=== PATIENT | female | born 1960 | race Caucasian/White ===

== ENCOUNTER 2018-10-03 07:30 | Inpatient (IN) | payer MEDICARE, MEDICAID ==
[2018-10-17] MEDS ORDERED: Tranexamic Acid 1,000 MG in NS 0.9% 50 ML* (outpatient use) IV SCH ×2
--- OUTSIDE RECORDS SUMMARY | 2018-10-17 05:34 | XMS REPORT | Continuity of Care Document ---
:1960 External Reference #:[id number] Author Name MAXINE Noel Address [address] [facility] [place] [address] Care Team Providers Name Role Phone Neda Wesley MD Care Team Information Lapel Baster Unavailable Austin Carvajal D.OKiran Primary Care Physician Unavailable Payers Date Identification Numbers Payment Provider Subscriber Effective: 2018 Policy Number: [id number] [facility] Medicare Solutions Rosario Sanchez Expires: 2018 PayID: [id number] [address] [address] [place] [address] Effective: 2018 Policy Number: [id number] Medicare Rosario Sanchez PayID: [id number] [address] [place] [address] Policy Number: [id number] Medicaid Rosario Sanchez Group Name: 1 1 [address] PayID: [id number] [place] [address] Advance Directives Description No Information Available Problems Date Description Provider Status Onset: 07/05/2018 Knee pain Eliazar Ruiz M.D. Active Onset: 07/05/2018 Knee joint effusion Eliazar Ruiz M.D. Active Onset: 07/05/2018 Arthroplasty of knee Eliazar Ruiz M.D. Active Family History Date Family Member(s) Observation Comments Father Diabetes Father Hypertension Father Heart Disease Mother Hypertension Social History Type Date Description Comments Sex Unknown Lives With Alone Occupation Retired ETOH Use Denies alcohol use Tobacco Use Start: Unknown Patient has never smoked Smoking Status Reviewed: 09/20/18 Patient has never smoked Exercise Type/Frequency Exercises rarely Allergies, Adverse Reactions, Alerts Date Description Reaction Status Severity Comments 03/03/2018 Bactrim Active 03/03/2018 Percocet Active 03/03/2018 Sulfa Antibiotics Active Medications Medication Date Status Form Strength Qnty SIG Indications Ordering Provider Ventolin HFA Active Aerosol 108(90Bas 2 puffs Unknown /0000 e) by mouth mcg/Act four times a day as needed Calcium + D3 Active Tablets 250-200mg 1 tablet Unknown /0000 orally twice a day Divalproex Sodium ER Active Tablets 250mg take 1/2 Unknown /0000 ER 24HR tab orally qd Duloxetine HCL Active Caps DR 30mg 1 orally Unknown /0000 Part bid Ferrous Sulfate Active Tablets 325(65Fe) 1 by Unknown /0000 mg mouth every day Zolpidem Tartrate Active Tablets 5mg take 1 Unknown /0000 tablet by mouth at bedtime as needed -- maximum daily dose of 1 per day Buspirone HCL Active Tablets 15mg take one Unknown /0000 tablet orally tid Omeprazole Active Capsules 40mg 1 by Unknown /0000 DR mouth every day Clonazepam Active Tablets 0.5mg 1 tablet Unknown /0000 orally tid prn Gabapentin Active Tablets 600mg take one Unknown /0000 tablet by mouth three times a day Calcium Citrate + D Active Tablets 250-200mg 1 tab in Unknown /0000 -Unit the morning. Nystatin Active Powder [id number] apply Unknown /0000 t/GM twice daily until rash clears Morphine Sulfate ER Active Tablets 15mg 1 tab Unknown /0000 ER every 8 hours Ropinirole HCL Active Tablets 0.25mg 1 tab at Unknown /0000 night Hydrochlorothiazide Active Tablets 25mg 1 by Unknown /0000 mouth every day Vitamin D High Active Capsules 1000Unit 1 by Unknown Potency /0000 mouth every day Glucophage Hx Tablets 500mg take 1 Unknown /0000 tablet - by mouth 06/28 twice a day Hydrocodone-Acetamino Hx Tablets 10-325mg 1 tab by Unknown phen /0000 mouth - every 4 / hours. MDD=5 Diclofenac Sodium Hx Tablets 50mg 1 by Unknown /0000 DR mouth - twice a 08/29 day needed Immunizations Description No Information Available Vital Signs Date Vital Result Comment 09/20/2018 11:14am Height 68 inches 5'8" Weight 251.00 lb Heart Rate 76 /min BP Systolic Recheck 130 mmHg BP Diastolic Recheck 84 mmHg Respiratory Rate 16 /min Body Temperature 98.0 F BMI (Body Mass Index) 38.2 kg/m2 07/19/2018 2:35pm Height 68 inches 5'8" Weight 259.00 lb Heart Rate 76 /min BP Systolic Recheck 98.2 mmHg BP Diastolic Recheck 84 mmHg Respiratory Rate 16 /min Body Temperature 98.2 F BMI (Body Mass Index) 39.4 kg/m2 07/05/2018 10:34am Height 68 inches 5'8" Weight 268.00 lb Heart Rate 76 /min BP Systolic Recheck 130 mmHg BP Diastolic Recheck 84 mmHg Respiratory Rate 16 /min Body Temperature 97.9 F BMI (Body Mass Index) 40.7 kg/m2 Results Test Date Facility Test Result H/L Range Note Urinalysis Profile 10/03/2018 [facility] Urine Color Yellow [address] [place] [address] [phone] Urine Appearance Clear Urine Specific [place] 1.016 N 1.010-1.030 Urine pH 7.0 N 5-9 Urine Urobilinogen Negative Negative Urine Ketones Negative Negative Urine Protein Negative Negative Urine Leukocytes Negative Negative Urine Blood Negative Negative Urine Nitrite Negative Negative Urine Bilirubin Negative Negative Urine Glucose Negative Negative Procedures Date Code Description Status 07/14/2018 85417 Holter Monitor Review (24 hr)dr review & interp only Completed 07/08/2018 39583 ECHO Transthorasic Realtime 2D W Doppler & Color Flow Hosp Completed 07/08/2018 22336 ECHO Transthorasic Realtime 2D W Doppler & Color Flow Hosp Completed Encounters Type Date Location Provider Dx Diagnosis Office Visit 07/19/2018 Orthopedic Eliazar Ruiz M25.462 Effusion, left 2:45p [facility] [address] AT M.D. knee [place] Z96.652 Presence of left artificial knee joint T84.093A [facility] compl of internal left knee prosthesis, init encntr Office Visit 07/05/2018 10:30a Orthopedic Eliazar Ruiz M25.562 Pain in left [facility] [address] AT M.D. knee [place] M25.462 Effusion, left knee Z96.652 Presence of left artificial knee joint Plan of Treatment Future Appointment(s):10/31/2018 10:45 am - Austin Chaves MD at [facility] [address] AT Eygqzimb35/22/2019 7:30 am - LILLIAN Alfaro at [facility]10/17/2018 7:30 am - Eliazar Ruiz M.D. at [facility]..09/20/2018 - Eliazar Ruiz M.D.T84.093D Other mechanical complication of internal left knee oczrjthpA73.652 Presence of left artificial knee jointFollow up:Approx 10/26 for post-op visit from 10/16
--- OUTSIDE RECORDS SUMMARY | 2018-10-17 05:34 | XMS REPORT | Continuity of Care Document ---
:1960 External Reference #:[id number] Author Name Crystal Torres Care Team Providers Name Role Phone Neda Wseley MD Care Team Information Manager Code Unavailable Austin Carvajal D.OKiran Primary Care Physician Unavailable Payers Date Identification Numbers Payment Provider Subscriber Effective: 2018 Policy Number: [id number] [facility] Medicare Solutions Rosario Sanchez Expires: 2018 PayID: [id number] [address] [address] [place] [address] Effective: 2018 Policy Number: [id number] Medicare Rosario Sanchez PayID: [id number] [address] [place] [address] Policy Number: [id number] Medicaid Rosario Sanchez Group Name: 1 1 [address] PayID: [id number] [place] [address] Advance Directives Description No Information Available Problems [...] Clonazepam Active Tablets 0.5mg 1 tablet Unknown / orally tid prn Gabapentin Active Tablets 600mg take one Unknown /0000 tablet by mouth three times a day Calcium Citrate + D Active Tablets 250-200mg 1 tab in Unknown /0000 -Unit the morning. Nystatin Active Powder 106986Ods apply Unknown /0000 t/GM twice daily until [...] BMI (Body Mass Index) 40.7 kg/m2 Results Description No Information Available Procedures Date Code Description Status 07/14/2018 23582 Holter Monitor Review (24 hr)dr review & interp only Completed 07/08/2018 44190 ECHO Transthorasic Realtime 2D W Doppler & Color Flow Hosp Completed 07/08/2018 02130 ECHO Transthorasic Realtime 2D W Doppler & Color Flow Hosp Completed Encounters Type Date Location Provider Dx Diagnosis Office Visit 07/19/2018 Orthopedic Eliazar Ruiz, M25.462 Effusion, left 2:45p [facility] AT M.D. knee [place] Z96.652 Presence of left artificial knee joint T84.093A [facility] compl of internal left knee prosthesis, init encntr Office Visit 07/05/2018 10:30a Orthopedic Eliazar Ruiz M25.562 Pain in left [facility] AT M.D. knee [place] M25.462 Effusion, left knee Z96.652 Presence of left artificial knee joint Plan of Treatment Future Appointment(s):10/31/2018 10:45 am - Austin Chaves MD at [facility] AT Sqgvahnr74/22/2019 7:30 am - LILLIAN Alfaro at [facility]10/17/2018 7:30 am - Eliazar Ruiz M.D. at [facility]09/20/2018 - Eliazar Ruiz M.D.T84.093D Other mechanical complication of internal left knee iecijuhnA20.652 Presence of left artificial knee jointFollow up:Approx 10/26 for post-op visit from 10/16
[2018-10-17] MEDS ORDERED: Dexamethasone IV* 4 MG/ML 1 ML (4 MG) IV SLOW PU ONE (06:00)
[2018-10-17] MEDS ORDERED: Acetaminophen TAB* 325 MG PO ONE (06:00)
[2018-10-17] MEDS ORDERED: Famotidine TAB* 20 MG PO ONE (06:00)
[2018-10-17] MEDS ORDERED: Lactated Ringers 1000 ML Bag* 1,000 ML IV SCH (06:00)
[2018-10-17] MEDS ORDERED: celeCOXIB CAP* 100 MG PO ONE (06:00)
[2018-10-17] MEDS ORDERED: celeCOXIB CAP* 200 MG PO ONE (06:00)
[2018-10-17] MEDS ORDERED: Dexamethasone IV* 4 MG/ML 1 ML (4 MG) ONE (06:04)
[2018-10-17] MEDS ORDERED: celeCOXIB CAP* 100 MG ONE (06:04)
[2018-10-17] MEDS ORDERED: Famotidine TAB* 20 MG ONE (06:04)
[2018-10-17] MEDS ORDERED: Buffered Lidocaine 1% SYRIN* 1 ML/SYRINGE INTRADERM ONE (06:05)
[2018-10-17] MEDS ORDERED: ceFAZolin 2 GM in NS PREMIX(*) 2 GM/100 ML BAG IVPB ONE (06:05)
[2018-10-17] MEDS ORDERED: Acetaminophen TAB* 325 MG ONE (06:37)
[2018-10-17] MEDS: Buffered Lidocaine 1% SYRIN* 1 ML/SYRINGE INTRADERM ONE ×2 (06:38→19:41)
[2018-10-17] MEDS ORDERED: Lidocaine 1%* 5 ML VIAL ONE (07:16)
[2018-10-17] MEDS ORDERED: ROPIVACAINE 5 MG/ML 30 ML BTL (0.5%) ONE (07:16)
[2018-10-17] MEDS ORDERED: fentaNYL* 50 MCG/ML 2 ML VIAL (100 MCG VIAL) ONE ×3 (07:18→10:41)
[2018-10-17] MEDS ORDERED: Midazolam* 1 MG/ML 2 ML VIAL (2 MG) ONE (07:18)
[2018-10-17] MEDS ORDERED: Bupivacaine 0.5%* 50 ML VIAL ONE (07:24)
[2018-10-17] MEDS ORDERED: KETAMINE HCL* 50 MG/ML 10 ML VIAL ONE (08:03)
[2018-10-17] MEDS ORDERED: Propofol* 10 MG/ML 20 ML BTL ONE (08:09)
[2018-10-17] MEDS ORDERED: Bupivacaine 0.5% W/EPI SDV* 30 ML VIAL ONE ×2 (08:10→08:16)
[2018-10-17] MEDS ORDERED: Ondansetron INJ* 2 MG/ML VIAL IV PRN (08:16)
[2018-10-17] MEDS ORDERED: Ketorolac INJ* 30 MG/ML 1 ML VIAL IV PRN (08:16)
[2018-10-17] MEDS ORDERED: Acetaminophen IV 1GM/100ML * 1,000 MG/100 ML VIAL IVPB ONE (08:16)
[2018-10-17] MEDS ORDERED: DiMENhydriNATE IV* 50 MG/ML VIAL IV PUSH PRN (08:16)
[2018-10-17] MEDS ORDERED: Naloxone* 0.4 MG/ML 1 ML VIAL IV PRN (08:16)
[2018-10-17] MEDS ORDERED: HYDROmorphone INJ1* 1 MG/ML SYRINGE IV PRN (08:16)
[2018-10-17] MEDS ORDERED: oxyCODONE TAB* 5 MG TAB PO PRN (08:16)
[2018-10-17] MEDS ORDERED: Metoprolol Tartrate IV* 1 MG/ML 5 ML VIAL ONE ×2 (09:27→10:36)
[2018-10-17] MEDS ORDERED: Magnesium Hydroxide LIQ* 30 ML UDC PO PRN (09:49)
[2018-10-17] MEDS ORDERED: Albuterol HFA INHALER* 8 gm MDI INH PRN (09:53)
[2018-10-17] MEDS ORDERED: traMADol TAB* 50 MG PO SCH (10:00)
[2018-10-17] MEDS ORDERED: Metoprolol Tartrate IV* 1 MG/ML 5 ML VIAL IV PRN (10:32)
[2018-10-17] MEDS ORDERED: traMADol TAB* 50 MG ONE ×2 (10:41→14:09)
[2018-10-17] MEDS: fentaNYL* 50 MCG/ML 2 ML VIAL (100 MCG VIAL) IV PRN ×2 (10:45→14:00)
[2018-10-17] MEDS ORDERED: Acetaminophen IV 1GM/100ML * 100 ML ONE (11:54)
[2018-10-17] MEDS: Gabapentin CAP(*) 300 MG PO SCH ×2 (12:19→21:41)
[2018-10-17] MEDS: busPIRone TAB* 15 MG PO SCH ×3 (12:19→22:16)
[2018-10-17] MEDS: clonazePAM TAB(*) 1 MG PO SCH ×2 (12:19→21:40)
[2018-10-17] MEDS: Morphine ORAL.SOLN 10 mg* 2 MG/ML UDC 5 ml PO SCH ×2 (12:20→21:38)
[2018-10-17 13:25] LABS: ABS Basophils 0 10^3/ul (0-0.2); ABS Eosinophils 0 10^3/ul (0-0.6); ABS Lymphocytes 0.6 10^3/ul (1.0-4.8); ABS Monocytes 0.1 10^3/ul (0-0.8); ABS Neutrophils 6.7 10^3/ul (1.5-7.7); ABS Nucleated RBC 0 10^3/ul; Eosinophil % 0.1 %; Hematocrit 40 % (33-41); Hemoglobin 13.3 g/dL (12.0-16.0); Mean Corpuscular HGB Conc 33 g/dL (31-36); Mean Corpuscular Hemoglobin 31 pg (27-31); Mean Corpuscular Volume 92 fL (80-97); Mean Platelet Volume 8.3 fL (7.4-10.4); Nucleated Red Blood Cells % 0; Platelet Count 194 10^3/uL (150-450); Red Blood Count 4.37 10^6 /uL (3.70-4.87); Red Cell Distribution Width 15 % (10.5-15); White Blood Count 7.5 10^3/uL (3.5-10.8)
[2018-10-17 13:47] LABS: Anion Gap 4 mmol/L (2-11); Blood Urea Nitrogen 16 mg/dL (6-24); CO2 Carbon Dioxide 34 mmol/L (22-32); Calcium 8.9 mg/dL (8.6-10.3); Chloride 99 mmol/L (101-111); EGFR African American 74.3 (>60); EGFR Non-African American 61.4 (>60); Glucose 130 mg/dL (70-100); Magnesium 2.4 mg/dL (1.9-2.7); Potassium 4.4 mmol/L (3.5-5.0); Sodium 137 mmol/L (135-145)
[2018-10-17] MEDS ORDERED: busPIRone TAB* 15 MG PO SCH (14:00)
[2018-10-17] MEDS: traMADol TAB* 50 MG PO PRN (14:10)
--- NOTE | 2018-10-17 14:11 | OP ---
DATE OF OPERATION: 10/17/18 - ROOM #447 DATE OF : 62 SURGEON: Eliazar Ruiz MD SWEET PICKLED FRUIT MAKER: Ingrid Flores RPA ANESTHESIA: Regional/spinal/sedation. PRE-OP DIAGNOSIS: Instability, left total knee arthroplasty. POST-OP DIAGNOSIS: Instability, left total knee arthroplasty. OPERATIVE PROCEDURE: Revision tibial polyethylene, left total knee. INDICATIONS: Ms. Sanchez is a 58-year-old female who, in 2003, underwent a left total knee replacement. This was the Scorpio system which is now discontinued. She also had a cruciate-retaining knee placed. Last fall, she had fallen, injuring the left knee and had significant left knee pain. She also now could hyperextend and had some very specific instability. I discussed with her that revising the polyethylene might work to restore the stability but we may end up needing to switch out to a cruciate-substituting knee replacement. Unfortunately, the Scorpio system is discontinued, so there are no femoral components available as I was hoping just to change the femoral component to a PS type implant. I discussed with her we would try with just a polyethylene but if her stability was not improved, we would then need to change out both the femoral and tibial components. Other risks of surgery such as infection, scar formation, stiffness, DVT, pulmonary embolism, hardware failure, and continued instability were some of the risks discussed. She had been declared medically optimized and wished to proceed. ESTIMATED BLOOD LOSS: Less than 20 cc. COMPLICATIONS: None. DESCRIPTION OF PROCEDURE: The patient had a femoral nerve block placed in the holding area and was brought back to the OR. Spinal anesthesia was introduced. Agosto catheter was placed. Tourniquet was placed over the proximal left thigh and was used during the case. Total tourniquet time would be 42 minutes. Left knee was prepped and then draped. Esmarch was used to exsanguinate the leg and the tourniquet was raised. Incision was made using the old scar which was slightly lateral. Incision was carried down through the skin and subcutaneous tissues. Extensor mechanism was exposed and a sharp parapatellar arthrotomy was made. Just a little bit of clear yellowish joint fluid was encountered. Soft tissues were sharply elevated from the medial side of the tibia and part of her fat pad had regrown and this was also sharply excised. Care was taken not to damage the polyethylene of the patella or scrape against the metal of her femur. With taking down some of the soft tissues, nice exposure anteriorly of the polyethylene was obtained and using an osteotome, this was driven down and then levered upwards and polyethylene popped out. She had significant posterior lip wear; on the medial side she was completely worn down and she was wearing on the lateral side as well. Knee was copiously pulse lavaged and some of the soft tissues and fibrillated little bits of tissue were also sharply removed. Trial polyethylene was placed and with a 10, she still hyperextended and had some of that same side-to- side instability. With the 12, this improved significantly, but she still had some of that [id number] play. With the 15, however, this was completely resolved and she no longer hyperextended. The knee still flexed very nicely but now patella occasionally wanted to flip over from the top side. Considering though that she flexed all the way back, had excellent stability now, I thought this would work well so that we do not have to rip out her femoral and tibial components. Knee was again copiously pulse lavaged. Total of 6 L would be used. Initially a size 7 polyethylene that was 15-mm thick was inserted, but this did not seat right. When we confirmed the tibia size, it was a 9, and that was removed. The size 9 polyethylene was then snapped into place. She had the same wonderful motion and stability. The knee was then copiously pulse lavaged and parapatellar arthrotomy was repaired using an interrupted #1 Vicryl sutures. Tourniquet was let down and no significant bleeding was encountered. Subcutaneous tissues were reapproximated using 2-0 Vicryl. Skin was closed using gelacio. Sterile dressing and a Cryo/Cuff were applied in the OR. The patient was then awakened , stable on transfer to the recovery room. [id number]/[facility] #: [id number] JAVIER
[2018-10-17 14:29] LABS: Rapid HIV 1 Nonreactive (Nonreactive)
[2018-10-17 15:08] LABS: Troponin I 0.01 ng/mL (<0.04)
--- NOTE | 2018-10-17 15:18 | ECHO ---
Patient: CLAU RUTLEDGE [facility] Rec#: [id number] : 1960 Date: 10/17/2018 Age: 58y Height: 174 cm / 68.5 in Weight: 112 kg / 246.8 lbs Sex: F BSA: 2.25 Room#: [place] [id number] Admit Date#: 10/17/2018 Type: Inpatient Referring: ARLENE GRAVES Reading: Gee Cook MD Crusher Plant Operator: Мария Castañeda RDCS CC: Austin Carvajal DO Transthoracic Echocardiogram Indication: A-Fib BP: 104/80 HR: 50 Rhythm: NSR with PACs Findings History: S/P partial knee replacement today with new a-fib. HLD,hyperparathyroid. Technical Comments: The study was technically limited due to the patient's inability to lay in the left lateral decubitus position. Study done with patient supine due to recent knee procedure. Completed at 1431. Left Ventricle: The left ventricular chamber size is normal. Global left ventricular wall motion and contractility are within normal limits. There is normal left ventricular systolic function. The estimated ejection fraction is 55-60%. Abnormal left ventricular diastolic function is observed. Left Atrium: The left atrial chamber size is normal. Right Ventricle: The right ventricular cavity size is normal. The right ventricular global systolic function is normal. Right Atrium: The right atrial cavity size is normal. Aortic Valve: The aortic valve is trileaflet. There is no evidence of aortic valve thickening. There is no evidence of aortic regurgitation. There is no evidence of aortic stenosis. Mitral Valve: The mitral valve leaflets are mildly thickened. There is mild mitral regurgitation. There is no evidence of mitral stenosis. Tricuspid Valve: The tricuspid valve leaflets are normal. There is trace to mild tricuspid regurgitation. There is evidence of borderline pulmonary hypertension. There is no tricuspid stenosis. Pulmonic Valve: The pulmonic valve appears normal. There is no evidence of pulmonic regurgitation. There is no pulmonic stenosis. Pericardium: The pericardium appears normal. Aorta: The ascending aorta is not well visualized. There is no dilatation of the aortic arch. There is no dilation of the aortic root. Pulmonary Artery: The main pulmonary artery appears normal. Venous: The venous system is not well visualized. Summary: There are no significant changes when compared to the previous study done on 07/08/18 Conclusions Global left ventricular wall motion and contractility are within normal limits. There is normal left ventricular systolic function. The estimated ejection fraction is 55-60%. The right ventricular global systolic function is normal. There is no evidence of aortic stenosis. There is mild mitral regurgitation. There is trace to mild tricuspid regurgitation. There is evidence of borderline pulmonary hypertension. The pericardium appears normal. There are no significant changes when compared to the previous study done on 07/08/18 Measurements Name Value Normal Range RVIDd (AP) 2D 2.7 cm (0.9 - 2.6) RVDdMajor (2D) 3 cm (2.2 - 4.4) RAd ISD 4CH 4.3 cm (3.4 - 4.9) RA (A4C)W 3 cm (2.9 - 4.6) IVSd (2D) 1.1 cm (0.6 - 1) LVPWd (2D) 0.9 cm (0.6 - 1) LVIDd (2D) 3.6 cm (3.6 - 5.4) LVIDs (2D) 2.8 cm - LV FS (2D) 22 % (25 - 45) Aortic Annulus 2.1 cm (1.4 - 2.6) Ao root diameter (2D) 3 cm (2.1 - 3.5) Aortic arch 2 cm (1.8 - 3.4) Descending Ao 0.8 cm - LA dimension (AP) 2D 3.6 cm (2.3 - 3.8) LAd ISD 4CH 5.4 cm (2.9 - 5.3) LA ISD 4CH W 3.3 cm (2.5 - 4.5) Name Value Normal Range LA ESV SP 4CH (A/L) 21 ml - LA ESV SP 2CH (A/L) 27 ml - LA ESV BP (A/L) index 25 ml/m2 - Name Value Normal Range MV E-wave Vmax 0.8 m/sec - MV deceleration time 197 msec - MV A-wave Vmax 0.7 m/sec - LV septal e' Vmax 0.1 m/sec - LV lateral e' Vmax 0.13 m/sec - LV E:e' septal ratio 8 ratio - LV E:e' lateral ratio 7.7 ratio - Name Value Normal Range AV Vmax 1.5 m/sec - AV VTI 35.9 cm - AV peak gradient 9 mmHg - AV mean gradient 4 mmHg - LVOT Vmax 1 m/sec - LVOT VTI 31.9 cm - LVOT peak gradient 4 mmHg - LVOT mean gradient 2 mmHg - Name Value Normal Range MR Vmax 4.8 m/sec - MR VTI 157 cm - Name Value Normal Range TR Vmax 2.6 m/sec - TR peak gradient 26 mmHg - RAP 8 mmHg - RVSP 34 mmHg - Name Value Normal Range PV Vmax 0.7 m/sec - PV peak gradient 2 mmHg -
--- NOTE | 2018-10-17 15:18 | CONS ---
CC: Dr. Austin Carvajal; Dr. Radha David* CONSULTATION REPORT: DATE OF CONSULT: 10/17/18. PRIMARY CARE PROVIDER: Dr. Austin Carvajal. MY ATTENDING WHILE IN THE HOSPITAL: Dr. Radha David. REASON FOR CONSULT: Co-management of comorbid medical conditions, atrial fibrillation postoperatively. HISTORY OF PRESENT ILLNESS: Ms. Sanchez is a 58-year-old female with past medical history significant for obesity, status post gastric bypass; chronic pain; high cholesterol; depression and anxiety, who is here today, underwent a right knee revision with Dr. Ruiz. The patient states that she was feeling in her normal state of health before surgery except for having pain in her knee and some increased swelling in her bilateral lower extremities. The patient states she has had previous swelling in her bilateral lower extremities, symmetrically, and that responded to hydrochlorothiazide. The patient states that there had been a long period of time where she had no swelling in her legs , but that it came back over the last 2 days without any changes in her diet or medications. The patient did not take her hydrochlorothiazide this morning. The patient has no dyspnea on exertion. The patient does, however, endorse 3- pillow orthopnea, which she states is going on for a long period of time. The patient states she has had 2 sleep studies that were completely clean and did not reveal any signs of obstructive sleep apnea. The patient has no recent illnesses. No fevers, chills, pain with urination, abdominal pain, diarrhea. The patient states, however, this morning, she did feel some palpitations and some pain radiating into the right side of her neck. However, she did not mention anything as she did not want to delay her surgery. The patient then in surgery was found to go in to atrial fibrillation with rapid ventricular response rate in the 120s, which responded initially to metoprolol tartrate. The patient after surgery stated that she felt as if she had some shortness of breath, inability to catch a full breath, but had no more chest pain. The patient did have another recurrence of atrial fibrillation postoperatively, which converted on its own without metoprolol, which was ordered. The patient is feeling very anxious and fidgety. The patient states the pain in her leg is 7/10. The patient had pneumonia approximately 6 to 8 weeks ago, does not know what she was treated with. The patient had no history of atrial fibrillation. The patient had previous Holter monitor, which did not show atrial fibrillation. The patient also had previous echo that she said was normal, but did not remember the exact results. Those were both earlier this year. The patient during the interview is very weepy and anxious about her clinical condition. PAST MEDICAL HISTORY: Low back pain; obesity, status post gastric bypass; hyperparathyroidism; depression, anxiety; hyperlipidemia; sciatica; chronic pain ; GERD. PAST SURGICAL HISTORY: Right ankle surgeries; total abdominal hysterectomy; cholecystectomy; cystocele and rectocele surgery; gastric bypass, 2004; left knee replacement, 2004; colonoscopy, 2019; laparoscopy, 2014. ALLERGIES: OXYCODONE, SULFA. FAMILY HISTORY: The patient's mother is alive, has heart disease and hypertension. The patient father is alive, has heart disease, cancer, diabetes, and hypertension. The patient has 1 healthy sister and 3 healthy sons. This is per primary care records. SOCIAL HISTORY: The patient is never smoker. The patient denies alcohol abuse or illicit drug use. The patient is disabled. The patient's surrogate decision maker will be her mother, Naomi Travis. REVIEW OF SYSTEMS: A 14-point review of systems was reviewed with the patient and is negative except as above in the HPI. PHYSICAL EXAM: General: The patient is a 58-year-old female, who appears stated age and sitting in the bed, anxious and crying. Vital Signs: On evaluation, temperature 97.3, pulse 52, respiratory rate 20, oxygen saturation 100% on 2 L, blood pressure 120/60. HEENT: Head normocephalic, atraumatic. Sclerae anicteric. No conjunctival injection. Nasal mucosa moist. Oral mucosa moist. No pharyngeal erythema, discharge, or exudate. Neck: Supple, nontender. No lymphadenopathy. No carotid bruit auscultated. No JVD. Cardiac : Regular rate and rhythm. No clicks, murmurs, gallops, or rubs. Pulses are 2 + in the dorsalis pedis, posterior tibial, and radial areas. Respiratory: Clear to auscultation bilaterally. No wheezes, rales, or rhonchi. Good air exchange bilaterally. Abdomen: Soft, nontender, nondistended. Bowel sounds present in all 4 quadrants. No hepatosplenomegaly. No abdominal bruits auscultated. No hepatojugular reflux. Genitourinary: No suprapubic or CVA tenderness. Agosto in place, draining clear yellow urine. Skin: Left knee covered with bulky dressing, not visualized. Neuro: Cranial nerves II through XII intact. No focal deficits. Alert and oriented x3. Psychiatric: Anxious and weepy. DIAGNOSTIC STUDIES/LAB DATA: Preoperatively, white blood cell count 7.3, hemoglobin 13.3, platelet count 217. INR 0.82, aPTT 30.9. Sodium 139, potassium 4.1, chloride 96, carbon dioxide 41, anion gap 2, BUN 18, creatinine 0.98, glucose 87, hemoglobin A1c 5.7, calcium 9.2. Bilirubin 0.5, AST 22, ALT 26, alkaline phosphatase 67, protein 5.8, albumin 3.6, globulin 2.2. Lipid profile from July 2018 shows LDL 118, HDL 50.2, triglycerides are 134. Urine unremarkable. Studies: EKG shows atrial fibrillation, normal axis, incomplete left bundle branch block. T-wave inversions, T-wave flattening in aVF. No other ST- segment abnormalities compared to preoperative EKG. Atrial fibrillation, Previously in normal sinus rhythm, there are no other significant changes. ASSESSMENT AND PLAN: Impression: Ms. Sanchez is a 58-year-old female with past medical history significant for lower extremity swelling, obesity, hyperlipidemia, status post gastric bypass, who is status post a right total knee revision on 10/17/18, and had intraoperative and postoperative atrial fibrillation, which is now resolved. 1. Atrial fibrillation, neck pain. The patient's obesity, hyperlipidemia are her risk factors for cardiac disease. The patient is now in normal sinus rhythm. The patient responded to metoprolol. The patient will be monitored on the telemetry unit for possible need for repeat dosing of metoprolol or other rate controlling agents. The patient's blood pressure is borderline low and was lower when she was having rapid ventricular response. The patient had Holter monitor earlier this year, which she states there were only PVCs and PACs and no atrial fibrillation. The patient CHADS-VASc score is 1 only for her female gender, though the patient is on hydrochlorothiazide and this is mainly for edema but the patient may have underlying hypertension. She does have risk factors for it. The patient had a previous echo, which she does not know the results of. Given the patient's atrial fibrillation and neck pain, I will obtain a repeat echo, troponin, basic metabolic panel to assess her acid-base status with venous blood gas and magnesium for electrolyte optimization to help prevent recurrence of atrial fibrillation postoperatively. The patient will have metoprolol as needed for high heart rates. The patient currently has some shortness of breath, but no more chest pain. Given the patient's lower extremity swelling and new atrial fibrillation and right-sided neck pain, pulmonary embolism is on the differential. However, we will assess the results of the echocardiogram before ordering possible CTA. 2. Postoperative state. Management per Orthopedics. Trend H and H, PT/OT, pain control. The patient has chronic pain and may be difficult to control postoperatively. The patient will have bowel regimen. Agosto should be removed as soon as possible. The patient should be initiated on warfarin both for postoperative DVT prophylaxis and her new-onset atrial fibrillation. After 1 month, the decision to continue or stop this should be made with her primary care provider. 3. Elevated carbon dioxide level. The patient states that she has had 2 tests for sleep apnea, both of which were negative. We will retest here in the hospital given the patient's carbon dioxide level and order a venous blood gas to assess her acid-base status. The patient given her body habitus, has risk factors for obstructive sleep apnea, obesity hypoventilation syndrome, and addressing these might help significantly to decrease the patient's risk of recurrent atrial fibrillation. 4. High cholesterol. The patient is untreated, we will defer this to the patient's primary care provider. 5. Orthopnea and lower extremity edema. The patient had previous echocardiogram, which was reported as normal. We will repeat at this time given acute changes as well as atrial fibrillation and neck pain. The patient has risk factors for heart failure with preserved ejection fraction as well as possible tachycardia-induced cardiomyopathy, if the patient has been asymptomatic going in and out of atrial fibrillation that was not captured on the Holter monitor. 6. DVT prophylaxis. Heparin to Coumadin per Orthopedics. 7. FEN. The patient will have a regular unrestricted diet. 8. Code status. The patient would like to be a full code. TIME SPENT: Approximately 75 minutes spent on this consultation, 35 of which was spent [id number] with the patient, obtaining history and physical, and discussing treatment plan. Plan was discussed with my attending, Dr. Radha David, and she is in agreement. Thank you very much for this consultation. We will continue to follow along with you. LILLIAN WILKINS [id number]/CPS #: [id number] JAVIER
[2018-10-17] MEDS: ceFAZolin 1 GM ADVAN(*) 1 GM in NS 0.9% 50 ML* 50 ML IVPB SCH (16:00)
[2018-10-17] MEDS: Morphine 4 MG/ML VIAL (1 ml) 4 MG/ML VIAL IV PRN ×2 (16:08→19:46)
[2018-10-17] MEDS ORDERED: Acetaminophen TAB* 325 MG PO PRN (16:51)
[2018-10-17] MEDS ORDERED: Warfarin TAB(*) 10 MG PO ONE (17:00)
[2018-10-17] MEDS: HYDROcodone/ACETAMIN 5-325 MG* 1 TAB PO PRN (17:06)
[2018-10-17] MEDS: Cyclobenzaprine TAB* 10 MG PO PRN (17:51)
--- NOTE | 2018-10-17 21:17 | CONS ---
CC: Dr. Austin Carvajal * CONSULTATION REPORT: DATE OF CONSULT: 10/17/18 INDICATION FOR CONSULTATION: Atrial fibrillation. HISTORY OF PRESENT ILLNESS: Patient is a 58-year-old female with a history of high cholesterol, gastric bypass surgery, depression who underwent a right knee revision of her knee replacement. Patient tolerated the procedure well. There were no significant complications; however, as she was coming out of anesthesia , she did go into atrial fibrillation with heart rate of about 120 beats per minute. Patient had no significant symptoms associated with it. When I went to see the patient in the recovery room, she was in normal sinus rhythm with bursts of tachycardia lasting 8 to 10 seconds in duration and then reverting back to normal sinus rhythm. Patient was unaware of her episodes of tachycardia. She was asymptomatic in the recovery room. PAST MEDICAL HISTORY: Significant for obesity, hyperparathyroidism, depression , anxiety, hyperlipidemia. PAST SURGICAL HISTORY: Ankle surgeries in the past, total abdominal hysterectomy, cholecystectomy, cystocele surgery, gastric bypass surgery in 2004 , knee replacement surgery in 2004. MEDICATIONS: At-home medications: 1. Ambien 10 mg q.h.s. 2. Iron tablets. 3. BuSpar 15 mg t.i.d. 4. Hydrochlorothiazide 25 mg a day. 5. Clonazepam 1 mg t.i.d. as needed. 6. Depakote ER 750 mg at night. 7. Cymbalta 60 mg a day. 8. Omeprazole 40 mg a day. 9. Gabapentin 600 mg 3 times a day. 10. ReQuip 0.25 mg at night. ALLERGIES: To HYDROCODONE and SULFA medications. SOCIAL HISTORY: She lives with her . She denies tobacco or alcohol use. Patient does not get any regular exercise because of her chronic knee pain. REVIEW OF SYSTEMS: Negative for fevers and chills. Negative for changes in bowel and bladder habit. Negative for changes in weight. Other 12-point review was unremarkable. PHYSICAL EXAM: Height is 5 feet 8 inches, weight is 246 pounds. Temperature 97.7, heart rate is 50, blood pressure 101/75, respiratory rate is 14, oxygen saturation 100% on 2 L. Sclerae anicteric. Oropharynx is pink without erythema. Carotids are 2+ without bruits. JVD is normal. Thyroid is normal. Cardiac Exam: S1, S2 without any murmurs, rubs, or gallops. Lungs are clear to auscultation bilaterally. There is no dullness to percussion. Abdomen is soft, nontender, nondistended with normoactive bowel sounds. Extremities: Her left extremity has some swelling because of the surgery. Her right extremity has no edema. Patient is awake, alert, and oriented. She moves her upper extremities normally. DIAGNOSTIC STUDIES/LAB DATA: Laboratory studies at 1 o'clock today show CBC within normal limits. Chemistries within normal limits. Troponins are negative x2. An echocardiogram today demonstrated normal LV size and systolic function. No significant valvular abnormalities. IMPRESSION: This is a 58-year-old female with a history of obesity, history of anxiety, status post knee revision surgery today. In the operating room, patient went into atrial fibrillation. While she was in the recovery room, patient converted back to normal sinus rhythm. She was having brief bursts of atrial arrhythmias in the recovery area. Patient was asymptomatic from these arrhythmias. At this point, I do not think any specific treatment is necessary. Patient will be given Lopressor 5 mg IV as needed for increasing atrial ectopy. Her other medications will remain the same. Her echocardiogram was unremarkable. Patient will already be started on Coumadin for her knee surgery. I would leave her on Coumadin. I will be glad to see the patient in followup at [facility] in 4 weeks after discharge. This case was discussed with LILLIAN Goodwin. [id number]/HEIDY #: [id number] JAVIER
[2018-10-17] MEDS: Ropinirole TAB* 0.5 MG TAB PO SCH (21:39)
[2018-10-17] MEDS: Magnesium Hydroxide LIQ* 30 ML UDC PO SCH (21:39)
[2018-10-17] MEDS: Zolpidem TAB* 10 MG PO SCH (21:40)
[2018-10-17] MEDS: DULoxetine DR CAP* 60 MG CAP.DR PO SCH (21:40)
[2018-10-17] MEDS: Divalproex ER TAB(*) 250 MG PO SCH (21:40)
[2018-10-17] MEDS: Docusate CAP* 100 MG PO SCH (21:40)
[2018-10-18] MEDS: ceFAZolin 1 GM ADVAN(*) 1 GM in NS 0.9% 50 ML* 50 ML IVPB SCH ×2 (00:06→07:38)
[2018-10-18] MEDS: D5W 1/2 NS 1000 ML BAG* 1,000 ML IV SCH (01:19)
[2018-10-18] MEDS: HYDROcodone/ACETAMIN 5-325 MG* 1 TAB PO PRN ×3 (04:08→18:11)
[2018-10-18] MEDS: Morphine ORAL.SOLN 10 mg* 2 MG/ML UDC 5 ml PO SCH ×3 (05:18→21:00)
[2018-10-18] MEDS: Gabapentin CAP(*) 300 MG PO SCH ×3 (05:18→21:03)
[2018-10-18 07:12] LABS: Hematocrit 38 % (33-41); Hemoglobin 12.6 g/dL (12.0-16.0); Mean Platelet Volume 8.6 fL (7.4-10.4); Platelet Count 204 10^3/uL (150-450)
[2018-10-18 07:19] LABS: INR 1.15 (0.82-1.09)
[2018-10-18] MEDS: traMADol TAB* 50 MG PO PRN ×2 (07:34→15:03)
[2018-10-18] MEDS: Docusate CAP* 100 MG PO SCH (07:35)
[2018-10-18] MEDS: DULoxetine DR CAP* 30 MG CAP.DR PO SCH (07:36)
[2018-10-18] MEDS: clonazePAM TAB(*) 1 MG PO SCH ×3 (07:36→21:02)
[2018-10-18] MEDS: busPIRone TAB* 15 MG PO SCH ×3 (07:36→21:02)
[2018-10-18] MEDS: Pantoprazole TAB * 40 MG TAB PO SCH (07:37)
[2018-10-18] MEDS: Ferrous Sulfate TAB* 325 MG PO SCH (07:37)
[2018-10-18] MEDS: Hydrochlorothiazide TAB* 25 MG PO SCH (07:37)
[2018-10-18 07:39] LABS: BUN/Creatinine Ratio 15.1 (8-20); Calcium 8.7 mg/dL (8.6-10.3); EGFR African American 75.2 (>60); EGFR Non-African American 62.1 (>60); Potassium 3.9 mmol/L (3.5-5.0)
[2018-10-18] MEDS: Magnesium Hydroxide LIQ* 30 ML UDC PO SCH (07:39)
[2018-10-18] MEDS: Heparin VIAL(*) 5000 UNITS/ML VIAL (FIVE THOUSAND) SUBCUT SCH ×3 (07:39→21:01)
[2018-10-18] MEDS: Morphine 4 MG/ML VIAL (1 ml) 4 MG/ML VIAL IV PRN ×2 (10:07→19:28)
[2018-10-18 10:13] LABS: Hepatitis C Antibody Nonreactive (Nonreactive)
--- NOTE | 2018-10-18 10:28 | PN ---
Progress Note - Progress Note Date of Service: 10/18/18 SOAP: Subjective: []Pt seen at bedside. She reports left knee pain. Denies CP, SOB, dizziness or nausea. Objective: []General: NAD, sitting comfortably in a chair LLE: Left knee dressing and incision CDI, thigh soft, DF/PF intact, DP2+, sensation intact to light touch distally Calves supple and nontender without erythema, edema or palpable cords Assessment: []POD 1 sp revision of polyethylene LTK Plan: []WBAT PT/OT Discussed with rekha enriquez for transfer back to [facility] in the room with pain medication at time of my visit Heparin bridge to coumadin, coumaidn 8 mg today Vital Signs Temp 98.8 F 10/18/18 04:02 Pulse 54 10/18/18 03:54 Resp 16 10/18/18 10:13 BP 125/58 10/18/18 03:54 Pulse Ox 98 10/18/18 03:54 Intake & Output 10/17/18 10/18/18 10/18/18 18:59 06:59 18:59 Intake Total 2770 1412 Output Total 1750 2750 Balance 1020 -1338 Weight 258 lb 14.4 oz Intake: IV Fluids 2250 1212 D5W 1/2 NS 1157 LR 2200 TRANSEXAMIC ACID 1G 50 cefazolin 55 Oral 520 200 Output: Urine 1800 [place] 1600 950 Estimated Blood Loss 150 Other: # Bowel Movements 0 Laboratory Last Values WBC 7.5 10^3/uL (3.5-10.8) 10/17/18 13:08 RBC 4.37 10^6 /uL (3.70-4.87) 10/17/18 13:08 Hgb 12.6 g/dL (12.0-16.0) 10/18/18 06:15 Hct 38 % (33-41) 10/18/18 06:15 MCV 92 fL (80-97) 10/17/18 13:08 MCH 31 pg (27-31) 10/17/18 13:08 MCHC 33 g/dL (31-36) 10/17/18 13:08 RDW 15 % (10.5-15) 10/17/18 13:08 Plt Count 204 10^3/uL (150-450) 10/18/18 06:15 MPV 8.6 fL (7.4-10.4) 10/18/18 06:15 Neut % (Auto) 90.3 % 10/17/18 13:08 Lymph % (Auto) 8.0 % 10/17/18 13:08 [place] % (Auto) 1.5 % 10/17/18 13:08 Eos % (Auto) 0.1 % 10/17/18 13:08 Baso % (Auto) 0.1 % 10/17/18 13:08 Absolute Neuts (auto) 6.7 10^3/ul (1.5-7.7) 10/17/18 13:08 Absolute Lymphs (auto) 0.6 10^3/ul (1.0-4.8) L 10/17/18 13:08 Absolute Monos (auto) 0.1 10^3/ul (0-0.8) 10/17/18 13:08 Absolute Eos (auto) 0 10^3/ul (0-0.6) 10/17/18 13:08 Absolute Basos (auto) 0 10^3/ul (0-0.2) 10/17/18 13:08 Absolute Nucleated RBC 0 10^3/ul 10/17/18 13:08 Nucleated RBC % 0 10/17/18 13:08 INR (Anticoag Therapy) 1.15 (0.82-1.09) H 10/18/18 06:15 VBG pH 7.45 (7.32-7.43) H 10/17/18 16:14 VBG pCO2 48 mmHg (41-51) 10/17/18 16:14 VBG pO2 61.0 mmHg (35-45) H 10/17/18 16:14 VBG HCO3 31.1 mmol/L (24-28) H 10/17/18 16:14 VBG O2 Saturation 93.1 % (70-80) H 10/17/18 16:14 VBG Base Excess 8.1 mmol/L (0.0-4.0) H 10/17/18 16:14 Sodium 140 mmol/L (135-145) 10/18/18 06:15 Potassium 3.9 mmol/L (3.5-5.0) 10/18/18 06:15 Chloride 101 mmol/L (101-111) 10/18/18 06:15 Carbon Dioxide 34 mmol/L (22-32) H 10/18/18 06:15 Anion Gap 5 mmol/L (2-11) 10/18/18 06:15 BUN 14 mg/dL (6-24) 10/18/18 06:15 Creatinine 0.93 mg/dL (0.51-0.95) 10/18/18 06:15 Est GFR ( Amer) 75.2 (>60) 10/18/18 06:15 Est GFR (Non-Af Amer) 62.1 (>60) 10/18/18 06:15 BUN/Creatinine Ratio 15.1 (8-20) 10/18/18 06:15 Glucose 117 mg/dL (70-100) H 10/18/18 06:15 Calcium 8.7 mg/dL (8.6-10.3) 10/18/18 06:15 Magnesium 2.4 mg/dL (1.9-2.7) 10/17/18 13:08 Troponin I 0.01 ng/mL (<0.04) 10/17/18 19:14 Hepatitis C Antibody Nonreactive (Nonreactive) 10/17/18 13:08 Hepatitis C Ab Index 0.1 Index 10/17/18 13:08 HIV 1&2 Antibody Rapid Nonreactive (Nonreactive) 10/17/18 13:08
[2018-10-18 13:23] LABS: Hepatitis Be Antigen Negative (Negative)
[2018-10-18 13:33] LABS: Hepatitis Be Antibody Negative (Negative)
[2018-10-18] MEDS: Cyclobenzaprine TAB* 10 MG PO PRN (16:57)
[2018-10-18] MEDS ORDERED: Warfarin TAB(*) 4 MG PO ONE (17:00)
--- NOTE | 2018-10-18 20:43 | CONSULT ---
Subjective Interval History: Pt reporting significant pain after PT exercise, but was able to stand. Denies other issues. Review of Systems - Measurements Intake and Output: Intake and Output Last 24 Hours 10/16/18 10/17/18 10/18/18 10/19/18 06:59 06:59 06:59 06:59 Intake Total 4182 1241 Output Total 4500 400 Balance -318 841 Weight 246 lb 258 lb 14.4 oz Intake: IV Fluids 3462 521 D5W 1/2 NS 1157 465 LR 2200 TRANSEXAMIC ACID 1G 50 cefazolin 55 56 Oral 720 720 Output: Urine 1800 400 [place] 2550 Estimated Blood Loss 150 Other: # Bowel Movements 0 Objective Active Medications: Acetaminophen (Tylenol Tab*) 650 mg PO Q4H PRN PRN Reason: FEVER/PAIN Hydrocodone Bitart/Acetaminophen ([place] 5-325 Tab*) 1 tab PO Q4H PRN PRN Reason: PAIN - MODERATE Last Admin: 10/18/18 10:13 Dose: 1 tab Hydrocodone Bitart/Acetaminophen ([place] 5-325 Tab*) 2 tab PO Q4H PRN PRN Reason: PAIN - SEVERE Last Admin: 10/18/18 18:11 Dose: 2 tab Albuterol (Ventolin Hfa Inhaler*) 1 puff INH Q6H PRN PRN Reason: SHORTNESS OF BREATH Buspirone HCl (Buspar Tab *) 15 mg PO TID [facility] Last Admin: 10/18/18 12:41 Dose: 15 mg Clonazepam (Klonopin Tab(*)) 1 mg PO TID [facility] Last Admin: 10/18/18 12:40 Dose: 1 mg Cyclobenzaprine HCl (Flexeril Tab*) 10 mg PO TID PRN PRN Reason: SPASMS Last Admin: 10/18/18 16:57 Dose: 10 mg Divalproex Sodium (Depakote Er Tab(*)) 750 mg PO BEDTIME [facility] Last Admin: 10/17/18 21:40 Dose: 750 mg Docusate Sodium (Colace Cap*) 100 mg PO BID [facility] Last Admin: 10/18/18 07:35 Dose: 100 mg Duloxetine HCl (Cymbalta Cap*) 30 mg PO QAM [facility] Last Admin: 10/18/18 07:36 Dose: 30 mg Duloxetine HCl (Cymbalta Cap*) 60 mg PO BEDTIME [facility] Last Admin: 10/17/18 21:40 Dose: 60 mg Ferrous Sulfate (Ferrous Sulfate Tab*) 325 mg PO QAM [facility] Last Admin: 10/18/18 07:37 Dose: 325 mg Gabapentin (Neurontin Cap(*)) 600 mg PO Q8HR [facility] Last Admin: 10/18/18 12:39 Dose: 600 mg Heparin Sodium (Porcine) (Heparin Vial(*)) 5,000 units SUBCUT Q8HR [facility] Last Admin: 10/18/18 12:40 Dose: 5,000 units Hydrochlorothiazide (Hydrodiuril Tab*) 25 mg PO QAM [facility] Last Admin: 10/18/18 07:37 Dose: 25 mg Dextrose/Sodium Chloride (D5w 1/2 Ns 1000 Ml Bag*) 1,000 mls @ 100 mls/hr IV PER RATE [facility] Last Admin: 10/18/18 01:19 Dose: 100 mls/hr Magnesium Hydroxide (Milk Of Magnesia Liq*) 30 ml PO BID [facility] Last Admin: 10/18/18 07:39 Dose: 30 ml Magnesium Hydroxide (Milk Of Magnesia Liq*) 30 ml PO Q6H PRN PRN Reason: constipation Metoprolol Tartrate (Lopressor Iv*) 5 mg IV Q6H PRN PRN Reason: TACHYCARDIA Morphine Sulfate (Morphine 4 Mg/Ml Vial (1 Ml)) 2 mg IV Q2H PRN PRN Reason: PAIN - BREAKTHROUGH Last Admin: 10/18/18 19:28 Dose: 2 mg Morphine Sulfate (Morphine Oral.Soln 10 Mg*) 15 mg PO Q8HR [facility] Last Admin: 10/18/18 12:39 Dose: 15 mg Pantoprazole Sodium (Protonix Tab*) 40 mg PO QAM [facility] Last Admin: 10/18/18 07:37 Dose: 40 mg Pharmacy Profile Note (Coumadin Daily Reminder*) 1 note FOLLOW UP 1700 [facility] Last Admin: 10/18/18 16:58 Dose: 1 note Ropinirole HCl (Requip Tab*) 0.25 mg PO BEDTIME [facility] Last Admin: 10/17/18 21:39 Dose: 0.25 mg Tramadol HCl (Ultram*) 50 mg PO Q6H PRN PRN Reason: PAIN - MODERATE Last Admin: 10/18/18 15:03 Dose: 50 mg Zolpidem Tartrate (Ambien Tab*) 10 mg PO BEDTIME [facility] Last Admin: 10/17/18 21:40 Dose: 10 mg Vital Signs - 8 hr 10/18/18 10/18/18 10/18/18 12:39 12:40 15:03 Temperature Pulse Rate Respiratory 18 18 18 Rate Blood Pressure (mmHg) O2 Sat by Pulse Oximetry 10/18/18 10/18/18 10/18/18 15:04 15:05 15:06 Temperature Pulse Rate Respiratory 18 18 18 Rate Blood Pressure (mmHg) O2 Sat by Pulse Oximetry 10/18/18 10/18/18 10/18/18 16:46 16:57 17:33 Temperature 98.2 F Pulse Rate 73 Respiratory 16 18 18 Rate Blood Pressure 125/59 (mmHg) O2 Sat by Pulse 95 Oximetry 10/18/18 10/18/18 10/18/18 18:11 19:20 19:27 Temperature 97.9 F Pulse Rate 65 Respiratory 20 18 16 Rate Blood Pressure 146/66 (mmHg) O2 Sat by Pulse 97 Oximetry 10/18/18 19:28 Temperature Pulse Rate Respiratory 18 Rate Blood Pressure (mmHg) O2 Sat by Pulse Oximetry Oxygen Devices in Use Now: None Appearance: appears mildly uncomfortable; pt is alert and interactive Respiratory: Clear to Auscultation Cardiovascular: RRR Extremities: - - L knee in bandage, neurovascularly intact distally Neurological: Alert and Oriented x 3 Result Diagrams: 10/18/18 06:15 10/18/18 06:15 Assessment/Plan - Billing 58W with obesity s/p gastric bypass, chronic pain, depression/anxiety, admitted for R TKR (10/17), with intraoperative afib now resolved. # Afib: - spontaneously resolved - starting warfarin for DVT ppx post-op, defer to outpatient cardiology management for f/u care - seen by Dr. Cook # L knee revision: - pain control with [place] prn, morphine for breakthrough - cyclobenzaprine for muscle spasm - PT/OT # Chronic pain: - cont home regimen: duloxetine, gabapentin, tramadol # Anxiety: cont home benzo, buspiron # Obesity s/p gastric bypass. - no e/o micronutrient deficiency - cont ferrous sulfate - should follow up with PCP for sleep study
[2018-10-18] MEDS ORDERED: Polyethylene Glycol 3350* 17 GM PACKET PO PRN (20:53)
[2018-10-18] MEDS ORDERED: Senna TAB PO PRN (20:53)
[2018-10-18] MEDS: DULoxetine DR CAP* 60 MG CAP.DR PO SCH (21:01)
[2018-10-18] MEDS: Ropinirole TAB* 0.5 MG TAB PO SCH (21:02)
[2018-10-18] MEDS: Divalproex ER TAB(*) 250 MG PO SCH (21:02)
[2018-10-18] MEDS: Zolpidem TAB* 10 MG PO SCH (21:02)
[2018-10-19] MEDS: HYDROcodone/ACETAMIN 5-325 MG* 1 TAB PO PRN ×3 (03:05→12:37)
[2018-10-19] MEDS: Morphine ORAL.SOLN 10 mg* 2 MG/ML UDC 5 ml PO SCH ×3 (05:16→20:59)
[2018-10-19] MEDS: Gabapentin CAP(*) 300 MG PO SCH ×3 (05:16→21:01)
[2018-10-19] MEDS: Heparin VIAL(*) 5000 UNITS/ML VIAL (FIVE THOUSAND) SUBCUT SCH ×3 (05:17→20:59)
[2018-10-19 06:49] LABS: Hematocrit 39 % (33-41); Hemoglobin 12.8 g/dL (12.0-16.0); Mean Corpuscular HGB Conc 33 g/dL (31-36); Mean Corpuscular Hemoglobin 31 pg (27-31); Mean Corpuscular Volume 92 fL (80-97); Mean Platelet Volume 8.6 fL (7.4-10.4); Platelet Count 194 10^3/uL (150-450); Red Blood Count 4.19 10^6 /uL (3.70-4.87); Red Cell Distribution Width 15 % (10.5-15)
[2018-10-19 06:56] LABS: INR 2.54 (0.82-1.09)
[2018-10-19 07:04] LABS: BUN/Creatinine Ratio 13.8 (8-20); Blood Urea Nitrogen 13 mg/dL (6-24); CO2 Carbon Dioxide 38 mmol/L (22-32); Chloride 97 mmol/L (101-111); EGFR African American 74.3 (>60); EGFR Non-African American 61.4 (>60); Glucose 108 mg/dL (70-100); Magnesium 2.4 mg/dL (1.9-2.7); Potassium 4.3 mmol/L (3.5-5.0); Sodium 135 mmol/L (135-145)
[2018-10-19] MEDS: busPIRone TAB* 15 MG PO SCH ×3 (08:07→21:01)
[2018-10-19] MEDS: Hydrochlorothiazide TAB* 25 MG PO SCH (08:07)
[2018-10-19] MEDS: Ferrous Sulfate TAB* 325 MG PO SCH (08:07)
[2018-10-19] MEDS: clonazePAM TAB(*) 1 MG PO SCH ×3 (08:07→21:01)
[2018-10-19] MEDS: DULoxetine DR CAP* 30 MG CAP.DR PO SCH (08:07)
[2018-10-19] MEDS: Pantoprazole TAB * 40 MG TAB PO SCH (08:07)
[2018-10-19] MEDS: traMADol TAB* 50 MG PO PRN ×2 (09:16→17:11)
[2018-10-19] MEDS: Morphine 4 MG/ML VIAL (1 ml) 4 MG/ML VIAL IV PRN ×2 (09:17→11:24)
[2018-10-19] MEDS: D5W 1/2 NS 1000 ML BAG* 1,000 ML IV SCH (09:35)
--- NOTE | 2018-10-19 11:12 | PN ---
Progress Note - Progress Note Date of Service: 10/19/18 SOAP: Subjective: []Pt seen at bedside. She feels well though reports her left knee is still painful. Denies chest pain, shortness of breath, dizziness or nausea. Objective: []General: NAD, sitting comfortably in a chair LLE: Left knee dressing changed, incision CDI with well approximated wound edges no erythema and no discharge, thigh soft, DF/PF intact, DP2+, sensation intact to light touch distally Calves supple and nontender without erythema, edema or palpable cords Assessment: []POD 2 sp revision of polyethylene LTK Plan: []WBAT PT/OT heparin bridge to coumadin. coumadin 1 mg today Needs rehab placement Okay for return to [facility] Vital Signs Temp 97.8 F 10/19/18 07:43 Pulse 83 10/19/18 07:43 Resp 18 10/19/18 09:17 BP 132/78 10/19/18 07:43 Pulse Ox 99 10/19/18 07:43 Intake & Output 10/18/18 10/19/18 10/19/18 18:59 06:59 18:59 Intake Total 1241 0 Output Total 400 200 200 Balance 841 -200 -200 Intake: IV Fluids 521 D5W 1/2 NS 465 cefazolin 56 Oral 720 0 Output: Urine 400 200 200 Other: Estimated Stool Amount Small Laboratory Last Values WBC 8.0 10^3/uL (3.5-10.8) 10/19/18 06:34 RBC 4.19 10^6 /uL (3.70-4.87) 10/19/18 06:34 Hgb 12.8 g/dL (12.0-16.0) 10/19/18 06:34 Hct 39 % (33-41) 10/19/18 06:34 MCV 92 fL (80-97) 10/19/18 06:34 MCH 31 pg (27-31) 10/19/18 06:34 MCHC 33 g/dL (31-36) 10/19/18 06:34 RDW 15 % (10.5-15) 10/19/18 06:34 Plt Count 194 10^3/uL (150-450) 10/19/18 06:34 MPV 8.6 fL (7.4-10.4) 10/19/18 06:34 Neut % (Auto) 90.3 % 10/17/18 13:08 Lymph % (Auto) 8.0 % 10/17/18 13:08 Rich % (Auto) 1.5 % 10/17/18 13:08 Eos % (Auto) 0.1 % 10/17/18 13:08 Baso % (Auto) 0.1 % 10/17/18 13:08 Absolute Neuts (auto) 6.7 10^3/ul (1.5-7.7) 10/17/18 13:08 Absolute Lymphs (auto) 0.6 10^3/ul (1.0-4.8) L 10/17/18 13:08 Absolute Monos (auto) 0.1 10^3/ul (0-0.8) 10/17/18 13:08 Absolute Eos (auto) 0 10^3/ul (0-0.6) 10/17/18 13:08 Absolute Basos (auto) 0 10^3/ul (0-0.2) 10/17/18 13:08 Absolute Nucleated RBC 0 10^3/ul 10/17/18 13:08 Nucleated RBC % 0 10/17/18 13:08 INR (Anticoag Therapy) 2.54 (0.82-1.09) H 10/19/18 06:34 VBG pH 7.45 (7.32-7.43) H 10/17/18 16:14 VBG pCO2 48 mmHg (41-51) 10/17/18 16:14 VBG pO2 61.0 mmHg (35-45) H 10/17/18 16:14 VBG HCO3 31.1 mmol/L (24-28) H 10/17/18 16:14 VBG O2 Saturation 93.1 % (70-80) H 10/17/18 16:14 VBG Base Excess 8.1 mmol/L (0.0-4.0) H 10/17/18 16:14 Sodium 135 mmol/L (135-145) 10/19/18 06:34 Potassium 4.3 mmol/L (3.5-5.0) 10/19/18 06:34 Chloride 97 mmol/L (101-111) L 10/19/18 06:34 Carbon Dioxide 38 mmol/L (22-32) H 10/19/18 06:34 Anion Gap 5 mmol/L (2-11) 10/18/18 06:15 BUN 13 mg/dL (6-24) 10/19/18 06:34 Creatinine 0.94 mg/dL (0.51-0.95) 10/19/18 06:34 Est GFR ( Amer) 74.3 (>60) 10/19/18 06:34 Est GFR (Non-Af Amer) 61.4 (>60) 10/19/18 06:34 BUN/Creatinine Ratio 13.8 (8-20) 10/19/18 06:34 Glucose 108 mg/dL (70-100) H 10/19/18 06:34 Calcium 9.0 mg/dL (8.6-10.3) 10/19/18 06:34 Magnesium 2.4 mg/dL (1.9-2.7) 10/19/18 06:34 Troponin I 0.01 ng/mL (<0.04) 10/17/18 19:14 Hepatitis Be Antibody Negative (Negative) 10/17/18 16:10 Hepatitis Be Antigen Negative (Negative) 10/17/18 13:08 Hepatitis C Antibody Nonreactive (Nonreactive) 10/17/18 13:08 Hepatitis C Ab Index 0.1 Index 10/17/18 13:08 HIV 1&2 Antibody Rapid Nonreactive (Nonreactive) 10/17/18 13:08
[2018-10-19] MEDS ORDERED: Warfarin TAB(*) 1 MG PO ONE (17:00)
[2018-10-19] MEDS ORDERED: Morphine 4 MG/ML VIAL (1 ml) 4 MG/ML VIAL IV PRN (20:55)
--- NOTE | 2018-10-19 20:58 | PN ---
Subjective Date of Service: 10/19/18 Interval History: Pt reporting excellent pain control. Was napping on my arrival and somewhat drowsy, but not altered, on interview. Reports she just got morphine. On review , pt received these narcotics today: [place] PO 2 tabs, 3 times Morphine 2mg IV, 2 times Morpine PO 15mg, 2 times Tramadol 50mg, 2 times. This is in addition to being on standing benzos three times per day with Ambien at night. Objective Active Medications: Acetaminophen (Tylenol Tab*) 650 mg PO Q4H PRN PRN Reason: FEVER/PAIN Hydrocodone Bitart/Acetaminophen ([place] 5-325 Tab*) 1 tab PO Q4H PRN PRN Reason: PAIN - MODERATE Last Admin: 10/18/18 10:13 Dose: 1 tab Hydrocodone Bitart/Acetaminophen ([place] 5-325 Tab*) 2 tab PO Q4H PRN PRN Reason: PAIN - SEVERE Last Admin: 10/19/18 12:37 Dose: 2 tab Albuterol (Ventolin Hfa Inhaler*) 1 puff INH Q6H PRN PRN Reason: SHORTNESS OF BREATH Buspirone HCl (Buspar Tab *) 15 mg PO TID [facility] Last Admin: 10/19/18 14:40 Dose: 15 mg Clonazepam (Klonopin Tab(*)) 1 mg PO TID [facility] Last Admin: 10/19/18 14:40 Dose: 1 mg Cyclobenzaprine HCl (Flexeril Tab*) 10 mg PO TID PRN PRN Reason: SPASMS Last Admin: 10/18/18 16:57 Dose: 10 mg Divalproex Sodium (Depakote Er Tab(*)) 750 mg PO BEDTIME [facility] Last Admin: 10/18/18 21:02 Dose: 750 mg Duloxetine HCl (Cymbalta Cap*) 30 mg PO QAM [facility] Last Admin: 10/19/18 08:07 Dose: 30 mg Duloxetine HCl (Cymbalta Cap*) 60 mg PO BEDTIME [facility] Last Admin: 10/18/18 21:01 Dose: 60 mg Ferrous Sulfate (Ferrous Sulfate Tab*) 325 mg PO QAM [facility] Last Admin: 10/19/18 08:07 Dose: 325 mg Gabapentin (Neurontin Cap(*)) 600 mg PO Q8HR [facility] Last Admin: 10/19/18 14:38 Dose: 600 mg Heparin Sodium (Porcine) (Heparin Vial(*)) 5,000 units SUBCUT Q8HR [facility] Last Admin: 10/19/18 14:41 Dose: 5,000 units Hydrochlorothiazide (Hydrodiuril Tab*) 25 mg PO QAM [facility] Last Admin: 10/19/18 08:07 Dose: 25 mg Metoprolol Tartrate (Lopressor Iv*) 5 mg IV Q6H PRN PRN Reason: TACHYCARDIA Morphine Sulfate (Morphine 4 Mg/Ml Vial (1 Ml)) 2 mg IV Q2H PRN PRN Reason: PAIN - BREAKTHROUGH Last Admin: 10/19/18 11:24 Dose: 2 mg Morphine Sulfate (Morphine Oral.Soln 10 Mg*) 15 mg PO Q8HR [facility] Last Admin: 10/19/18 14:41 Dose: 15 mg Pantoprazole Sodium (Protonix Tab*) 40 mg PO QAM [facility] Last Admin: 10/19/18 08:07 Dose: 40 mg Pharmacy Profile Note (Coumadin Daily Reminder*) 1 note FOLLOW UP 1700 [facility] Last Admin: 10/19/18 17:14 Dose: 1 note Polyethylene Glycol/Electrolytes (Miralax*) 17 gm PO DAILY PRN PRN Reason: CONSTIPATION Ropinirole HCl (Requip Tab*) 0.25 mg PO BEDTIME [facility] Last Admin: 10/18/18 21:02 Dose: 0.25 mg Senna (Senokot Tab*) 1 tab PO BEDTIME PRN PRN Reason: if no BM during day Tramadol HCl (Ultram*) 50 mg PO Q6H PRN PRN Reason: PAIN - MODERATE Last Admin: 10/19/18 17:11 Dose: 50 mg Zolpidem Tartrate (Ambien Tab*) 10 mg PO BEDTIME [facility] Last Admin: 10/18/18 21:02 Dose: 10 mg Vital Signs - 8 hr 10/19/18 10/19/18 10/19/18 14:38 14:40 14:41 Temperature Pulse Rate Respiratory 16 16 16 Rate Blood Pressure (mmHg) O2 Sat by Pulse Oximetry 10/19/18 10/19/18 10/19/18 15:38 16:00 16:55 Temperature 97.5 F Pulse Rate 76 Respiratory 16 20 Rate Blood Pressure 131/79 (mmHg) O2 Sat by Pulse 94 100 Oximetry 10/19/18 10/19/18 10/19/18 17:11 17:13 20:10 Temperature Pulse Rate Respiratory 12 14 16 Rate Blood Pressure (mmHg) O2 Sat by Pulse Oximetry Oxygen Devices in Use Now: None Appearance: sleepy, dozing on interview Eyes: - - pupils constricted and reactive to light, not pinpoint Ears/Nose/Mouth/Throat: Clear Oropharnyx Neck: NL Appearance and Movements; NL JVP Respiratory: Clear to Auscultation Cardiovascular: RRR Result Diagrams: 10/19/18 06:34 10/19/18 06:34 Assess/Plan/Problems-Billing 58W with obesity s/p gastric bypass, chronic pain, depression/anxiety, admitted for R TKR (10/17), with intraoperative afib now resolved. # Afib during procedure: - spontaneously resolved - starting warfarin for DVT ppx post-op, defer to outpatient cardiology management for f/u care - seen by Dr. Cook - INR is therpeutic today # L knee revision: - pain control: will reduce Norcos to 1 tab prn, will reduce frequency of IV morphine prns; will work on tapering these off and only continuing those listed below: - cont morphine 15mg PO q8h scheduled - this is a home medication - cont APAP for mild pain, tramadol 50 q6h prn for moderate-severe - bowel regimen - cyclobenzaprine for muscle spasm - PT/OT # Chronic pain: - cont home regimen: duloxetine, gabapentin # Anxiety: cont home benzo, buspiron # Obesity s/p gastric bypass. - no e/o micronutrient deficiency - cont ferrous sulfate - should follow up with PCP for sleep study
[2018-10-19] MEDS: Ropinirole TAB* 0.5 MG TAB PO SCH (21:00)
[2018-10-19] MEDS: DULoxetine DR CAP* 60 MG CAP.DR PO SCH (21:01)
[2018-10-19] MEDS: Zolpidem TAB* 10 MG PO SCH (21:01)
[2018-10-19] MEDS: Divalproex ER TAB(*) 250 MG PO SCH (21:01)
[2018-10-20] MEDS: traMADol TAB* 50 MG PO PRN (03:41)
[2018-10-20] MEDS: Morphine ORAL.SOLN 10 mg* 2 MG/ML UDC 5 ml PO SCH (05:43)
[2018-10-20] MEDS: Gabapentin CAP(*) 300 MG PO SCH (05:44)
[2018-10-20] MEDS: Heparin VIAL(*) 5000 UNITS/ML VIAL (FIVE THOUSAND) SUBCUT SCH (05:44)
[2018-10-20 07:55] LABS: INR 2.14 (0.82-1.09)
[2018-10-20] MEDS: Pantoprazole TAB * 40 MG TAB PO SCH (07:59)
[2018-10-20] MEDS: Ferrous Sulfate TAB* 325 MG PO SCH (07:59)
[2018-10-20] MEDS: busPIRone TAB* 15 MG PO SCH (07:59)
[2018-10-20] MEDS: DULoxetine DR CAP* 30 MG CAP.DR PO SCH (08:00)
[2018-10-20] MEDS: clonazePAM TAB(*) 1 MG PO SCH (08:00)
[2018-10-20] MEDS: HYDROcodone/ACETAMIN 5-325 MG* 1 TAB PO PRN ×2 (08:00→13:11)
[2018-10-20] MEDS: Hydrochlorothiazide TAB* 25 MG PO SCH (08:00)
[2018-10-20 08:35] VITALS: BP 123/67
--- NOTE | 2018-10-20 09:36 | PN ---
Progress Note - Progress Note Date of Service: 10/20/18 SOAP: Subjective: []Pt seen at bedside. She desires DC to [facility]. Her pain is still present at the operative site though tolerate. Denies CP, SOB, dizziness, nausea or confusion. Objective: []General: NAD, sitting comfortably in a chair LLE: Left knee dressing changed, incision CDI with well approximated wound edges no erythema and no discharge, thigh soft, DF/PF intact, DP2+, sensation intact to light touch distally Calves supple and nontender without erythema, edema or palpable cords Assessment: []POD 3 sp revision of polyethylene LTK Plan: []WBAT PT/OT coumadin 4 mg daily until recheck 10/24, then INRs mondays and . Will need cardio follow up for a fib DC to [place] today Vital Signs Temp 98.8 F 10/20/18 07:40 Pulse 69 10/20/18 07:40 Resp 12 10/20/18 08:01 BP 123/67 10/20/18 07:40 Pulse Ox 98 10/20/18 07:40 Intake & Output 10/19/18 10/20/18 10/20/18 18:59 06:59 18:59 Intake Total 1440 0 120 Output Total 1100 1000 Balance 340 -1000 120 Intake: IV Fluids 250 D5W 1/2 NS 250 Oral 1190 0 120 Output: Urine 1100 1000 Other: Estimated Void Medium Laboratory Last Values WBC 8.0 10^3/uL (3.5-10.8) 10/19/18 06:34 RBC 4.19 10^6 /uL (3.70-4.87) 10/19/18 06:34 Hgb 12.8 g/dL (12.0-16.0) 10/19/18 06:34 Hct 39 % (33-41) 10/19/18 06:34 MCV 92 fL (80-97) 10/19/18 06:34 MCH 31 pg (27-31) 10/19/18 06:34 MCHC 33 g/dL (31-36) 10/19/18 06:34 RDW 15 % (10.5-15) 10/19/18 06:34 Plt Count 194 10^3/uL (150-450) 10/19/18 06:34 MPV 8.6 fL (7.4-10.4) 10/19/18 06:34 Neut % (Auto) 90.3 % 10/17/18 13:08 Lymph % (Auto) 8.0 % 10/17/18 13:08 [place] % (Auto) 1.5 % 10/17/18 13:08 Eos % (Auto) 0.1 % 10/17/18 13:08 Baso % (Auto) 0.1 % 10/17/18 13:08 Absolute Neuts (auto) 6.7 10^3/ul (1.5-7.7) 10/17/18 13:08 Absolute Lymphs (auto) 0.6 10^3/ul (1.0-4.8) L 10/17/18 13:08 Absolute Monos (auto) 0.1 10^3/ul (0-0.8) 10/17/18 13:08 Absolute Eos (auto) 0 10^3/ul (0-0.6) 10/17/18 13:08 Absolute Basos (auto) 0 10^3/ul (0-0.2) 10/17/18 13:08 Absolute Nucleated RBC 0 10^3/ul 10/17/18 13:08 Nucleated RBC % 0 10/17/18 13:08 INR (Anticoag Therapy) 2.14 (0.82-1.09) H 10/20/18 07:24 VBG pH 7.45 (7.32-7.43) H 10/17/18 16:14 VBG pCO2 48 mmHg (41-51) 10/17/18 16:14 VBG pO2 61.0 mmHg (35-45) H 10/17/18 16:14 VBG HCO3 31.1 mmol/L (24-28) H 10/17/18 16:14 VBG O2 Saturation 93.1 % (70-80) H 10/17/18 16:14 VBG Base Excess 8.1 mmol/L (0.0-4.0) H 10/17/18 16:14 Sodium 135 mmol/L (135-145) 10/19/18 06:34 Potassium 4.3 mmol/L (3.5-5.0) 10/19/18 06:34 Chloride 97 mmol/L (101-111) L 10/19/18 06:34 Carbon Dioxide 38 mmol/L (22-32) H 10/19/18 06:34 Anion Gap 5 mmol/L (2-11) 10/18/18 06:15 BUN 13 mg/dL (6-24) 10/19/18 06:34 Creatinine 0.94 mg/dL (0.51-0.95) 10/19/18 06:34 Est GFR ( Amer) 74.3 (>60) 10/19/18 06:34 Est GFR (Non-Af Amer) 61.4 (>60) 10/19/18 06:34 BUN/Creatinine Ratio 13.8 (8-20) 10/19/18 06:34 Glucose 108 mg/dL (70-100) H 10/19/18 06:34 Calcium 9.0 mg/dL (8.6-10.3) 10/19/18 06:34 Magnesium 2.4 mg/dL (1.9-2.7) 10/19/18 06:34 Troponin I 0.01 ng/mL (<0.04) 10/17/18 19:14 Hepatitis Be Antibody Negative (Negative) 10/17/18 16:10 Hepatitis Be Antigen Negative (Negative) 10/17/18 13:08 Hepatitis C Antibody Nonreactive (Nonreactive) 10/17/18 13:08 Hepatitis C Ab Index 0.1 Index 10/17/18 13:08 HIV 1&2 Antibody Rapid Nonreactive (Nonreactive) 10/17/18 13:08
[2018-10-20] MEDS: Cyclobenzaprine TAB* 10 MG PO PRN (09:57)
--- NOTE | 2018-10-20 11:23 | DS ---
Orthopedic Discharge Summary - Discharge Summary Date of Admission:10/17/18 Date of Discharge: 10/20/18 Date of Surgery: 10/17/18 Attending Orthopedic Provider: Dr Ruiz Pre-operative Diagnosis: left knee polyethylene wear Operative Procedure: left total knee polyethylene revision Condition of Patient: stable History: CLAU RUTLEDGE is a 58 year old F with increasingly severe left knee pain. Patient has failed conservative management and has elected to undergo a revision of left total knee polyethylene. Hospital Course: CLAU was admitted to [facility] on 10/17/18. Patient underwent a [left total knee polyethylene revision] without complication followed by a brief recovery in PACU and transfer to the Short Stay Surgical Unit in stable condition, she went into atrial fibrillation and was seen by cardiology in PACU. She was treated with IV metoprolol and kept on tele monitor during her stay. Our hospitalist service, cardiology, physical therapy and occupational therapy also participated in this patients care. Post- op day 1: patient was alert and in no acute distress. Dressing was clean, dry and intact. Operative extremity dorsiflexion and plantarflexion intact, sensation intact to light touch distally, DP2+. Post-op day two: dressing was changed, incision was clean, dry and intact. Post op day three incision CDI, Patient was deemed to be medically and orthopedically stable for discharge to [facility]. Recommendation from cardiology is to continue coumadin and follow up with cardiology as an outpatient. Discharge Medications Medication Instructions Recorded Confirmed Type Albuterol Sulfate [Proventil Hfa] 1 puff INH Q6H PRN 10/03/18 10/03/18 History Calcium Carbonate/Vitamin D3 1 tab PO QAM 10/03/18 10/17/18 History [Calcium 600-Vit D3 400 Caplet] Cholecalciferol (Vitamin D3) 1,000 unit PO BID 10/03/18 10/17/18 History [Vitamin D3] DULoxetine DR ELLINGTON* [Cymbalta CAP*] 30 mg PO QAM 10/03/18 10/17/[address] ELLINGTON* [Cymbalta CAP*] 60 mg PO BEDTIME 10/03/18 10/17/18 History Divalproex ER TAB(*) [Depakote ER 750 mg PO BEDTIME 10/03/18 10/17/18 History TAB(*)] Ferrous Sulfate [Ferosul] 325 mg PO QAM 10/03/18 10/17/18 History Gabapentin 600 mg PO Q8H 10/03/18 10/17/18 History Hydrochlorothiazide TAB* 25 mg PO QAM 10/03/18 10/17/18 History [Hydrodiuril TAB*] Morphine Sulf Ir 15 mg PO Q8H 10/03/18 10/17/18 History Omeprazole 40 mg PO QAM 10/03/18 10/17/18 History Ropinirole HCl [Requip] 0.25 mg PO BEDTIME 10/03/18 10/17/18 History Zolpidem TAB* [Ambien*] 10 mg PO BEDTIME 10/03/18 10/17/18 History busPIRone TAB* [Buspar TAB *] 15 mg PO TID 10/03/18 10/17/18 History clonazePAM [Clonazepam] 1 mg PO TID 10/03/18 10/17/18 History Acetaminophen TAB* [Tylenol TAB*] 650 mg PO Q4H PRN tab 10/20/18 Rx HYDROcodone/ACETAMIN 5-325 MG* 1 tab PO Q4H PRN tab 10/20/18 Rx [[place] 5-325 TAB*] Warfarin TAB(*) [Coumadin TAB(*)] 2 mg PO DAILY #90 tab 10/20/18 Rx traMADol TAB* [Ultram*] 50 mg PO Q6H PRN tab 10/20/18 Rx DC to [facility] in stable condition 10/20/18 Discharge Instructions following Orthopedic Surgery: Activity: * Weight Bearing as tolerated * Continue physical therapy and occupational therapy exercises as shown Wound care: * OK to shower on post-op day 3, no bathing, swimming, or submerging wound. * Use gentle soap, pat dry. Cover with gauze, URIAH wrap or tape. * nurse to do wound checks. Call Orthopedic office for: * Increased drainage * Redness * Increased pain * Fever Go to ER with shortness of breath or chest pain. Diet: * Regular diet * Increase fluids and fiber to prevent constipation. * Continue to use stool softeners, call office if no bowel motion within 48 hours. Medications See Home Medication List in your packet for medications that you should take after discharge. DVT Prophylaxis: Coumadin Dosing: * Please note that you have been given 2 mg tablets. * nurse to draw blood work for INR on Wednesday and . * You will be provided with dose instructions on Mondays and . * If you do not receive dosing instruction on dosing, please call our office right away. Please yuliya dosing instructions on your calendar as they are provided to you. * Dosin mg daily until 10/24 when you will receive further dosing instruction * 10/24 repeat INR blood draw for further dosing instructions. Call orthopedic office if you do not receive dosing instructions. Due to new atrial fibrillation while in the hospital you will need to stay on coumadin, you need to follow up with Cardiology Dr Cook within 2 weeks for instruction. Call for appointment Pain Control: Percocet Dosin/325 mg 1-2 tabs by mouth every 4-6 hours as needed for pain. Maximum of 10 tabs per day. Please note that Percocet contains Tylenol (acetaminophen). Maximum daily dose of Tylenol is 4000 mg from all sources. Antibiotics are required prior to any dental work. FOLLOW UP: Follow up with [Joseph] Within 4 weeks, call for appointment Please call our office with any questions or concerns ([phone])
== END 2018-10-20 13:43 | disposition swing bed (61) | DRG 488 ==
LOC: AA 10-17 05:30 → MEDTELE 10-17 09:49
PROVIDERS: ADMIT Orthopaedic Surgery; ATTEND Orthopaedic Surgery
PROC: 0SUW09Z Supplement Left Knee Joint, Tibial Surface with Liner, Open Approach (ICD-10-PCS; 2018-10-17)
PROC: 0SUU09Z Supplement Left Knee Joint, Femoral Surface with Liner, Open Approach (ICD-10-PCS; 2018-10-17)
PROC: 0SPD09Z Removal of Liner from Left Knee Joint, Open Approach (ICD-10-PCS; principal; 2018-10-17 07:30)
DX: T84.063A Wear of articular bearing surface of internal prosthetic left knee joint, initial encounter (principal); I97.191 Other postprocedural cardiac functional disturbances following other surgery; M25.562 Pain in left knee; E66.9 Obesity, unspecified; G89.29 Other chronic pain; F32.9 Major depressive disorder, single episode, unspecified; F41.9 Anxiety disorder, unspecified; E21.3 Hyperparathyroidism, unspecified; Z68.38 Body mass index [BMI] 38.0-38.9, adult; Z98.84 Bariatric surgery status; Z88.2 Allergy status to sulfonamides; Z88.8 Allergy status to other drugs, medicaments and biological substances; Z82.49 Family history of ischemic heart disease and other diseases of the circulatory system; Z83.3 Family history of diabetes mellitus; Z80.9 Family history of malignant neoplasm, unspecified
CPT/HCPCS: 36415; 71045; 80048; 82803; 83735; 84484; 85014; 85018; 85025; 85027; 85049; 85610; 86703; 86707; 86803; 87350; 88300; 93005; 93306; 94762; A9270-GY; G8978-GP-CL; G8979-GP-CI; G8987-GO-CL; G8988-GO-CI; J0690; J1100; J1644; J2250; J2270; J2704; J2795; J3010; J3490

== ENCOUNTER 2019-01-16 08:33 | Inpatient (IN) | payer MEDICARE, MEDICAID ==
[~2019-01-16 08:33] MED LIST: Lactated Ringers 1000 ML Bag* 1,000 ML IV SCH; Tranexamic Acid 1,000 MG in NS 0.9% 50 ML* (outpatient use) IV SCH
--- OUTSIDE RECORDS SUMMARY | 2019-01-16 08:36 | XMS REPORT | Continuity of Care Document ---
:1960 External Reference #:[id number] Author Name Lizzy Soto Care Team Providers Name Role Phone Neda Wesley MD Care Team Information Golf Course Manager Unavailable Austin Carvajal D.OKiran Primary Care Physician Unavailable Payers Date Identification Numbers Payment Provider Subscriber Effective: 2018 Policy Number: [id number] [facility] [employer] Rosario Sanchez Expires: 2018 PayID: [id number] [address] [address] [place] [address] Effective: 2018 Policy Number: [id number] Medicare Rosario Sanchez PayID: [id number] [address] [place] [address] Policy Number: [id number] Medicaid Rosario Sanchez Group Name: 1 1 [address] PayID: [id number] [place] [address] Problems Active Problems Provider Date Knee pain Eliazar Ruiz M.D. Onset: 07/05/2018 Knee joint effusion Eliazar Ruiz M.D. Onset: 07/05/2018 Arthroplasty of knee Eliazar Ruiz M.D. Onset: 07/05/2018 Localized, primary osteoarthritis Eliazar Ruiz M.D. Onset: 12/23/2018 Family History Date Family Member(s) Observation Comments Father Diabetes Father Hypertension Father Heart Disease Mother Hypertension Social History Type Date Description Comments Sex Unknown Lives With Alone Occupation Retired ETOH Use Denies alcohol use Tobacco Use Start: Unknown Patient has never smoked Smoking Status Reviewed: 12/23/18 Patient has never smoked Exercise Type/Frequency Exercises rarely Allergies, Adverse Reactions, Alerts Active Allergies Reaction Severity Comments Date Bactrim 03/03/2018 Percocet 03/03/2018 Sulfa Antibiotics 03/03/2018 Medications Active Medications SIG Qnty Indications Ordering Date Provider Requip Unknown 0.25mg Tablets Warfarin Sodium 1 tab by mouth Unknown 1mg Tablets once a day Hydrochlorothiazide 1 by mouth Unknown 25mg Tablets every day Morphine Sulfate ER 1 tab every 8 Unknown 15mg Tablets ER hours Nystatin apply twice Unknown [id number] Powder daily until rash clears Calcium Citrate + D 1 tab in the Unknown [id number] morning. Tablets Gabapentin take one tablet Unknown 600mg Tablets by mouth three times a day Clonazepam 1 tablet orally Unknown 0.5mg Tablets tid prn Omeprazole 1 by mouth Unknown 40mg Capsules DR every day Buspirone HCL take one tablet Unknown 15mg Tablets orally tid Zolpidem Tartrate take 1 tablet Unknown 10mg Tablets by mouth at bedtime as needed Ferrous Sulfate 1 by mouth Unknown 325(65Fe) mg every day Tablets Duloxetine HCL 1 orally bid Unknown 30mg Caps DR Part Divalproex Sodium ER take 1/2 tab Unknown 250mg Tablets orally qd ER 24HR Calcium + D3 1 tablet orally Unknown 250-200mg Tablets twice a day Ventolin HFA 2 puffs by Unknown 108(90Base) mcg/Act mouth four Aerosol times a day as needed History Medications Hydrocodone-Acetaminophen take 1-2 tablet 70tabs [place] 10/26/2018 - 5-325mg Tablets by mouth every Joseph, 10/26/2018 4-6 hours as M.D. needed post op. S/P left total knee replacement. Pt tolerated dose well in hospital Hydrocodone-Acetaminophen Take 0.5-1 tab 56tabs Z96.6 [place] 10/26/2018 - 10-325mg every 4-6 hours 52 Joseph, 12/11/2018 Tablets as needed for M.D. post op pain S/P total knee arthroplasty Glucophage take 1 tablet by Unknown - 500mg Tablets mouth twice a day 06/28/2018 Hydrocodone-Acetaminophen 1 tab by mouth Unknown - 10-325mg every 4 hours. 07/04/2018 Tablets MDD=5 Diclofenac Sodium 1 by mouth twice Unknown - 50mg Tablets DR a day as needed 08/29/2018 Ropinirole HCL 1 tab at night Unknown - 0.25mg Tablets 12/11/2018 Vitamin D High Potency 1 by mouth every Unknown - 1000Unit Capsules day 12/11/2018 Vital Signs Date Vital Result Comment 12/23/2018 11:03am Height 68 inches 5'8" Weight 257.38 lb Heart Rate 86 /min BP Systolic Sitting 118 mmHg BP Diastolic Sitting 74 mmHg Body Temperature 98.1 F BMI (Body Mass Index) 39.1 kg/m2 11/11/2018 10:58am Height 68 inches 5'8" Heart Rate 79 /min BP Systolic Sitting 112 mmHg right upper arm BP Diastolic Sitting 64 mmHg right upper arm Respiratory Rate 16 /min Body Temperature 97.9 F Pain Level 0 O2 % BldC Oximetry 97 % 10/31/2018 10:46am Height 68 inches 5'8" Weight 253.25 lb Heart Rate 80 /min BP Systolic Sitting 108 mmHg BP Diastolic Sitting 70 mmHg Respiratory Rate 20 /min Body Temperature 98.4 F Pain Level 0 O2 % BldC Oximetry 97 % BMI (Body Mass Index) 38.5 kg/m2 09/20/2018 11:14am Height 68 inches 5'8" Weight [...] Date Facility Test Result H/L Range Note CBC Auto Diff 10/03/2018 [facility] White Blood 7.3 10^3/uL N 3.5-10.[address] [place] [address] [phone] Red Blood Count 4.37 10^6/uL N 3.70-4.87 Hemoglobin 13.3 g/dL N 12.0-16.0 Hematocrit 41 % N 33-41 Mean Corpuscular Volume 93 fL N 80-97 Mean Corpuscular Hemoglobin 31 pg N 27-31 Mean Corpuscular HGB Conc 33 g/dL N 31-36 Red Cell Distribution Width 16 % High 10.5-15 Platelet Count 217 10^3/uL N 150-450 Mean Platelet Volume 8.7 fL N 7.4-10.4 Abs Neutrophils 4.5 10^3/uL N 1.5-7.7 Abs Lymphocytes 2.2 10^3/uL N 1.0-4.8 Abs Monocytes 0.4 10^3/uL N 0-0.8 Abs Eosinophils 0.1 10^3/uL N 0-0.6 Abs Basophils 0 10^3/uL N 0-0.2 Abs Nucleated RBC 0 10^3/uL Granulocyte % 62.1 % Lymphocyte % 30.5 % Monocyte % 6.1 % Eosinophil % 1.0 % Basophil % 0.3 % Nucleated Red Blood Cells % 0.1 Comp Metabolic Panel 10/03/2018 [facility] Sodium 139 mmol/L N 135-[address] [place] [address] [phone] Potassium 4.1 mmol/L N 3.5-5.0 Chloride 96 mmol/L Low 101-111 Glucose 87 mg/dL N 70-100 Blood Urea Nitrogen 18 mg/dL N 6-24 Creatinine 0.98 mg/dL High 0.51-0.95 BUN/Creatinine Ratio 18.4 N 8-20 Calcium 9.2 mg/dL N 8.6-10.3 Total Protein 5.8 g/dL Low 6.4-8.9 Albumin 3.6 g/dL N 3.2-5.2 Globulin 2.2 g/dL N 2-4 Albumin/Globulin Ratio 1.6 N 1-3 Total Bilirubin 0.50 mg/dL N 0.2-1.0 Alkaline Phosphatase 67 U/L N 34-104 Alt 26 U/L N 7-52 Ast 23 U/L N 13-39 Egfr Non- 58.5 >60 Egfr 70.8 >60 1 Co2 Carbon Dioxide 41 mmol/L High 22-32 2 Anion Gap 2 mmol/L N 2-11 Type & Screen 10/03/2018 [facility] Patient Blood Type A Positive [address] [place] [address] [phone] Antibody Screen NEGATIVE Inr/Protime 10/03/2018 [facility] Inr 0.82 N 0.77-1.[address] [place] [address] [phone] Laboratory test 10/03/2018 [facility] Partial 30.9 seconds N 26.0-36.[address] [place] [address] PTT [phone] Urinalysis 10/03/2018 [facility] Urine Color Yellow Profile [address] [place] [address] [phone] Urine Appearance Clear Urine Specific Chase 1.016 N 1.010-1.030 Urine pH 7.0 N 5-9 Urine Urobilinogen Negative Negative Urine Ketones Negative Negative Urine Protein Negative Negative Urine Leukocytes Negative Negative Urine Blood Negative Negative Urine Nitrite Negative Negative Urine Bilirubin Negative Negative Urine Glucose Negative Negative Urine Culture And 10/03/2018 [facility] Urine Culture SEE RESULT [address] [place] [address] [phone] 1 Because ethnic data is not always readily available, this report includes an eGFR for both -Americans and non- Americans. The National Kidney Disease Education Program (NKDEP) does not endorse the use of the MDRD equation for patients that are not between the ages of 18 and 70, are , have extremes of body size, muscle mass, or nutritional status, or are non- or non-. According to the National Kidney Foundation, irrespective of diagnosis, the stage of the disease is based on the level of kidney function: Stage Description GFR(mL/min/1.73 m(2)) 1 Kidney damage with normal or decreased GFR 90 2 Kidney damage with mild decrease in GFR 60-89 3 Moderate decrease in GFR 30-59 4 Severe decrease in GFR 15-29 5 Kidney failure <15 (or dialysis) [address] Santos by [email or web address] at 1711 on 10/03/18. Results read back accurately. 3 SEE RESULT BELOW Name: ROSARIO SANHCEZ : [address]: lEiazar Ruiz MD Acct: [id number] Unit: [id number] AGE: 58 Location: PAT Re10/03/18 SEX: F Status: REG REF SPEC: [id number] LITO: 10/03/18-1353 [facility] [address]: Elaizar Ruiz MD REQ: [id number] RECD: 10/03/18 STATUS: MARTHA CABRERA DR: Austin Carvajal DO _ SOURCE: URINE SPDESC: ORDERED: Urine Culture Procedure Result Reported Site Urine Culture Final 10/04/18- 1208 ML No Growth (<1,000 CFU/mL) * ML - Main Lab . END OF REPORT DEPARTMENT OF PATHOLOGY, [address] [place] [address] Reynaldo Hogan M.D. Director [facility] # [id number] Procedures Date Code Description Status 10/17/2018 77533 ECHO Transthorasic Realtime 2D W Doppler & Color Flow Hosp Completed 10/17/2018 22897 EKG, Interpretation Only Completed 10/17/2018 29556 Revise Total Knee Arthroplasty One Component Completed 10/17/2018 17400 Revise Total Knee Arthroplasty One Component Completed 10/03/2018 08327 EKG, Interpretation Only Completed 07/14/2018 66801 Holter Monitor Review (24 hr)dr nelson & interp only Completed 07/08/2018 10558 ECHO Transthorasic Realtime 2D W Doppler & Color Flow Hosp Completed 07/08/2018 79908 ECHO Transthorasic Realtime 2D W Doppler & Color Flow Hosp Completed Encounters Type Date Location Provider Dx Diagnosis Office Visit 10/19/2018 [facility] Amelia Lopez G89.29 Other chronic 9:46a Assoc,[facility] pain Hospitalists Z96.658 Presence of left artificial knee joint F41.9 Anxiety disorder, unspecified E66.9 Obesity, unspecified Office Visit 10/18/2018 9:46a [place] Lawrence Lopez G89.29 Other chronic Assoc,razia RIZZO pain Hospitalists Z96.659 Presence of left artificial knee joint F41.9 Anxiety disorder, unspecified E66.9 Obesity, unspecified Office Visit 10/18/2018 4:03p [facility] Gee Dover I48.0 Paroxysmal atrial Of Sari Cook M.D. fibrillation Office Visit 10/17/2018 9:45a [facility] I48.0 Paroxysmal atrial Assoc,LILLIAN Ellis fibrillation Hospitalists M54.2 Cervicalgia Z96.652 Presence of left artificial knee joint R79.81 Abnormal blood-gas level E87.5 Hyperkalemia R06.01 Orthopnea R60.9 Edema, unspecified Office Visit 10/17/2018 9:49a [facility] [place] I48.0 Paroxysmal atrial Cardiology Of Migel Cook fibrillation [facility] Office Visit 07/19/2018 2:45p Orthopedic Eliazar M25.462 Effusion, left Services Of Sari Ruiz M.D. knee AT [place] Z96.652 Presence of left artificial knee joint T84.093A [facility] compl of internal left knee prosthesis, init encntr Office Visit 07/05/2018 10:30a Orthopedic Eliazar Ruiz, M25.562 Pain in left Services Of Sari JAMES M.D. knee [place] M25.462 Effusion, left knee Z96.652 Presence of left artificial knee joint Plan of Treatment 12/23/2018 - Eliazar Ruiz M.D.M17.11 Unilateral primary osteoarthritis, right kneeFollow up:Call to set up right knee replacement surgery
[2019-01-16] MEDS ORDERED: Buffered Lidocaine 1% SYRIN* 1 ML/SYRINGE INTRADERM ONE (08:53)
[2019-01-16] MEDS ORDERED: ceFAZolin 2 GM in NS PREMIX(*) 2 GM/100 ML BAG IVPB ONE (08:53)
[2019-01-16] MEDS ORDERED: Midazolam* 1 MG/ML 2 ML VIAL (2 MG) ONE (09:20)
[2019-01-16] MEDS ORDERED: Lidocaine 2% PF * 5 ML VIAL ONE ×2 (09:20→13:47)
[2019-01-16] MEDS ORDERED: Propofol* 10 MG/ML 20 ML BTL ONE ×3 (09:20→13:46)
[2019-01-16] MEDS ORDERED: Bupivacaine 0.5% SDV PF* 30ML VIAL ONE (09:21)
[2019-01-16] MEDS ORDERED: Propofol* 500 MG/50 ML BTL ONE (09:22)
[2019-01-16] MEDS ORDERED: KETAMINE HCL* 50 MG/ML 10 ML VIAL ONE ×2 (09:22→11:11)
[2019-01-16] MEDS ORDERED: ROPIVACAINE 5 MG/ML 30 ML BTL (0.5%) ONE (09:24)
[2019-01-16] MEDS ORDERED: Dexmedetomidine* 200 MCG/2 ML 2 ML VIAL ONE (09:32)
[2019-01-16] MEDS ORDERED: Bupivacaine 0.5%* 50 ML VIAL ONE (09:35)
[2019-01-16] MEDS ORDERED: Lidocaine 1% w EPI 1:200,000* 30 ML VIAL ONE (09:35)
[2019-01-16] MEDS: Buffered Lidocaine 1% SYRIN* 1 ML/SYRINGE INTRADERM ONE ×2 (09:53→22:43)
[2019-01-16] MEDS ORDERED: fentaNYL* 50 MCG/ML 2 ML VIAL (100 MCG VIAL) ONE ×2 (11:11→14:11)
[2019-01-16] MEDS ORDERED: Midazolam* 1 MG/ML 5 ML VIAL (5 MG) ONE (11:11)
[2019-01-16] MEDS ORDERED: Bupivacaine 0.25% SDV PF* 10 ML VIAL INJ ONE (11:15)
[2019-01-16] MEDS ORDERED: Naloxone* 0.4 MG/ML 1 ML VIAL IV PRN (11:59)
[2019-01-16] MEDS ORDERED: DiMENhydriNATE IV* 50 MG/ML VIAL IV PUSH PRN (11:59)
[2019-01-16] MEDS ORDERED: Scopolamine 1.5 mg* PATCH TRANSDERM PRN (11:59)
[2019-01-16] MEDS ORDERED: PROCHLORPERAZINE INJ 5 MG/ML 2 ML VIAL IV PRN (11:59)
[2019-01-16] MEDS ORDERED: fentaNYL* 50 MCG/ML 5 ML VIAL (250 MCG VIAL) ONE (12:07)
[2019-01-16] MEDS ORDERED: Norepinephrine VIAL* 1 MG/ML 4 ML VIAL ONE (13:46)
[2019-01-16] MEDS ORDERED: Bupivacaine 0.25% EPI 200,000* 30 ML SDV ONE (13:46)
[2019-01-16] MEDS ORDERED: traMADol TAB* 50 MG PO PRN (13:47)
[2019-01-16] MEDS ORDERED: Dexamethasone IV* 4 MG/ML 1 ML (4 MG) ONE (13:47)
[2019-01-16] MEDS ORDERED: Ondansetron INJ* 2 MG/ML VIAL IV PRN (13:47)
[2019-01-16] MEDS ORDERED: diPHENhydraMINE IV* 50 MG/ML 1 ml VIAL (BENADRYL) IV PRN (13:47)
[2019-01-16] MEDS ORDERED: Acetaminophen TAB* 325 MG PO PRN (13:47)
[2019-01-16] MEDS ORDERED: Ondansetron INJ* 2 MG/ML VIAL ONE (13:47)
[2019-01-16] MEDS ORDERED: Magnesium Hydroxide LIQ* 30 ML UDC PO PRN (13:47)
[2019-01-16] MEDS ORDERED: Bisacodyl SUPP* 10 MG SUPP PR PRN (13:47)
[2019-01-16] MEDS ORDERED: Gabapentin TAB(NF) 600 MG PO SCH (14:00)
[2019-01-16] MEDS ORDERED: Lactated Ringers 1000 ML Bag* 1,000 ML IV SCH (14:00)
[2019-01-16] MEDS ORDERED: Morphine 4 MG/ML VIAL (1 ml) 4 MG/ML VIAL ONE ×5 (14:11→18:37)
[2019-01-16] MEDS: Morphine 4 MG/ML VIAL (1 ml) 4 MG/ML VIAL IV PRN ×6 (14:13→22:26)
[2019-01-16] MEDS: fentaNYL* 50 MCG/ML 2 ML VIAL (100 MCG VIAL) IV PRN ×4 (14:13→14:36)
[2019-01-16] MEDS ORDERED: oxyCODONE TAB* 5 MG TAB ONE (14:33)
[2019-01-16] MEDS: oxyCODONE TAB* 5 MG TAB PO PRN ×2 (14:35→18:40)
[2019-01-16] MEDS ORDERED: Gabapentin CAP(*) 300 MG ONE ×2 (14:44→14:45)
[2019-01-16] MEDS ORDERED: Warfarin TAB(*) 10 MG PO ONE (17:00)
--- NOTE | 2019-01-16 17:21 | OP ---
DATE OF SURGERY: 01/16/19 - ROOM #348 DATE OF : 62 ATTENDING SURGEON: Eliazar Ruiz MD. ANESTHESIA: Regional and general. PRE-OP DIAGNOSIS: Osteoarthritic valgus, right knee. POST-OP DIAGNOSIS: Osteoarthritic valgus, right knee. OPERATIVE PROCEDURE: Right total knee arthroplasty with lateral release. ESTIMATED BLOOD LOSS: 25 cc. COMPLICATIONS: None. HARDWARE: Kalee Persona #7 femur, F tibia, 12 mm polyethylene spacer, 38 mm patellar button. This tibial component has the short stem extension. SUMMARY: Ms. Sanchez is a 58-year-old female who had undergone a revision of the polyethylene of her left total knee in September. She had done well with this where the knee now had good stability and did not hyperextend or have the instability we were able to demonstrate before the revision. She has had increasing pain in her right knee and was very interested in having her right knee replaced. I discussed with her that a right total knee arthroplasty should work well to decrease her pain and improve her function. I warned her that with the valgus deformity she is at increased risk for complications, specifically stretching of the peroneal nerve causing a footdrop as well as the usual troubles with infection, DVT, and pulmonary embolism. She had a run of A- Fib postoperatively after the left revision and this time cardiac clearance was also obtained, which came back good. After discussing the risks of surgery, she had wished to proceed. DESCRIPTION OF PROCEDURE: The patient had a block placed in the holding area and was brought to the OR. General anesthesia was established. Agosto catheter was placed and tourniquet was placed over the proximal right thigh. Total tourniquet time would be approximately 70 minutes. Right knee was prepped and then draped. Skin over the incision was infiltrated using a mixture of 30 cc of 0.25% Marcaine with epinephrine and 30 cc of 0.5% Marcaine. All of the Marcaine mixture would be given including 10 in the incision, 10 along the lateral release, another 10 superiorly in the lateral gutter, 10 behind each of the femoral condyles, and then another 10 more superiorly along the quadriceps. Right knee was prepped and then draped. Esmarch was used to exsanguinate the leg, then tourniquet was raised. Midline incision was made beginning up where I thought the patella could be palpated, beginning just medial to the tibial tubercle. Incision was carried about 4 or 5 cm above what I thought to be the superior pole of the patella. Incision was carried down to the skin and subcutaneous fat and patella was found. Small bleeders encountered were ligated using electric cautery. I could palpate the extensor mechanism and a sharp parapatellar arthrotomy was made with the knee flexed up. Clear yellowish joint fluid spurted out from the knee. Soft tissues were sharply elevated from the medial side of the tibia and the fat pad was sharply excised. Patella only measured about 15 mm in thickness and just the shaving was taken to take it down to 12 and almost none was taken, where she had the more sclerotic bone. Instead, a rongeur was used to remove the excess osteophytes all about the patella. Remainder that I had of the patella, I thought, was fairly good. Patella was then easily subluxated laterally. The knee was flexed up. Step drill was used to open the femoral canal and an intramedullary guide was placed. An outrigger was assembled to take 2 degrees from the femur and was sent to take 2 mm from the distal femur and set at 2 degrees. This was adjusted so that she was parallel to the epicondyles and then distal femoral cutting guide was also pinned into place. Intramedullary guide was removed and distal femoral cut was taken. She had quite the hypoplastic lateral femoral condyle. Sizer was placed and she sat nicely for a 7. She had no bone posteriorly along that lateral femoral condyle and initially, I had internally rotated more, but when I saw where my drill hole sat on the white sideline, I did not like that as the medial one sat nicely, but the lateral one was I thought much too superior. Therefore, holding the guide down just on the top and measuring from the medial femoral condyle and lining the holes up with white side line, she was pinned in this position and those holes were then used. She was sized at 7 and a 7 cutting block was placed. Even with the pins in place, the entire cutting block loosened as her bone was exquisitely soft. It did seem that the drill holes and the peg holes for the cutting guide sat on the Morehouse's line and so this was reinforced with more pins and the anterior and posterior cuts were made and the chamfer cuts were started. Chamfer cuts were finished freehand. Rongeur was then used to finish the corners. One of the pins actually had shaken itself loose and had retreated into the femur and this had to be fished out. It was, however, fished out in its entirety. Attention was turned to the tibia. Step drill was used over the tibial canal and the intramedullary guide was placed. Outrigger was assembled and adjusted until we were able to take 2 mm from the worn lateral side. Tibial guide was then pinned into place and a tibial cut was taken. Placing a spacer block on the top side of the tibia and dropping a drop luís, she was nice and parallel so that the tibial cut was perfect. With the 12, she was loose in flexion and locked down nicely into full extension. The cuts appeared to be excellent. Guide was removed and the proximal tibia was sized at an F. This was pinned into place and proximal tibia was drilled and then punched. Trial femur was placed and the notch cut was finished using the notch cut finishing guide and stud holes were drilled. A 12 polyethylene was placed and with flexion and extension, the knee was nice and stable. However, the patella would flip off to the lateral side. Even with holding the patella, this would continue to flip some. Therefore, a lateral release was performed. Release was done with both a little bit of the sharp dissection and pie crusting laterally. With this , she sat better, but still would want to slide occasionally. I thought with her medial repair that this would be corrected. A part of this was also her patella height was increased with the replacement as her patella was so thinned out due to the loss of bone from her osteoarthritis. Knee was copiously pulse lavaged. Cement was being prepared. Tibia followed by femur and patella were all cemented into place. Excess cement was removed and the cement was allowed to harden. Once the cement was hardened, the knee was searched for excess cement. A few small pieces were removed. She was again trialed with the 12 and had the same wonderful flexion and extension. Patella still was not as stable as it usually is, but considering she had a full lateral release and the femur was aligned along the epicondyles, I did not think changing any of the parts would make a big difference. The knee was again copiously pulse lavaged and 12 [address] was snapped into [address]. Parapatellar arthrotomy was repaired and with the repair, her patella tracking was fine with no clunk, no shift, and no tracking issues. During closure, the tourniquet was let down and no significant bleeding was encountered. The knee was again copiously pulse lavaged and subcutaneous tissues were approximated with 2-0 Vicryl. Skin was closed using gelacio. Sterile dressing and a Cryo/Cuff were applied in the OR. The patient had the LMA removed in the OR and was stable on transfer to the recovery room. [id number]/CPS #: [id number] [facility]
[2019-01-16] MEDS ORDERED: Diazepam TAB(*) 5 MG ONE (18:37)
[2019-01-16] MEDS: ceFAZolin 1 GM ADVAN(*) 1 GM in NS 0.9% 50 ML* 50 ML IVPB SCH (19:41)
[2019-01-16] MEDS: oxyCODONE/Acetamin 5/325 MG* TAB PO PRN (20:41)
[2019-01-16] MEDS: busPIRone TAB* 10 MG PO SCH (20:41)
[2019-01-16] MEDS: Gabapentin CAP(*) 300 MG PO SCH (20:42)
[2019-01-16] MEDS: Docusate CAP* 100 MG PO SCH (20:42)
[2019-01-16] MEDS: DULoxetine DR CAP* 60 MG CAP.DR PO SCH (20:43)
[2019-01-16] MEDS: Divalproex ER TAB(*) 250 MG PO SCH (20:43)
[2019-01-16] MEDS: Ropinirole TAB* 0.5 MG TAB PO SCH (20:44)
[2019-01-16] MEDS: Magnesium Hydroxide LIQ* 30 ML UDC PO SCH (20:45)
[2019-01-16] MEDS: Acetaminophen TAB* 325 MG PO SCH (20:46)
[2019-01-16] MEDS: clonazePAM TAB(*) 1 MG PO PRN (22:25)
[2019-01-16 22:53] LABS: ABS Lymphocytes 0.6 10^3/ul (1.0-4.8); ABS Monocytes 0.4 10^3/ul (0-0.8); ABS Neutrophils 7.2 10^3/ul (1.5-7.7); Hematocrit 38 % (35-47); Hemoglobin 12.6 g/dL (12.0-16.0); Lymphocyte % 6.8 %; Mean Corpuscular HGB Conc 34 g/dL (31-36); Mean Corpuscular Hemoglobin 31 pg (27-31); Mean Corpuscular Volume 93 fL (80-97); Mean Platelet Volume 8.7 fL (7.4-10.4); Platelet Count 183 10^3/uL (150-450); Red Blood Count 4.06 10^6 /uL (3.70-4.87); Red Cell Distribution Width 15 % (10-15); White Blood Count 8.1 10^3/uL (3.5-10.8)
[2019-01-16 23:11] LABS: Albumin 3.3 g/dL (3.2-5.2); Albumin/Globulin Ratio 1.5 (1-3); BUN/Creatinine Ratio 15.9 (8-20); Calcium 9.1 mg/dL (8.6-10.3); EGFR African American 86.9 (>60); EGFR Non-African American 71.9 (>60); Globulin 2.2 g/dL (2-4); Total Bilirubin 0.4 mg/dL (0.2-1.0); Total Protein 5.5 g/dL (6.4-8.9)
[2019-01-17] MEDS: oxyCODONE TAB* 5 MG TAB PO PRN ×4 (01:23→22:19)
[2019-01-17] MEDS: Acetaminophen TAB* 325 MG PO SCH ×4 (01:23→17:28)
--- NOTE | 2019-01-17 01:46 | CONSULT ---
Subjective Date of Service: 01/17/19 Interval History: Reason for consult: Irregular and elevated HR Ms. Sanchez is a 58-year-old female with past medical history significant for obesity, status post gastric bypass; chronic pain; high cholesterol; depression and anxiety, who is here today, underwent a right TKA with Dr. Ruiz on 2018 and later that evening noted to have irregular tachycardia by the nurse. Patient also had some chest pain and palpitation which resolved by the time I saw the patient. She was very sleepy and couldn't provide much history so rest of the history was obtained by reviewing the chart. PAST MEDICAL HISTORY: Chronic Low back pain Obesity status post gastric bypass Hyperparathyroidism Depression Anxiety Hyperlipidemia Sciatica GERD Gastric Ulcer disesae Previously diagnosed intra-operative A. Fib resolved. HTN PAST SURGICAL HISTORY: Right ankle surgeries Total abdominal hysterectomy Cholecystectomy Cystocele and rectocele surgery Gastric bypass 2004 Left knee replacement 2004 with revision in September 2018 Colonoscopy 2018 Laparoscopy 2014 FAMILY HISTORY: The patient's mother is alive, has heart disease and hypertension. The patient father is alive, has heart disease, cancer, diabetes, and hypertension. The patient has 1 healthy sister and 3 healthy sons. This is per primary care records. SOCIAL HISTORY: The patient is never smoker. The patient denies alcohol abuse or illicit drug use. The patient is disabled. The patient's surrogate decision maker will be her mother, Naomi Travis. REVIEW OF SYSTEMS: A 14-point review of systems was reviewed with the patient and is negative except as above in the HPI. Allergies Allergy/AdvReac Type Severity Reaction Status Date / Time Sulfa (Sulfonamide Allergy Severe Hives Verified 01/16/19 09:04 Antibiotics) Home Medications Medication Instructions Recorded Confirmed Type Albuterol Sulfate [Proventil Hfa] 1 puff INH Q6H PRN 10/03/18 01/16/19 History Calcium Carbonate/Vitamin D3 1 tab PO QAM 10/03/18 01/16/19 History [Calcium 600-Vit D3 400 Caplet] Cholecalciferol (Vitamin D3) 1,000 unit PO BID 10/03/18 01/16/19 History [Vitamin D3] DULoxetine DR CAP* [Cymbalta CAP*] 30 mg PO QAM 10/03/18 01/16/[address] CAP* [Cymbalta CAP*] 60 mg PO BEDTIME 10/03/18 01/16/19 History Divalproex ER TAB(*) [Depakote ER 750 mg PO BEDTIME 10/03/18 01/16/19 History TAB(*)] Ferrous Sulfate [Ferosul] 325 mg PO QAM 10/03/18 01/16/19 History Gabapentin 600 mg PO TID 10/03/18 01/16/19 History Hydrochlorothiazide TAB* 25 mg PO QAM 10/03/18 01/16/19 History [Hydrodiuril TAB*] Morphine Sulf Ir 15 mg PO BID 10/03/18 01/16/19 History Omeprazole 40 mg PO QAM 10/03/18 01/16/19 History Ropinirole HCl [Requip] 0.25 mg PO BEDTIME 10/03/18 01/16/19 History busPIRone TAB* [Buspar TAB *] 15 mg PO TID 10/03/18 01/16/19 History clonazePAM [Clonazepam] 1 mg PO TID 10/03/18 01/16/19 History Acetaminophen TAB* [Tylenol TAB*] 650 mg PO Q4H PRN tab 10/20/18 01/16/19 Rx Review of Systems - Measurements Intake and Output: Intake and Output Last 24 Hours 01/14/19 01/15/19 01/16/19 01/17/19 06:59 06:59 06:59 06:59 Output Total 550 Balance -550 Weight 241 lb Output: Agosto 550 Other: # Bowel Movements 0 Objective Active Medications: Acetaminophen (Tylenol Tab*) 650 mg PO Q8H PRN PRN Reason: PAIN OR TEMPERATURE Acetaminophen (Tylenol Tab*) 975 mg PO Q6H [facility] Last Admin: 01/17/19 01:23 Dose: 975 mg Bisacodyl (Dulcolax Supp*) 10 mg [place] DAILY PRN PRN Reason: constipation Buspirone HCl (Buspar Tab*) 15 mg PO TID [facility] Last Admin: 01/16/19 20:41 Dose: 15 mg Clonazepam (Klonopin Tab(*)) 1 mg PO TID PRN PRN Reason: ANXIETY Last Admin: 01/16/19 22:25 Dose: 1 mg Diazepam (Valium Tab(*)) 5 mg PO Q8H PRN PRN Reason: .SPASMS Diphenhydramine HCl (Benadryl Iv*) 25 mg IV Q6H PRN PRN Reason: itching Divalproex Sodium (Depakote Er Tab(*)) 750 mg PO BEDTIME [facility] Last Admin: 01/16/19 20:43 Dose: 750 mg Docusate Sodium (Colace Cap*) 100 mg PO BID [facility] Last Admin: 01/16/19 20:42 Dose: 100 mg Duloxetine HCl (Cymbalta Cap*) 30 mg PO QAM [facility] Duloxetine HCl (Cymbalta Cap*) 60 mg PO BEDTIME [facility] Last Admin: 01/16/19 20:43 Dose: 60 mg Gabapentin (Neurontin Cap(*)) 600 mg PO TID [facility] Last Admin: 01/16/19 20:42 Dose: 600 mg Heparin Sodium (Porcine) (Heparin Vial(*)) 5,000 units SUBCUT Q12HR [facility] Hydrochlorothiazide (Hydrodiuril Tab*) 25 mg PO QAM [facility] Cefazolin Sodium 1 gm/ Sodium (Chloride) 50 mls @ 200 mls/hr IVPB Q8H [facility] Stop: 01/17/19 11:44 Last Admin: 01/16/19 19:41 Dose: 200 mls/hr Lactated Ringer's (Lactated Ringers 1000 Ml Bag*) 1,000 mls @ 75 mls/hr IV PER RATE [facility] Last Admin: 01/16/19 15:31 Dose: 75 mls/hr Lactulose (Lactulose*) 30 ml PO Q6H PRN PRN Reason: constipation Magnesium Hydroxide (Milk Of Magnesia Liq*) 30 ml PO BID [facility] Last Admin: 01/16/19 20:45 Dose: 30 ml Magnesium Hydroxide (Milk Of Magnesia Liq*) 30 ml PO Q6H PRN PRN Reason: constipation Morphine Sulfate (Morphine 4 Mg/Ml Vial (1 Ml)) 4 mg IV Q3H PRN PRN Reason: PAIN SEVERE Last Admin: 01/16/19 22:26 Dose: 4 mg Multivitamins (Theragran Tab*) 1 tab PO DAILY [facility] Ondansetron HCl (Zofran Inj*) 4 mg IV Q6H PRN PRN Reason: nausea Oxycodone HCl (Roxycodone Tab*) 10 mg PO Q4H PRN PRN Reason: PAIN - UNCONTROLLED Last Admin: 01/16/19 18:40 Dose: 10 mg Oxycodone HCl (Roxycodone Tab*) 5 mg PO Q4H PRN PRN Reason: PAIN MILD Oxycodone HCl (Roxycodone Tab*) 10 mg PO Q4H PRN PRN Reason: PAIN MODERATE Last Admin: 01/17/19 01:23 Dose: 10 mg Oxycodone/Acetaminophen (Percocet 5/325 Tab*) 1 tab PO Q4H PRN PRN Reason: PAIN - SEVERE Last Admin: 01/16/19 20:41 Dose: 1 tab Pantoprazole Sodium (Protonix Tab*) 40 mg PO QAM [facility] Ropinirole HCl (Requip Tab*) 0.25 mg PO BEDTIME [facility] Last Admin: 01/16/19 20:44 Dose: 0.25 mg Vital Signs - 8 hr 01/16/19 01/16/19 01/16/19 17:53 18:40 19:01 Temperature 98.4 F Pulse Rate 102 Respiratory 16 16 14 Rate Blood Pressure 141/65 (mmHg) O2 Sat by Pulse 82 Oximetry 01/16/19 01/16/19 01/16/19 19:06 19:42 19:59 Temperature Pulse Rate Respiratory 14 14 Rate Blood Pressure (mmHg) O2 Sat by Pulse 98 Oximetry 01/16/19 01/16/19 01/16/19 20:06 20:26 20:41 Temperature 97.4 F Pulse Rate 101 Respiratory 15 17 14 Rate Blood Pressure 151/87 (mmHg) O2 Sat by Pulse 100 Oximetry 01/16/19 01/16/19 01/16/19 20:42 20:46 22:17 Temperature 98.8 F Pulse Rate 129 Respiratory 14 14 14 Rate Blood Pressure 198/94 (mmHg) O2 Sat by Pulse 100 Oximetry 01/16/19 01/16/19 01/16/19 22:19 22:21 22:25 Temperature Pulse Rate 43 106 Respiratory 16 Rate Blood Pressure 134/72 (mmHg) O2 Sat by Pulse Oximetry 01/16/19 01/17/19 01/17/19 22:26 00:03 00:04 Temperature Pulse Rate Respiratory 16 14 15 Rate Blood Pressure (mmHg) O2 Sat by Pulse Oximetry 01/17/19 01/17/19 01/17/19 00:44 01:06 01:23 Temperature 97.7 F Pulse Rate 70 Respiratory 16 14 14 Rate Blood Pressure 154/69 (mmHg) O2 Sat by Pulse 100 Oximetry Oxygen Devices in Use Now: Nasal Cannula Eyes: No Scleral Icterus, PERRLA Ears/Nose/Mouth/Throat: NL Teeth, Lips, Gums, Mucous Membranes Moist Respiratory: Clear to Auscultation Cardiovascular: NL Sounds; No Murmurs; No JVD, RRR Abdominal: NL Sounds; No Tenderness; No Distention, No Hepatosplenomegaly Extremities: - - Right leg was placed in straight leg dressing. Left LE also has old surgical scar. Skin: No Rash or Ulcers Neurological: Alert and Oriented x 3, NL Sensation, NL Muscle Strength and Tone Result Diagrams: 01/16/19 22:47 01/16/19 22:47 EKG Data: Shows sinus rhythm with multiple Atrial premature complexes vs sinus arrhythmia at 93bpm. Assessment/Plan - Billing Plan By Medical Problem: 58yoF with multiple medical problem here s/p right knee TKA noted to have arrhythmia. History of A. Fib during her previous post-op period. 1. Irregular HR Recently had extensive work-up by cardiology per ortho notes. Will monitor on tele for now. Obtain records from cardiology office. If arrhythmia continues the next few days consider consulting the cardiology. VTE PPX: On Coumadin.
[2019-01-17] MEDS: ceFAZolin 1 GM ADVAN(*) 1 GM in NS 0.9% 50 ML* 50 ML IVPB SCH ×2 (03:31→11:57)
[2019-01-17 05:43] LABS: BUN/Creatinine Ratio 16.9 (8-20); Calcium 8.8 mg/dL (8.6-10.3); EGFR African American 102.7 (>60); EGFR Non-African American 84.8 (>60); Hematocrit 39 % (35-47); Hemoglobin 12.9 g/dL (12.0-16.0); Mean Platelet Volume 9.4 fL (7.4-10.4); Platelet Count 164 10^3/uL (150-450); Potassium 4.2 mmol/L (3.5-5.0)
[2019-01-17] MEDS: oxyCODONE/Acetamin 5/325 MG* TAB PO PRN ×3 (05:53→16:22)
[2019-01-17 07:54] LABS: Magnesium 2.2 mg/dL (1.9-2.7)
[2019-01-17] MEDS ORDERED: Heparin VIAL(*) 5000 UNITS/ML VIAL (FIVE THOUSAND) SUBCUT SCH (09:00)
[2019-01-17] MEDS: clonazePAM TAB(*) 1 MG PO PRN ×2 (09:20→14:27)
[2019-01-17] MEDS: Pantoprazole TAB * 40 MG TAB PO SCH (09:20)
[2019-01-17] MEDS: Vitamin THERAPEUTIC TAB PO SCH (09:20)
[2019-01-17] MEDS: Hydrochlorothiazide TAB* 25 MG PO SCH (09:21)
[2019-01-17] MEDS: Docusate CAP* 100 MG PO SCH ×2 (09:21→22:19)
[2019-01-17] MEDS: busPIRone TAB* 10 MG PO SCH ×3 (09:21→22:17)
[2019-01-17] MEDS: DULoxetine DR CAP* 30 MG CAP.DR PO SCH (09:22)
[2019-01-17] MEDS: Gabapentin CAP(*) 300 MG PO SCH ×3 (09:22→22:18)
[2019-01-17] MEDS: Magnesium Hydroxide LIQ* 30 ML UDC PO SCH ×2 (09:38→22:20)
--- NOTE | 2019-01-17 11:04 | PN ---
Progress Note - Progress Note Date of Service: 01/17/19 Note: POD #1: Patient resting comfortably in bed without complaints of SOB, current CP or calf pain. Patient had an episode of an irregular heart rhythm overnight, so medicine was consulted and halter monitor placed. Orthopedically, her pain is well managed. Cryocuff is in place, bandage is intact without obvious drainage. Patient dorsi/plantar flexes right ankle with intact sensation, 2+ DP pulse and brisk capillary refill. We appreciate medicine's services and we will continue to follow. INR is ordered and coumadin dosing will occur once this lab is evaluated.
[2019-01-17] MEDS: Diazepam TAB(*) 5 MG PO PRN (11:57)
[2019-01-17 13:07] LABS: INR 1.45 (0.82-1.09)
--- NOTE | 2019-01-17 13:51 | PN ---
Subjective Date of Service: 01/17/19 Interval History: Ms. Sanchez is not feeling well this morning. Prior to my arrival, she was working with PT. When she got back in bed she was having significant pain and repeatedly requested to have straps to pull herself up in bed. She states the straps were present last night (not accurate). She is hysterical, crying, and not willing to participate in any productive conversation. Prior to my exam, the patient was tachycardic and irregular on monitor with significant artifact, though this did not appear to be afib. Tachycardia resolved once she was back in bed. No concerns from nursing. Family History: Unchanged from Admission Social History: Unchanged from Admission Past Medical History: Unchanged from Admission Objective Active Medications: Acetaminophen (Tylenol Tab*) 650 mg PO Q8H PRN PAIN OR TEMPERATURE Acetaminophen (Tylenol Tab*) 975 mg PO Q6H [facility] Bisacodyl (Dulcolax Supp*) 10 mg [place] DAILY PRN constipation Buspirone HCl (Buspar Tab*) 15 mg PO TID [facility] Clonazepam (Klonopin Tab(*)) 1 mg PO TID PRN ANXIETY Diazepam (Valium Tab(*)) 5 mg PO Q8H PRN SPASMS Diphenhydramine HCl (Benadryl Iv*) 25 mg IV Q6H PRN itching Divalproex Sodium (Depakote Er Tab(*)) 750 mg PO BEDTIME [facility] Docusate Sodium (Colace Cap*) 100 mg PO BID [facility] Duloxetine HCl (Cymbalta Cap*) 30 mg PO QAM [facility] Duloxetine HCl (Cymbalta Cap*) 60 mg PO BEDTIME [facility] Gabapentin (Neurontin Cap(*)) 600 mg PO TID [facility] Heparin Sodium (Porcine) (Heparin Vial(*)) 5,000 units SUBCUT Q12HR [facility] Hydrochlorothiazide (Hydrodiuril Tab*) 25 mg PO QAM [facility] Lactated Ringer's (Lactated Ringers 1000 Ml Bag*) 1,000 mls @ 75 mls/hr IV PER RATE [facility] Lactulose (Lactulose*) 30 ml PO Q6H PRN constipation Magnesium Hydroxide (Milk Of Magnesia Liq*) 30 ml PO BID [facility] Magnesium Hydroxide (Milk Of Magnesia Liq*) 30 ml PO Q6H PRN constipation Morphine Sulfate (Morphine 4 Mg/Ml Vial (1 Ml)) 4 mg IV Q3H PRN PAIN SEVERE Multivitamins (Theragran Tab*) 1 tab PO DAILY [facility] Ondansetron HCl (Zofran Inj*) 4 mg IV Q6H PRN nausea Oxycodone HCl (Roxycodone Tab*) 10 mg PO Q4H PRN PAIN - UNCONTROLLED Oxycodone HCl (Roxycodone Tab*) 5 mg PO Q4H PRN PAIN MILD Oxycodone HCl (Roxycodone Tab*) 10 mg PO Q4H PRN PAIN MODERATE Oxycodone/Acetaminophen (Percocet 5/325 Tab*) 1 tab PO Q4H PRN PAIN - SEVERE Pantoprazole Sodium (Protonix Tab*) 40 mg PO QAM [facility] Ropinirole HCl (Requip Tab*) 0.25 mg PO BEDTIME [facility] Vital Signs - 8 hr 01/17/19 01/17/19 01/17/19 05:53 07:49 08:00 Temperature 98.3 F Pulse Rate 81 Respiratory 14 14 14 Rate Blood Pressure 146/66 (mmHg) O2 Sat by Pulse 100 Oximetry 01/17/19 01/17/19 01/17/19 11:25 11:29 11:57 Temperature 98.3 F Pulse Rate 83 Respiratory 16 17 16 Rate Blood Pressure 115/69 (mmHg) O2 Sat by Pulse 98 Oximetry Oxygen Devices in Use Now: None Appearance: Middle-aged female laying in bed, hysterical, but in NAD Eyes: No Scleral Icterus Ears/Nose/Mouth/Throat: Mucous Membranes Moist Neck: NL Appearance and Movements; NL JVP, Trachea Midline Respiratory: Symmetrical Chest Expansion and Respiratory Effort, Clear to Auscultation Cardiovascular: NL Sounds; No Murmurs; No JVD, RRR Abdominal: NL Sounds; No Tenderness; No Distention Extremities: No Edema Neurological: Alert and Oriented x 3 Lines/Tubes/Other Access: Clean, Dry and Intact Peripheral IV Nutrition: Taking PO's Result Diagrams: 01/17/19 05:08 01/17/19 05:08 Assess/Plan/Problems-Billing Assessment: Ms. Sanchez is a 58 yo F with PMH of HTN, postop afib (resolved), hyperparathyroidism, depression, HLD, and anxiety; who underwent an elective R TKA on 01/16/[address] Ruiz. Hospital Medicine was consulted because of concern for tachycardia and irregular HR. - Patient Problems (1) Status post right knee replacement Code(s): Z96.651 - PRESENCE OF RIGHT ARTIFICIAL KNEE JOINT Comment: - POD #1 - Management per Ortho - Continue morphine, Percocet, oxycodone, bowel regimen (2) Tachycardia Code(s): R00.0 - TACHYCARDIA, UNSPECIFIED Comment: - Resolved with rest this morning - On review, this appears to be sinus arrhythmia vs frequent PACs; no evidence of afib and has not been sustained - Certainly exacerbated by pain and anxiety, so would recommend managing those appropriately and would not recommend treating tachycardia at this point (3) Anxiety and depression Code(s): F41.9 - ANXIETY DISORDER, UNSPECIFIED; F32.9 - MAJOR DEPRESSIVE DISORDER, SINGLE EPISODE, UNSPECIFIED Comment: - Continue clonazepam, duloxetine, buspirone, diazepam (4) Hypertension Code(s): I10 - ESSENTIAL (PRIMARY) HYPERTENSION Comment: - Somewhat hypertensive, SBP 110-140s; likely secondary to pain - Continue HCTZ (5) DVT prophylaxis Code(s): Z29.9 - ENCOUNTER FOR PROPHYLACTIC MEASURES, UNSPECIFIED Comment: - Coumadin per Ortho (6) Full code status Code(s): Z78.9 - OTHER SPECIFIED HEALTH STATUS Comment: Status and Disposition: Dispo per Ortho. Thank you for this consultation. We will sign off at this time, but please call with any further questions or concerns. Attending: Amelia Lopez
[2019-01-17] MEDS ORDERED: Warfarin TAB(*) 6 MG PO ONE (17:00)
[2019-01-17] MEDS ORDERED: Ketorolac INJ* 30 MG/ML 1 ML VIAL IV PUSH ONE (18:00)
[2019-01-17] MEDS: Ropinirole TAB* 0.5 MG TAB PO SCH (22:17)
[2019-01-17] MEDS: DULoxetine DR CAP* 60 MG CAP.DR PO SCH (22:19)
[2019-01-17] MEDS: Divalproex ER TAB(*) 250 MG PO SCH (22:20)
[2019-01-18] MEDS: Acetaminophen TAB* 325 MG PO SCH ×4 (01:29→18:47)
[2019-01-18] MEDS: oxyCODONE TAB* 5 MG TAB PO PRN ×2 (05:26→10:31)
[2019-01-18] MEDS: Morphine 4 MG/ML VIAL (1 ml) 4 MG/ML VIAL IV PRN (05:26)
[2019-01-18 05:56] LABS: Hematocrit 32 % (35-47); Hemoglobin 10.8 g/dL (12.0-16.0); Mean Platelet Volume 8.9 fL (7.4-10.4); Platelet Count 197 10^3/uL (150-450)
[2019-01-18] MEDS: Vitamin THERAPEUTIC TAB PO SCH (08:14)
[2019-01-18] MEDS: DULoxetine DR CAP* 30 MG CAP.DR PO SCH (08:14)
[2019-01-18] MEDS: Gabapentin CAP(*) 300 MG PO SCH ×3 (08:15→21:00)
[2019-01-18] MEDS: busPIRone TAB* 10 MG PO SCH ×3 (08:16→20:57)
[2019-01-18] MEDS: Docusate CAP* 100 MG PO SCH ×2 (08:16→20:59)
[2019-01-18] MEDS: Pantoprazole TAB * 40 MG TAB PO SCH (08:17)
[2019-01-18] MEDS: clonazePAM TAB(*) 1 MG PO PRN ×2 (08:17→13:10)
[2019-01-18] MEDS: oxyCODONE/Acetamin 5/325 MG* TAB PO PRN ×2 (08:17→13:07)
[2019-01-18] MEDS: Hydrochlorothiazide TAB* 25 MG PO SCH (08:18)
[2019-01-18] MEDS: Magnesium Hydroxide LIQ* 30 ML UDC PO SCH ×2 (08:18→21:00)
--- NOTE | 2019-01-18 12:54 | PN ---
Progress Note - Progress Note Date of Service: 01/18/19 SOAP: Subjective: []Pt seen and examined at bedside. She denies CP, SOB, dizziness or nausea. She has had difficulty controlling her knee pain. Objective: []General: Appears well, NAD RLE: Right knee dressing changed, incision CDI. Thigh soft. DF/PF intact, DP2+, sensation intact to light touch distally Patient is picking her left knee incision while I'm in the room. There is scabbing but no discharge or erythema. Calves supple and nontender without erythema, edema or palpable cords Assessment: []POD 1 sp RTK Plan: []WBAT PT/OT Full dose lovenox bridge to coumadin 6 mg today tachycardia: has been seen by hospitalist for tachycardia, rec pain control yesterday with no a fib. Today rapid a fib and transferred to ICU Vital Signs Temp 98.6 F 01/18/19 11:41 Pulse 115 01/18/19 11:41 Resp 16 01/18/19 11:41 BP 113/56 01/18/19 11:41 Pulse Ox 96 01/18/19 11:41 Intake & Output 01/17/19 01/18/19 01/18/19 18:59 06:59 18:59 Intake Total 1615 250 210 Output Total 1700 550 200 Balance -85 -300 10 Weight 260 lb 4.8 oz Intake: IV Fluids 985 LR 985 Oral 630 250 210 Output: Urine 1700 550 200 Other: # Bowel Movements 0 Laboratory Last Values WBC 8.1 10^3/uL (3.5-10.8) 01/16/19 22:47 RBC 4.06 10^6 /uL (3.70-4.87) 01/16/19 22:47 Hgb 10.8 g/dL (12.0-16.0) L 01/18/19 05:39 Hct 32 % (35-47) L 01/18/19 05:39 MCV 93 fL (80-97) 01/16/19 22:47 MCH 31 pg (27-31) 01/16/19 22:47 MCHC 34 g/dL (31-36) 01/16/19 22:47 RDW 15 % (10-15) 01/16/19 22:47 Plt Count 197 10^3/uL (150-450) 01/18/19 05:39 MPV 8.9 fL (7.4-10.4) 01/18/19 05:39 Neut % (Auto) 88.6 % 01/16/19 22:47 Lymph % (Auto) 6.8 % 01/16/19 22:47 [place] % (Auto) 4.5 % 01/16/19 22:47 Eos % (Auto) 0.0 % 01/16/19 22:47 Baso % (Auto) 0.1 % 01/16/19 22:47 Absolute Neuts (auto) 7.2 10^3/ul (1.5-7.7) 01/16/19 22:47 Absolute Lymphs (auto) 0.6 10^3/ul (1.0-4.8) L 01/16/19 22:47 Absolute Monos (auto) 0.4 10^3/ul (0-0.8) 01/16/19 22:47 Absolute Eos (auto) 0.0 10^3/ul (0-0.6) 01/16/19 22:47 Absolute Basos (auto) 0.0 10^3/ul (0-0.2) 01/16/19 22:47 Absolute Nucleated RBC 0.0 10^3/ul 01/16/19 22:47 Nucleated RBC % 0.0 01/16/19 22:47 INR (Anticoag Therapy) 1.45 (0.82-1.09) H 01/17/19 12:14 Sodium 135 mmol/L (135-145) 01/17/19 05:08 Potassium 4.2 mmol/L (3.5-5.0) 01/17/19 05:08 Chloride 99 mmol/L (101-111) L 01/17/19 05:08 Carbon Dioxide 29 mmol/L (22-32) 01/17/19 05:08 Anion Gap 7 mmol/L (2-11) 01/17/19 05:08 BUN 12 mg/dL (6-24) 01/17/19 05:08 Creatinine 0.71 mg/dL (0.51-0.95) 01/17/19 05:08 Est GFR ( Amer) 102.7 (>60) 01/17/19 05:08 Est GFR (Non-Af Amer) 84.8 (>60) 01/17/19 05:08 BUN/Creatinine Ratio 16.9 (8-20) 01/17/19 05:08 Glucose 129 mg/dL (70-100) H 01/17/19 05:08 Calcium 8.8 mg/dL (8.6-10.3) 01/17/19 05:08 Magnesium 2.2 mg/dL (1.9-2.7) 01/17/19 05:08 Total Bilirubin 0.40 mg/dL (0.2-1.0) 01/16/19 22:47 AST 20 U/L (13-39) 01/16/19 22:47 ALT 16 U/L (7-52) 01/16/19 22:47 Alkaline Phosphatase 76 U/L (34-104) 01/16/19 22:47 Troponin I 0.00 ng/mL (<0.04) 01/16/19 22:47 Total Protein 5.5 g/dL (6.4-8.9) L 01/16/19 22:47 Albumin 3.3 g/dL (3.2-5.2) 01/16/19 22:47 Globulin 2.2 g/dL (2-4) 01/16/19 22:47 Albumin/Globulin Ratio 1.5 (1-3) 01/16/19 22:47
[2019-01-18] MEDS ORDERED: Ketorolac INJ* 30 MG/ML 1 ML VIAL IM PRN (13:05)
[2019-01-18] MEDS: Diazepam TAB(*) 5 MG PO PRN (13:10)
[2019-01-18] MEDS ORDERED: Iohexol 350* (CONTRAST) 500 ML MDV IV ONE (13:18)
[2019-01-18] MEDS ORDERED: Enoxaparin(*) 40 MG/0.4 ML SYR SUBCUT SCH (14:00)
--- NOTE | 2019-01-18 14:51 | PN ---
Subjective Date of Service: 01/18/19 Interval History: Patient is feeling very poorly today. Patient has significant pain in RLE. Patient states the pain is moderately responsive to pain medication. Patient states she has some tightness in her chest with pleuritic pain with inspiration and palpitations. Patient was moderately dizzy, but not presyncopal when sitting up in the chair. Patient denies F/C, N/V, abdominal pain, dysuria, or other pain. Patient has no history of blood clots and has chronic LE edema at home. Family History: Unchanged from Admission Social History: Unchanged from Admission Past Medical History: Unchanged from Admission Objective Active Medications: Acetaminophen (Tylenol Tab*) 650 mg PO Q8H PRN PRN Reason: PAIN OR TEMPERATURE Acetaminophen (Tylenol Tab*) 975 mg PO Q6H [facility] Last Admin: 01/18/19 12:14 Dose: Not Given Bisacodyl (Dulcolax Supp*) 10 mg [place] DAILY PRN PRN Reason: constipation Buspirone HCl (Buspar Tab*) 15 mg PO TID [facility] Last Admin: 01/18/19 08:16 Dose: 15 mg Clonazepam (Klonopin Tab(*)) 1 mg PO TID PRN PRN Reason: ANXIETY Last Admin: 01/18/19 13:10 Dose: 1 mg Diazepam (Valium Tab(*)) 5 mg PO Q8H PRN PRN Reason: .SPASMS Last Admin: 01/18/19 13:10 Dose: 5 mg Diphenhydramine HCl (Benadryl Iv*) 25 mg IV Q6H PRN PRN Reason: itching Divalproex Sodium (Depakote Er Tab(*)) 750 mg PO BEDTIME [facility] Last Admin: 01/17/19 22:20 Dose: 750 mg Docusate Sodium (Colace Cap*) 100 mg PO BID [facility] Last Admin: 01/18/19 08:16 Dose: 100 mg Duloxetine HCl (Cymbalta Cap*) 30 mg PO QAM [facility] Last Admin: 01/18/19 08:14 Dose: 30 mg Duloxetine HCl (Cymbalta Cap*) 60 mg PO BEDTIME [facility] Last Admin: 01/17/19 22:19 Dose: 60 mg Enoxaparin Sodium (Lovenox(*)) 40 mg SUBCUT Q24H [facility] Gabapentin (Neurontin Cap(*)) 600 mg PO TID [facility] Last Admin: 01/18/19 08:15 Dose: 600 mg Hydrochlorothiazide (Hydrodiuril Tab*) 25 mg PO QAM [facility] Last Admin: 01/18/19 08:18 Dose: Not Given Lactated Ringer's (Lactated Ringers 1000 Ml Bag*) 1,000 mls @ 75 mls/hr IV PER RATE [facility] Last Admin: 01/16/19 15:31 Dose: 75 mls/hr Ketorolac Tromethamine (Toradol Inj*) 30 mg IM Q6H PRN PRN Reason: PAIN - MODERATE Stop: 01/23/19 13:05 Lactulose (Lactulose*) 30 ml PO Q6H PRN PRN Reason: constipation Magnesium Hydroxide (Milk Of Magnesia Liq*) 30 ml PO BID [facility] Last Admin: 01/18/19 08:18 Dose: 30 ml Magnesium Hydroxide (Milk Of Magnesia Liq*) 30 ml PO Q6H PRN PRN Reason: constipation Morphine Sulfate (Morphine 4 Mg/Ml Vial (1 Ml)) 4 mg IV Q3H PRN PRN Reason: PAIN SEVERE Last Admin: 01/18/19 05:26 Dose: 4 mg Multivitamins (Theragran Tab*) 1 tab PO DAILY [facility] Last Admin: 01/18/19 08:14 Dose: 1 tab Ondansetron HCl (Zofran Inj*) 4 mg IV Q6H PRN PRN Reason: nausea Oxycodone HCl (Roxycodone Tab*) 10 mg PO Q4H PRN PRN Reason: PAIN - UNCONTROLLED Last Admin: 01/18/19 10:31 Dose: 10 mg Oxycodone HCl (Roxycodone Tab*) 5 mg PO Q4H PRN PRN Reason: PAIN MILD Oxycodone HCl (Roxycodone Tab*) 10 mg PO Q4H PRN PRN Reason: PAIN MODERATE Last Admin: 01/17/19 01:23 Dose: 10 mg Oxycodone/Acetaminophen (Percocet 5/325 Tab*) 1 tab PO Q4H PRN PRN Reason: PAIN - SEVERE Last Admin: 01/18/19 13:07 Dose: 1 tab [facility]oprazole Sodium ([facility]ix [facility]*) [facility] [place] Admin: 01/18/19 08:17 Dose: 40 mg Pharmacy Profile Note (Coumadin Daily Reminder*) 1 note FOLLOW UP 1700 [facility] Last Admin: 01/17/19 17:37 Dose: 1 note Ropinirole HCl (Requip Tab*) 0.25 mg PO BEDTIME [facility] Last Admin: 01/17/19 22:17 Dose: 0.25 mg Warfarin Sodium (Coumadin Tab(*)) 6 mg PO ONCE@1700 [facility]; Protocol Stop: 01/18/19 17:01 Vital Signs - 8 hr 01/18/19 01/18/19 01/18/19 07:49 08:15 08:17 Temperature 98.5 F Pulse Rate 100 Respiratory 16 16 16 Rate Blood Pressure 120/65 (mmHg) O2 Sat by Pulse 94 Oximetry 01/18/19 01/18/19 01/18/19 10:30 10:31 11:41 Temperature 98.6 F Pulse Rate 115 Respiratory 16 16 16 Rate Blood Pressure 113/56 (mmHg) O2 Sat by Pulse 96 Oximetry 01/18/19 01/18/19 13:07 13:10 Temperature Pulse Rate Respiratory 16 18 Rate Blood Pressure (mmHg) O2 Sat by Pulse Oximetry Oxygen Devices in Use Now: None Appearance: Patient is a 58yo female who appears stated age and is sitting in the bed in mild distress from pain. Eyes: No Scleral Icterus, PERRLA Ears/Nose/Mouth/Throat: NL Teeth, Lips, Gums, Clear Oropharnyx, Mucous Membranes Moist Neck: NL Appearance and Movements; NL JVP, Trachea Midline Respiratory: Symmetrical Chest Expansion and Respiratory Effort, Clear to Auscultation Cardiovascular: NL Sounds; No Murmurs; No JVD, - - 2+ B/L LE edema. Tachycardic with irregularity corresponding to PACs on telemetry. Result Diagrams: 01/18/19 05:39 01/17/19 05:08 EKG Data: Shows sinus rhythm with multiple Atrial premature complexes vs sinus arrhythmia at 93bpm. Assess/Plan/Problems-Billing Assessment: Ms. Sanchez is a 58 yo F with PMH of HTN, postop afib (resolved), hyperparathyroidism, depression, HLD, and anxiety; who underwent an elective R TKA on 01/16/[address] Ruiz. Hospital Medicine was consulted because of concern for tachycardia and irregular HR. - Patient Problems (1) Tachycardia Current Visit: Yes Status: Acute Code(s): R00.0 - TACHYCARDIA, UNSPECIFIED SNOMED Code(s): 8981277 Comment: - Resolved with rest this morning - On review, this appears to be sinus arrhythmia vs frequent PACs; no evidence of afib and has not been sustained - Certainly exacerbated by pain and anxiety, so would recommend managing those appropriately - Will treat tachycardia directly if no PE on CTA. - High risk for Blood Clot (2) Status post right knee replacement Current Visit: Yes Status: Acute Code(s): Z96.651 - PRESENCE OF RIGHT ARTIFICIAL KNEE JOINT SNOMED Code(s): 2536037258198 Comment: - POD #1 - Management per Ortho - Continue morphine, Percocet, oxycodone, bowel regimen (3) Anxiety and depression Current Visit: Yes Status: Acute Code(s): F41.9 - ANXIETY DISORDER, UNSPECIFIED; F32.9 - MAJOR DEPRESSIVE DISORDER, SINGLE EPISODE, UNSPECIFIED SNOMED Code(s): 937734341 Comment: - Continue clonazepam, duloxetine, buspirone, diazepam - Likely strong uke driver of tachycardia, treat aggressively. (4) Hypertension Current Visit: Yes Status: Acute Code(s): I10 - ESSENTIAL (PRIMARY) HYPERTENSION SNOMED Code(s): 09320149 Comment: - Somewhat hypertensive, SBP 110-140s; likely secondary to pain - Continue HCTZ (5) Full code status Current Visit: Yes Status: Acute Code(s): Z78.9 - OTHER SPECIFIED HEALTH STATUS SNOMED Code(s): 206491338 Comment: (6) DVT prophylaxis Current Visit: Yes Status: Acute Code(s): Z29.9 - ENCOUNTER FOR PROPHYLACTIC MEASURES, UNSPECIFIED SNOMED Code(s): 307883533 Comment: - Coumadin per Ortho - Bridge with Lovenox. Status and Disposition: Dispo per Ortho. Thank you for this consultation. We will follow along due to persistent tachycardia.
[2019-01-18] MEDS ORDERED: Metoprolol Tartrate IV* 1 MG/ML 5 ML VIAL ONE (15:18)
[2019-01-18] MEDS ORDERED: Metoprolol Tartrate IV* 1 MG/ML 5 ML VIAL IV ONE (15:26)
[2019-01-18 15:43] LABS: ABS Basophils 0.1 10^3/ul (0-0.2); ABS Lymphocytes 2.2 10^3/ul (1.0-4.8); ABS Monocytes 0.8 10^3/ul (0-0.8); ABS Neutrophils 4.1 10^3/ul (1.5-7.7); Eosinophil % 0.3 %; Hematocrit 32 % (35-47); Hemoglobin 10.5 g/dL (12.0-16.0); Lymphocyte % 30.6 %; Mean Corpuscular HGB Conc 33 g/dL (31-36); Mean Corpuscular Hemoglobin 31 pg (27-31); Mean Corpuscular Volume 92 fL (80-97); Mean Platelet Volume 9.2 fL (7.4-10.4); Platelet Count 183 10^3/uL (150-450); Red Blood Count 3.42 10^6 /uL (3.70-4.87); Red Cell Distribution Width 15 % (10-15); White Blood Count 7.2 10^3/uL (3.5-10.8)
[2019-01-18] MEDS ORDERED: Enoxaparin(*) 100 MG/ML SYR SUBCUT SCH (16:00)
[2019-01-18] MEDS ORDERED: Metoprolol Tartrate TAB* 25 MG PO SCH (16:00)
[2019-01-18] MEDS ORDERED: Enoxaparin(*) 100 MG/ML SYR SUBCUT ONE (16:00)
[2019-01-18] MEDS ORDERED: Diltiazem IV BAG* D5W Premix 125 MG/125 ML BAG IV SCH (16:00)
[2019-01-18 16:05] LABS: Albumin 2.7 g/dL (3.2-5.2); Albumin/Globulin Ratio 1.2 (1-3); BUN/Creatinine Ratio 16.7 (8-20); Calcium 8.5 mg/dL (8.6-10.3); EGFR African American 78.1 (>60); EGFR Non-African American 64.5 (>60); Globulin 2.3 g/dL (2-4); Potassium 3.7 mmol/L (3.5-5.0); Total Bilirubin 0.4 mg/dL (0.2-1.0)
[2019-01-18 16:06] LABS: Troponin I 0.01 ng/mL (<0.04)
[2019-01-18] MEDS ORDERED: Warfarin TAB(*) 6 MG PO SCH ×2 (17:00→18:00)
[2019-01-18] MEDS: Lactated Ringers 1000 ML Bag* 1,000 ML IV SCH (17:05)
[2019-01-18 17:09] LABS: Urine Appearance Clear; Urine Bilirubin Negative (Negative); Urine Blood Negative (Negative); Urine Color Straw; Urine Glucose Negative (Negative); Urine Ketones Negative (Negative); Urine Nitrite Negative (Negative); Urine Protein Negative (Negative); Urine Urobilinogen Negative (Negative)
[2019-01-18 17:11] LABS: TSH (Thyroid Stimulating Horm) 3.68 mcIU/mL (0.34-5.60)
[2019-01-18] MEDS ORDERED: Lactated Ringers 1000 ML Bag* 1,000 ML IV ONE (19:00)
[2019-01-18 20:41] LABS: BUN/Creatinine Ratio 16.1 (8-20); Calcium 8.5 mg/dL (8.6-10.3); EGFR African American 81.2 (>60); EGFR Non-African American 67.1 (>60); Potassium 3.9 mmol/L (3.5-5.0)
[2019-01-18] MEDS: DULoxetine DR CAP* 60 MG CAP.DR PO SCH (20:59)
[2019-01-18] MEDS: Divalproex ER TAB(*) 250 MG PO SCH (20:59)
[2019-01-18] MEDS: Metoprolol Tartrate TAB* 25 MG PO SCH (21:00)
[2019-01-18] MEDS: Ropinirole TAB* 0.5 MG TAB PO SCH (21:01)
[2019-01-18 23:26] LABS: Urine Appearance Clear; Urine Bacteria Absent (Absent); Urine Bilirubin Negative (Negative); Urine Blood 1+ (Negative); Urine Color Straw; Urine Glucose Negative (Negative); Urine Ketones Negative (Negative); Urine Nitrite Negative (Negative); Urine Protein Negative (Negative); Urine Red Blood Cell Trace(0-2/hpf) (Absent); Urine Specific Gravity 1.005 (1.010-1.030); Urine Squamous Epithelial Cell Present (Absent); Urine Urobilinogen Negative (Negative); Urine White Blood Cell Trace(0-5/hpf) (Absent)
[2019-01-19] MEDS: Acetaminophen TAB* 325 MG PO SCH ×4 (00:46→17:35)
[2019-01-19] MEDS ORDERED: Enoxaparin(*) 100 MG/ML SYR SUBCUT ONE (02:00)
[2019-01-19] MEDS ORDERED: Enoxaparin(*) 100 MG/ML SYR SUBCUT SCH (04:00)
[2019-01-19] MEDS: Lactated Ringers 1000 ML Bag* 1,000 ML IV SCH (04:45)
[2019-01-19 04:55] LABS: ABS Basophils 0.1 10^3/ul (0-0.2); ABS Eosinophils 0.1 10^3/ul (0-0.6); ABS Lymphocytes 1.7 10^3/ul (1.0-4.8); ABS Monocytes 0.4 10^3/ul (0-0.8); ABS Neutrophils 2.7 10^3/ul (1.5-7.7); Eosinophil % 1.2 %; Hematocrit 28 % (35-47); Hemoglobin 9.3 g/dL (12.0-16.0); Mean Corpuscular HGB Conc 34 g/dL (31-36); Mean Corpuscular Hemoglobin 31 pg (27-31); Mean Corpuscular Volume 92 fL (80-97); Mean Platelet Volume 8.7 fL (7.4-10.4); Nucleated Red Blood Cells % 0.1; Platelet Count 147 10^3/uL (150-450); Red Blood Count 3.02 10^6 /uL (3.70-4.87); Red Cell Distribution Width 15 % (10-15)
[2019-01-19 04:59] LABS: INR 3.7 (0.82-1.09)
[2019-01-19] MEDS ORDERED: Enoxaparin(*) 150 MG/ML 1 ML SYRINGE SUBCUT SCH (05:00)
[2019-01-19] MEDS: Hydrochlorothiazide TAB* 25 MG PO SCH (08:11)
[2019-01-19] MEDS: Gabapentin CAP(*) 300 MG PO SCH ×3 (08:11→21:27)
[2019-01-19] MEDS: busPIRone TAB* 10 MG PO SCH ×3 (08:12→21:26)
[2019-01-19] MEDS: Metoprolol Tartrate TAB* 25 MG PO SCH ×2 (08:13→21:28)
[2019-01-19] MEDS: Pantoprazole TAB * 40 MG TAB PO SCH (08:13)
[2019-01-19] MEDS: Vitamin THERAPEUTIC TAB PO SCH (08:13)
[2019-01-19] MEDS: Docusate CAP* 100 MG PO SCH ×2 (08:17→21:27)
[2019-01-19] MEDS: Magnesium Hydroxide LIQ* 30 ML UDC PO SCH ×2 (08:17→21:27)
[2019-01-19] MEDS: DULoxetine DR CAP* 30 MG CAP.DR PO SCH (09:08)
[2019-01-19] MEDS: oxyCODONE TAB* 5 MG TAB PO PRN ×2 (11:56→21:29)
[2019-01-19] MEDS ORDERED: Scopolamine PATCH Remove* 1 NOTE MISC PATCH OFF ONE (12:02)
--- NOTE | 2019-01-19 14:39 | PN ---
Progress Note - Progress Note Date of Service: 01/19/19 SOAP: Subjective: []Pt seen at bedside in ICU this morning, her knee pain is well controlled. She denies any chest pain, shortness of breath, dizziness or nausea. Objective: []General: Sedated though answering questions and interacting appropriately. RLE: Right knee dressing changed, incision CDI. There is surrounding bruising no erythema. Thigh soft. DF/PF intact, DP2+, sensation intact to light touch distally Calves supple and nontender without erythema, edema or palpable cords Assessment: []POD 2 sp RTK Plan: []WBAT, pt to get out of bed and work with PT Remove arnold INR supratherapeutic at 3.7, okay to stop lovenox, hold coumadin tonight. recheck INR in the morning for further dosing Vital Signs Temp 98.3 F 01/19/19 11:38 Pulse 66 01/19/19 11:38 Resp 16 01/19/19 13:53 BP 121/55 01/19/19 11:38 Pulse Ox 97 01/19/19 11:38 Intake & Output 01/18/19 01/19/19 01/19/19 18:59 06:59 18:59 Intake Total 420 2663 Output Total 710 1680 285 Balance -290 983 -285 Weight 249 lb 9.012 oz Intake: IV Fluids 2183 LR 2183 Oral 420 480 Output: Urine 710 150 Arnold 1530 285 Other: Estimated Void Large # Bowel Movements 1 Estimated Stool Amount Medium # Voids 1 Laboratory Last Values WBC 5.0 10^3/uL (3.5-10.8) 01/19/19 04:42 RBC 3.02 10^6 /uL (3.70-4.87) L 01/19/19 04:42 Hgb 9.3 g/dL (12.0-16.0) L 01/19/19 04:42 Hct 28 % (35-47) L 01/19/19 04:42 MCV 92 fL (80-97) 01/19/19 04:42 MCH 31 pg (27-31) 01/19/19 04:42 MCHC 34 g/dL (31-36) 01/19/19 04:42 RDW 15 % (10-15) 01/19/19 04:42 Plt Count 147 10^3/uL (150-450) L 01/19/19 04:42 MPV 8.7 fL (7.4-10.4) 01/19/19 04:42 Neut % (Auto) 55.1 % 01/19/19 04:42 Lymph % (Auto) 34.0 % 01/19/19 04:42 [place] % (Auto) 8.5 % 01/19/19 04:42 Eos % (Auto) 1.2 % 01/19/19 04:42 Baso % (Auto) 1.2 % 01/19/19 04:42 Absolute Neuts (auto) 2.7 10^3/ul (1.5-7.7) 01/19/19 04:42 Absolute Lymphs (auto) 1.7 10^3/ul (1.0-4.8) 01/19/19 04:42 Absolute Monos (auto) 0.4 10^3/ul (0-0.8) 01/19/19 04:42 Absolute Eos (auto) 0.1 10^3/ul (0-0.6) 01/19/19 04:42 Absolute Basos (auto) 0.1 10^3/ul (0-0.2) 01/19/19 04:42 Absolute Nucleated RBC 0.0 10^3/ul 01/19/19 04:42 Nucleated RBC % 0.1 01/19/19 04:42 INR (Anticoag Therapy) 3.70 (0.82-1.09) H 01/19/19 04:42 Sodium 135 mmol/L (135-145) 01/18/19 20:15 Potassium 3.9 mmol/L (3.5-5.0) 01/18/19 20:15 Chloride 95 mmol/L (101-111) L 01/18/19 20:15 Carbon Dioxide 39 mmol/L (22-32) H 01/18/19 20:15 Anion Gap 1 mmol/L (2-11) L 01/18/19 20:15 BUN 14 mg/dL (6-24) 01/18/19 20:15 Creatinine 0.87 mg/dL (0.51-0.95) 01/18/19 20:15 Est GFR ( Amer) 81.2 (>60) 01/18/19 20:15 Est GFR (Non-Af Amer) 67.1 (>60) 01/18/19 20:15 BUN/Creatinine Ratio 16.1 (8-20) 01/18/19 20:15 Glucose 103 mg/dL (70-100) H 01/18/19 20:15 Lactic Acid 2.0 mmol/L (0.5-2.0) 01/18/19 15:30 Calcium 8.5 mg/dL (8.6-10.3) L 01/18/19 20:15 Magnesium 2.4 mg/dL (1.9-2.7) 01/19/19 04:42 Total Bilirubin 0.40 mg/dL (0.2-1.0) 01/18/19 15:30 AST 16 U/L (13-39) 01/18/19 15:30 ALT 10 U/L (7-52) 01/18/19 15:30 Alkaline Phosphatase 57 U/L (34-104) 01/18/19 15:30 Troponin I 0.01 ng/mL (<0.04) 01/18/19 15:30 Total Protein 5.0 g/dL (6.4-8.9) L 01/18/19 15:30 Albumin 2.7 g/dL (3.2-5.2) L 01/18/19 15:30 Globulin 2.3 g/dL (2-4) 01/18/19 15:30 Albumin/Globulin Ratio 1.2 (1-3) 01/18/19 15:30 TSH 3.68 mcIU/mL (0.34-5.60) 01/18/19 15:30 Urine Color Straw 01/18/19 23:10 Urine Appearance Clear 01/18/19 23:10 Urine pH 9.0 (5-9) 01/18/19 23:10 Ur Specific [place] 1.005 (1.010-1.030) L 01/18/19 23:10 Urine Protein Negative (Negative) 01/18/19 23:10 Urine Ketones Negative (Negative) 01/18/19 23:10 Urine Blood 1+ (Negative) A 01/18/19 23:10 Urine Nitrate Negative (Negative) 01/18/19 23:10 Urine Bilirubin Negative (Negative) 01/18/19 23:10 Urine Urobilinogen Negative (Negative) 01/18/19 23:10 Ur Leukocyte Esterase Negative (Negative) 01/18/19 23:10 Urine WBC (Auto) Trace(0-5/hpf) (Absent) 01/18/19 23:10 Urine RBC (Auto) Trace(0-2/hpf) (Absent) 01/18/19 23:10 Ur Squamous Epith Cells Present (Absent) A 01/18/19 23:10 Urine Bacteria Absent (Absent) 01/18/19 23:10 Urine Glucose Negative (Negative) 01/18/19 23:10
--- NOTE | 2019-01-19 14:45 | PN ---
Subjective Date of Service: 01/19/19 Interval History: Patient is feeling better today. Patient states the pain in her leg is minimal when she is not moving and her pain and anxiety are both decreased from yesterday. Patient denies CP, SOB, Dizziness, Palpitations, N/V<, abdominal pain , diarrhea, or other pain. Family History: Unchanged from Admission Social History: Unchanged from Admission Past Medical History: Unchanged from Admission Objective Active Medications: Acetaminophen (Tylenol Tab*) 650 mg PO Q8H PRN PRN Reason: PAIN OR TEMPERATURE Acetaminophen (Tylenol Tab*) 975 mg PO Q6H [facility] Last Admin: 01/19/19 11:56 Dose: 975 mg Bisacodyl (Dulcolax Supp*) 10 mg [place] DAILY PRN PRN Reason: constipation Buspirone HCl (Buspar Tab*) 15 mg PO TID [facility] Last Admin: 01/19/19 13:54 Dose: 15 mg Clonazepam (Klonopin Tab(*)) 1 mg PO TID PRN PRN Reason: ANXIETY Last Admin: 01/18/19 13:10 Dose: 1 mg Diazepam (Valium Tab(*)) 5 mg PO Q8H PRN PRN Reason: .SPASMS Last Admin: 01/18/19 13:10 Dose: 5 mg Diphenhydramine HCl (Benadryl Iv*) 25 mg IV Q6H PRN PRN Reason: itching Divalproex Sodium (Depakote Er Tab(*)) 750 mg PO BEDTIME [facility] Last Admin: 01/18/19 20:59 Dose: 750 mg Docusate Sodium (Colace Cap*) 100 mg PO BID [facility] Last Admin: 01/19/19 08:17 Dose: Not Given Duloxetine HCl (Cymbalta Cap*) 30 mg PO QAM [facility] Last Admin: 01/19/19 09:08 Dose: 30 mg Duloxetine HCl (Cymbalta Cap*) 60 mg PO BEDTIME [facility] Last Admin: 01/18/19 20:59 Dose: 60 mg Gabapentin (Neurontin Cap(*)) 600 mg PO TID [facility] Last Admin: 01/19/19 13:53 Dose: 600 mg Ketorolac Tromethamine (Toradol Inj*) 30 mg IM Q6H PRN PRN Reason: PAIN - MODERATE Stop: 01/23/19 13:05 Last Admin: 01/18/19 16:44 Dose: 30 mg Lactulose (Lactulose*) 30 ml PO Q6H PRN PRN Reason: constipation Magnesium Hydroxide (Milk Of Magnesia Liq*) 30 ml PO BID [facility] Last Admin: 01/19/19 08:17 Dose: Not Given Magnesium Hydroxide (Milk Of Magnesia Liq*) 30 ml PO Q6H PRN PRN Reason: constipation Metoprolol Tartrate (Lopressor Tab*) 12.5 mg PO BID [facility] Last Admin: 01/19/19 08:13 Dose: 12.5 mg Morphine Sulfate (Morphine 4 Mg/Ml Vial (1 Ml)) 4 mg IV Q3H PRN PRN Reason: PAIN SEVERE Last Admin: 01/18/19 05:26 Dose: 4 mg Multivitamins (Theragran Tab*) 1 tab PO DAILY [facility] Last Admin: 01/19/19 08:13 Dose: 1 tab Ondansetron HCl (Zofran Inj*) 4 mg IV Q6H PRN PRN Reason: nausea Oxycodone HCl (Roxycodone Tab*) 10 mg PO Q4H PRN PRN Reason: PAIN - UNCONTROLLED Last Admin: 01/18/19 10:31 Dose: 10 mg Oxycodone HCl (Roxycodone Tab*) 5 mg PO Q4H PRN PRN Reason: PAIN MILD Last Admin: 01/19/19 11:56 Dose: 5 mg Oxycodone HCl (Roxycodone Tab*) 10 mg PO Q4H PRN PRN Reason: PAIN MODERATE Last Admin: 01/17/19 01:23 Dose: 10 mg Oxycodone/Acetaminophen (Percocet 5/325 Tab*) 1 tab PO Q4H PRN PRN Reason: PAIN - SEVERE Last Admin: 01/18/19 13:07 Dose: 1 tab Pantoprazole Sodium (Protonix Tab*) 40 mg PO QAM [facility] Last Admin: 01/19/19 08:13 Dose: 40 mg Pharmacy Profile Note (Coumadin Daily Reminder*) 1 note FOLLOW UP 1700 [facility] Last Admin: 01/18/19 16:38 Dose: 1 note Ropinirole HCl (Requip Tab*) 0.25 mg PO BEDTIME [facility] Last Admin: 01/18/19 21:01 Dose: 0.25 mg Vital Signs - 8 hr 01/19/19 01/19/19 01/19/19 07:00 07:02 07:23 Temperature 97.6 F Pulse Rate 77 76 Respiratory 12 21 Rate Blood Pressure 127/61 (mmHg) O2 Sat by Pulse 98 99 Oximetry 01/19/19 01/19/19 01/19/19 08:00 08:01 09:00 Temperature Pulse Rate 72 Respiratory 22 22 20 Rate Blood Pressure 119/57 (mmHg) O2 Sat by Pulse 94 Oximetry 01/19/19 01/19/19 01/19/19 10:00 11:38 11:56 Temperature 98.3 F Pulse Rate 66 Respiratory 20 18 18 Rate Blood Pressure 121/55 (mmHg) O2 Sat by Pulse 97 Oximetry 01/19/19 13:53 Temperature Pulse Rate Respiratory 16 Rate Blood Pressure (mmHg) O2 Sat by Pulse Oximetry Oxygen Devices in Use Now: None Appearance: Sydnie is a 58yo female who appears stated age and is sitting in the bed in [facility]. Eyes: No Scleral Icterus, PERRLA Ears/Nose/Mouth/Throat: NL Teeth, Lips, Gums, Clear Oropharnyx, Mucous Membranes Moist Neck: NL Appearance and Movements; NL JVP, Trachea Midline Respiratory: Symmetrical Chest Expansion and Respiratory Effort, Clear to Auscultation Cardiovascular: NL Sounds; No Murmurs; No JVD, RRR, - - 2+ B/L LE edema. Abdominal: NL Sounds; No Tenderness; No Distention, No Hepatosplenomegaly Lymphatic: No Cervical Adenopathy Extremities: No Clubbing, Cyanosis Skin: No Nodules or Sclerosis, - - Right knee incision with surrounding bruising. Neurological: Alert and Oriented x 3, NL Sensation, NL Muscle Strength and Tone , - - CN II-XII intact. Result Diagrams: 01/19/19 04:42 01/18/19 20:15 Microbiology and Other Data: Microbiology 01/18/19 16:12 Nasal Screen MRSA (PCR) - Final Nasal Mrsa Not Detected Assess/Plan/Problems-Billing Assessment: Ms. Sanchez is a 58 yo F with PMH of HTN, postop afib (resolved), hyperparathyroidism, depression, HLD, and anxiety; who underwent an elective R TKA on 01/16/[address] Ruiz. Hospital Medicine was consulted because of concern for tachycardia and irregular HR. - Patient Problems (1) Tachycardia Current Visit: Yes Status: Acute Code(s): R00.0 - TACHYCARDIA, UNSPECIFIED SNOMED Code(s): 9062203 Comment: - Episode of Afib with RVR on 01/18, resolved with 1 dose metoprolol IV - Low dose metoprolol and aggressive pain and anxiety control - CTA negative for PE - Therapeutic on coumadin for Stroke prevention (2) Status post right knee replacement Current Visit: Yes Status: Acute Code(s): Z96.651 - PRESENCE OF RIGHT ARTIFICIAL KNEE JOINT SNOMED Code(s): 7727125939677 Comment: - POD #3 - Management per Ortho - Continue morphine, Percocet, oxycodone, bowel regimen - PT/OT - Will attempt void trial again tomorrow. 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 (4) Hypertension Current Visit: Yes Status: Acute Code(s): I10 - ESSENTIAL (PRIMARY) HYPERTENSION SNOMED Code(s): 91837732 Comment: - Borderline hypotensive with Metoprolol addition - Hold HCTZ. (5) Full code status Current Visit: Yes Status: Acute Code(s): Z78.9 - OTHER SPECIFIED HEALTH STATUS SNOMED Code(s): 775049249 Comment: (6) DVT prophylaxis Current Visit: Yes Status: Acute Code(s): Z29.9 - ENCOUNTER FOR PROPHYLACTIC MEASURES, UNSPECIFIED SNOMED Code(s): 228011584 Comment: - Coumadin per Ortho - Lovenox Bridge Completed. Status and Disposition: Dispo per Ortho. Thank you for this consultation. We will follow along due to persistent tachycardia.
[2019-01-19] MEDS: clonazePAM TAB(*) 1 MG PO PRN (17:40)
[2019-01-19] MEDS: Divalproex ER TAB(*) 250 MG PO SCH (21:26)
[2019-01-19] MEDS: DULoxetine DR CAP* 60 MG CAP.DR PO SCH (21:27)
[2019-01-19] MEDS: Ropinirole TAB* 0.5 MG TAB PO SCH (21:28)
[2019-01-20] MEDS ORDERED: Metoprolol Tartrate IV* 1 MG/ML 5 ML VIAL IV PRN (00:38)
[2019-01-20] MEDS: Acetaminophen TAB* 325 MG PO SCH ×2 (01:00→05:41)
[2019-01-20] MEDS: oxyCODONE TAB* 5 MG TAB PO PRN (05:48)
[2019-01-20 06:59] LABS: ABS Eosinophils 0.1 10^3/ul (0-0.6); ABS Lymphocytes 1.9 10^3/ul (1.0-4.8); ABS Monocytes 0.4 10^3/ul (0-0.8); ABS Neutrophils 3.2 10^3/ul (1.5-7.7); Eosinophil % 1.5 %; Hematocrit 31 % (35-47); Hemoglobin 10.3 g/dL (12.0-16.0); Lymphocyte % 33.7 %; Mean Corpuscular HGB Conc 34 g/dL (31-36); Mean Corpuscular Hemoglobin 31 pg (27-31); Mean Corpuscular Volume 92 fL (80-97); Mean Platelet Volume 8.7 fL (7.4-10.4); Platelet Count 198 10^3/uL (150-450); Red Blood Count 3.36 10^6 /uL (3.70-4.87); Red Cell Distribution Width 15 % (10-15); White Blood Count 5.6 10^3/uL (3.5-10.8)
[2019-01-20 07:04] LABS: INR 2.74 (0.82-1.09)
[2019-01-20 07:29] LABS: Calcium 8.8 mg/dL (8.6-10.3); EGFR African American 86.9 (>60); EGFR Non-African American 71.9 (>60); Magnesium 2.3 mg/dL (1.9-2.7)
[2019-01-20] MEDS: Vitamin THERAPEUTIC TAB PO SCH (08:51)
[2019-01-20] MEDS: Pantoprazole TAB * 40 MG TAB PO SCH (08:51)
[2019-01-20] MEDS: Docusate CAP* 100 MG PO SCH ×2 (08:51→08:57)
[2019-01-20] MEDS: DULoxetine DR CAP* 30 MG CAP.DR PO SCH (08:52)
[2019-01-20] MEDS: busPIRone TAB* 10 MG PO SCH (08:53)
[2019-01-20] MEDS: Metoprolol Tartrate TAB* 25 MG PO SCH (08:55)
[2019-01-20] MEDS: Magnesium Hydroxide LIQ* 30 ML UDC PO SCH (08:56)
[2019-01-20] MEDS: Gabapentin CAP(*) 300 MG PO SCH (09:06)
[2019-01-20 09:47] VITALS: BP 115/58
--- NOTE | 2019-01-20 10:19 | DS ---
Orthopedic Discharge Summary - Discharge Summary Date of Admission:01/16/19 Date of Discharge: 01/20/29 Date of Surgery: 01/16/19 Attending Orthopedic Provider: Dr. Ruiz Pre-operative Diagnosis: Degenerative arthritis right knee Operative Procedure: Right total knee arthroplasty Disposition of Patient: [facility] Condition of Patient: stable History: CLAU RUTLEDGE is a 58 year old F with years of increasingly severe right knee pain. Patient has failed conservative management and has elected to undergo a right total knee replacement Hospital Course: CLAU was admitted to [facility] on 01/18/19. Patient underwent a right total knee arthroplasty without complication followed by a brief recovery in PACU and transfer to the Short Stay Surgical Unit in stable condition. Our hospitalist service, physical therapy and occupational therapy also participated in this patients care. Post-op day 1: patient was alert and in no acute distress. Dressing was clean, dry and intact. Operative extremity dorsiflexion and plantarflexion intact, sensation intact to light touch distally, DP2+. Post-op day two: dressing was changed, incision was clean , dry and intact. She had post operative tachycardia and and episode of rapid A fib which necessitated monitoring 1 day in the ICU. Her a fib resolved, this was felt to be more an episode of tachycardia than sustained a fib. Medicine followed her and felt she was stable from cardiac/ medicine point of view with no further episodes on 01/20/19. A bed wass available at [facility] and she was transferred there. She will continue with Coumadin for DVT prophylaxis. 2 mg Saturday 01/20, none Sunday 01/21, 2 mg Monday 01/22 with repeat INR Tuesday 01/23 with dosages to follow. Patient was deemed to be medically and orthopedically stable for discharge. Physical therapy goals were met. Home Medications Medication Instructions Recorded Confirmed Type Albuterol Sulfate [Proventil Hfa] 1 puff INH Q6H PRN 10/03/18 01/16/19 History Calcium Carbonate/Vitamin D3 1 tab PO QAM 10/03/18 01/16/19 History [Calcium 600-Vit D3 400 Caplet] Cholecalciferol (Vitamin D3) 1,000 unit PO BID 10/03/18 01/16/19 History [Vitamin D3] DULoxetine CAP* [Cymbalta CAP*] 30 mg PO QAM 10/03/18 01/16/[address] CAP* [Cymbalta CAP*] 60 mg PO BEDTIME 10/03/18 01/16/19 History Divalproex ER TAB(*) [Depakote ER 750 mg PO BEDTIME 10/03/18 01/16/19 History TAB(*)] Ferrous Sulfate [Ferosul] 325 mg PO QAM 10/03/18 01/16/19 History Gabapentin 600 mg PO TID 10/03/18 01/16/19 History Hydrochlorothiazide TAB* 25 mg PO QAM 10/03/18 01/16/19 History [Hydrodiuril TAB*] Morphine Sulf Ir 15 mg PO BID 10/03/18 01/16/19 History Omeprazole 40 mg PO QAM 10/03/18 01/16/19 History Ropinirole HCl [Requip] 0.25 mg PO BEDTIME 10/03/18 01/16/19 History busPIRone TAB* [Buspar TAB *] 15 mg PO TID 10/03/18 01/16/19 History clonazePAM [Clonazepam] 1 mg PO TID 10/03/18 01/16/19 History Acetaminophen TAB* [Tylenol TAB*] 650 mg PO Q4H PRN tab 10/20/18 01/16/19 Rx Acetaminophen TAB* [Tylenol TAB*] 975 mg PO Q6H tab 01/20/19 Rx Bisacodyl SUPP* [Dulcolax Supp*] 10 mg [place] DAILY PRN supp 01/20/19 Rx Diazepam TAB(*) [Valium TAB(*)] 5 mg PO Q8H PRN tab 01/20/19 Rx Docusate CAP* [Colace Cap*] 100 mg PO BID cap 01/20/19 Rx Lactulose* 30 ml PO Q6H PRN udc 01/20/19 Rx Magnesium Hydroxide LIQ* [Milk of 30 ml PO BID udc 01/20/19 Rx Magnesia LIQ*] Magnesium Hydroxide LIQ* [Milk of 30 ml PO Q6H PRN udc 01/20/19 Rx Magnesia LIQ*] Vitamin THERAPEUTIC TAB* 1 tab PO DAILY tab 01/20/19 Rx [Theragran TAB*] Warfarin Sodium [Coumadin] 2 mg PO SEE INSTRUCTIONS #90 tablet 01/20/19 Rx oxyCODONE TAB* [Roxycodone TAB 5 5 mg PO Q4H PRN tab 01/20/19 Rx mg*] oxyCODONE TAB* [Roxycodone TAB 5 10 mg PO Q4H PRN tab 01/20/19 Rx mg*] oxyCODONE TAB* [Roxycodone TAB 5 10 mg PO Q4H PRN tab 01/20/19 Rx mg*] oxyCODONE/Acetamin 5/325 MG* 1 tab PO Q4H PRN tab 01/20/19 Rx [Percocet 5/325 TAB*] Jordan may be removed in 10- 14 days follow up with Dr. Ruiz within 4 weeks post op
[2019-01-20] MEDS ORDERED: Metoprolol Tartrate TAB* 25 MG PO ONE (10:41)
[2019-01-20] MEDS: Morphine 4 MG/ML VIAL (1 ml) 4 MG/ML VIAL IV PRN (11:20)
[2019-01-20] MEDS ORDERED: Metoprolol Tartrate TAB* 25 MG PO SCH (21:00)
== END 2019-01-20 13:30 | disposition swing bed (61) | DRG 470 ==
LOC: INTOOBSV 08:33 → AA 08:33 → SSU 16:16 → ICU 01-18 15:26 → OBSVTOIN 01-18 15:40 → MEDTELE 01-19 08:33
PROVIDERS: ADMIT Orthopaedic Surgery; ATTEND Orthopaedic Surgery
PROC: 0MNN0ZZ Release Right Knee Bursa and Ligament, Open Approach (ICD-10-PCS; 2019-01-16)
PROC: 0SRC0J9 Replacement of Right Knee Joint with Synthetic Substitute, Cemented, Open Approach (ICD-10-PCS; principal; 2019-01-16 10:15)
DX: M17.11 Unilateral primary osteoarthritis, right knee (principal); M21.061 Valgus deformity, not elsewhere classified, right knee; E78.5 Hyperlipidemia, unspecified; K21.9 Gastro-esophageal reflux disease without esophagitis; F32.9 Major depressive disorder, single episode, unspecified; F41.9 Anxiety disorder, unspecified; G89.29 Other chronic pain; M54.32 Sciatica, left side; M54.31 Sciatica, right side; E66.01 Morbid (severe) obesity due to excess calories; J45.909 Unspecified asthma, uncomplicated; E78.00 Pure hypercholesterolemia, unspecified; Z96.652 Presence of left artificial knee joint; I10 Essential (primary) hypertension; E21.3 Hyperparathyroidism, unspecified; M54.9 Dorsalgia, unspecified; R00.0 Tachycardia, unspecified; R42 Dizziness and giddiness; Z87.11 Personal history of peptic ulcer disease; Z98.84 Bariatric surgery status; Z68.37 Body mass index [BMI] 37.0-37.9, adult; Z88.1 Allergy status to other antibiotic agents; Z88.2 Allergy status to sulfonamides; Z88.6 Allergy status to analgesic agent; Z90.49 Acquired absence of other specified parts of digestive tract; Z82.49 Family history of ischemic heart disease and other diseases of the circulatory system; Z83.3 Family history of diabetes mellitus; Z90.710 Acquired absence of both cervix and uterus
CPT/HCPCS: 36415; 71045; 71275; 80048; 80053; 81003; 81015; 83605; 83735; 84443; 84484; 85014; 85018; 85025; 85049; 85610; 87086; 87641; 88305; 88311; 93005; A9270-GY; C1776; G0378; G8978-GP-CL; G8979-GP-CI; G8987-GO-CK; G8987-GO-CL; G8988-GO-CI; J0690; J1100; J1644; J1650; J1885; J2001; J2250; J2270; J2405; J2704; J2795; J3010; J3490; Q9967

== ENCOUNTER 2019-04-29 14:43 | Inpatient (IN) | payer MEDICARE, MEDICAID ==
--- OUTSIDE RECORDS SUMMARY | 2019-04-29 15:52 | XMS REPORT | Continuity of Care Document ---
:1960 External Reference #:[id number] Author Name Eliazar Ruiz M.D. (transmitted by agent of provider Radha Vasquez) Address [address] [facility] [place] [address] Care Team Providers Name Role Phone Austin Carvajal D.O. 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 Onset: 07/05/2018 Knee joint effusion Eliazar Ruiz M.D. Onset: 07/05/2018 Arthroplasty of knee Eliazar Ruiz M.D. Onset: 07/05/2018 Localized, primary osteoarthritis Eliazar Ruiz M.D. Onset: 12/23/2018 Social History Type Date Description Comments Sex Unknown ETOH Use Denies alcohol use Tobacco Use Start: Unknown Patient has never smoked Smoking Status Reviewed: 03/14/19 Patient has never smoked Exercise Type/Frequency Exercises rarely Allergies, Adverse Reactions, Alerts Active Allergies Reaction Severity Comments Date Bactrim 03/03/2018 Percocet 03/03/2018 Sulfa Antibiotics 03/03/2018 Medications Active Medications SIG Qnty Indications Ordering Date Provider Kyle 1 tabs by mouth 38tabs Eliazar 01/30/2019 2.5mg Tablets twice a day for Migel Ruiz 19 days Coumadin Take medication 60tabs John Velasco, 01/27/2019 2mg Tablets as directed MD daily Keflex take 1 tab by Unknown 500mg Capsules mouth 4 times a day Metoprolol Succinate ER 1 by mouth every Unknown 25mg day Tablets ER 24HR Requip Unknown 0.25mg Tablets Hydrochlorothiazide 1 by mouth every Unknown 25mg Tablets day Morphine Sulfate ER 1 tab every 8 Unknown 15mg Tablets hours ER Calcium Citrate + D 1 tab in the Unknown morning. [id number] Tablets Gabapentin take one tablet Unknown 600mg Tablets by mouth three times a day Clonazepam 1 tablet orally Unknown 0.5mg Tablets tid prn Omeprazole 1 by mouth every Unknown 40mg Capsules DR day Buspirone HCL take one tablet Unknown 15mg Tablets orally tid Duloxetine HCL 1 orally bid Unknown 30mg Caps DR Part Divalproex Sodium ER take 1/2 tab Unknown 250mg orally qd Tablets ER 24HR Calcium + D3 1 tablet orally Unknown 250-200mg Tablets twice a day Ventolin HFA 2 puffs by mouth Unknown 108(90Base) mcg/Act four times a day Aerosol as needed History Medications Cipro 1 tab by mouth twice 6tabs Eliazar Ruiz, 01/04/2019 - 500mg a day M.D. 01/26/2019 Tablets Hydrocodone-Acet take 1-2 tablet by 70tabs Eliazar Ruiz, 10/26/2018 - aminophen mouth every 4-6 M.D. 10/26/2018 hours as needed post 5-325mg Tablets op. S/P left total knee replacement. Pt tolerated dose well in hospital Hydrocodone-Acet Take 0.5-1 tab every 56tabs Z96.652 Eliazar Ruiz, 10/26 - aminophen 4-6 hours as needed M.D. 12/11/2018 for post op pain S/P 10-325mg Tablets total knee arthroplasty Immunizations Description No Information Available Vital Signs Date Vital Result Comment 03/14/2019 11:00am Height 68 inches 5'8" Weight 243.00 lb Heart Rate 86 /min BP Systolic Sitting 114 mmHg BP Diastolic Sitting 70 mmHg Body Temperature 97.1 F BMI (Body Mass Index) 36.9 kg/m2 02/14/2019 10:17am Height 68 inches 5'8" Weight 242.00 lb Heart Rate 71 /min BP Systolic Sitting 120 mmHg BP Diastolic Sitting 84 mmHg Body Temperature 97.6 F BMI (Body Mass Index) 36.8 kg/m2 Results Test Date Facility Test Result H/L Range Note Inr/Protime 01/02/2019 [facility] Inr 0.91 Normal 0.82-1.[address] [place] [address] [phone] Laboratory test 01/02/2019 [facility] Partial 33.6 seconds Normal 26.0-38.[address] [place] [address] PTT [phone] CBC Auto Diff 01/02/2019 [facility] White Blood 6.8 10^3/uL Normal 3.5-10.[address] [place] [address] [phone] Red Blood Count 3.99 10^6/uL Normal 3.70-4.87 Hemoglobin 12.1 g/dL Normal 12.0-16.0 Hematocrit 37 % Normal 35-47 Mean Corpuscular Volume 94 fL Normal 80-97 Mean Corpuscular Hemoglobin 30 pg Normal 27-31 Mean Corpuscular HGB Conc 33 g/dL Normal 31-36 Red Cell Distribution Width 15 % Normal 10-15 Platelet Count 214 10^3/uL Normal 150-450 Mean Platelet Volume 8.6 fL Normal 7.4-10.4 Abs Neutrophils 4.3 10^3/uL Normal 1.5-7.7 Abs Lymphocytes 1.9 10^3/uL Normal 1.0-4.8 Abs Monocytes 0.4 10^3/uL Normal 0-0.8 Abs Eosinophils 0.1 10^3/uL Normal 0-0.6 Abs Basophils 0.0 10^3/uL Normal 0-0.2 Abs Nucleated RBC 0.0 10^3/uL Granulocyte % 63.9 % Lymphocyte % 27.8 % Monocyte % 6.6 % Eosinophil % 1.2 % Basophil % 0.5 % Nucleated Red Blood Cells % 0.1 Comp Metabolic 01/02/2019 [facility] Sodium 143 mmol/L Normal 135-[address] [place] [address] [phone] Potassium 4.1 mmol/L Normal 3.5-5.0 Chloride 102 mmol/L Normal 101-111 Co2 Carbon Dioxide 38 mmol/L High 22-32 Anion Gap 3 mmol/L Normal 2-11 Glucose 89 mg/dL Normal 70-100 Blood Urea Nitrogen 15 mg/dL Normal 6-24 Creatinine 0.84 mg/dL Normal 0.51-0.95 BUN/Creatinine Ratio 17.9 Normal 8-20 Calcium 9.1 mg/dL Normal 8.6-10.3 Total Protein 5.4 g/dL Low 6.4-8.9 Albumin 3.3 g/dL Normal 3.2-5.2 Globulin 2.1 g/dL Normal 2-4 Albumin/Globulin Ratio 1.6 Normal 1-3 Total Bilirubin 0.30 mg/dL Normal 0.2-1.0 Alkaline Phosphatase 75 U/L Normal 34-104 Alt 14 U/L Normal 7-52 Ast 15 U/L Normal 13-39 Egfr Non- 69.9 >60 Egfr 84.6 >60 2 Type & Screen 01/02/2019 [facility] Patient Blood Type A Positive [address] [place] [address] [phone] Antibody Screen NEGATIVE Urinalysis Profile 01/02/2019 [facility] Urine Color Livia [address] [place] [address] [phone] Urine Appearance Turbid Urine Specific [place] 1.020 Normal 1.010-1.030 Urine pH 6.0 Normal 5-9 Urine Urobilinogen Negative Negative Urine Ketones Negative Negative Urine Protein 1+(30 mg/dL) Abnormal Negative Urine Leukocytes 3+ Abnormal Negative Urine Blood 1+ Abnormal Negative Urine Nitrite Negative Negative Urine Bilirubin Negative Negative Urine Glucose Negative Negative Urine White Blood Cell 3+(>20/hpf) Abnormal Absent Urine Red Blood Cell 3+(>10/hpf) Abnormal Absent Urine Bacteria Absent Absent Urine Squamous Epithelial Cell Present Abnormal Absent Urine Culture And 01/02/2019 [facility] Urine SEE RESULT [address] [place] [address] [phone] CBC Auto Diff 10/03/2018 [facility] White Blood 7.3 10^3/uL Normal 3.5-[address] Count 0.8 [place] [address] [phone] Red Blood Count 4.37 10^6/uL Normal 3.70-4.87 Hemoglobin 13.3 g/dL Normal 12.0-16.0 Hematocrit 41 % Normal 33-41 Mean Corpuscular Volume 93 fL Normal 80-97 Mean Corpuscular Hemoglobin 31 pg Normal 27-31 Mean Corpuscular HGB Conc 33 g/dL Normal 31-36 Red Cell Distribution Width 16 % High 10.5-15 Platelet Count 217 10^3/uL Normal 150-450 Mean Platelet Volume 8.7 fL Normal 7.4-10.4 Abs Neutrophils 4.5 10^3/uL Normal 1.5-7.7 Abs Lymphocytes 2.2 10^3/uL Normal 1.0-4.8 Abs Monocytes 0.4 10^3/uL Normal 0-0.8 Abs Eosinophils 0.1 10^3/uL Normal 0-0.6 Abs Basophils 0 10^3/uL Normal 0-0.2 Abs Nucleated RBC 0 10^3/uL Granulocyte % 62.1 % Lymphocyte % 30.5 % Monocyte % 6.1 % Eosinophil % 1.0 % Basophil % 0.3 % Nucleated Red Blood Cells % 0.1 Comp Metabolic 10/03/2018 [facility] Sodium 139 mmol/L Normal 135-145 Panel [address] [place] [address] [phone] Potassium 4.1 mmol/L Normal 3.5-5.0 Chloride 96 mmol/L Low 101-111 Glucose 87 mg/dL Normal 70-100 Blood Urea Nitrogen 18 mg/dL Normal 6-24 Creatinine 0.98 mg/dL High 0.51-0.95 BUN/Creatinine Ratio 18.4 Normal 8-20 Calcium 9.2 mg/dL Normal 8.6-10.3 Total Protein 5.8 g/dL Low 6.4-8.9 Albumin 3.6 g/dL Normal 3.2-5.2 Globulin 2.2 g/dL Normal 2-4 Albumin/Globulin Ratio 1.6 Normal 1-3 Total Bilirubin 0.50 mg/dL Normal 0.2-1.0 Alkaline Phosphatase 67 U/L Normal 34-104 Alt 26 U/L Normal 7-52 Ast 23 U/L Normal 13-39 Egfr Non- 58.5 >60 Egfr 70.8 >60 4 Co2 Carbon Dioxide 41 mmol/L Critical high 22-32 5 Anion Gap 2 mmol/L Normal 2-11 Type & Screen 10/03/2018 [facility] Patient Blood Type A Positive [address] [place] [address] [phone] Antibody Screen NEGATIVE Inr/Protime 10/03/2018 [facility] Inr 0.82 Normal 0.77-1.[address] [place] [address] [phone] Laboratory test 10/03/2018 [facility] Partial 30.9 Normal 26.0 -36.[address] [address] Time PTT [phone] Urinalysis 10/03/2018 [facility] Urine Color Yellow Profile [address] [place] [address] [phone] Urine Appearance Clear Urine Specific [place] 1.016 Normal 1.010-1.030 Urine pH 7.0 Normal 5-9 Urine Urobilinogen Negative Negative Urine Ketones Negative Negative Urine Protein Negative Negative Urine Leukocytes Negative Negative Urine Blood Negative Negative Urine Nitrite Negative Negative Urine Bilirubin Negative Negative Urine Glucose Negative Negative Urine Culture And 10/03/2018 [facility] Urine Culture SEE RESULT [address] [place] [address] [phone] 1 Standard intensity warfarin therapeutic range: 2.0-3.0 High intensity warfarin therapeutic range: 2.5-3.5 2 Because ethnic data is not always readily [...] 15-29 5 Kidney failure <15 (or dialysis) 3 SEE RESULT BELOW Name: ROSARIO SANCHEZ : [address]: Eliazar Ruiz MD Acct: [id number] Unit: [id number] AGE: 58 Location: [facility] Re01/02/19 SEX: F Status: REG REF SPEC: [id number] LITO: 01/02/[address]: Eliazar Ruiz MD REQ: [id number] RECD: 01/02/19 STATUS: [facility] DR: Austin Carvajal DO _ SOURCE: URINE SPDESC: ORDERED: Urine Culture Procedure Result Reported Site Urine Culture Final 01/04/19- 0809 ML Organism 1 ESCHERICHIA COLI Challenge Count >100,000 (Many) CFU/ML 1. ESCHERICHIA COLI M.I.C. RX --------- ------ Ampicillin >=32 R Cefazolin <=4 S Cefepime <=1 S Ceftriaxone <=1 S Ciprofloxacin <=0.25 S Gentamicin <=1 S Levofloxacin <=0.12 S Meropenem <=0.25 S Nitrofurantoin <=16 S Tetracycline <=1 S Pipercillin/Tazobactam <=4 S Trimethoprim/Sulfamethoxazole <=20 S Amoxicillin/Clavulanic Acid 8 S Aztreonam <=1 S Contact the Microbiology Department for any additional antibiotic reporting. * ML - Main Lab . END OF REPORT DEPARTMENT OF PATHOLOGY, [address] [place] [address] Reynaldo Hogan M.D. Director [facility] # [id number] 4 Because ethnic data is not always readily [...] 15-29 5 Kidney failure <15 (or dialysis) [address] Santos by [id number] at 1711 on 10/03/18. Results read back accurately. 6 SEE RESULT BELOW Name: ROSARIO SANCHEZ : [address]: Eliazar Ruiz MD Acct: [id number] Unit: [id number] AGE: 58 Location: PAT Re10/03/18 SEX: F Status: REG REF SPEC: [id number] LITO: 10/03/181353 [facility] DR: Eliazar Ruiz MD REQ: [id number] RECD: 10/03/18 STATUS: MARTHA [facility] DR: Austin Carvajal DO _ SOURCE: URINE SPDESC: ORDERED: Urine Culture Procedure Result Reported Site Urine Culture Final 10/04/18- 1208 ML No Growth (<1,000 CFU/mL) * - Main Lab . END OF REPORT DEPARTMENT OF PATHOLOGY, [address] [place] [address] Reynaldo Hogan M.D. Director [facility] # [id number] Procedures Date Code Description Status 01/16/2019 59439 TKR Total Knee Replacement Completed 10/17/2018 04951 ECHO Transthorasic Realtime 2D W Doppler & Color Flow Hosp Completed 10/17/2018 86970 EKG, Interpretation Only Completed 10/17/2018 16289 Revise Total Knee Arthroplasty One Component Completed 10/17/2018 05784 Revise Total Knee Arthroplasty One Component Completed 10/03/2018 31957 EKG, Interpretation Only Completed Medical Devices Description No Information Available Encounters Type Date Location Provider Dx Diagnosis Office Visit 01/19/2019 [facility] Kolton Morris, R00.0 Tachycardia, 10:29a razia Gallardo unspecified Hospitalists Z96.651 Presence of right artificial knee joint F41.9 Anxiety disorder, unspecified I10 Essential (primary) hypertension Office Visit 01/18/2019 10:29a [facility] [place] R00.0 Tachycardia, [facility] PA unspecified Hospitalists Z96.651 Presence of right artificial knee joint F41.9 Anxiety disorder, unspecified I10 Essential (primary) hypertension Office Visit 01/17/2019 [facility] Radha David, I49.9 Cardiac 10:29a razia Gallardo M.D. arrhythmia, Hospitalists unspecified Office Visit 12/23/2018 Orthopedic Eliazar Ruiz, M17.11 Unilateral 11:00a [facility] Migel primary [place] osteoarthritis, right knee Office Visit 10/19/2018 [facility] Amelia Lopez, G89.29 Other chronic 9:46a razia Gallardo MD pain Hospitalists Z96.652 Presence of left artificial knee joint F41.9 Anxiety disorder, unspecified E66.9 Obesity, unspecified Office Visit 10/18/2018 9:46a [facility] Amelia Lopez, G89.29 Other chronic Assoc,pc pain Hospitalists Z96.652 Presence of left artificial knee joint F41.9 Anxiety disorder, unspecified E66.9 Obesity, unspecified Office Visit 10/18/2018 4:03p [facility] Gee D. I48.0 Paroxysmal atrial Of Sari Cook M.D. fibrillation Office Visit 10/17/2018 9:45a [facility] [place] I48.0 Paroxysmal atrial Assoc,pc LILLIAN Morris fibrillation Hospitalists M54.2 Cervicalgia Z96.652 Presence of left artificial knee joint R79.81 Abnormal blood-gas level E87.5 Hyperkalemia R06.01 Orthopnea R60.9 Edema, unspecified Office Visit 10/17/2018 9:49a [facility] Gee D. I48.0 Paroxysmal atrial Of Sari Cook M.D. fibrillation Assessments Date Code Description Provider 03/14/2019 M17.11 Unilateral primary osteoarthritis, Eliazar Ruiz M.D. right knee 03/14/2019 Z96.651 Presence of right artificial knee Eliazar Ruiz M.D. joint 03/14/2019 Z47.1 Aftercare following joint replacement Eliazar Ruiz M.D. surgery 02/14/2019 M17.11 Unilateral primary osteoarthritis, Eliazar Ruiz M.D. right knee 02/14/2019 Z96.651 Presence of right artificial knee Eliazar Ruiz M.D. joint 02/14/2019 Z47.1 Aftercare following joint replacement Eliazar Ruiz M.D. surgery 01/27/2019 M17.11 Unilateral primary osteoarthritis, Eliazar Ruiz M.D. right knee 01/27/2019 Z96.651 Presence of right artificial knee Eliazar Ruiz M.D. joint 01/27/2019 Z47.1 Aftercare following joint replacement Eliazar Ruiz M.D. surgery 01/19/2019 R00.0 Tachycardia, unspecified LILLIAN Goodwin 01/19/2019 Z96.651 Presence of right artificial knee LILLIAN Goodwin joint 01/19/2019 F41.9 Anxiety disorder, unspecified LILLIAN Goodwin 01/19/2019 I10 Essential (primary) hypertension LILLIAN Goodwin 01/18/2019 R00.0 Tachycardia, unspecified [place], [place] 01/18/2019 Z96.651 Presence of right artificial knee LILLIAN Goodwin joint 01/18/2019 F41.9 Anxiety disorder, unspecified [place] Morris PA 01/18/2019 I10 Essential (primary) hypertension [place] Morris PA 01/17/2019 I49.9 Cardiac arrhythmia, unspecified Radha David M.D. 01/16/2019 M17.11 Unilateral primary osteoarthritis, Eliazar Ruiz M.D. right knee 12/27/2018 M17.11 Unilateral primary osteoarthritis, Eliazar Ruiz M.D. right knee 12/23/2018 M17.11 Unilateral primary osteoarthritis, Eliazar Ruiz M.D. right knee 11/11/2018 Z96.652 Presence of left artificial knee Eliazar Ruiz M.D. 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 Instability of internal left knee Austin Chaves MD prosthesis, subs encntr 10/20/2018 T84.023D Instability of internal left knee Ingrid Mark, PA prosthesis, subs encntr 10/20/2018 Z96.652 Presence of left artificial knee Ingrid Mark, PA joint 10/19/2018 T84.023D Instability of internal left knee Ingrid Mark, PA prosthesis, subs encntr 10/19/2018 G89.29 Other chronic pain Amelia Lopez MD 10/19/2018 Z96.652 Presence of left artificial knee Ingrid Flores PA joint 10/19/2018 Z96.652 Presence of left artificial knee Amelia Lopez MD joint 10/19/2018 F41.9 Anxiety disorder, unspecified Amelia Lopez MD 10/19/2018 E66.9 Obesity, unspecified Amelia Lopez MD 10/18/2018 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 10/18/2018 Z96.652 Presence of left artificial knee LILLIAN Alfaro joint 10/18/2018 G89.29 Other chronic pain Amelia Lopez MD 10/18/2018 Z96.652 Presence of left artificial knee Amelia Lopez MD joint 10/18/2018 F41.9 Anxiety disorder, unspecified Amelia Lopez MD 10/18/2018 E66.9 Obesity, unspecified Amelia Lopez MD 10/17/2018 R94.31 Abnormal electrocardiogram [ECG] Casper Tubbs M.D., [EKG] [facility] 10/17/2018 T84.023A Instability of internal left knee LILLIAN Alfaro prosthesis, initial encoun 10/17/2018 T84.023A Instability of internal left knee Eliazar Ruiz M.D. prosthesis, initial encoun 10/17/2018 Z96.652 Presence of left artificial knee LILLIAN Alfaro joint 10/17/2018 I48.0 Paroxysmal atrial fibrillation LILLIAN Goodwin 10/17/2018 Z96.652 Presence of left artificial knee Eliazar Ruiz M.D. joint 10/17/2018 M54.2 Cervicalgia LILLIAN Goodwin 10/17/2018 I48.0 Paroxysmal atrial fibrillation Gee Cook M.D. 10/17/2018 Z96.652 Presence of left artificial knee LILLIAN Goodwin joint 10/17/2018 R79.81 Abnormal blood-gas level LILLIAN Goodwin 10/17/2018 E87.5 Hyperkalemia LILLIAN Goodwin 10/17/2018 R06.01 Orthopnea LILLIAN Goodwin 10/17/2018 R60.9 Edema, unspecified LILLIAN Goodwin 10/03/2018 Z01.818 Encounter for other preprocedural Ole Ortiz M.D., [facility] , examination [facility] 09/20/2018 T84.093D Other mechanical complication of Eliazar Ruiz M.D. internal left knee prosthes 09/20/2018 Z96.652 Presence of left artificial knee Eliazar Ruiz M.D. joint 09/20/2018 T84.023D Instability of internal left knee Eliazar Ruiz M.D. prosthesis, subs encntr Plan of Treatment 03/14/2019 - Eliazar Ruiz M.D.M17.11 Unilateral primary osteoarthritis, right kneeZ96.651 Presence of right artificial knee gdfcfC29.1 Aftercare following joint replacement surgeryFollow up:One monthRecommendations:Work on strength and endurance Functional Status Description No Information Available Mental Status Description No Information Available Referrals Description No Information Available
--- OUTSIDE RECORDS SUMMARY | 2019-04-29 15:52 | XMS REPORT | Continuity of Care Document ---
:1960 External Reference #:[id number] Author Name Eliazar Ruiz M.D. (transmitted by agent of provider Lizzy Soto) Address [address] [place] [address] Care Team Providers Name Role Phone Austin Carvajal D.O. - Internal Care Team Information Rollout Manager [phone] Medicine Problems Active Problems Provider Date Knee pain Eliazar Ruiz M.D. Onset: 07/05/2018 Knee joint effusion Eliazar Ruiz M.D. Onset: 07/05/2018 Arthroplasty of knee Eliazar Ruiz M.D. Onset: 07/05/2018 Localized, primary osteoarthritis Eliazar Ruiz M.D. Onset: 12/23/2018 Social History Type Date Description Comments Sex Unknown ETOH Use Denies alcohol use Tobacco Use Start: Unknown Patient has never smoked Smoking Status Reviewed: 04/27/19 Patient has never smoked Exercise Type/Frequency Exercises rarely Allergies, Adverse Reactions, Alerts Active Allergies Reaction Severity Comments Date Bactrim 03/03/2018 Percocet 03/03/2018 Sulfa Antibiotics 03/03/2018 Medications Active Medications SIG Qnty Indications Ordering Date Provider Ventolin HFA 2 puffs by Unknown 108(90Base) mcg/Act mouth four Aerosol times a day as needed Calcium + D3 1 tablet Unknown 250-200mg Tablets orally twice a day Divalproex Sodium ER take 1/2 tab Unknown 250mg Tablets orally qd ER 24HR Duloxetine HCL 1 orally bid Unknown 30mg Caps DR Part Buspirone HCL take one Unknown 15mg Tablets tablet orally tid Omeprazole 1 by mouth Unknown 40mg Capsules DR every day Clonazepam 1 tablet Unknown 0.5mg Tablets orally tid prn Gabapentin take one Unknown 600mg Tablets tablet by mouth three times a day Calcium Citrate + D 1 tab in the Unknown [id number] morning. Tablets Morphine Sulfate ER 1 tab every 8 Unknown 15mg Tablets ER hours Hydrochlorothiazide 1 by mouth Unknown 25mg Tablets every day Requip Unknown 0.25mg Tablets Metoprolol Succinate ER 1 by mouth Unknown 25mg every day Tablets ER 24HR History Medications Eliquis 1 tabs by mouth 38tabs Eliazar Ruiz, 01/30/2019 - 2.5mg twice a day for 19 M.D. 04/27/2019 Tablets days Coumadin Take medication as 60tabs John Velasco MD 01/27/2019 - 2mg directed daily 04/26/2019 Tablets Cipro 1 tab by mouth twice 6tabs Eliazar Ruiz, 01/04/2019 - 500mg a day M.D. 01/26/2019 Tablets Immunizations Description No Information Available Vital Signs Date Vital Result Comment 04/27/2019 9:44am Height 68 inches 5'8" Weight 240.00 lb Heart Rate 60 /min BP Systolic Sitting 108 mmHg BP Diastolic Sitting 68 mmHg Body Temperature 97.4 F BMI (Body Mass Index) 36.5 kg/m2 03/14/2019 11:00am Height 68 inches 5'8" Weight 243.00 lb Heart Rate 86 /min BP Systolic Sitting 114 mmHg BP Diastolic Sitting 70 mmHg Body Temperature 97.1 F BMI (Body Mass Index) 36.9 kg/m2 Results Test Acquired Date Facility Test Result H/L Range Note Inr/Protime 01/02/2019 [facility] Inr 0.91 Normal 0.82-1.[address] [place] [address] [phone] Laboratory test 01/02/2019 [facility] Partial 33.6 Normal 26.0 -38.[address] [place] [address] PTT [phone] CBC Auto Diff 01/02/2019 [facility] White Blood 6.8 10^3/uL Normal 3.5-10.[address] [place] [address] [phone] Red Blood Count 3.99 10^6/uL Normal 3.70-4.87 [...] Blood Cells % 0.1 Comp Metabolic 01/02/2019 [facility] Sodium 143 mmol/L Normal 135-[address] [place] [id number] [phone] Potassium 4.1 mmol/L Normal 3.5-5.0 Chloride 102 [...] 84.6 >60 2 Type & Screen 01/02/2019 [facility] Patient Blood Type A Positive [address] [place] [address] [phone] Antibody Screen NEGATIVE Urinalysis Profile 01/02/2019 [facility] Urine Color Livia [address] [place] [address] [phone] Urine Appearance Turbid Urine Specific [place] 1.020 Normal 1.010-1.030 Urine pH 6.0 Normal [...] Present Abnormal Absent Urine Culture And 01/02/2019 [facility] Urine Culture SEE RESULT [address] [place] [address] [phone] 1 Standard intensity warfarin therapeutic range: 2.0-3.0 [...] (or dialysis) 3 SEE RESULT BELOW Name: CLAU SANCHEZ : [address]: Eliazar Ruiz MD Acct: [id number] Unit: [id number] AGE: 58 Location: [facility] Re01/02/19 SEX: F Status: REG REF SPEC: [id number] LITO: 01/02/19-5 [facility] DR: Eliazar Ruiz MD REQ: [id number] RECD: 01/02/19 STATUS: MARTHA CABRERA DR: Austin Carvajal DO _ SOURCE: URINE SPDESC: ORDERED: Urine Culture Procedure Result Reported Site Urine Culture Final 01/04/19- 0809 ML Organism 1 ESCHERICHIA COLI [place] Count >100,000 (Many) CFU/ML 1. ESCHERICHIA COLI [...] . END OF REPORT DEPARTMENT OF PATHOLOGY, [address] [place] [address] Reynaldo Hogan M.D. Director [facility] # [id number] Procedures Date Code Description Status 01/16/2019 17972 TKR Total Knee Replacement Completed Medical Devices Description No Information Available Encounters Type Date Location Provider Dx Diagnosis Office Visit 01/19/2019 [facility] Kolton Morris, R00.0 Tachycardia, 10:29a razia Gallardo unspecified Hospitalists Z96.651 Presence of right artificial knee joint F41.9 Anxiety disorder, unspecified I10 Essential (primary) hypertension Office Visit 01/18/2019 10:29a [facility] Kolton R00.0 Tachycardia, [facility] [place] unspecified Hospitalists Z96.651 Presence of right artificial knee joint I10 Essential (primary) hypertension Office Visit 01/17/2019 [facility] Radha David, I49.9 Cardiac 10:29a razia Gallardo M.D. arrhythmia, Hospitalists unspecified Office Visit 12/23/2018 [facility] Eliazar Ruiz M17.11 Unilateral 11:00a at [place] M.D. primary osteoarthritis, right knee Assessments Date Code Description Provider 04/27/2019 M25.061 Hemarthrosis, right knee Eliazar Ruiz M.D. 04/27/2019 Z96.651 Presence of right artificial knee joint Eliazar Ruiz M.D. 03/14/2019 M17.11 Unilateral primary osteoarthritis, right Eliazar Ruiz M.D. knee 03/14/2019 Z96.651 Presence of right artificial knee joint Eliazar Ruiz M.D. 03/14/2019 Z47.1 Aftercare following joint replacement Eliazar Ruiz M.D. surgery 02/14/2019 M17.11 Unilateral primary osteoarthritis, right Eliazar Ruiz M.D. knee 02/14/2019 Z96.651 Presence of right artificial knee joint Eliazar Ruiz M.D. 02/14/2019 Z47.1 Aftercare following joint replacement Eliazar Ruiz M.D. surgery 01/27/2019 M17.11 Unilateral primary osteoarthritis, right Eliazar Ruiz M.D. knee 01/27/2019 Z96.651 Presence of right artificial knee joint Eliazar Ruiz M.D. 01/27/2019 Z47.1 Aftercare following joint replacement Eliazar Ruiz M.D. surgery 01/19/2019 R00.0 Tachycardia, unspecified Kolton Morris PA 01/19/2019 Z96.651 Presence of right artificial knee joint Kol[place] Morris PA 01/19/2019 F41.9 Anxiety disorder, unspecified LILLIAN Goodwin 01/19/2019 I10 Essential (primary) hypertension Kolton Morris PA 01/18/2019 R00.0 Tachycardia, unspecified Kolton Morris PA 01/18/2019 Z96.651 Presence of right artificial knee joint Kolton Morris PA 01/18/2019 I10 Essential (primary) hypertension Kolton Morris PA 01/17/2019 I49.9 Cardiac arrhythmia, unspecified Radha David M.D. 01/16/2019 M17.11 Unilateral primary osteoarthritis, right Eliazar Ruiz M.D. knee 12/27/2018 M17.11 Unilateral primary osteoarthritis, right Eliazar Ruiz M.D. knee 12/23/2018 M17.11 Unilateral primary osteoarthritis, right Eliazar Ruiz M.D. knee 11/11/2018 Z96.652 Presence of left artificial knee joint Eliazar Ruiz M.D. 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 prosthesis, subsequent enc 10/31/2018 Z96.652 Presence of left artificial knee joint Austin Chaves MD 10/31/2018 M17.12 Unilateral primary osteoarthritis, left Austin Chaves MD knee 10/31/2018 T84.023D Instability of internal left knee Austin Chaves MD prosthesis, subs encntr Plan of Treatment Future Appointment(s):06/08/2019 9:45 am - Eliazar Ruiz M.D. at [facility] [place]/2019 - Eliazar Ruiz M.D.M25.061 Hemarthrosis, right kneeNew Therapy:Physical JkobsxeI04.651 Presence of right artificial knee jointNew Therapy:Physical TherapyFollow up:6 weeksRecommendations:If results of the knee fluid are concerning, I will call Continue with the gel twice daily Ice whenever possible Functional Status Description No Information Available Mental Status Description No Information Available Referrals Description No Information Available
--- NOTE | 2019-04-29 16:16 | ED ---
Complex/Multi-Sys Presentation - HPI Summary HPI Summary: This patient is a 58 year old F presenting to [facility] with a chief complaint of fatigue, incontinence and other symptoms for the past week. Pt has not been able to sleep for days. Pt was prescribed morphine in December, and she has been taking it 3x a day. Pt has been hallucinating while taking morphine and oxycodone, so she stopped taking morphine and thats when the symptoms began. Patient reports incontinence, chills, loss of appetite, abdominal pain, unable to control bowel movement, and diarrhea. Pt has a Hx of bilateral knee surgery, and gastric bypass surgery. States she feels overall fatigued and unwell. - History Of Current Complaint Chief Complaint: EDWeakness Time Seen by Provider: 04/29/19 15:46 Hx Obtained From: Patient Onset/Duration: Gradual Onset, Lasting Days, Still Present Timing: Constant, Days Location: Pain At: - Abdomen Aggravating Factor(s): Medication Non-Compliance Alleviating Factor(s): Nothing Associated Signs And Symptoms: Positive: Diarrhea, Abdominal Pain, Other - Incontinence, chills - Allergies/Home Medications Allergies/Adverse Reactions: Allergies Allergy/AdvReac Type Severity Reaction Status Date / Time Sulfa (Sulfonamide Allergy Severe Hives Verified 04/29/19 14:51 Antibiotics) PMH/Surg Hx/FS Hx/Imm Hx Cardiovascular History: Reports: Other Cardiovascular Problems/Disorders - HISTORY OF TACKYCARDIA Respiratory History: Reports: Hx Asthma GI History: Reports: Hx Gastroesophageal Reflux Disease, Hx Ulcer, Other GI Disorders - GASTRIC BYPASS 2004 Musculoskeletal History: Reports: Hx Arthritis - HANDS, BACK, KNEES AND ANKLES, Hx Back Problems - 3 herniated discs, Hx Tendonitis - ELBOWS AND THUMBS, Other Musculoskeletal History - Right shoulder rotator cuff partial tear Sensory History: Reports: Hx Contacts or Glasses - GLASSES Denies: Hx Hearing Aid Opthamlomology History: Reports: Hx Contacts or Glasses - GLASSES Neurological History: Reports: Hx Nerve Disease - 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 LEFT TOTAL KNEE [place]. RIGHT ANKLE ARTHRODESIS 2001 [facility] HYSTER 1996 Hx Anesthesia Reactions: No Infectious Disease History: No Infectious Disease History: Denies: Hx Clostridium Difficile, Hx Hepatitis, Hx Human Immunodeficiency Virus (HIV), Hx of Known/Suspected MRSA, Hx Shingles, Hx Tuberculosis, History Other Infectious Disease, Traveled Outside the [place] in Last 30 Days - Family History Known Family History: Negative: Diabetes - Social History Alcohol Use: unable to assess Substance Use Type: Reports: Prescribed Substance Use Comment - Amount & Last Used: morphine po Smoking Status (MU): Never Smoked Tobacco Have You Smoked in the Last Year: No Review of Systems Positive: Chills, Other - Loss of appetite Positive: Abdominal Pain, Diarrhea Positive: incontinence All Other Systems Reviewed And Are Negative: Yes Physical Exam - Summary Physical Exam Summary: Constitutional: Well-developed, Well-nourished, Alert. (-) Distressed Skin: Warm, Dry HENT: Normocephalic; Atraumatic Eyes: Conjunctiva normal Neck: Musculoskeletal ROM normal neck. (-) JVD, (-) Stridor, (-) Nuchal rigidity Cardio: Rhythm regular, rate normal, Heart sounds normal; Intact distal pulses; Radial pulses are 2+ and symmetric. (-) Murmur Pulmonary/Chest wall: Effort normal. (-) Respiratory distress, (-) Wheezes, (-) Rales Abd: Soft, (-) tenderness, (-) Distension, (-) Guarding, (-) Rebound Musculoskeletal: (-) Edema Lymph: (-) Cervical adenopathy Neuro: Alert, Oriented x3. walks w assistance 2/2 fatigue, Psych: Mood and affect Normal Triage Information Reviewed: Yes Vital Signs On Initial Exam: Initial Vitals Temp Pulse Resp BP Pulse Ox 98.3 F 86 16 131/72 100 04/29/19 14:45 04/29/19 14:45 04/29/19 14:45 04/29/19 14:45 04/29/19 14:45 Vital Signs Reviewed: Yes - [place] Coma Scale Best Eye Response: 4 - Spontaneous Best Motor Response: 6 - Obeys Commands Best Verbal Response: 5 - Oriented Coma Scale Total: 15 Procedures - Sedation Patient Received Moderate/Deep Sedation with Procedure: No Diagnostics - Vital Signs Vital Signs Temp Pulse Resp BP Pulse Ox 04/29/19 15:38 76 121/69 98 04/29/19 14:45 98.3 F 86 16 131/72 100 - Laboratory Result Diagrams: 04/29/19 16:32 04/29/19 16:32 Lab Statement: Any lab studies that have been ordered have been reviewed, and results considered in the medical decision making process. - CT Brain CT CT Interpretation Completed By: Radiologist Summary of CT Findings: Brain CT reveals, per radiologist, IMPRESSION: #. No acute intracranial process evident. #. Mild involutional change. ED physician has reviewed this radiology report. - EKG 1557 Cardiac Rate: NL EKG Rhythm: Sinus Rhythm Summary of EKG Findings: An EKG at 1557 reveals normal sinus rhythm 85 bpm, Artifact, but no obvious ischemic changes, t-wave inversions in lead III. ED physician has interpreted this EKG. Re-Evaluation - Re-Evaluation First Eval Re-Evaluation Time: 17:05 Comment: potassium is 2.8, pt will be given 40 IV Second Eval Re-Evaluation Time: 17:17 Comment: Discussed plan to admit pt. Complex Multi-Symp Course/Dx Course Of Treatment: 58 y/o F on chronic narcotics, recently weaned off, p/w weakness, diarrhea. - AAOx3, reports hx hallucinations likely 2/2 medications but will check head CT. - patient fatigued, having diarrhea, could be 2/2 opioid w/d. check labs, given IVF given hx of gastric bypass. - Diagnoses Provider Diagnoses: Diarrhea, Hypokalemia - Physician Notifications Discussed Care Of Patient With: Adriana Escobedo Time Discussed With Above Provider: 17:14 Instructed by Provider To: Other - Discussed case with Dr. Escobedo, who accepts pt for admission. Discharge ED - Sign-Out/Discharge Documenting (check all that apply): Patient Departure - Admit - Discharge Plan Condition: Stable Disposition: ADMITTED TO [facility] - Billing Disposition and Condition Condition: STABLE Disposition: Admitted to [facility] - Attestation Statements Document Initiated by Scribe: Yes Documenting Scribe: Marah Sandy Provider For Whom Johniberlin is Documenting (Include Credential): Leonides Reeves MD Scribe Attestation: Marah Richmond, scribed for Leonides Reeves MD on 04/29/19 at 2026. Scribe Documentation Reviewed: Yes Provider Attestation: The documentation as recorded by the Marah toscano accurately reflects the service I personally performed and the decisions made by me, Leonides Reeves MD Status of Scribe Document: Viewed
[2019-04-29] MEDS ORDERED: Thiamine INJ* 100 MG, Folic Acid IV* 1 MG, Multiple Vitamin IV ADULT* 10 ML in NS 0.9% ... IV ONE (16:19)
[2019-04-29 16:40] LABS: ABS Basophils 0.1 10^3/ul (0-0.2); ABS Lymphocytes 1.3 10^3/ul (1.0-4.8); ABS Monocytes 0.8 10^3/ul (0-0.8); ABS Neutrophils 7.9 10^3/ul (1.5-7.7); Eosinophil % 0.1 %; Hematocrit 33 % (35-47); Hemoglobin 11.2 g/dL (12.0-16.0); Lymphocyte % 13.3 %; Mean Corpuscular HGB Conc 34 g/dL (31-36); Mean Corpuscular Hemoglobin 31 pg (27-31); Mean Corpuscular Volume 90 fL (80-97); Mean Platelet Volume 6.8 fL (7.4-10.4); Nucleated Red Blood Cells % 0.1; Platelet Count 347 10^3/uL (150-450); Red Blood Count 3.69 10^6 /uL (3.70-4.87); Red Cell Distribution Width 18 % (10-15); White Blood Count 10.1 10^3/uL (3.5-10.8)
[2019-04-29 16:45] LABS: INR 1.15 (0.82-1.09)
[2019-04-29 16:59] LABS: Albumin 2.7 g/dL (3.2-5.2); Albumin/Globulin Ratio 0.8 (1-3); BUN/Creatinine Ratio 14.3 (8-20); Calcium 8.7 mg/dL (8.6-10.3); EGFR Non-African American 111.6 (>60); Globulin 3.4 g/dL (2-4); Potassium 2.8 mmol/L (3.5-5.0); Total Bilirubin 1.2 mg/dL (0.2-1.0); Total Protein 6.1 g/dL (6.4-8.9)
[2019-04-29 17:01] LABS: Troponin I 0.01 ng/mL (<0.04)
[2019-04-29] MEDS: KCL 20 MEQ/100 ML IVPREMIX* 20 MEQ/100 ML BAG IV SCH (17:32)
[2019-04-29] MEDS ORDERED: Acetaminophen TAB* 325 MG PO PRN ×2 (18:13→18:20)
[2019-04-29] MEDS ORDERED: Diazepam TAB(*) 5 MG PO PRN (18:13)
[2019-04-29] MEDS ORDERED: clonazePAM TAB(*) 1 MG PO PRN (18:20)
[2019-04-29] MEDS ORDERED: Lactated Ringers 1000 ML Bag* 1,000 ML IV ONE (18:23)
[2019-04-29] MEDS ORDERED: cefTRIAXone(*) 1 GM in NS 0.9% 50 ML* 50 ML IVPB SCH (19:30)
[2019-04-29] MEDS ORDERED: CLONAZEPAM 1 MG PO SCH (21:00)
[2019-04-29] MEDS: Morphine TAB Extended Release (*) 15 MG TAB.ER PO SCH (21:16)
[2019-04-29] MEDS: Gabapentin CAP(*) 300 MG PO SCH (21:16)
[2019-04-29] MEDS: oxyCODONE TAB* 5 MG TAB PO PRN (21:17)
--- NOTE | 2019-04-29 22:55 | HP ---
CC: Dr. Austin Carvajal * ADMISSION HISTORY AND PHYSICAL: DATE OF ADMISSION: 04/29/19 ATTENDING FOR THIS ADMISSION: Adriana Mendez MD * (DICTATED BY RIMMA MCHUGH NP) PRIMARY CARE PROVIDER: Austin Carvajal DO CHIEF COMPLAINT: Incontinence of urine and feces and altered mental status. HISTORY OF PRESENT ILLNESS: Ms. Sanchez is a 58-year-old female patient who presents in the emergency department today with complaints of altered mental status, some urinary incontinence, fecal incontinence yesterday and also some hallucinations. She is in the ER today with her , Michelet, who states that approximately a week ago she had noticed that she began to act not like herself. She had also noticed that she was appearing to be dehydrated. She was trying to encourage her to take water as supposed to drinking lemonade and she did appear more dry than usual. She also noted that her urine was becoming very dark and malodorous. During that time, she noticed progressive changes in her behavior and then noted what appeared to be some hallucinatory behavior and she was also becoming increasingly agitated, which was not like her. Normally, she is very alert and oriented, can care for herself and does not have any issues. She then noticed over the last 48 hours, she became quite disoriented and then started having not just incontinence of urine, which also started happening around the time that she became disoriented, but then incontinence of feces yesterday. At that time, she became very worried about her and then they decided to come to the emergency department today for evaluation. She also told her during this time that she stopped taking her pain medication. The patient does have longstanding osteoarthritis. She is seen at the pain clinic over in [facility] and because the patient was feeling like she was tired of being on narcotics for such a long time, she abruptly stopped her long- acting morphine yesterday. Her , Michelet, tells me that she is concerned that she put herself into a withdrawal inadvertently because of her altered mental status. Again for these reasons, this is why they came to the emergency department today to seek medical attention. In the ED, her laboratories were noted to be somewhat deranged. Her potassium is 2.8. Her sodium is low, so is her chloride. CO2 is somewhat elevated. Protein and albumin are also low. The patient is also having difficulty ambulating and for these reasons, hospitalists were asked to evaluate the patient for admission. PAST MEDICAL HISTORY: Significant for: 1. Osteoarthritis. 2. Depression and anxiety. 3. Paroxysmal atrial fibrillation. 4. Chronic pain. PAST SURGICAL HISTORY: Significant for: 1. Gastric bypass surgery. 2. Knee surgeries in the past. MEDICATIONS: At home are still pending confirmation, but medications at home appeared to be: 1. Percocet 10 mg 1 tablet p.o. q.4 hours as needed. 2. Clonazepam 1 mg 3 times a day. 3. BuSpar 15 mg 3 times a day. 4. Eliquis 5 mg p.o. b.i.d. 5. Vitamin 1 tab p.o. daily. 6. ReQuip 0.25 mg p.o. at bedtime. 7. Omeprazole 40 mg in the morning. 8. Morphine sulfate extended release 15 mg p.o. 3 times daily. 9. Milk of magnesia 30 mL q.6 hours as needed. 10. Hydrochlorothiazide 25 mg in the morning. 11. Gabapentin 600 mg 3 times a day. 12. Ferrous sulfate 325 mg in the morning. 13. Depakote ER 750 mg at bedtime. 14. Cymbalta 60 mg at bedtime, 30 mg in the morning. 15. Vitamin D 1000 units 2 times a day. 16. Calcium and vitamin D 1 tab p.o. in the morning. 17. Proventil 1 puff inhaled q.6 hours as needed. 18. Tylenol 975 mg p.o. q.6 hours as needed. Again, these medications are pending confirmation with nursing staff. ALLERGIES: To SULFA. FAMILY HISTORY: The patient's father had a strong cardiac history; he 2 years ago at the age of 83. The patient's mother is alive and healthy and has no reported medical history. REVIEW OF SYSTEMS: The patient is endorsing subjective fever and chills. She also reports weakness, diffuse abdominal pain, and transient nausea. She noted some hematuria when she was at home and also some dysuria. She also endorses incontinence both of bladder and bowel yesterday and loss of appetite. She is having a lucid moment now and she does state that she did feel that she was hallucinating yesterday. Rest of her review of systems is otherwise negative. PHYSICAL EXAMINATION GENERAL: The patient is alert, frail appearing, and in no acute distress. VITAL SIGNS: Blood pressure 108/61, heart rate 79, O2 saturation 96% on room air, respiratory rate 16, temperature of 98.3. HEENT: The patient is atraumatic, normocephalic. PERRLA. Nonicteric sclerae. The patient is edentulous. Oral mucosa is moist. Tongue is midline. NECK: Supple, nontender. No JVD noted. No carotid bruits auscultated. LUNGS: Clear bilaterally to auscultation with no wheezing, rhonchi, or rales. CARDIOVASCULAR: S1, S2 present. Rate and rhythm are regular to mildly tachycardic. ABDOMEN: Soft, mildly tender, nondistended. No organomegaly appreciated. : Deferred. MUSCULOSKELETAL: No clubbing, no cyanosis. She does have some tenderness bilaterally over the knees with approximated old surgical wounds that are healed. No erythema noted. She has +2 distal pulses palpable. Full range of motion. NEUROLOGIC: The patient is alert and oriented x3. She is showing no focal deficits at this time, although she does seem to have some erratic behavior at this time. She does not appear altered. PSYCHIATRIC: She does appear somewhat anxious, but she is otherwise cooperative. DIAGNOSTIC STUDIES/LAB DATA: Laboratories, WBCs 10.1, RBCs 3.69, hemoglobin 11.2, hematocrit 33, platelets 347. Sodium 134, potassium 2.8, chloride 93, CO2 of 37, BUN 8, creatinine 0.56, GFR 111.6, glucose 105. Calcium 8.7. Bilirubin 1.20. AST 20, ALT 11, alk phos 144. Troponin 0.01. Total protein 6.1. Albumin 2.7, globulin 3.4, albumin-globulin ratio is 0.8. INR 1.15. Imaging, CT of the brain shows no acute intracranial process, some involutional changes. EKG shows regular sinus rhythm with no acute ST segment changes. IMPRESSION: Ms. Sanchez is a 58-year-old female with a history of chronic pain that presents to the emergency department today after abruptly stopping her morphine and her Percocet, but also was exhibiting some symptoms of altered mental status and some dysuria. PLAN: The patient has been admitted. DIAGNOSES: 1. Altered mental status. It is in the differential that the patient may have a urinary tract infection judging by reports of her of malodorous urine and changes in mental status. CT of her head is negative. She does have electrolyte disturbances. We are pending a urine sample from her. She was quite dry and was not able to produce urine. We are pending her ability to give a urine sample after she has received IV fluids. If she is not able to give a urine sample, we will get one by straight cath and test her urine. I have ordered 1 g of ceftriaxone in the meantime, but we will get the urine sample and send it for culture before the ceftriaxone is given. We will continue her on IV fluids. My concern is because she has had some history of paroxysmal atrial fibrillation, if she becomes too dehydrated, this may kick off her atrial fibrillation. We will continue to monitor her closely. 2. History of paroxysmal atrial fibrillation. She was recently taken off her Eliquis. She did go see Dr. Ruiz in the office. She did have some blood behind her prosthesis on her total knee replacement that was done back in December that was drawn off in Dr. Ruiz's office just last week and he recommended her coming off the Eliquis because there is a blood pooling behind her knee. Her highway construction inspector had recommended that she stay on Eliquis because of the atrial fibrillation that happened after her last surgery; however, given her reported hematuria and the blood in her prosthetic knee, we recommend her staying off the Eliquis for now. This can be reevaluated at a later date. Also , the patient states she is on metoprolol. We do not have that dose. I will start her on low-dose metoprolol for today pending confirmation of her current dose. 3. History of depression and anxiety. The patient is on BuSpar and also on clonazepam. I will start her BuSpar. I have made her clonazepam as needed instead of scheduled because of her mental status changes. 4. History of chronic pain with abrupt discontinuation of narcotics. The patient is having active diarrhea and incontinence of stool. This is likely in the presence of acute withdrawal. I have ordered MS Contin. She currently takes it 3 times a day and is wishing to wean off. I have ordered it for 2 times a day with oxycodone for breakthrough. She will receive that dose and hopefully some of her symptoms will subside. I did have a discussion with her and her partner regarding going to see the pain clinic after her discharge and discussing weaning and taper schedule as an outpatient. This is something that should be addressed after discharge. In the meantime, I feel the patient is not suffering through an acute withdrawal, we will give her the morphine back in a lower dose in an effort to alleviate some of her symptoms and continue to monitor her mental status closely. She is also on duloxetine and gabapentin. These will be continued as well. Again, we will continue to monitor her mental status. 5. Electrolyte disturbances. She is receiving K-riders in the emergency department. The potassium is currently 2.8. We will recheck her K later and recheck labs in the morning. She is also receiving a banana bag. She has had history of gastric bypass. Some of her electrolyte disturbances may be in the presence of her gastric bypass and may be nutritional. However, given the copious diarrhea and incontinence that she has had, some of this may also obviously be attributable to the acute diarrhea she has had in the last 2 days. Again, we will monitor her electrolytes and continue to replete. 6. Hypertension. The patient is on hydrochlorothiazide. This will be continued. 7. DVT prophylaxis. The patient will have SCDs. She has been recently taken off of Eliquis given the hematuria and recent bleeding on the knee. She is higher risk for bleeding. I do not want to put her on heparin or other chemoprophylaxis. She can ambulate or have SCDs. 8. Diet. Regular, unrestricted diet as tolerated. The rest of the patient's course will be determined by further diagnostics, laboratories, and any other input from other providers as warranted during this admission. TIME SPENT: 65 minutes on admission planning. This plan of care has been discussed with my attending and she is in agreement with the admission plan of care. RIMMA MCHUGH NP [id number]/[facility] #: [id number] JAVIER
[2019-04-29] MEDS: Divalproex ER TAB(*) 500 MG PO SCH (23:28)
[2019-04-29] MEDS: DULoxetine DR CAP* 60 MG CAP.DR PO SCH (23:28)
[2019-04-29] MEDS: Divalproex ER TAB(*) 250 MG PO SCH (23:29)
[2019-04-29] MEDS: busPIRone TAB* 15 MG PO SCH (23:29)
[2019-04-30] MEDS: KCL 20 MEQ/100 ML IVPREMIX* 20 MEQ/100 ML BAG IV SCH ×3 (00:47→12:23)
[2019-04-30] MEDS: oxyCODONE TAB* 5 MG TAB PO PRN (04:37)
[2019-04-30 05:09] LABS: Urine Appearance Clear; Urine Bacteria Absent (Absent); Urine Bilirubin Negative (Negative); Urine Blood Negative (Negative); Urine Color Amber; Urine Glucose Negative (Negative); Urine Ketones Trace (Negative); Urine Nitrite Negative (Negative); Urine Protein Negative (Negative); Urine Red Blood Cell Absent (Absent); Urine Specific Gravity 1.023 (1.010-1.030); Urine Squamous Epithelial Cell Present (Absent); Urine Urobilinogen Negative (Negative); Urine White Blood Cell Trace(0-5/hpf) (Absent)
[2019-04-30] MEDS: Morphine TAB Extended Release (*) 15 MG TAB.ER PO SCH ×2 (06:44→17:55)
[2019-04-30 07:14] LABS: ABS Basophils 0.1 10^3/ul (0-0.2); ABS Eosinophils 0.1 10^3/ul (0-0.6); ABS Lymphocytes 2.6 10^3/ul (1.0-4.8); ABS Monocytes 0.8 10^3/ul (0-0.8); ABS Neutrophils 4.4 10^3/ul (1.5-7.7); Eosinophil % 1.4 %; Hematocrit 25 % (35-47); Hemoglobin 8.3 g/dL (12.0-16.0); Lymphocyte % 32.6 %; Mean Corpuscular HGB Conc 34 g/dL (31-36); Mean Corpuscular Hemoglobin 31 pg (27-31); Mean Corpuscular Volume 91 fL (80-97); Mean Platelet Volume 6.7 fL (7.4-10.4); Platelet Count 231 10^3/uL (150-450); Red Cell Distribution Width 18 % (10-15); White Blood Count 7.9 10^3/uL (3.5-10.8)
[2019-04-30 07:49] LABS: ALT 7 U/L (7-52); AST 14 U/L (13-39); Albumin 1.9 g/dL (3.2-5.2); Albumin/Globulin Ratio 0.8 (1-3); Alkaline Phosphatase 97 U/L (34-104); Anion Gap 2 mmol/L (2-11); BUN/Creatinine Ratio 14.6 (8-20); Blood Urea Nitrogen 7 mg/dL (6-24); CO2 Carbon Dioxide 32 mmol/L (22-32); Calcium 7.7 mg/dL (8.6-10.3); Chloride 103 mmol/L (101-111); EGFR African American 161.3 (>60); EGFR Non-African American 133.3 (>60); Globulin 2.3 g/dL (2-4); Glucose 76 mg/dL (70-100); Magnesium 1.6 mg/dL (1.9-2.7); Potassium 3.1 mmol/L (3.5-5.0); Sodium 137 mmol/L (135-145); Total Protein 4.2 g/dL (6.4-8.9)
--- NOTE | 2019-04-30 08:02 | PN ---
Subjective Date of Service: 04/30/19 Interval History: Rosario was noted to have PACs and PVCs overnight. She had no symptoms. She reports that since having gotten her usual pain medications (which she had self- discontinued about 15 days ago), her pain is finally relieved. She has been under a lot of stress at home since her does not want her to be on pain medications, which is why she discontinued them, and explains that over the past two weeks without pain medications, she has been steadily declining. though she also admits that even prior to discontinuing pain medications, she had not been eating or drinking well due to lack of interest. Objective Active Medications: Acetaminophen (Tylenol Tab*) 650 mg PO Q4H PRN PRN Reason: MILD PAIN or TEMP > 100.4 Last Admin: 04/29/19 21:16 Dose: 650 mg Buspirone HCl (Buspar Tab *) 15 mg PO TID [facility] Last Admin: 04/29/19 23:29 Dose: 15 mg Clonazepam (Klonopin Tab(*)) 1 mg PO TID PRN PRN Reason: ANXIETY Last Admin: 04/29/19 21:16 Dose: 1 mg Divalproex Sodium (Depakote Er Tab(*)) 250 mg PO BEDTIME [facility] Last Admin: 04/29/19 23:29 Dose: 250 mg Divalproex Sodium (Depakote Er Tab(*)) 500 mg PO BEDTIME [facility] Last Admin: 04/29/19 23:28 Dose: 500 mg Duloxetine HCl (Cymbalta Cap*) 30 mg PO QAM [facility] Duloxetine HCl (Cymbalta Cap*) 60 mg PO BEDTIME [facility] Last Admin: 04/29/19 23:28 Dose: 60 mg Ferrous Sulfate (Ferrous Sulfate Tab*) 325 mg PO QAM [facility] Gabapentin (Neurontin Cap(*)) 600 mg PO TID [facility] Last Admin: 04/29/19 21:16 Dose: 600 mg Hydrochlorothiazide (Hydrodiuril Tab*) 25 mg PO QAM [facility] Potassium Chloride (Potassium Chloride 20 Meq/100 Ml Ivpremix*) 20 meq in 100 mls @ 50 mls/hr IV Q2H [facility] Stop: 04/30/19 11:59 Metoprolol Tartrate (Lopressor Tab*) 25 mg PO DAILY [facility] Morphine Sulfate (Ms Contin(*)) 15 mg PO Q12H [facility] Last Admin: 04/30/19 06:44 Dose: 15 mg Oxycodone HCl (Roxycodone Tab*) 5 mg PO Q6H PRN PRN Reason: Pain - Severe breakthrough Last Admin: 04/30/19 04:37 Dose: 5 mg Vital Signs - 8 hr 04/30/19 04/30/19 04/30/19 01:38 EST 01:47 EST 03:29 Temperature 97.9 F Pulse Rate 86 Respiratory 16 16 16 Rate Blood Pressure 144/78 (mmHg) O2 Sat by Pulse 97 Oximetry 04/30/19 04/30/19 04/30/19 04:37 06:44 06:45 Temperature Pulse Rate Respiratory 18 16 18 Rate Blood Pressure (mmHg) O2 Sat by Pulse Oximetry 04/30/19 07:15 Temperature 98.5 F Pulse Rate 84 Respiratory 16 Rate Blood Pressure 115/56 (mmHg) O2 Sat by Pulse 16 Oximetry Oxygen Devices in Use Now: None Appearance: alert, no distress, greets me appropriately Eyes: No Scleral Icterus Ears/Nose/Mouth/Throat: - - edentulous. mucosa is moist. Neck: NL Appearance and Movements; NL JVP Respiratory: Symmetrical Chest Expansion and Respiratory Effort, Clear to Auscultation Cardiovascular: NL Sounds; No Murmurs; No JVD, RRR Abdominal: - - obese, nontender, old scar from bypass Lymphatic: No Cervical Adenopathy Extremities: - - knees are both warm with ??effusion, limited range of motion in both knees, able to lift both legs off the bed Skin: No Rash or Ulcers Neurological: Alert and Oriented x 3 Result Diagrams: 04/30/19 07:06 04/30/19 07:06 Assess/Plan/Problems-Billing Assessment: This is a 58 year old woman with history of osteoarthritis and chronic pain, paroxysmal afib, who at baseline spends 15-20 hours/day in bed, who preseted to the ED on 04/29 two weeks after self-discontinuing morphine/oxycodone with incontinence and hallucinations. - Patient Problems (1) Anemia Current Visit: Yes Status: Acute Code(s): D64.9 - ANEMIA, UNSPECIFIED SNOMED Code(s): 735795101 Comment: no obvious blood loss at this time she denies melena, hematochezia, tarry stools she does report that she saw Dr. Ruiz on Wednesday who did an arthrocentesis on her knee and it was bloody will consult Dr. Ruiz for his input will check fecal occult blood add on iron panel/b12/folate as is normocytic type and screen and recheck cbc later today continue to hold eliquis (2) Incontinence Current Visit: Yes Status: Acute Code(s): R32 - UNSPECIFIED URINARY INCONTINENCE SNOMED Code(s): 92320049 Comment: seems more functional than structural and likely related to uncontrolled pain, narcotic withdrawal, depression, and being nearly bedbound follow up today (3) Hypokalemia Current Visit: Yes Status: Acute Code(s): E87.6 - HYPOKALEMIA SNOMED Code( s): 75754414 Comment: she reports long history of poor po intake, which is supported by the remainder of her labs including albumin, as well as a contraction alkalosis yesterday when she arrived replete again today (4) Malnutrition Current Visit: Yes Status: Acute Code(s): E46 - UNSPECIFIED PROTEIN-CALORIE MALNUTRITION SNOMED Code(s): 06418630 Comment: consult nutrition (5) Chronic pain Current Visit: Yes Status: Acute Code(s): G89.29 - OTHER CHRONIC PAIN SNOMED Code(s): 29139941 Comment: now back on her home pain meds and doing better (6) Anxiety and depression Current Visit: No Status: Acute Code(s): F41.9 - ANXIETY DISORDER, UNSPECIFIED; F32.9 - MAJOR DEPRESSIVE DISORDER, SINGLE EPISODE, UNSPECIFIED SNOMED Code(s): 432487095 Comment: closely related with chronic pain and malnutrition will consult social work for help with home arrangements--? of food security, would benefit from getting out of house more, etc. (7) Hypertension Current Visit: No Status: Acute Code(s): I10 - ESSENTIAL (PRIMARY) HYPERTENSION SNOMED Code(s): 24531120 Comment: hold HCTZ today in setting of hgb drop and electrolyte derangements
[2019-04-30 08:20] LABS: % Iron Saturation 30 % (15-55); Iron 32 ug/dL (50-212); Total Iron Binding Capacity 105 mcg/dL (250-450); Transferrin < 75 mg/dL (203-362)
[2019-04-30 08:41] LABS: Ferritin 313.6 ng/mL (11-307)
[2019-04-30 08:44] LABS: Folate 12.45 ng/mL (>3.99)
[2019-04-30] MEDS: DULoxetine DR CAP* 30 MG CAP.DR PO SCH (08:57)
[2019-04-30] MEDS: Gabapentin CAP(*) 300 MG PO SCH ×3 (08:57→20:24)
[2019-04-30] MEDS: Ferrous Sulfate TAB* 325 MG PO SCH (08:57)
[2019-04-30] MEDS: Metoprolol Tartrate TAB* 25 MG PO SCH (08:58)
[2019-04-30] MEDS ORDERED: Hydrochlorothiazide TAB* 25 MG PO SCH (09:00)
[2019-04-30] MEDS: busPIRone TAB* 15 MG PO SCH ×3 (09:00→20:24)
--- NOTE | 2019-04-30 09:49 | PN ---
Progress Note - Progress Note Date of Service: 04/30/19 SOAP: Subjective: in bed resting, moderate pain R knee Objective: Vital Signs Temp Pulse Resp BP Pulse Ox 98.5 F 84 16 115/56 16 04/30/19 07:15 04/30/19 07:15 04/30/19 08:57 04/30/19 07:15 04/30/19 07:15 Laboratory Last Values WBC 7.9 10^3/uL (3.5-10.8) 04/30/19 07:06 RBC 2.70 10^6 /uL (3.70-4.87) L 04/30/19 07:06 Hgb 8.3 g/dL (12.0-16.0) L 04/30/19 07:06 Hct 25 % (35-47) L 04/30/19 07:06 MCV 91 fL (80-97) 04/30/19 07:06 MCH 31 pg (27-31) 04/30/19 07:06 MCHC 34 g/dL (31-36) 04/30/19 07:06 RDW 18 % (10-15) H 04/30/19 07:06 Plt Count 231 10^3/uL (150-450) 04/30/19 07:06 MPV 6.7 fL (7.4-10.4) L 04/30/19 07:06 Neut % (Auto) 54.9 % 04/30/19 07:06 Lymph % (Auto) 32.6 % 04/30/19 07:06 [place] % (Auto) 9.9 % 04/30/19 07:06 Eos % (Auto) 1.4 % 04/30/19 07:06 Baso % (Auto) 1.2 % 04/30/19 07:06 Absolute Neuts (auto) 4.4 10^3/ul (1.5-7.7) 04/30/19 07:06 Absolute Lymphs (auto) 2.6 10^3/ul (1.0-4.8) 04/30/19 07:06 Absolute Monos (auto) 0.8 10^3/ul (0-0.8) 04/30/19 07:06 Absolute Eos (auto) 0.1 10^3/ul (0-0.6) 04/30/19 07:06 Absolute Basos (auto) 0.1 10^3/ul (0-0.2) 04/30/19 07:06 Absolute Nucleated RBC 0.0 10^3/ul 04/30/19 07:06 Nucleated RBC % 0.0 04/30/19 07:06 INR (Anticoag Therapy) 1.15 (0.82-1.09) H 04/29/19 16:32 Sodium 137 mmol/L (135-145) 04/30/19 07:06 Potassium 3.1 mmol/L (3.5-5.0) L 04/30/19 07:06 Chloride 103 mmol/L (101-111) 04/30/19 07:06 Carbon Dioxide 32 mmol/L (22-32) 04/30/19 07:06 Anion Gap 2 mmol/L (2-11) 04/30/19 07:06 BUN 7 mg/dL (6-24) 04/30/19 07:06 Creatinine 0.48 mg/dL (0.51-0.95) L 04/30/19 07:06 Est GFR ( Amer) 161.3 (>60) 04/30/19 07:06 Est GFR (Non-Af Amer) 133.3 (>60) 04/30/19 07:06 BUN/Creatinine Ratio 14.6 (8-20) 04/30/19 07:06 Glucose 76 mg/dL (70-100) 04/30/19 07:06 Calcium 7.7 mg/dL (8.6-10.3) L 04/30/19 07:06 Magnesium 1.6 mg/dL (1.9-2.7) L 04/30/19 07:06 Iron 32 ug/dL (50-212) L 04/30/19 07:06 TIBC 105 mcg/dL (250-450) L 04/30/19 07:06 % Saturation 30 % (15-55) 04/30/19 07:06 Unsat Iron Binding < 90 ug/dL 04/30/19 07:06 Transferrin < 75 mg/dL (203-362) L 04/30/19 07:06 Ferritin 313.6 ng/mL (11-307) H 04/30/19 07:06 Total Bilirubin 0.50 mg/dL (0.2-1.0) 04/30/19 07:06 AST 14 U/L (13-39) 04/30/19 07:06 ALT 7 U/L (7-52) 04/30/19 07:06 Alkaline Phosphatase 97 U/L (34-104) 04/30/19 07:06 Troponin I 0.01 ng/mL (<0.04) 04/29/19 16:32 Total Protein 4.2 g/dL (6.4-8.9) L 04/30/19 07:06 Albumin 1.9 g/dL (3.2-5.2) L 04/30/19 07:06 Globulin 2.3 g/dL (2-4) 04/30/19 07:06 Albumin/Globulin Ratio 0.8 (1-3) L 04/30/19 07:06 Vitamin B12 711 pg/mL (180-914) 04/30/19 07:06 Folate 12.45 ng/mL (>3.99) 04/30/19 07:06 Urine Color Livia 04/30/19 04:57 Urine Appearance Clear 04/30/19 04:57 Urine pH 7.0 (5-9) 04/30/19 04:57 Ur Specific [place] 1.023 (1.010-1.030) 04/30/19 04:57 Urine Protein Negative (Negative) 04/30/19 04:57 Urine Ketones Trace (Negative) A 04/30/19 04:57 Urine Blood Negative (Negative) 04/30/19 04:57 Urine Nitrate Negative (Negative) 04/30/19 04:57 Urine Bilirubin Negative (Negative) 04/30/19 04:57 Urine Urobilinogen Negative (Negative) 04/30/19 04:57 Ur Leukocyte Esterase Trace (Negative) A 04/30/19 04:57 Urine WBC (Auto) Trace(0-5/hpf) (Absent) 04/30/19 04:57 Urine RBC (Auto) Absent (Absent) 04/30/19 04:57 Ur Squamous Epith Cells Present (Absent) A 04/30/19 04:57 Urine Bacteria Absent (Absent) 04/30/19 04:57 Urine Glucose Negative (Negative) 04/30/19 04:57 PE: moderate to large effusion, no warmth or erythema; able to DF, 2+ DP pulse and intact sensation Assessment: right knee hemarthrosis Plan: 1) PT/OT 2) hospitalist co-managing 3) cx negative, will continue to follow for final results
[2019-04-30 14:54] LABS: Hematocrit 27 % (35-47); Hemoglobin 8.9 g/dL (12.0-16.0); Mean Corpuscular HGB Conc 33 g/dL (31-36); Mean Corpuscular Hemoglobin 30 pg (27-31); Mean Corpuscular Volume 92 fL (80-97); Platelet Count 244 10^3/uL (150-450); Red Blood Count 2.94 10^6 /uL (3.70-4.87); Red Cell Distribution Width 19 % (10-15); White Blood Count 8.3 10^3/uL (3.5-10.8)
[2019-04-30] MEDS ORDERED: Magnesium Oxide TAB* 400 MG PO ONE (15:00)
[2019-04-30] MEDS: Divalproex ER TAB(*) 250 MG PO SCH (20:24)
[2019-04-30] MEDS: DULoxetine DR CAP* 60 MG CAP.DR PO SCH (20:24)
[2019-04-30] MEDS: Divalproex ER TAB(*) 500 MG PO SCH (20:24)
[2019-05-01] MEDS: busPIRone TAB* 15 MG PO SCH ×2 (07:30→14:13)
[2019-05-01] MEDS: Morphine TAB Extended Release (*) 15 MG TAB.ER PO SCH (07:31)
[2019-05-01] MEDS: Ferrous Sulfate TAB* 325 MG PO SCH (07:31)
[2019-05-01] MEDS: DULoxetine DR CAP* 30 MG CAP.DR PO SCH (07:32)
[2019-05-01] MEDS: Gabapentin CAP(*) 300 MG PO SCH ×2 (07:32→14:13)
[2019-05-01] MEDS: Metoprolol Tartrate TAB* 25 MG PO SCH (07:32)
--- NOTE | 2019-05-01 07:37 | PN ---
Subjective Date of Service: 05/01/19 Interval History: HD 3 on 05/01 No acute overnight events; had hallucination while going to bed VS stable Patient complains of nocturnal incontinence. No urge. No abdominal pain, nausea or vomiting No fecal incontinence. No BM Objective Active Medications: Acetaminophen (Tylenol Tab*) 650 mg PO Q4H PRN PRN Reason: MILD PAIN or TEMP > 100.4 Last Admin: 04/29/19 21:16 Dose: 650 mg Buspirone HCl (Buspar Tab *) 15 mg PO TID [facility] Last Admin: 05/01/19 07:30 Dose: 15 mg Clonazepam (Klonopin Tab(*)) 1 mg PO TID PRN PRN Reason: ANXIETY Last Admin: 04/29/19 21:16 Dose: 1 mg Divalproex Sodium (Depakote Er Tab(*)) 250 mg PO BEDTIME [facility] Last Admin: 04/30/19 20:24 Dose: 250 mg Divalproex Sodium (Depakote Er Tab(*)) 500 mg PO BEDTIME [facility] Last Admin: 04/30/19 20:24 Dose: 500 mg Duloxetine HCl (Cymbalta Cap*) 30 mg PO QAM [facility] Last Admin: 05/01/19 07:32 Dose: 30 mg Duloxetine HCl (Cymbalta Cap*) 60 mg PO BEDTIME [facility] Last Admin: 04/30/19 20:24 Dose: 60 mg Ferrous Sulfate (Ferrous Sulfate Tab*) 325 mg PO QAM [facility] Last Admin: 05/01/19 07:31 Dose: 325 mg Gabapentin (Neurontin Cap(*)) 600 mg PO TID [facility] Last Admin: 05/01/19 07:32 Dose: 600 mg Metoprolol Tartrate (Lopressor Tab*) 25 mg PO DAILY [facility] Last Admin: 05/01/19 07:32 Dose: 25 mg Morphine Sulfate (Ms Contin(*)) 15 mg PO Q12H [facility] Last Admin: 05/01/19 07:31 Dose: 15 mg Oxycodone HCl (Roxycodone Tab*) 5 mg PO Q6H PRN PRN Reason: Pain - Severe breakthrough Last Admin: 04/30/19 04:37 Dose: 5 mg Vital Signs - 8 hr 05/01/19 05/01/19 05/01/19 03:15 07:08 07:31 Temperature 97.7 F 98.0 F Pulse Rate 91 91 Respiratory 16 18 18 Rate Blood Pressure 114/59 108/51 (mmHg) O2 Sat by Pulse 98 96 Oximetry 05/01/19 07:32 Temperature Pulse Rate Respiratory 18 Rate Blood Pressure (mmHg) O2 Sat by Pulse Oximetry Oxygen Devices in Use Now: None Exam: patient is lying on a bed with no acute distress HEENT: Normocephalic and atraumatic Lungs: Clear with no added sound Heart: S1/S2 heard with no murmur Abdomen: Soft, nondistended and nontender. NOrmal BS heard Extremities: Swelling on right knee wiht mild tenderness and fluctuance. NO redness or warmth. Neuro: Alert, conscious and oriented. - Nutrition: Malnutrition Diagnosis/Plan Malnutrition Assessment by Registered Dietitian: Malnutrition Assessment Clinical Characteristics Chronic,Moderate Malnutrition Assessment: - po intake meeting <75% EEE x > 1 month Criteria - severe wt loss (18.8%) in past 3-6 months - mild to moderate temporal wasting noted on visual assessment Malnutrition Assessment: 1. liberalize from heart healthy to REGULAR/ SOFT Interventions diet 2. electrolyte repletion per MD orders; mag replacement to be added today 3. pt declines offer for Ensure Enlive and for Boost Hunger Smart (does not want chocolate) 4. agreeable to cheese and crackers daily at 3pm 5. encourage po intake and any write-in items to daily menu Malnutrition Assessment: Goals 1. pt will tolerate po intake without adverse GI effects 2. pt will tolerate least-restrictive diet texture without difficulty chewing (or swallowing) 3. adequate po intake to maintain lean body mass and hydration without add'l wt gain 4. achieve and maintain serum electrolytes levels WNL 5. achieve and maintain regulated bowel pattern without c/o constipation (or diarrhea) Result Diagrams: 05/01/19 08:53 05/01/19 08:53 Assess/Plan/Problems-Billing Assessment: This is a 58 year old woman with history of osteoarthritis and chronic pain, paroxysmal afib, who at baseline spends 15-20 hours/day in bed, who preseted to the ED on 04/29 two weeks after self-discontinuing morphine/oxycodone with incontinence, AMS and hallucinations. - Patient Problems (1) Right knee pain Status: Acute Code(s): M25.561 - PAIN IN RIGHT KNEE SNOMED Code(s): 89547839 Comment: -Complains of right knee pain and swelling -had recently visited ortho- knee aspiration done- showed blood; hemarthrosis -No signs of infection -will follow up with ortho as an outpatient. (2) Incontinence Status: Acute Code(s): R32 - UNSPECIFIED URINARY INCONTINENCE SNOMED Code(s) : 19873499 Comment: -incontinent only during night time; overflow incontinent -has similar episode in past -has history of repetive urinary infection - could be functional or irritative -pending post void scan (3) Anemia Status: Acute Code(s): D64.9 - ANEMIA, UNSPECIFIED SNOMED Code(s): 444677497 Comment: - -no obvious blood loss at present; has hemarthosis -Hb stable-9.5 -High ferritin with low TIBC and iron; could be from chronic disease -fecal stool blood pending -can follow as outpatient (4) Chronic pain Status: Acute Code(s): G89.29 - OTHER CHRONIC PAIN SNOMED Code(s): 53699207 Comment: now back on her home pain meds and doing better (5) Hypokalemia Status: Acute Code(s): E87.6 - HYPOKALEMIA SNOMED Code(s): 54224350 Comment: -she reports long history of poor po intake, which is supported by the remainder of her labs including albumin, as well as a contraction alkalosis yesterday -K is 3.9 and Mg of 1.8 -oral KCL and Mg given (6) Anxiety and depression Status: Acute Code(s): F41.9 - ANXIETY DISORDER, UNSPECIFIED; F32.9 - MAJOR DEPRESSIVE DISORDER, SINGLE EPISODE, UNSPECIFIED SNOMED Code(s): 278888685 Comment: -closely related with chronic pain and malnutrition continue home meds (7) Hypertension Status: Acute Code(s): I10 - ESSENTIAL (PRIMARY) HYPERTENSION SNOMED Code(s) : 81662281 Comment: -will start HCTZ on discharge (8) DVT prophylaxis Status: Acute Code(s): Z29.9 - ENCOUNTER FOR PROPHYLACTIC MEASURES, UNSPECIFIED SNOMED Code(s): 833366401 Comment: - eliquis on hold -on scd (9) Full code status Status: Acute Code(s): Z78.9 - OTHER SPECIFIED HEALTH STATUS SNOMED Code(s) : 812638944 Comment: Status and Disposition: Inpatient; ortho following dc today Attending: Abraham Richardson Attestation Documenting Resident: Cong Gannon Supervising Physician: Abraham Richardson Attending/Supervising Physician Comment: Agree with note. See discharge for more information. Attestation: This service has been performed in part by a resident under the direction of a teaching physician.I, Abraham Richardson, performed the service, or was physically present during the critical, or millan portions of the service, furnished by the resident. I participated in the management of the patient.
[2019-05-01 09:27] LABS: ABS Eosinophils 0.2 10^3/ul (0-0.6); ABS Lymphocytes 2.1 10^3/ul (1.0-4.8); ABS Monocytes 0.7 10^3/ul (0-0.8); ABS Neutrophils 4.4 10^3/ul (1.5-7.7); Eosinophil % 2.7 %; Hematocrit 29 % (35-47); Hemoglobin 9.5 g/dL (12.0-16.0); Lymphocyte % 28.6 %; Mean Corpuscular HGB Conc 33 g/dL (31-36); Mean Corpuscular Hemoglobin 31 pg (27-31); Mean Corpuscular Volume 93 fL (80-97); Nucleated Red Blood Cells % 0.1; Platelet Count 271 10^3/uL (150-450); Red Blood Count 3.11 10^6 /uL (3.70-4.87); Red Cell Distribution Width 19 % (10-15); White Blood Count 7.5 10^3/uL (3.5-10.8)
[2019-05-01 09:46] LABS: Calcium 8.2 mg/dL (8.6-10.3); EGFR African American 132.3 (>60); EGFR Non-African American 109.3 (>60); Magnesium 1.8 mg/dL (1.9-2.7); Potassium 3.9 mmol/L (3.5-5.0)
[2019-05-01] MEDS ORDERED: Magnesium Oxide TAB* 400 MG PO ONE (10:06)
[2019-05-01] MEDS ORDERED: Ondansetron TAB* 4 MG PO PRN (10:06)
[2019-05-01] MEDS ORDERED: Potassium Chlor TAB* 20 MEQ TAB.ER PO ONE (10:27)
--- NOTE | 2019-05-01 13:26 | PN ---
Progress Note - Progress Note Date of Service: 05/01/19 SOAP: Subjective: []Pt seen at bedside. She has no complaints today. Denies CP, SOB, dizziness, nausea. Had continued hallucinations last night stating her wall and TV jumped out of their current location to the floor and became very small. Also report new onset urinary and fecal incontinence. Objective: []Gen: NAD, appears well PE: moderate right knee effusion, no warmth or erythema. Knee f/e 0-90 nonpainful. NVI distally calves supple and nontender Assessment: []right knee hemarthrosis Plan: []WBAT PT/OT hospitalist co-managing No growth on synovial fluid culture, will continue to follow Vital Signs Temp 97.7 F 05/01/19 11:17 Pulse 76 05/01/19 11:17 Resp 16 05/01/19 11:17 BP 104/58 05/01/19 11:17 Pulse Ox 95 05/01/19 11:17 Intake & Output 04/30/19 05/01/19 05/01/19 18:59 06:59 18:59 Intake Total 1695 480 440 Output Total 0 Balance 1695 480 440 Intake: IV Fluids 900 Oral 795 480 440 Output: Urine 0 Other: Estimated Void Large # Bowel Movements 0 # Voids 3 Laboratory Last Values WBC 7.5 10^3/uL (3.5-10.8) 05/01/19 08:53 RBC 3.11 10^6 /uL (3.70-4.87) L 05/01/19 08:53 Hgb 9.5 g/dL (12.0-16.0) L 05/01/19 08:53 Hct 29 % (35-47) L 05/01/19 08:53 MCV 93 fL (80-97) 05/01/19 08:53 MCH 31 pg (27-31) 05/01/19 08:53 MCHC 33 g/dL (31-36) 05/01/19 08:53 RDW 19 % (10-15) H 05/01/19 08:53 Plt Count 271 10^3/uL (150-450) 05/01/19 08:53 MPV 7.0 fL (7.4-10.4) L 05/01/19 08:53 Neut % (Auto) 58.8 % 05/01/19 08:53 Lymph % (Auto) 28.6 % 05/01/19 08:53 Jewell % (Auto) 9.6 % 05/01/19 08:53 Eos % (Auto) 2.7 % 05/01/19 08:53 Baso % (Auto) 0.3 % 05/01/19 08:53 Absolute Neuts (auto) 4.4 10^3/ul (1.5-7.7) 05/01/19 08:53 Absolute Lymphs (auto) 2.1 10^3/ul (1.0-4.8) 05/01/19 08:53 Absolute Monos (auto) 0.7 10^3/ul (0-0.8) 05/01/19 08:53 Absolute Eos (auto) 0.2 10^3/ul (0-0.6) 05/01/19 08:53 Absolute Basos (auto) 0.0 10^3/ul (0-0.2) 05/01/19 08:53 Absolute Nucleated RBC 0.0 10^3/ul 05/01/19 08:53 Nucleated RBC % 0.1 05/01/19 08:53 INR (Anticoag Therapy) 1.15 (0.82-1.09) H 04/29/19 16:32 Sodium 138 mmol/L (135-145) 05/01/19 08:53 Potassium 3.9 mmol/L (3.5-5.0) 05/01/19 08:53 Chloride 103 mmol/L (101-111) 05/01/19 08:53 Carbon Dioxide 33 mmol/L (22-32) H 05/01/19 08:53 Anion Gap 2 mmol/L (2-11) 05/01/19 08:53 BUN 8 mg/dL (6-24) 05/01/19 08:53 Creatinine 0.57 mg/dL (0.51-0.95) 05/01/19 08:53 Est GFR ( Amer) 132.3 (>60) 05/01/19 08:53 Est GFR (Non-Af Amer) 109.3 (>60) 05/01/19 08:53 BUN/Creatinine Ratio 14.0 (8-20) 05/01/19 08:53 Glucose 84 mg/dL (70-100) 05/01/19 08:53 Calcium 8.2 mg/dL (8.6-10.3) L 05/01/19 08:53 Magnesium 1.8 mg/dL (1.9-2.7) L 05/01/19 08:53 Iron 32 ug/dL (50-212) L 04/30/19 07:06 TIBC 105 mcg/dL (250-450) L 04/30/19 07:06 % Saturation 30 % (15-55) 04/30/19 07:06 Unsat Iron Binding < 90 ug/dL 04/30/19 07:06 Transferrin < 75 mg/dL (203-362) L 04/30/19 07:06 Ferritin 313.6 ng/mL (11-307) H 04/30/19 07:06 Total Bilirubin 0.50 mg/dL (0.2-1.0) 04/30/19 07:06 AST 14 U/L (13-39) 04/30/19 07:06 ALT 7 U/L (7-52) 04/30/19 07:06 Alkaline Phosphatase 97 U/L (34-104) 04/30/19 07:06 Troponin I 0.01 ng/mL (<0.04) 04/29/19 16:32 Total Protein 4.2 g/dL (6.4-8.9) L 04/30/19 07:06 Albumin 1.9 g/dL (3.2-5.2) L 04/30/19 07:06 Globulin 2.3 g/dL (2-4) 04/30/19 07:06 Albumin/Globulin Ratio 0.8 (1-3) L 04/30/19 07:06 Vitamin B12 711 pg/mL (180-914) 04/30/19 07:06 Folate 12.45 ng/mL (>3.99) 04/30/19 07:06 Urine Color Livia 04/30/19 04:57 Urine Appearance Clear 04/30/19 04:57 Urine pH 7.0 (5-9) 04/30/19 04:57 Ur Specific Sibley 1.023 (1.010-1.030) 04/30/19 04:57 Urine Protein Negative (Negative) 04/30/19 04:57 Urine Ketones Trace (Negative) A 04/30/19 04:57 Urine Blood Negative (Negative) 04/30/19 04:57 Urine Nitrate Negative (Negative) 04/30/19 04:57 Urine Bilirubin Negative (Negative) 04/30/19 04:57 Urine Urobilinogen Negative (Negative) 04/30/19 04:57 Ur Leukocyte Esterase Trace (Negative) A 04/30/19 04:57 Urine WBC (Auto) Trace(0-5/hpf) (Absent) 04/30/19 04:57 Urine RBC (Auto) Absent (Absent) 04/30/19 04:57 Ur Squamous Epith Cells Present (Absent) A 04/30/19 04:57 Urine Bacteria Absent (Absent) 04/30/19 04:57 Urine Glucose Negative (Negative) 04/30/19 04:57 Blood Type A Positive 04/30/19 14:27 Antibody Screen Negative 04/30/19 14:27
[2019-05-01 16:19] VITALS: BP 134/63
--- NOTE | 2019-05-02 01:44 | DS ---
CC: Dr. Carvajal * DISCHARGE SUMMARY: DATE OF ADMISSION: 04/29/19 DATE OF DISCHARGE: 05/01/19 PRIMARY CARE PROVIDER: Dr. Carvajal. PRIMARY DIAGNOSES: Include: 1. Opioid withdrawal. 2. Urinary incontinence. 3. Right knee hemarthrosis. 4. Acute blood loss anemia. SECONDARY DIAGNOSES: Include: 1. Osteoarthritis. 2. Depression. 3. Anxiety. 4. Paroxysmal atrial fibrillation. PERTINENT IMAGING PERFORMED DURING HOSPITAL STAY: Brain CT, no acute intracranial process evident. PERTINENT LABS DURING HOSPITAL STAY: Hemoglobin nadired at 8.3, was 9.5 on the day of discharge. MEDICATIONS ON DISCHARGE: Include: 1. Acetaminophen 650 mg every 4 hours as needed for pain. 2. Cholecalciferol 1000 mg twice daily. 3. Albuterol HFA 1 puff every 6 hours as needed. 4. Diazepam 5 mg every 8 hours as needed. 5. Duloxetine 60 mg at bedtime. 6. Gabapentin 600 mg 3 times a day. 7. Ferrous sulfate 325 mg in the morning. 8. Depakote ER 750 mg at bedtime. 9. Ropinirole 0.25 mg at bedtime. 10. Omeprazole 40 mg in the morning. 11. Morphine sulfate IR 15 mg twice daily. 12. BuSpar 15 mg 3 times a day. 13. Clonazepam 1 mg 3 times a day. 14. Oxycodone/acetaminophen 5/325, one tab every 4 hours as needed pain. Please note the discontinuation of hydrochlorothiazide because of controlled blood pressures during the course of the hospital stay, as well as also please note the discontinuation of Eliquis in the setting of hemarthrosis. DISCHARGE INSTRUCTIONS: At followup, please; 1. Follow blood count if knee continues to be painful or any evidence of ongoing blood loss. 2. Restart Eliquis when deemed safe from orthopedic perspective. 3. Restart hydrochlorothiazide when blood pressure tolerates. HISTORY OF PRESENT ILLNESS AND HOSPITAL COURSE: This is a 58-year-old female who presented to the emergency room with altered mental status, urinary and fecal incontinence as well as hallucinations. It was noted that at home she decided to stop taking her narcotics. Discontinued all narcotics including short and long- acting narcotics followed by disorientation as well as diarrhea. In the emergency room, she was found to have hypokalemia and right knee pain as well as worsening anemia on the second day of admission. The patient's electrolyte derangements were thought in the setting of diarrhea. The patient's altered mental status and incontinence was thought again in the setting of opioid withdrawal. Her opioids were restarted and her mental status improved back to her baseline. She did have significant pain in her right knee. She had pre-existing hemarthrosis diagnosed on 04/27/[address] Ruiz when he performed arthrocentesis in his office. The new onset anemia was thought to be in the setting of hemarthrosis. Dr. Wasserman did communicate with Dr. Ruiz, indicated no further management and that the joint bleeding will tamponade itself, which it did, with significant increase in her hemoglobin prior to discharge. The patient did complain of nocturnal urinary incontinence , but she was able to maintain her continence during the day. She had insignificant postvoid residual on the day of discharge. For further evaluation , you may consider a referral to urology services for urodynamic testing. Additionally, the patient expressed interest in stopping her narcotics. I expressed concern discontinuing or decreasing narcotics at this time in the setting of this admission for narcotic withdrawal. The patient should collaborate with Dr. Carvajal or another care provider for structured tapering of her narcotics, which I am in agreement with. Reasons to return to the hospital including, but not limited to, recurrent or worsening symptoms, chest pain, shortness of breath, nausea, vomiting, lightheadedness, loss of consciousness, bleeding from any source, worsening pain in her knee, fevers or chills, confusion, inability to obtain or tolerate medications were discussed with the patient. She acknowledged understanding. TIME SPENT: Greater than 45 minutes was spent on the discharge of this patient , greater than half was spent [id number] with the patient. [id number]/CPS #: [id number] MTDD
--- NOTE | 2019-05-11 07:22 | PN ---
Progress Note - Progress Note Date of Service: 05/11/19 Note: Addendum to discharge summary from 05/01/2019 Disposition: Home Condition: Improved
== END 2019-05-01 17:35 | disposition home or self-care (01) | DRG 897 ==
LOC: ED 14:43 → MED 18:10 → OBSVTOIN 04-30 12:00
PROVIDERS: ADMIT Internal Medicine; ATTEND Internal Medicine
DX: F11.23 Opioid dependence with withdrawal (principal); E46 Unspecified protein-calorie malnutrition; M25.061 Hemarthrosis, right knee; D62 Acute posthemorrhagic anemia; R44.3 Hallucinations, unspecified; R32 Unspecified urinary incontinence; I49.1 Atrial premature depolarization; I49.3 Ventricular premature depolarization; F32.9 Major depressive disorder, single episode, unspecified; F41.9 Anxiety disorder, unspecified; I48.0 Paroxysmal atrial fibrillation; I10 Essential (primary) hypertension; E87.6 Hypokalemia; R15.9 Full incontinence of feces; M19.90 Unspecified osteoarthritis, unspecified site; G89.29 Other chronic pain; M25.561 Pain in right knee; Z98.84 Bariatric surgery status; Z68.32 Body mass index [BMI] 32.0-32.9, adult; Z79.01 Long term (current) use of anticoagulants; Z79.1 Long term (current) use of non-steroidal anti-inflammatories (NSAID); Z79.899 Other long term (current) drug therapy; Z88.2 Allergy status to sulfonamides
CPT/HCPCS: 36415; 70450; 80048; 80053; 81003; 81015; 82607; 82728; 82746; 83540; 83550; 83735; 84484; 85025; 85027; 85610; 86850; 86900; 86901; 87086; 93005; 99282; A9270-GY; G0378; G8978-GP-CI; G8979-GP-CI; J0696; J3411; J3480

== ENCOUNTER 2019-06-14 14:27 | Observation (INO) | payer MEDICARE, MEDICAID ==
--- NOTE | 2019-06-14 14:47 | ED ---
Lower Extremity - HPI Summary HPI Summary: The patient is a 58 y/o F arriving by ambulance to [facility] transferred from [facility] with left hip pain and diagnosed femur fracture onset this morning at 0900. She reports that she was at home, and her dog knocked her over, causing her to fall and land in a sitting fashion on the left leg. She sustained pain in the leg and went to the previous hospital where it was found that she has a fractured femur on the left. She was transferred for treatment of the fracture. She denies any numbness or tingling in the leg but has decreased ROM secondary to pain. Pain is rated 12/10 in severity. Unable to bear weight. She had Toradol WET PAN MIXER for pain; she would prefer to not be administered narcotics as she is one month-post long-term (3 year) Morphine use for chronic issues. PMHx: asthma, GERD, arthritis, bilateral knee replacements ( Dr. Ruiz), anxiety, depression. Nonsmoker, no EtOH, no substance use. Medications reviewed. Allergies noted. - History of Current Complaint Chief Complaint: EDFall Stated Complaint: FEMUR INJURY Time Seen by Provider: 06/14/19 14:29 Hx Obtained From: Patient Mechanism Of Injury: Fall From A Standing Position Onset of Pain: Immediate Onset/Duration: Still Present Severity Initially: Severe Severity Currently: Severe Pain Intensity: 12 Pain Scale Used: 0-10 Numeric Timing: Constant Location: Is Discrete @ - left hip Character Of Pain: Sharp Associated Signs And Symptoms: Negative: Other - numbness, tingling Aggravating Factor(s): Movement Alleviating Factor(s): Nothing Able to Bear Weight: No - Allergies/Home Medications Allergies/Adverse Reactions: Allergies Allergy/AdvReac Type Severity Reaction Status Date / Time Sulfa (Sulfonamide Allergy Severe Hives Verified 04/29/19 14:51 Antibiotics) Home Medications: Home Medications Albuterol HFA INHALER* [Ventolin HFA Inhaler*] 2 puff INH Q6H PRN 06/14/19 [ History Confirmed 06/14/19] Calcium Carb/Vit D3/Minerals [Calcium 600+D Plus [place]] 1 tab PO BID 06/14/19 [ History Confirmed 06/14/19] DULoxetine DR CAP* [Cymbalta CAP*] 30 mg PO BID 06/14/19 [History Confirmed ] Divalproex Sodium [Depakote] 500 mg PO BID 06/14/19 [History Confirmed 06/14/19] Divalproex Sodium [Depakote] 750 mg PO QPM 06/14/19 [History Confirmed 06/14/19] Gabapentin CAP(*) [Neurontin 300 CAP(*)] 300 mg PO TID 06/14/19 [History Confirmed 06/14/19] Metoprolol Succinate XL TAB* [Toprol XL TAB*] 25 mg PO DAILY 06/14/19 [History Confirmed 06/14/19] Omeprazole (Nf) [Prilosec (NF)] 40 mg PO QAM 06/14/19 [History Confirmed ] Ropinirole HCl [Requip Xl] 8 mg PO BEDTIME 06/14/19 [History Confirmed 06/14/19] clonazePAM TAB(*) [KlonoPIN TAB(*)] 0.5 mg PO QAM 06/14/19 [History Confirmed ] PMH/Surg Hx/FS Hx/Imm Hx Cardiovascular History: Reports: Other Cardiovascular Problems/Disorders - HISTORY OF TACKYCARDIA Respiratory History: Reports: Hx Asthma GI History: Reports: Hx Gastroesophageal Reflux Disease, Hx Ulcer, Other GI Disorders - GASTRIC BYPASS 2004 Musculoskeletal History: Reports: Hx Arthritis - HANDS, BACK, KNEES AND ANKLES, Hx Back Problems - 3 herniated discs, Hx Tendonitis - ELBOWS AND THUMBS, Other Musculoskeletal History - Right shoulder rotator cuff partial tear Sensory History: Reports: Hx Contacts or Glasses Denies: Hx Hearing Aid Opthamlomology History: Reports: Hx Contacts or Glasses Neurological History: Reports: Hx Nerve Disease - RIGHT LOWER LEGS NO FEELING, Other Neuro Impairments/Disorders - RLS Psychiatric History: Reports: Hx Anxiety, Hx Depression - Cancer History Hx Chemotherapy: No - Surgical History Surgical History: Yes Surgery Procedure, Year, and Place: GASTRIC BYPASS [place] 2004. LEFT TOTAL KNEE [place]. RIGHT ANKLE ARTHRODESIS 2001 [facility] PART[facility] HYSTER 1996 Hx Anesthesia Reactions: No Infectious Disease History: No Infectious Disease History: Denies: Hx Clostridium Difficile, Hx Hepatitis, Hx Human Immunodeficiency Virus (HIV), Hx of Known/Suspected MRSA, Hx Shingles, Hx Tuberculosis, History Other Infectious Disease, Traveled Outside the [place] in Last 30 Days - Family History Known Family History: Negative: Diabetes - Social History Alcohol Use: None Hx Substance Use: No Substance Use Type: Reports: None Substance Use Comment - Amount & Last Used: morphine po Hx Tobacco Use: No Smoking Status (MU): Never Smoked Tobacco Have You Smoked in the Last Year: No Review of Systems Positive: Myalgia - LLE, Decreased ROM Negative: Paresthesia, Numbness All Other Systems Reviewed And Are Negative: Yes Physical Exam - Summary Physical Exam Summary: Constitutional: Well-developed, Well-nourished, Alert. (-) Distressed Skin: Warm, Dry. (-) ecchymosis of the left leg HENT: Normocephalic; Atraumatic Eyes: Conjunctiva normal Neck: Musculoskeletal ROM normal neck. (-) JVD, (-) Stridor, (-) Tracheal deviation Cardio: Rhythm regular, rate normal, Heart sounds normal; Intact distal pulses; Radial pulses are 2+ and symmetric. (-) Murmur Pulmonary/Chest wall: Effort normal. (-) Respiratory distress, (-) Wheezes, (-) Rales Abd: Soft, (-) tenderness, (-) Distension, (-) Guarding, (-) Rebound Musculoskeletal: Left leg externally rotated, DP/PT pulse 2+. (-) Edema Lymph: (-) Cervical adenopathy Neuro: Alert, Oriented x3 Psych: Mood and affect Normal Triage Information Reviewed: Yes Vital Signs On Initial Exam: Initial Vitals Temp Pulse Resp BP Pulse Ox 98.5 F 81 16 140/69 99 06/14/19 14:31 06/14/19 14:31 06/14/19 14:31 06/14/19 14:31 06/14/19 14:31 Vital Signs Reviewed: Yes Procedures - Sedation Patient Received Moderate/Deep Sedation with Procedure: No Diagnostics - Vital Signs Vital Signs Temp Pulse Resp BP Pulse Ox 06/14/19 14:31 98.5 F 81 16 140/69 99 - Laboratory Result Diagrams: 06/14/19 18:11 06/14/19 18:11 Lab Statement: Any lab studies that have been ordered have been reviewed, and results considered in the medical decision making process. - CT LLE CT CT Interpretation Completed By: Radiologist Summary of CT Findings: Impression: 1. Large lipohemarthrosis. 2. Comminuted slightly displaced intra-articular periprosthetic fracture of the distal femur. 3. Osteopenia. ED physician has reviewed this imaging report. Lower Extremity Course/Dx - Course Course Of Treatment: Patient is transferred from outside hospital with a left femur fracture at the site of a knee replacement. Patient is neurovascular intact upon arrival. 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 Patient was rebound by the orthopedic surgeons who recommended admission to the hospital. - Diagnoses Provider Diagnoses: Femur fracture, left - Physician Notifications Discussed Care Of Patient With: Mitchell Bañuelos - hospitalist Time Discussed With Above Provider: 16:00 Instructed by Provider To: Other - I discussed the patient's case with Dr. Bañuelos , who accepts the patient for admission. Discharge ED - Sign-Out/Discharge Documenting (check all that apply): Patient Departure - Patient accepted for admission by Dr. Bañuelos. - Discharge Plan Condition: Stable Disposition: ADMITTED TO [facility] - Billing Disposition and Condition Condition: STABLE Disposition: Admitted to [facility] - Attestation Statements Document Initiated by Sukhjinder: Yes Documenting Scribe: Vilma Rodas Provider For Whom Sukhjinder is Documenting (Include Credential): Dr. Feliberto Yap MD Scribe Attestation: Vilma Richmond scribed for Dr. Feliberto Yap MD on 06/14/19 at 1918. Scribe Documentation Reviewed: Yes Provider Attestation: The documentation as recorded by the Vilma toscano accurately reflects the service I personally performed and the decisions made by me, Dr. Feliberto Yap MD Status of Scribe Document: Viewed
[2019-06-14] MEDS ORDERED: Acetaminophen TAB* 325 MG PO ONE (15:18)
[2019-06-14] MEDS ORDERED: Albuterol 2.5 MG/3 ML NEB.SOL* (0.083%) INH PRN (17:22)
[2019-06-14 18:22] LABS: ABS Basophils 0.1 10^3/ul (0-0.2); ABS Eosinophils 0.1 10^3/ul (0-0.6); ABS Lymphocytes 2.5 10^3/ul (1.0-4.8); ABS Monocytes 0.5 10^3/ul (0-0.8); ABS Neutrophils 6.8 10^3/ul (1.5-7.7); Eosinophil % 0.6 %; Hematocrit 32 % (35-47); Hemoglobin 10.7 g/dL (12.0-16.0); Lymphocyte % 25.5 %; Mean Corpuscular HGB Conc 33 g/dL (31-36); Mean Corpuscular Hemoglobin 32 pg (27-31); Mean Corpuscular Volume 96 fL (80-97); Mean Platelet Volume 7.8 fL (7.4-10.4); Platelet Count 282 10^3/uL (150-450); Red Blood Count 3.36 10^6 /uL (3.70-4.87); Red Cell Distribution Width 17 % (10-15); White Blood Count 9.9 10^3/uL (3.5-10.8)
[2019-06-14 18:35] LABS: BUN/Creatinine Ratio 27.5 (8-20); Calcium 8.2 mg/dL (8.6-10.3); EGFR African American 106.1 (>60); EGFR Non-African American 87.7 (>60)
[2019-06-14] MEDS ORDERED: Cyclobenzaprine TAB* 10 MG PO ONE (19:09)
--- NOTE | 2019-06-14 19:19 | CONS ---
CONSULTATION REPORT: DATE OF CONSULT: 06/14/19 ATTENDING ORTHOPEDIC PROVIDER: Dr. Abraham Ochoa. CHIEF COMPLAINT: Left periprosthetic distal femur fracture. HISTORY OF PRESENT ILLNESS: The patient is a 58-year-old female. She presents to [facility] on 06/14/19 after being transferred from [facility]. She is status post left total knee replacement by Dr. Ruiz on 10/17/18. Her past medical history is significant for paroxysmal AFib, osteoarthritis, depression, anxiety , and chronic pain. Fall occurred today in her home, which is an apartment while she was letting her dogs in from outside. She states that her left knee seemed to give out and she fell directly on to the knee. She had immediate pain and was unable to bear weight. The pain was in the knee as well as just above the knee in the femur. It was severe and nonradiating. She did not suffer any other injury. She did not hit her head. She did not lose consciousness. At baseline, she walks with a walker. She lives in an apartment with an elevator with her partner. She has been having difficulty with hemarthrosis in the right knee. The patient has had a great deal of difficulty with narcotic. She has been off for 1 month. The last time she was on narcotic, she had hallucinations and prefers not to go on the med at all. She does have a history of gastric bypasses and is unable to take oral NSAIDs as well. PAST MEDICAL HISTORY: Significant for osteoarthritis, depression, anxiety, paroxysmal AFib, chronic pain. PAST SURGICAL HISTORY: Significant for gastric bypass surgery, bilateral total knee replacement. ALLERGIES: SULFA drugs. FAMILY HISTORY: The patient's father had a strong cardiac history, at age 83. Mother is alive, healthy. SOCIAL HISTORY: The patient lives in an apartment with an elevator. She walks with a walker at baseline. She does not smoke. She does not use alcohol. She does not use illicit drugs. She lives with her partner. REVIEW OF SYSTEMS: General: No fever or chills. HEENT: Negative for headache , negative for head trauma. Cardiac: Positive for paroxysmal AFib. Negative for chest pain. Negative for history of DC. Respiratory: Negative for shortness of breath. GI: Negative for any abdominal pain, nausea, vomiting, diarrhea. : Negative for any dysuria. Musculoskeletal: Positive for left knee and femur pain. Neuro: Denies any decreased sensation in bilateral upper or lower extremities. Hematology: Negative for any history of blood clot. PHYSICAL EXAM: General: The patient is awake and alert, well appearing, in no acute distress. Vital Signs: Temperature 98.5, pulse rate 81, respiratory rate 16, oxygen saturation 99%, and blood pressure 140/69. HEENT: Head is normocephalic and atraumatic. Cardiac: S1, S2. Respiratory: Clear to auscultation bilaterally. Abdomen: Bowel sounds normoactive, soft, nontender. Musculoskeletal: Bilateral upper extremities and right lower extremity with skin envelope intact; able to flex and extend at all joints without pain, nontender to palpation. Left lower extremity: Skin envelope is intact. The patient is severely tender to palpation over the knee and distal femur. She is able to flex and extend at the toes as well as the ankle. She is nontender over the hip and proximal femur. DIAGNOSTIC STUDIES/LAB DATA: CT scan of left lower extremity: Joint effusion with fat-fluid level; comminuted fracture of the distal femur metaphysis extending to the femoral prosthesis, fracture fragments are slightly displaced. Several fracture fragments are slightly displaced along the anterior lateral aspect of the distal femur. The tibia and fibula appear intact. ASSESSMENT: This is a 58-year-old female with a left periprosthetic femur fracture. PLAN: The patient will be nonweightbearing. She will be placed in a knee immobilizer. Discussed this case with Dr. Ochoa who confirms the patient should be admitted. She will be admitted under the medicine service. Dr. Ochoa will discuss this case with Dr. Ruiz who did her knee replacement. Discussed with Medicine and if the patient needs anticoagulation, please place the patient on blood thinners that is able to be stopped within a day's notice if she does need to have a surgical procedure. LILLIAN JUNG [id number]/[facility] #: [id number] MTDD
--- NOTE | 2019-06-14 19:34 | HP ---
AMENDED REPORT NOW INCLUDES DESIGNATED COSIGNER ADMISSION HISTORY AND PHYSICAL: DATE OF ADMISSION: 06/14/19 PRIMARY CARE PROVIDER: Dr. Carvajal. PROVIDER: Dimas Evans NP. ATTENDING PHYSICIAN: Dr. Bañuelos.* (DICTATED BY DIMAS EVANS NP) OTHER PROVIDER: Dr. Ochoa. CHIEF COMPLAINT: Left knee pain. HISTORY OF PRESENT ILLNESS: This is a 58-year-old female with a past medical history significant for osteoarthritis, depression and anxiety, and paroxysmal AFib who originally 3 months ago had gotten her left knee replaced with Dr. Ruiz. Today, she had been caring for her grand kids, was letting the dog out , and had one foot on the threshold and one foot outside. The dog got off the leash, bolted in front of her, and knocked her off her balance and she fell on her left knee. At that point, she was unable to get up even with help and EMS was called. In the emergency room, CT scan was performed, which showed a left periprosthetic fracture. The patient was adamant that she did not want any more narcotics, had been taking morphine for 3 years and had weaned herself off of it 1 month ago, and did not want to go back on them. Of note, the patient stated that she had been seen by Dr. Ruiz twice since her last knee replacement to have pooled blood aspirated from behind her right knee. She stated that Dr. Ruiz diagnosed her with having a floating right patella and several days ago had sent her home with a splint for her right leg, which she wore for a total of 6 hours and took it off because of the pain and discomfort that it caused. She also stated that Dr. Ruiz had stopped her blood thinner. PAST MEDICAL HISTORY: Osteoarthritis, depression, anxiety, paroxysmal AFib, bone spurs in her right shoulder, chronic pain, restless leg, hypertension, and GERD. PAST SURGICAL HISTORY: Bilateral knee replacements, first one being 6 months ago and the second one 3 months ago, both by Dr. Ruiz. Also had a gastric bypass. HOME MEDICATIONS: 1. Metoprolol succinate 25 mg p.o. daily. 2. Clonazepam 0.5 mg p.o. q.a.m. 3. Ropinirole 8 mg p.o. at bedtime. 4. Calcium carbonate/vitamin D one tab p.o. b.i.d. 5. Omeprazole 40 mg p.o. q.a.m. 6. Gabapentin 600 mg p.o. t.i.d. 7. Divalproex 750 mg p.o. q.p.m. 8. Duloxetine 30 mg p.o. b.i.d. 9. Albuterol inhaler 2 puffs inhalation q.6 hours p.r.n. ALLERGIES: SULFA. FAMILY HISTORY: Father had an AR x2, hypertension, AFib, esophageal cancer. Mother had AFib, hypertension, and hyperlipidemia. SOCIAL HISTORY: Denies any tobacco, alcohol or recreational substance use. She is retired. 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 Lives alone. Has 3 children. REVIEW OF SYSTEMS: An 11-point system review was performed, which was positive for left knee pain and poor appetite, but negative for any chest pain, shortness of breath, palpitations, fever, chills, abdominal pain, nausea, or vomiting. PHYSICAL EXAMINATION GENERAL: This is a well-developed obese older woman seen resting in bed and in no acute distress. VITAL SIGNS: 98.5 Fahrenheit temperature, 67 pulse, respirations 16, 100% oxygen on room air, 146/84 blood pressure. HEENT: Eyes: Conjunctivae pink and moist. PERRLA. EOMs intact. ENT: Oropharynx clear. Mucous membranes moist. NECK: Supple. RESPIRATORY: Lung sounds clear throughout bilaterally on room air. No accessory muscle use noted. CARDIAC: S1, S2 present. Heart rate irregular. No murmurs, gallops, or rubs appreciated. ABDOMEN: Soft, nontender, nondistended with positive bowel sounds x4. MUSCULOSKELETAL: Limited movement to left lower extremity due to pain, though 2 + positive pedal pulses. Capillary refill less than 3 seconds. No clubbing or cyanosis of the digits. NEUROLOGICAL: Sensation intact to light touch. No focal deficits appreciated. PSYCH: Alert and oriented x3 with thought content organized. SKIN: Two bruises noted to medial aspect of the left knee. No other open areas appreciated. DIAGNOSTIC STUDIES/LAB DATA: Pertinent Lab Data: None for this visit. Diagnostic Studies: Left lower extremity CT scan showed large lipohemarthrosis and comminuted slightly displaced intra-articular periprosthetic fracture of the distal femur and osteopenia. ASSESSMENT AND PLAN: My impression is that this is a 58-year-old female with a past medical history significant for osteoarthritis, depression, anxiety, and paroxysmal atrial fibrillation who was admitted on 06/14/19 for a left periprosthetic fracture, unknown at this point whether it is operable. 1. Left periprosthetic fracture. Dr. Ochoa consulted to be determined whether or not the patient is able to go to surgery. Due to the patient's wishes of not wanting to take any narcotics, ordered Tylenol t.i.d. as scheduled , gabapentin, Flexeril. The patient is to have a leg immobilizer and to be nonweightbearing to that extremity. Ordered physical therapy and occupational therapy. The patient will likely need subacute rehab. 2. Paroxysmal atrial fibrillation. The patient is currently in sinus rhythm with premature atrial contractions, though tends to go in and out of atrial fibrillation under duress, particularly under surgical circumstances. Continue metoprolol. Dr. Ruiz had taken her off of her Eliquis for subsequent bleeding behind the right patella. We will place the patient on Lovenox for now and we will revisit anticoagulation strategy later. 3. Hypertension. Blood pressure has remained relatively stable in the 140s/ 80s. Continue her metoprolol. 4. Anxiety. Continue BuSpar and duloxetine, though is feeling anxious about what this admission may bring. Please continue clonazepam. 5. Restless leg syndrome. The patient states that she was told that she takes ReQuip to help her sleep at night. She was unaware that it was for her restless leg. She stated that her doctor told her that her Depakote was for her restless legs. Continue Depakote and ReQuip. 6. Gastroesophageal reflux disease. No signs or symptoms of indigestion at this time. Continue omeprazole. 7. DVT prophylaxis. Lovenox. 8. Code status. Is full code. TIME SPENT: Time spent with the patient is about 60 minutes, with half of that spent [id number]. Case was reviewed by attending and they agree. DIMAS EVANS, TILE INSPECTOR [id number]/[facility] #: [id number] [facility] HEALTH[facility]ianey
[2019-06-14] MEDS ORDERED: ROPINIROLE HCL 8 MG PO SCH (21:00)
[2019-06-14] MEDS: Docusate CAP* 100 MG PO SCH (22:10)
[2019-06-14] MEDS: DULoxetine DR CAP* 30 MG CAP.DR PO SCH (22:10)
[2019-06-14] MEDS: Enoxaparin(*) 40 MG/0.4 ML SYR SUBCUT SCH (22:11)
[2019-06-14] MEDS: Gabapentin CAP(*) 300 MG PO SCH (22:11)
[2019-06-14] MEDS: Senna TAB 8.6 mg* TAB PO SCH (22:11)
[2019-06-14] MEDS: Divalproex DR TAB(*) 250 MG PO SCH (22:11)
[2019-06-14] MEDS: Acetaminophen TAB* 325 MG PO SCH (22:11)
[2019-06-14] MEDS: busPIRone TAB* 15 MG PO SCH (22:11)
[2019-06-14] MEDS: Cyclobenzaprine TAB* 10 MG PO PRN (23:06)
[2019-06-14] MEDS: Ketorolac INJ* 30 MG/ML 1 ML VIAL IV PUSH PRN (23:54)
[2019-06-15] MEDS ORDERED: Morphine INJ* 2 MG/ML 1 ML SYRINGE (TWO MG - NEW SYRINGE VERSION) IV PRN (00:15)
[2019-06-15] MEDS: oxyCODONE/Acetamin 5/325 MG* TAB PO PRN ×2 (01:07→09:22)
[2019-06-15] MEDS: diPHENhydraMINE PO* 25 MG PO PRN ×2 (01:08→09:22)
[2019-06-15 05:24] LABS: ABS Eosinophils 0.1 10^3/ul (0-0.6); ABS Lymphocytes 2.5 10^3/ul (1.0-4.8); ABS Monocytes 0.6 10^3/ul (0-0.8); ABS Neutrophils 4.5 10^3/ul (1.5-7.7); Eosinophil % 1.5 %; Hematocrit 26 % (35-47); Hemoglobin 8.9 g/dL (12.0-16.0); Lymphocyte % 32.3 %; Mean Corpuscular HGB Conc 34 g/dL (31-36); Mean Corpuscular Hemoglobin 33 pg (27-31); Mean Corpuscular Volume 98 fL (80-97); Platelet Count 231 10^3/uL (150-450); Red Blood Count 2.71 10^6 /uL (3.70-4.87); Red Cell Distribution Width 17 % (10-15); White Blood Count 7.7 10^3/uL (3.5-10.8)
[2019-06-15 05:43] LABS: BUN/Creatinine Ratio 22.6 (8-20); Calcium 7.9 mg/dL (8.6-10.3); EGFR African American 84.6 (>60); EGFR Non-African American 69.9 (>60); Potassium 3.8 mmol/L (3.5-5.0)
[2019-06-15] MEDS: Ketorolac INJ* 30 MG/ML 1 ML VIAL IV PUSH PRN ×3 (06:06→21:40)
[2019-06-15] MEDS ORDERED: Metoprolol Succinate XL TAB* 25 MG PO SCH (09:00)
[2019-06-15] MEDS ORDERED: clonazePAM TAB(*) 0.5 MG PO SCH (09:00)
[2019-06-15] MEDS: Docusate CAP* 100 MG PO SCH ×2 (09:13→21:15)
[2019-06-15] MEDS: busPIRone TAB* 15 MG PO SCH ×3 (09:14→21:16)
[2019-06-15] MEDS: DULoxetine DR CAP* 30 MG CAP.DR PO SCH (09:14)
[2019-06-15] MEDS: Acetaminophen TAB* 325 MG PO SCH ×3 (09:14→21:53)
[2019-06-15] MEDS: Gabapentin CAP(*) 300 MG PO SCH ×3 (09:16→21:16)
[2019-06-15] MEDS: Pantoprazole TAB * 40 MG TAB PO SCH (09:16)
[2019-06-15] MEDS ORDERED: NS 0.9% 1000 ML** 1,000 ML IV SCH (09:30)
--- NOTE | 2019-06-15 10:31 | PN ---
Progress Note - Progress Note Date of Service: 06/15/19 SOAP: Subjective: []Pt seen and examined at bedside. She had initially request tylenol only for pain control but due to severe pain overnight required morphine and percocet. Today she asks to use primarily tylenol with minimal use of narcotics for severe pain. Objective: []Gen: NAD, falling asleep talking with me. A&Ox3, conversation is appropriate LLE: Knee immobilizer in place with ice pack. Able to f/e at ankle and MCPs without pain. Dp2+, sensation intact to light touch distally Calves supple and nontender without erythema, edema or palpable cords Assessment: []Left distal femur periprosthetic fracture Plan: [] Okay to ambulate OOB with PT NWB LLE with immobilizer Discussed with Dr Ochoa who also touched base with Dr Ruiz. Plan is for nonoperative managmeent. Knee immobilizer, touch down weight bearing, rehab placement if unable to return home, Follow up with Dr Ruiz outpatient within 2 weeks sooner with any concerns. Vital Signs Temp 98.6 F 06/15/19 07:22 Pulse 84 06/15/19 08:19 Resp 18 06/15/19 09:22 BP 96/50 06/15/19 07:22 Pulse Ox 100 06/15/19 07:22 Intake & Output 06/14/19 06/15/19 06/15/19 18:59 06:59 18:59 Intake Total 1080 Output Total 0 Balance 1080 Weight 196 lb 196 lb Intake: IV Fluids 500 LR 500 Oral 580 Output: Urine 0 Other: Estimated Void Medium Laboratory Last Values WBC 7.7 10^3/uL (3.5-10.8) 06/15/19 04:59 RBC 2.71 10^6 /uL (3.70-4.87) L 06/15/19 04:59 Hgb 8.9 g/dL (12.0-16.0) L 06/15/19 04:59 Hct 26 % (35-47) L 06/15/19 04:59 MCV 98 fL (80-97) H 06/15/19 04:59 MCH 33 pg (27-31) H 06/15/19 04:59 MCHC 34 g/dL (31-36) 06/15/19 04:59 RDW 17 % (10-15) H 06/15/19 04:59 Plt Count 231 10^3/uL (150-450) 06/15/19 04:59 MPV 8.0 fL (7.4-10.4) 06/15/19 04:59 Neut % (Auto) 58.8 % 06/15/19 04:59 Lymph % (Auto) 32.3 % 06/15/19 04:59 [place] % (Auto) 7.1 % 06/15/19 04:59 Eos % (Auto) 1.5 % 06/15/19 04:59 Baso % (Auto) 0.3 % 06/15/19 04:59 Absolute Neuts (auto) 4.5 10^3/ul (1.5-7.7) 06/15/19 04:59 Absolute Lymphs (auto) 2.5 10^3/ul (1.0-4.8) 06/15/19 04:59 Absolute Monos (auto) 0.6 10^3/ul (0-0.8) 06/15/19 04:59 Absolute Eos (auto) 0.1 10^3/ul (0-0.6) 06/15/19 04:59 Absolute Basos (auto) 0.0 10^3/ul (0-0.2) 06/15/19 04:59 Absolute Nucleated RBC 0.0 10^3/ul 06/15/19 04:59 Nucleated RBC % 0.0 06/15/19 04:59 Sodium 140 mmol/L (135-145) 06/15/19 04:59 Potassium 3.8 mmol/L (3.5-5.0) 06/15/19 04:59 Chloride 106 mmol/L (101-111) 06/15/19 04:59 Carbon Dioxide 31 mmol/L (22-32) 06/15/19 04:59 Anion Gap 3 mmol/L (2-11) 06/15/19 04:59 BUN 19 mg/dL (6-24) 06/15/19 04:59 Creatinine 0.84 mg/dL (0.51-0.95) 06/15/19 04:59 Est GFR ( Amer) 84.6 (>60) 06/15/19 04:59 Est GFR (Non-Af Amer) 69.9 (>60) 06/15/19 04:59 BUN/Creatinine Ratio 22.6 (8-20) H 06/15/19 04:59 Glucose 98 mg/dL (70-100) 06/15/19 04:59 Calcium 7.9 mg/dL (8.6-10.3) L 06/15/19 04:59
--- NOTE | 2019-06-15 16:31 | PN ---
Subjective Date of Service: 06/15/19 Interval History: Pt is disappointed that she will not be able to have surgery for left knee fracture Objective Active Medications: Acetaminophen (Tylenol Tab*) 975 mg PO TID [facility] Last Admin: 06/15/19 14:24 Dose: Not Given Albuterol (Ventolin 2.5 Mg/3 Ml Neb.Nancy*) 2.5 mg INH [id number] AWAKE PRN PRN Reason: sob/wheezing Buspirone HCl (Buspar Tab *) 15 mg PO TID [facility] Last Admin: 06/15/19 14:19 Dose: 15 mg Clonazepam (Klonopin Tab(*)) 0.5 mg PO TID PRN PRN Reason: ANXIETY Cyclobenzaprine HCl (Flexeril Tab*) 10 mg PO TID PRN PRN Reason: SPASMS Last Admin: 06/14/19 23:06 Dose: 10 mg Diphenhydramine HCl (Benadryl Po*) 25 mg PO Q4H PRN PRN Reason: ITCHING Last Admin: 06/15/19 09:22 Dose: 25 mg Divalproex Sodium (Depakote Dr Tab(*)) 750 mg PO BEDTIME [facility] Last Admin: 06/14/19 22:11 Dose: 750 mg Docusate Sodium (Colace Cap*) 100 mg PO BID [facility] Last Admin: 06/15/19 09:13 Dose: Not Given Duloxetine HCl (Cymbalta Cap*) 60 mg PO BEDTIME [facility] Duloxetine HCl (Cymbalta Cap*) 30 mg PO DAILY [facility] Enoxaparin Sodium (Lovenox(*)) 40 mg SUBCUT Q24H [facility] Last Admin: 06/14/19 22:11 Dose: 40 mg Gabapentin (Neurontin Cap(*)) 600 mg PO TID [facility] Sodium Chloride (Ns 0.9% 1000 Ml) 1,000 mls @ 100 mls/hr IV PER RATE [facility] Stop: 06/15/19 19:29 Last Admin: 06/15/19 09:26 Dose: 100 mls/hr Ketorolac Tromethamine (Toradol Inj*) 30 mg IV PUSH Q6H PRN PRN Reason: PAIN - MODERATE Last Admin: 06/15/19 14:29 Dose: 30 mg Metoprolol Succinate (Toprol Xl Tab*) 25 mg PO DAILY [facility] Morphine Sulfate (Morphine Inj (Syringe))*) 2 mg IV Q2H PRN PRN Reason: PAIN - SEVERE Last Admin: 06/15/19 00:22 Dose: 2 mg Oxycodone/Acetaminophen (Percocet 5/325 Tab*) 2 tab PO Q4H PRN PRN Reason: PAIN - MODERATE Last Admin: 06/15/19 09:22 Dose: 2 tab Pantoprazole Sodium (Protonix Tab*) 40 mg PO QAM [facility] Last Admin: 06/15/19 09:16 Dose: 40 mg Ropinirole HCl (Requip Tab*) 0.5 mg PO BEDTIME [facility] Senna (Senokot 8.6 Mg Tab*) 1 tab PO BEDTIME [facility] Last Admin: 06/14/19 22:11 Dose: Not Given Vital Signs - 8 hr 06/15/19 06/15/19 06/15/19 09:14 09:16 09:22 Temperature Pulse Rate Respiratory 18 18 16 Rate Blood Pressure (mmHg) O2 Sat by Pulse Oximetry 06/15/19 06/15/19 06/15/19 11:13 11:50 11:51 Temperature 97.7 F Pulse Rate 94 Respiratory 16 16 16 Rate Blood Pressure 92/64 (mmHg) O2 Sat by Pulse 100 Oximetry 06/15/19 15:42 Temperature 98.7 F Pulse Rate 94 Respiratory 16 Rate Blood Pressure 99/58 (mmHg) O2 Sat by Pulse 100 Oximetry Oxygen Devices in Use Now: None Appearance: 58 yo F in NAD, aAOx3 Eyes: No Scleral Icterus, PERRLA Ears/Nose/Mouth/Throat: NL Teeth, Lips, Gums, Mucous Membranes Moist Neck: NL Appearance and Movements; NL JVP, Trachea Midline Respiratory: Symmetrical Chest Expansion and Respiratory Effort, Clear to Auscultation Cardiovascular: - - irregular HR Abdominal: NL Sounds; No Tenderness; No Distention, No Hepatosplenomegaly Lymphatic: No Cervical Adenopathy Extremities: No Clubbing, Cyanosis, - - large, obese LE's, L knee in immobilizer Skin: No Nodules or Sclerosis Neurological: Alert and Oriented x 3, NL Muscle Strength and Tone - Nutrition: Malnutrition Diagnosis/Plan Malnutrition Assessment by Registered Dietitian: Malnutrition Assessment Clinical Characteristics Chronic,Severe Malnutrition Assessment: - wt loss 21.2% within past six months Criteria - po intake < 75% est EEE x > 1 month - moderate subcutaneous fat loss (orbital) per visual assessment Malnutrition Assessment: - soft textures d/t ill-fitting dentures Interventions - trial of Ensure Enlive (pt willing to try strawberry flavor) - daily 3pm snack: Ensure Enlive + cheese/ crackers/grapes - offer any cafeteria items as alternate entrees as desired - suggest daily MVI and electrolyte replacement as appropriate (w/MD order) Malnutrition Assessment: Goals 1. pt will tolerate po intake without adverse GI effects 2. pt will tolerate least-restrictive diet texture without difficulty chewing (or swallowing) 3. adequate po intake to maintain lean body mass and hydration without add'l wt gain 4. achieve and maintain serum electrolytes levels WNL 5. achieve and maintain regulated bowel pattern without c/o constipation (or diarrhea) Result Diagrams: 06/15/19 04:59 06/15/19 04:59 Assess/Plan/Problems-Billing Assessment: 58 yo f with h/o HTN, anxiety, L TKR (09/2018). PAF, presents after a mechanical fall with left distal femur fx - Patient Problems (1) Periprosthetic fracture around prosthetic knee Comment: plan for nonoperative management with NWB and left leg knee immobilizer. david need STR (2) Anxiety and depression Comment: continue clonazepam (3) Hypertension Comment: -cont lopressor (4) Anemia Comment: -chronic and consistent with [place] [facility] -no signs of acute bleeding (5) Irregular heart rate Comment: NSR with PAC's on EKG, will d/c telem (6) DVT prophylaxis Comment: lovenox
--- NOTE | 2019-06-15 16:37 | PN ---
PROGRESS NOTE: DATE OF SERVICE: 06/15/19 INTERVAL HISTORY: Rosario is a 58-year-old woman who had the left knee replacement previously by one of my associates. Yesterday, she was grazed by a dog and fell with her foot underneath her. Basically, she was unable to walk because of knee pain around the left total knee and was taken to the [facility] in [place]. They called me and told me that she was unable to bear weight and we transferred her back to [facility] where she has been admitted to the medical service. Rosario is in a knee immobilizer in the room and she is sitting upright, in no acute distress. There is some ecchymosis around the left knee, some mild edema , but I had lifted the leg away from the brace and there is no skin breakdown. She has intact pulses and warm foot. Pain with any kind of stress at the left knee understandably. Her CT scan shows a very distal femur fracture, supracondylar, intracondylar, but I do not see gross loosening of the femoral component from the femur. She is in some slight valgus, but that may be the way she has been even pre- fracture. She says the knee was doing pretty well before she fell yesterday. We will try to get her more comfortable brace. My initial preference would be to attempt to let this heal with nonoperative therapy. I would start out with a locked knee brace and then allow range of motion as pain subsides. If she needs surgery, I think she is going to be looking at a stemmed knee revision. We will follow new brace being fit in the near future. [id number]/[facility] #: [id number] [facility]ITAL[facility]ian[facility]
[2019-06-15] MEDS: Senna TAB 8.6 mg* TAB PO SCH (21:16)
[2019-06-15] MEDS: Ropinirole TAB* 0.5 MG TAB PO SCH (21:16)
[2019-06-15] MEDS: DULoxetine DR CAP* 60 MG CAP.DR PO SCH (21:16)
[2019-06-15] MEDS: Divalproex DR TAB(*) 250 MG PO SCH (21:17)
[2019-06-15] MEDS: Enoxaparin(*) 40 MG/0.4 ML SYR SUBCUT SCH (21:17)
[2019-06-16] MEDS ORDERED: NS 0.9% 1000 ML/HR X 1 BAG (TOTAL 1000 ML) IV ONE (01:30)
[2019-06-16 06:10] LABS: Hematocrit 23 % (35-47); Hemoglobin 7.8 g/dL (12.0-16.0); Mean Corpuscular HGB Conc 34 g/dL (31-36); Mean Corpuscular Hemoglobin 33 pg (27-31); Mean Corpuscular Volume 96 fL (80-97); Mean Platelet Volume 7.9 fL (7.4-10.4); Platelet Count 162 10^3/uL (150-450); Red Blood Count 2.38 10^6 /uL (3.70-4.87); Red Cell Distribution Width 16 % (10-15); White Blood Count 10.5 10^3/uL (3.5-10.8)
[2019-06-16 06:26] LABS: BUN/Creatinine Ratio 19.1 (8-20); Blood Urea Nitrogen 17 mg/dL (6-24); CO2 Carbon Dioxide 30 mmol/L (22-32); Calcium 7.7 mg/dL (8.6-10.3); Chloride 105 mmol/L (101-111); EGFR African American 79.1 (>60); EGFR Non-African American 65.4 (>60); Glucose 91 mg/dL (70-100); Potassium 4.5 mmol/L (3.5-5.0); Sodium 135 mmol/L (135-145)
[2019-06-16 06:43] LABS: Urine Appearance Turbid; Urine Bilirubin Negative (Negative); Urine Blood Negative (Negative); Urine Color Yellow; Urine Glucose Negative (Negative); Urine Ketones Trace (Negative); Urine Nitrite Negative (Negative); Urine Protein Negative (Negative); Urine Specific Gravity 1.016 (1.010-1.030); Urine Urobilinogen Negative (Negative)
[2019-06-16] MEDS ORDERED: Magnesium Hydroxide LIQ* 30 ML UDC PO PRN (08:03)
[2019-06-16] MEDS ORDERED: Polyethylene Glycol 3350* 17 GM PACKET PO PRN (08:03)
[2019-06-16] MEDS ORDERED: Senna TAB 8.6 mg* TAB PO PRN (08:03)
--- NOTE | 2019-06-16 08:03 | PN ---
Subjective Date of Service: 06/16/19 Interval History: Pt feels good, no new complaints, pain in left knee is controlled Objective Active Medications: Acetaminophen (Tylenol Tab*) 975 mg PO TID [facility] Last Admin: 06/15/19 21:53 Dose: 975 mg Albuterol (Ventolin 2.5 Mg/3 Ml Neb.Nancy*) 2.5 mg INH [id number] AWAKE PRN PRN Reason: sob/wheezing Buspirone HCl (Buspar Tab *) 15 mg PO TID [facility] Last Admin: 06/15/19 21:16 Dose: 15 mg Clonazepam (Klonopin Tab(*)) 0.5 mg PO TID PRN PRN Reason: ANXIETY Cyclobenzaprine HCl (Flexeril Tab*) 10 mg PO TID PRN PRN Reason: SPASMS Last Admin: 06/14/19 23:06 Dose: 10 mg Diphenhydramine HCl (Benadryl Po*) 25 mg PO Q4H PRN PRN Reason: ITCHING Last Admin: 06/15/19 09:22 Dose: 25 mg Divalproex Sodium (Depakote Dr Tab(*)) 750 mg PO BEDTIME [facility] Last Admin: 06/15/19 21:17 Dose: 750 mg Docusate Sodium (Colace Cap*) 100 mg PO BID [facility] Last Admin: 06/15/19 21:15 Dose: 100 mg Duloxetine HCl (Cymbalta Cap*) 60 mg PO BEDTIME [facility] Last Admin: 06/15/19 21:16 Dose: 60 mg Duloxetine HCl (Cymbalta Cap*) 30 mg PO DAILY [facility] Enoxaparin Sodium (Lovenox(*)) 40 mg SUBCUT Q24H [facility] Last Admin: 06/15/19 21:17 Dose: 40 mg Gabapentin (Neurontin Cap(*)) 600 mg PO TID [facility] Last Admin: 06/15/19 21:16 Dose: 600 mg Sodium Chloride (Ns 0.9% 1000 Ml) 1,000 mls @ 100 mls/hr IV .PER RATE ONE Stop: 06/16/19 11:29 Last Admin: 06/16/19 01:32 Dose: 100 mls/hr Ketorolac Tromethamine (Toradol Inj*) 30 mg IV PUSH Q6H PRN PRN Reason: PAIN - MODERATE Last Admin: 06/15/19 21:40 Dose: 30 mg Metoprolol Succinate (Toprol Xl Tab*) 25 mg PO DAILY [facility] Morphine Sulfate (Morphine Inj (Syringe))*) 2 mg IV Q2H PRN PRN Reason: PAIN - SEVERE Last Admin: 06/15/19 00:22 Dose: 2 mg Oxycodone/Acetaminophen (Percocet 5/325 Tab*) 2 tab PO Q4H PRN PRN Reason: PAIN - MODERATE Last Admin: 06/15/19 09:22 Dose: 2 tab Pantoprazole Sodium (Protonix Tab*) 40 mg PO QAM [facility] Last Admin: 06/15/19 09:16 Dose: 40 mg Ropinirole HCl (Requip Tab*) 0.5 mg PO BEDTIME [facility] Last Admin: 06/15/19 21:16 Dose: 0.5 mg Senna (Senokot 8.6 Mg Tab*) 1 tab PO BEDTIME [facility] Last Admin: 06/15/19 21:16 Dose: 1 tab Vital Signs - 8 hr 06/16/19 06/16/19 06/16/19 00:10 03:26 07:24 Temperature 97.2 F 99.4 F Pulse Rate 88 71 Respiratory 16 16 18 Rate Blood Pressure 92/64 92/58 (mmHg) O2 Sat by Pulse 99 94 Oximetry Oxygen Devices in Use Now: None Appearance: 58 yo F in nAD, aAOx3 Eyes: No Scleral Icterus, PERRLA Ears/Nose/Mouth/Throat: NL Teeth, Lips, Gums, Mucous Membranes Moist Neck: NL Appearance and Movements; NL JVP, Trachea Midline Respiratory: Symmetrical Chest Expansion and Respiratory Effort Cardiovascular: NL Sounds; No Murmurs; No JVD, RRR Abdominal: No Hepatosplenomegaly Lymphatic: No Cervical Adenopathy Extremities: - - LE's large, obese, L knee in immobilizer Skin: No Rash or Ulcers, No Nodules or Sclerosis Neurological: Alert and Oriented x 3, NL Muscle Strength and Tone - Nutrition: Malnutrition Diagnosis/Plan Malnutrition Assessment by Registered Dietitian: Malnutrition Assessment Clinical Characteristics Chronic,Severe Malnutrition Assessment: - wt loss 21.2% within past six months Criteria - po intake < 75% est EEE x > 1 month - moderate subcutaneous fat loss (orbital) per visual assessment Malnutrition Assessment: - soft textures d/t ill-fitting dentures Interventions - trial of Ensure Enlive (pt willing to try strawberry flavor) - daily 3pm snack: Ensure Enlive + cheese/ crackers/grapes - offer any cafeteria items as alternate entrees as desired - suggest daily MVI and electrolyte replacement as appropriate (w/MD order) Malnutrition Assessment: Goals 1. pt will tolerate po intake without adverse GI effects 2. pt will tolerate least-restrictive diet texture without difficulty chewing (or swallowing) 3. adequate po intake to maintain lean body mass and hydration without add'l wt gain 4. achieve and maintain serum electrolytes levels WNL 5. achieve and maintain regulated bowel pattern without c/o constipation (or diarrhea) Result Diagrams: 06/16/19 06:00 06/16/19 06:00 Assess/Plan/Problems-Billing Assessment: 58 yo f with h/o HTN, anxiety, L TKR (09/2018). PAF, presents after a mechanical fall with left distal femur fx - Patient Problems (1) Periprosthetic fracture around prosthetic knee Comment: plan for nonoperative management with NWB and left leg knee immobilizer. david need STR (2) Anxiety and depression Comment: continue clonazepam (3) Hypertension Comment: -cont lopressor (4) Anemia Comment: -acute on chronic -in 04/2019 pt was dx with hemarthosis and eliquis was stopped(previosly on in for PAF) -no signs of acute bleeding, but Hb lower again this AM, will check iron studies , stool occult (5) Irregular heart rate Comment: NSR with PAC's on EKG (6) DVT prophylaxis Comment: lovenox Status and Disposition: inpatient
[2019-06-16] MEDS: Metoprolol Succinate XL TAB* 25 MG PO SCH (08:38)
[2019-06-16] MEDS: Acetaminophen TAB* 325 MG PO SCH ×3 (08:43→21:14)
[2019-06-16] MEDS: Gabapentin CAP(*) 300 MG PO SCH ×3 (08:44→21:15)
[2019-06-16] MEDS: busPIRone TAB* 15 MG PO SCH ×3 (08:44→21:27)
[2019-06-16] MEDS: DULoxetine DR CAP* 30 MG CAP.DR PO SCH (08:45)
[2019-06-16] MEDS: Magnesium Hydroxide LIQ* 30 ML UDC PO SCH ×2 (08:45→21:14)
[2019-06-16] MEDS: Docusate CAP* 100 MG PO SCH ×2 (08:45→21:21)
[2019-06-16] MEDS: Pantoprazole TAB * 40 MG TAB PO SCH (08:46)
[2019-06-16 09:18] LABS: ABS Basophils 0.1 10^3/ul (0-0.2); ABS Eosinophils 0.1 10^3/ul (0-0.6); ABS Lymphocytes 2.3 10^3/ul (1.0-4.8); ABS Monocytes 0.8 10^3/ul (0-0.8); ABS Neutrophils 8.1 10^3/ul (1.5-7.7); Eosinophil % 0.6 %; Hematocrit 25 % (35-47); Hemoglobin 8.6 g/dL (12.0-16.0); Lymphocyte % 20.4 %; Mean Corpuscular HGB Conc 34 g/dL (31-36); Mean Corpuscular Hemoglobin 33 pg (27-31); Mean Corpuscular Volume 97 fL (80-97); Mean Platelet Volume 8.5 fL (7.4-10.4); Platelet Count 182 10^3/uL (150-450); Red Blood Count 2.62 10^6 /uL (3.70-4.87); Red Cell Distribution Width 16 % (10-15); White Blood Count 11.4 10^3/uL (3.5-10.8)
[2019-06-16 09:34] LABS: % Iron Saturation 16 % (15-55); Iron < 20 ug/dL (50-212); Total Iron Binding Capacity 129 mcg/dL (250-450); Transferrin 92 mg/dL (203-362)
[2019-06-16 09:59] LABS: Folate 9.64 ng/mL (>3.99)
[2019-06-16] MEDS: Ketorolac INJ* 30 MG/ML 1 ML VIAL IV PUSH PRN ×2 (12:53→19:58)
--- NOTE | 2019-06-16 15:23 | PN ---
Progress Note - Progress Note Date of Service: 06/16/19 SOAP: Subjective: [[]Pt seen and examined at bedside. She is doing well, she is quite sleepy today. Today she asks to use primarily tylenol with minimal use of narcotics for severe pain. Objective: []Gen: NA A&Ox3, conversation is appropriate LLE: Knee immobilizer in place with ice pack. Able to f/e at ankle and MCPs without pain. Dp2+, sensation intact to light touch distally Calves supple and nontender without erythema, edema or palpable cords Vital Signs Temp 98.2 F 06/16/19 12:08 Pulse 89 06/16/19 12:08 Resp 18 06/16/19 12:52 BP 106/52 06/16/19 12:08 Pulse Ox 100 06/16/19 12:08 Intake & Output 06/15/19 06/16/19 06/16/19 18:59 06:59 18:59 Intake Total 1900 1000 Output Total 0 350 450 Balance 0 1550 550 Intake: IV Fluids 1000 NS 1000 Oral 1900 Output: Urine 0 350 450 Other: Estimated Void Large Large Large # Bowel Movements 0 0 # Voids 1 1 1 Assessment: []Left distal femur periprosthetic fracture Plan: [] Okay to ambulate OOB with PT NWB LLE with immobilizer Plan is for nonoperative managmeent. Knee immobilizer, touch down weight bearing, rehab placement if unable to return home, Follow up with Dr Ruiz outpatient within 2 weeks sooner with any concerns.
[2019-06-16] MEDS: Divalproex DR TAB(*) 250 MG PO SCH (21:15)
[2019-06-16] MEDS: Enoxaparin(*) 40 MG/0.4 ML SYR SUBCUT SCH (21:16)
[2019-06-16] MEDS: Senna TAB 8.6 mg* TAB PO SCH (21:21)
[2019-06-16] MEDS: DULoxetine DR CAP* 60 MG CAP.DR PO SCH (21:27)
[2019-06-16] MEDS: Ropinirole TAB* 0.5 MG TAB PO SCH (21:27)
[2019-06-16] MEDS: Cyclobenzaprine TAB* 10 MG PO PRN (23:15)
[2019-06-17] MEDS: Ketorolac INJ* 30 MG/ML 1 ML VIAL IV PUSH PRN ×2 (03:37→09:21)
[2019-06-17] MEDS: Magnesium Hydroxide LIQ* 30 ML UDC PO SCH ×2 (09:11→20:46)
[2019-06-17] MEDS: Docusate CAP* 100 MG PO SCH ×2 (09:12→20:54)
[2019-06-17] MEDS: DULoxetine DR CAP* 30 MG CAP.DR PO SCH (09:13)
[2019-06-17] MEDS: Metoprolol Succinate XL TAB* 25 MG PO SCH (09:13)
[2019-06-17] MEDS: Gabapentin CAP(*) 300 MG PO SCH ×3 (09:13→20:53)
[2019-06-17] MEDS: Pantoprazole TAB * 40 MG TAB PO SCH ×2 (09:13→20:53)
[2019-06-17] MEDS: clonazePAM TAB(*) 0.5 MG PO PRN ×2 (09:13→14:31)
[2019-06-17] MEDS: busPIRone TAB* 15 MG PO SCH ×3 (09:13→20:53)
[2019-06-17] MEDS: Acetaminophen TAB* 325 MG PO SCH ×3 (09:27→20:50)
--- NOTE | 2019-06-17 11:29 | PN ---
Subjective Date of Service: 06/17/19 Interval History: Pt feels well. No new complaints Objective Active Medications: Acetaminophen (Tylenol Tab*) 975 mg PO TID [facility] Last Admin: 06/17/19 09:27 Dose: Not Given Albuterol (Ventolin 2.5 Mg/3 Ml Neb.Nancy*) 2.5 mg INH [id number] AWAKE PRN PRN Reason: sob/wheezing Buspirone HCl (Buspar Tab *) 15 mg PO TID [facility] Last Admin: 06/17/19 09:13 Dose: 15 mg Clonazepam (Klonopin Tab(*)) 0.5 mg PO TID PRN PRN Reason: ANXIETY Last Admin: 06/17/19 09:13 Dose: 0.5 mg Cyclobenzaprine HCl (Flexeril Tab*) 10 mg PO TID PRN PRN Reason: SPASMS Last Admin: 06/16/19 23:15 Dose: 10 mg Diphenhydramine HCl (Benadryl Po*) 25 mg PO Q4H PRN PRN Reason: ITCHING Last Admin: 06/15/19 09:22 Dose: 25 mg Divalproex Sodium (Depakote Dr Tab(*)) 750 mg PO BEDTIME [facility] Last Admin: 06/16/19 21:15 Dose: 750 mg Docusate Sodium (Colace Cap*) 100 mg PO BID [facility] Last Admin: 06/17/19 09:12 Dose: Not Given Duloxetine HCl (Cymbalta Cap*) 60 mg PO BEDTIME [facility] Last Admin: 06/16/19 21:27 Dose: 60 mg Duloxetine HCl (Cymbalta Cap*) 30 mg PO DAILY [facility] Last Admin: 06/17/19 09:13 Dose: 30 mg Enoxaparin Sodium (Lovenox(*)) 40 mg SUBCUT Q24H [facility] Last Admin: 06/16/19 21:16 Dose: 40 mg Gabapentin (Neurontin Cap(*)) 600 mg PO TID [facility] Last Admin: 06/17/19 09:13 Dose: 600 mg Ketorolac Tromethamine (Toradol Inj*) 30 mg IV PUSH Q6H PRN PRN Reason: PAIN - MODERATE Last Admin: 06/17/19 09:21 Dose: 30 mg Magnesium Hydroxide (Milk Of Magnesia Liq*) 30 ml PO BID [facility] Last Admin: 06/17/19 09:11 Dose: Not Given Magnesium Hydroxide (Milk Of Magnesia Liq*) 30 ml PO BID PRN PRN Reason: CONSTIPATION Metoprolol Succinate (Toprol Xl Tab*) 25 mg PO DAILY [facility] Last Admin: 06/17/19 09:13 Dose: 25 mg Morphine Sulfate (Morphine Inj (Syringe))*) 2 mg IV Q2H PRN PRN Reason: PAIN - SEVERE Last Admin: 06/15/19 00:22 Dose: 2 mg Oxycodone/Acetaminophen (Percocet 5/325 Tab*) 2 tab PO Q4H PRN PRN Reason: PAIN - MODERATE Last Admin: 06/15/19 09:22 Dose: 2 tab Pantoprazole Sodium (Protonix Tab*) 40 mg PO QAM [facility] Last Admin: 06/17/19 09:13 Dose: 40 mg Polyethylene Glycol/Electrolytes (Miralax*) 17 gm PO DAILY PRN PRN Reason: CONSTIPATION Ropinirole HCl (Requip Tab*) 0.5 mg PO BEDTIME [facility] Last Admin: 06/16/19 21:27 Dose: 0.5 mg Senna (Senokot 8.6 Mg Tab*) 1 tab PO BEDTIME [facility] Last Admin: 06/16/19 21:21 Dose: Not Given Senna (Senokot 8.6 Mg Tab*) 1 tab PO BEDTIME PRN PRN Reason: CONSTIPATION Vital Signs - 8 hr 06/17/19 06/17/19 06/17/19 03:41 07:38 08:00 Temperature 98.0 F 98 F Pulse Rate 82 73 Respiratory 17 16 16 Rate Blood Pressure 121/64 118/66 (mmHg) O2 Sat by Pulse 100 98 Oximetry 06/17/19 06/17/19 09:13 11:05 Temperature 98.6 F Pulse Rate 77 Respiratory 16 16 Rate Blood Pressure 112/60 (mmHg) O2 Sat by Pulse 100 Oximetry Oxygen Devices in Use Now: None Appearance: 58 yo f in nAD, aAOx3 Eyes: No Scleral Icterus, PERRLA Ears/Nose/Mouth/Throat: NL Teeth, Lips, Gums, Mucous Membranes Moist Neck: NL Appearance and Movements; NL JVP, Trachea Midline Respiratory: Symmetrical Chest Expansion and Respiratory Effort, Clear to Auscultation Cardiovascular: - - irregular HR Abdominal: NL Sounds; No Tenderness; No Distention, No Hepatosplenomegaly Lymphatic: No Cervical Adenopathy Extremities: - - b/l LE's obese, with left knee edema and ecchymosis Skin: No Nodules or Sclerosis Neurological: Alert and Oriented x 3, NL Muscle Strength and Tone - Nutrition: Malnutrition Diagnosis/Plan Malnutrition Assessment by Registered Dietitian: Malnutrition Assessment Clinical Characteristics Chronic,Severe Malnutrition Assessment: - wt loss 21.2% within past six months Criteria - po intake < 75% est EEE x > 1 month - moderate subcutaneous fat loss (orbital) per visual assessment Malnutrition Assessment: - soft textures d/t ill-fitting dentures Interventions - trial of Ensure Enlive (pt willing to try strawberry flavor) - daily 3pm snack: Ensure Enlive + cheese/ crackers/grapes - offer any cafeteria items as alternate entrees as desired - suggest daily MVI and electrolyte replacement as appropriate (w/MD order) Malnutrition Assessment: Goals 1. pt will tolerate po intake without adverse GI effects 2. pt will tolerate least-restrictive diet texture without difficulty chewing (or swallowing) 3. adequate po intake to maintain lean body mass and hydration without add'l wt gain 4. achieve and maintain serum electrolytes levels WNL 5. achieve and maintain regulated bowel pattern without c/o constipation (or diarrhea) Result Diagrams: 06/16/19 09:00 06/16/19 06:00 Assess/Plan/Problems-Billing Assessment: 58 yo f with h/o HTN, anxiety, L TKR (09/2018). PAF, presents after a mechanical fall with left distal femur fx - Patient Problems (1) Periprosthetic fracture around prosthetic knee Comment: plan for nonoperative management with NWB and left leg knee immobilizer. david need STR-accepted to [employer] [facility] on Wednesday (2) Anxiety and depression Comment: continue clonazepam (3) Hypertension Comment: -cont lopressor (4) Anemia Comment: -acute on chronic -in 04/2019 pt was dx with hemarthosis and eliquis was stopped(previously on in for PAF) -no signs of acute bleeding, but Hb lower this [facility] stay. - iron studies suggestive of ACD and iron defficiency(will start PO iron supplement), stool occult pending (5) Irregular heart rate Comment: NSR with PAC's on EKG (6) DVT prophylaxis Comment: lovenox Status and Disposition: inpatient
[2019-06-17] MEDS: oxyCODONE/Acetamin 5/325 MG* TAB PO PRN ×2 (15:34→20:54)
[2019-06-17] MEDS: diPHENhydraMINE PO* 25 MG PO PRN ×2 (15:34→20:52)
[2019-06-17] MEDS ORDERED: Ondansetron ODT TAB* 4 MG PO PRN (17:48)
[2019-06-17] MEDS ORDERED: Ondansetron ODT TAB* 4 MG ONE (17:52)
[2019-06-17] MEDS: Senna TAB 8.6 mg* TAB PO SCH (20:46)
[2019-06-17] MEDS: Ferrous Sulfate TAB* 325 MG PO SCH (20:52)
[2019-06-17] MEDS: DULoxetine DR CAP* 60 MG CAP.DR PO SCH (20:52)
[2019-06-17] MEDS: Ropinirole TAB* 0.5 MG TAB PO SCH (20:52)
[2019-06-17] MEDS: Divalproex DR TAB(*) 250 MG PO SCH (20:53)
[2019-06-18] MEDS: oxyCODONE/Acetamin 5/325 MG* TAB PO PRN ×3 (02:43→20:57)
[2019-06-18] MEDS: diPHENhydraMINE PO* 25 MG PO PRN ×2 (02:43→20:55)
[2019-06-18 05:27] LABS: ABS Eosinophils 0.1 10^3/ul (0-0.6); ABS Lymphocytes 2.2 10^3/ul (1.0-4.8); ABS Monocytes 0.7 10^3/ul (0-0.8); ABS Neutrophils 6.5 10^3/ul (1.5-7.7); Eosinophil % 1.5 %; Hematocrit 25 % (35-47); Hemoglobin 8.6 g/dL (12.0-16.0); Lymphocyte % 22.8 %; Mean Corpuscular HGB Conc 34 g/dL (31-36); Mean Corpuscular Hemoglobin 33 pg (27-31); Mean Corpuscular Volume 97 fL (80-97); Mean Platelet Volume 8.1 fL (7.4-10.4); Nucleated Red Blood Cells % 0.1; Platelet Count 213 10^3/uL (150-450); Red Blood Count 2.56 10^6 /uL (3.70-4.87); Red Cell Distribution Width 16 % (10-15); White Blood Count 9.6 10^3/uL (3.5-10.8)
--- NOTE | 2019-06-18 08:42 | PN ---
Subjective Date of Service: 06/18/19 Interval History: P feels well. After her constipation resolved yesterday, she had multiple BM's, denies melena or any blood in stool Objective Active Medications: Acetaminophen (Tylenol Tab*) 975 mg PO TID [facility] Last Admin: 06/17/19 20:50 Dose: Not Given Albuterol (Ventolin 2.5 Mg/3 Ml Neb.Nancy*) 2.5 mg INH [id number] AWAKE PRN PRN Reason: sob/wheezing Buspirone HCl (Buspar Tab *) 15 mg PO TID [facility] Last Admin: 06/17/19 20:53 Dose: 15 mg Clonazepam (Klonopin Tab(*)) 0.5 mg PO TID PRN PRN Reason: ANXIETY Last Admin: 06/17/19 14:31 Dose: 0.5 mg Cyclobenzaprine HCl (Flexeril Tab*) 10 mg PO TID PRN PRN Reason: SPASMS Last Admin: 06/16/19 23:15 Dose: 10 mg Diphenhydramine HCl (Benadryl Po*) 25 mg PO Q4H PRN PRN Reason: ITCHING Last Admin: 06/18/19 02:43 Dose: 25 mg Divalproex Sodium (Depakote Dr Tab(*)) 750 mg PO BEDTIME [facility] Last Admin: 06/17/19 20:53 Dose: 750 mg Docusate Sodium (Colace Cap*) 100 mg PO BID [facility] Last Admin: 06/17/19 20:54 Dose: Not Given Duloxetine HCl (Cymbalta Cap*) 60 mg PO BEDTIME [facility] Last Admin: 06/17/19 20:52 Dose: 60 mg Duloxetine HCl (Cymbalta Cap*) 30 mg PO DAILY [facility] Last Admin: 06/17/19 09:13 Dose: 30 mg Ferrous Sulfate (Ferrous Sulfate Tab*) 325 mg PO BID [facility] Last Admin: 06/17/19 20:52 Dose: 325 mg Gabapentin (Neurontin Cap(*)) 600 mg PO TID [facility] Last Admin: 06/17/19 20:53 Dose: 600 mg Magnesium Hydroxide (Milk Of Magnesia Liq*) 30 ml PO BID [facility] Last Admin: 06/17/19 20:46 Dose: Not Given Magnesium Hydroxide (Milk Of Magnesia Liq*) 30 ml PO BID PRN PRN Reason: CONSTIPATION Metoprolol Succinate (Toprol Xl Tab*) 25 mg PO DAILY [facility] Last Admin: 06/17/19 09:13 Dose: 25 mg Morphine Sulfate (Morphine Inj (Syringe))*) 2 mg IV Q2H PRN PRN Reason: PAIN - SEVERE Last Admin: 06/15/19 00:22 Dose: 2 mg Ondansetron HCl (Zofran Odt Tab*) 4 mg PO Q6H PRN PRN Reason: NAUSEA Last Admin: 06/17/19 17:54 Dose: 4 mg Oxycodone/Acetaminophen (Percocet 5/325 Tab*) 2 tab PO Q4H PRN PRN Reason: PAIN - MODERATE Last Admin: 06/18/19 02:43 Dose: 2 tab Pantoprazole Sodium (Protonix Tab*) 40 mg PO BID [facility] Last Admin: 06/17/19 20:53 Dose: 40 mg Polyethylene Glycol/Electrolytes (Miralax*) 17 gm PO DAILY PRN PRN Reason: CONSTIPATION Ropinirole HCl (Requip Tab*) 0.5 mg PO BEDTIME [facility] Last Admin: 06/17/19 20:52 Dose: 0.5 mg Senna (Senokot 8.6 Mg Tab*) 1 tab PO BEDTIME [facility] Last Admin: 06/17/19 20:46 Dose: Not Given Senna (Senokot 8.6 Mg Tab*) 1 tab PO BEDTIME PRN PRN Reason: CONSTIPATION Vital Signs - 8 hr 06/18/19 06/18/19 06/18/19 02:43 03:02 05:58 Temperature 97.8 F Pulse Rate 87 Respiratory 16 16 16 Rate Blood Pressure 97/58 (mmHg) O2 Sat by Pulse 100 Oximetry 06/18/19 06/18/19 07:34 08:00 Temperature 97.8 F Pulse Rate 102 Respiratory 16 16 Rate Blood Pressure 114/71 (mmHg) O2 Sat by Pulse 98 Oximetry Oxygen Devices in Use Now: None Appearance: 58 yo F in NAD, AAOx3 Eyes: No Scleral Icterus, PERRLA Ears/Nose/Mouth/Throat: NL Teeth, Lips, Gums, Mucous Membranes Moist Neck: NL Appearance and Movements; NL JVP, Trachea Midline Respiratory: Symmetrical Chest Expansion and Respiratory Effort, Clear to Auscultation Cardiovascular: NL Sounds; No Murmurs; No JVD Abdominal: NL Sounds; No Tenderness; No Distention Lymphatic: No Cervical Adenopathy Extremities: No Clubbing, Cyanosis, - - left knee ecchymosis and edmema noted, L knee in immobilizer Skin: No Nodules or Sclerosis Neurological: Alert and Oriented x 3, NL Muscle Strength and Tone - Nutrition: Malnutrition Diagnosis/Plan Malnutrition Assessment by Registered Dietitian: Malnutrition Assessment Clinical Characteristics Chronic,Severe Malnutrition Assessment: - wt loss 21.2% within past six months Criteria - po intake < 75% est EEE x > 1 month - moderate subcutaneous fat loss (orbital) per visual assessment Malnutrition Assessment: - soft textures d/t ill-fitting dentures Interventions - trial of Ensure Enlive (pt willing to try strawberry flavor) - daily 3pm snack: Ensure Enlive + cheese/ crackers/grapes - offer any cafeteria items as alternate entrees as desired - suggest daily MVI and electrolyte replacement as appropriate (w/MD order) Malnutrition Assessment: Goals 1. pt will tolerate po intake without adverse GI effects 2. pt will tolerate least-restrictive diet texture without difficulty chewing (or swallowing) 3. adequate po intake to maintain lean body mass and hydration without add'l wt gain 4. achieve and maintain serum electrolytes levels WNL 5. achieve and maintain regulated bowel pattern without c/o constipation (or diarrhea) Result Diagrams: 06/18/19 04:56 06/16/19 06:00 Microbiology and Other Data: Microbiology 06/17/19 15:27 Stool Occult Blood (SARAH) - Final Stool Assess/Plan/Problems-Billing Assessment: 58 yo f with h/o HTN, anxiety, L TKR (09/2018). PAF, presents after a mechanical fall with left distal femur fx - Patient Problems (1) Periprosthetic fracture around prosthetic knee Comment: plan for nonoperative management with NWB and left leg knee immobilizer. david need STR-accepted to [facility] on Wednesday (2) Anxiety and depression Comment: continue clonazepam (3) Hypertension Comment: -cont lopressor (4) Anemia Comment: -acute on chronic -in 04/2019 pt was dx with hemarthosis and eliquis was stopped(previously on in for PAF) -no signs of acute bleeding, but Hb lower this [facility] stay. - iron studies suggestive of ACD and iron defficiency(started PO iron supplement ), -stool occult heme +, but no gross BRBPR or melena noted. D/w Pt who would prefer no formal GI evaluation and would like to refrain from further procedures. Will increase PPI to BID, hold DVT prophylaxis. She will also need repeat CBC as outpatient (5) Irregular heart rate Comment: NSR with PAC's on EKG (6) DVT prophylaxis Comment: SCD's Status and Disposition: inpatient
[2019-06-18] MEDS: Magnesium Hydroxide LIQ* 30 ML UDC PO SCH ×2 (08:56→20:58)
[2019-06-18] MEDS: Acetaminophen TAB* 325 MG PO SCH ×3 (08:56→20:54)
[2019-06-18] MEDS: Docusate CAP* 100 MG PO SCH ×2 (08:56→20:54)
[2019-06-18] MEDS: Gabapentin CAP(*) 300 MG PO SCH ×3 (08:59→20:55)
[2019-06-18] MEDS: busPIRone TAB* 15 MG PO SCH ×3 (08:59→20:56)
[2019-06-18] MEDS: DULoxetine DR CAP* 30 MG CAP.DR PO SCH (09:00)
[2019-06-18] MEDS: clonazePAM TAB(*) 0.5 MG PO PRN ×2 (09:00→13:40)
[2019-06-18] MEDS: Pantoprazole TAB * 40 MG TAB PO SCH ×2 (09:00→20:56)
[2019-06-18] MEDS: Ferrous Sulfate TAB* 325 MG PO SCH ×2 (09:00→20:57)
[2019-06-18] MEDS: Metoprolol Succinate XL TAB* 25 MG PO SCH (09:00)
--- NOTE | 2019-06-18 10:46 | PN ---
Progress Note - Progress Note Date of Service: 06/18/19 SOAP: Subjective: ]Pt seen and examined at bedside. She is doing well, she is quite sleepy today. Today she asks to use primarily tylenol with minimal use of narcotics for severe pain. Objective: []Gen: NA A&Ox3, conversation is appropriate LLE: Knee immobilizer has sagged down leg slightly, adjusted today. Able to f/e at ankle and MCPs without pain. Dp2+, sensation intact to light touch distally Calves supple and nontender without erythema, edema or palpable cords Vital Signs Temp 97.8 F 06/18/19 07:34 Pulse 102 06/18/19 07:34 Resp 18 06/18/19 10:35 BP 114/71 06/18/19 07:34 Pulse Ox 98 06/18/19 07:34 Intake & Output 06/17/19 06/18/19 06/18/19 18:59 06:59 18:59 Intake Total 120 420 360 Output Total 300 100 100 Balance -180 320 260 Intake: Oral 120 420 360 Output: Urine 300 100 100 Other: Estimated Void Medium # Bowel Movements 1 Estimated Stool Amount Medium # Voids 1 Assessment: []Left distal femur periprosthetic fracture Plan: [] Okay to ambulate OOB with PT NWB LLE with immobilizer Plan is for nonoperative managmeent. Knee immobilizer, touch down weight bearing, rehab placement if unable to return home, Follow up with Dr Ruiz outpatient within 2 weeks sooner with any concerns.
[2019-06-18] MEDS: Senna TAB 8.6 mg* TAB PO SCH (20:54)
[2019-06-18] MEDS: Ropinirole TAB* 0.5 MG TAB PO SCH (20:56)
[2019-06-18] MEDS: Divalproex DR TAB(*) 250 MG PO SCH (20:56)
[2019-06-18] MEDS: DULoxetine DR CAP* 60 MG CAP.DR PO SCH (20:56)
[2019-06-19] MEDS: Acetaminophen TAB* 325 MG PO SCH ×2 (06:01→14:15)
--- NOTE | 2019-06-19 08:04 | PN ---
Progress Note - Progress Note Date of Service: 06/19/19 SOAP: Subjective: []Pt seen at bedside. She feels well without CP, SOB, dizziness or nausea. LLE pain is well controlled, IROM brace is comfortable. Objective: []Gen: NAD, appears well LLE: Skin envelope intact. + ecchymosis over medial thigh and knee. IROM in place. Able to f/e MTPs and ankle. Sensation intact to light touch distally, DP2 +. Calves supple and nontender without erythema, edema or palpable cords Assessment: []Left distal femur periprosthetic fracture Plan: [] Okay to ambulate OOB with PT NWB LLE with immobilizer Plan is for nonoperative management. Knee immobilizer, touch down weight bearing, rehab placement if unable to return home, Follow up with Dr Ruiz outpatient within 2 weeks sooner with any concerns. Lovenox held per medicine due to anemia. Continue SCDs, resume lovenox when medically stable to do so Vital Signs Temp 98.7 F 06/19/19 04:05 Pulse 75 06/19/19 04:05 Resp 16 06/19/19 04:05 BP 108/60 06/19/19 04:05 Pulse Ox 98 06/19/19 04:05 Intake & Output 06/18/19 06/19/19 06/19/19 18:59 06:59 18:59 Intake Total 840 Output Total 230 800 200 Balance 610 -800 -200 Intake: Oral 840 Output: Urine 230 800 200 Laboratory Last Values WBC 9.6 10^3/uL (3.5-10.8) 06/18/19 04:56 RBC 2.56 10^6 /uL (3.70-4.87) L 06/18/19 04:56 Hgb 8.6 g/dL (12.0-16.0) L 06/18/19 04:56 Hct 25 % (35-47) L 06/18/19 04:56 MCV 97 fL (80-97) 06/18/19 04:56 MCH 33 pg (27-31) H 06/18/19 04:56 MCHC 34 g/dL (31-36) 06/18/19 04:56 RDW 16 % (10-15) H 06/18/19 04:56 Plt Count 213 10^3/uL (150-450) 06/18/19 04:56 MPV 8.1 fL (7.4-10.4) 06/18/19 04:56 Neut % (Auto) 68.3 % 06/18/19 04:56 Lymph % (Auto) 22.8 % 06/18/19 04:56 [place] % (Auto) 7.2 % 06/18/19 04:56 Eos % (Auto) 1.5 % 06/18/19 04:56 Baso % (Auto) 0.2 % 06/18/19 04:56 Absolute Neuts (auto) 6.5 10^3/ul (1.5-7.7) 06/18/19 04:56 Absolute Lymphs (auto) 2.2 10^3/ul (1.0-4.8) 06/18/19 04:56 Absolute Monos (auto) 0.7 10^3/ul (0-0.8) 06/18/19 04:56 Absolute Eos (auto) 0.1 10^3/ul (0-0.6) 06/18/19 04:56 Absolute Basos (auto) 0.0 10^3/ul (0-0.2) 06/18/19 04:56 Absolute Nucleated RBC 0.0 10^3/ul 06/18/19 04:56 Nucleated RBC % 0.1 06/18/19 04:56 Sodium 135 mmol/L (135-145) 06/16/19 06:00 Potassium 4.5 mmol/L (3.5-5.0) 06/16/19 06:00 Chloride 105 mmol/L (101-111) 06/16/19 06:00 Carbon Dioxide 30 mmol/L (22-32) 06/16/19 06:00 Anion Gap 3 mmol/L (2-11) 06/15/19 04:59 BUN 17 mg/dL (6-24) 06/16/19 06:00 Creatinine 0.89 mg/dL (0.51-0.95) 06/16/19 06:00 Est GFR ( Amer) 79.1 (>60) 06/16/19 06:00 Est GFR (Non-Af Amer) 65.4 (>60) 06/16/19 06:00 BUN/Creatinine Ratio 19.1 (8-20) 06/16/19 06:00 Glucose 91 mg/dL (70-100) 06/16/19 06:00 Calcium 7.7 mg/dL (8.6-10.3) L 06/16/19 06:00 Iron < 20 ug/dL (50-212) L 06/16/19 08:59 TIBC 129 mcg/dL (250-450) L 06/16/19 08:59 % Saturation 16 % (15-55) 06/16/19 08:59 Unsat Iron Binding < 114 ug/dL 06/16/19 08:59 Transferrin 92 mg/dL (203-362) L 06/16/19 08:59 Vitamin B12 453 pg/mL (180-914) 06/16/19 08:59 Folate 9.64 ng/mL (>3.99) 06/16/19 08:59 Urine Color Yellow 06/16/19 06:24 Urine Appearance Turbid 06/16/19 06:24 Urine pH 5.0 (5-9) 06/16/19 06:24 Ur Specific [place] 1.016 (1.010-1.030) 06/16/19 06:24 Urine Protein Negative (Negative) 06/16/19 06:24 Urine Ketones Trace (Negative) A 06/16/19 06:24 Urine Blood Negative (Negative) 06/16/19 06:24 Urine Nitrate Negative (Negative) 06/16/19 06:24 Urine Bilirubin Negative (Negative) 06/16/19 06:24 Urine Urobilinogen Negative (Negative) 06/16/19 06:24 Ur Leukocyte Esterase Negative (Negative) 06/16/19 06:24 Urine Glucose Negative (Negative) 06/16/19 06:24
[2019-06-19] MEDS: Gabapentin CAP(*) 300 MG PO SCH ×2 (08:20→14:14)
[2019-06-19] MEDS: DULoxetine DR CAP* 30 MG CAP.DR PO SCH (08:20)
[2019-06-19] MEDS: Docusate CAP* 100 MG PO SCH (08:20)
[2019-06-19] MEDS: Pantoprazole TAB * 40 MG TAB PO SCH (08:20)
[2019-06-19] MEDS: Metoprolol Succinate XL TAB* 25 MG PO SCH (08:20)
[2019-06-19] MEDS: Ferrous Sulfate TAB* 325 MG PO SCH (08:20)
[2019-06-19] MEDS: busPIRone TAB* 15 MG PO SCH ×2 (08:20→14:14)
[2019-06-19] MEDS: Magnesium Hydroxide LIQ* 30 ML UDC PO SCH (08:21)
--- NOTE | 2019-06-19 11:06 | DS ---
CC: Dr. Carvajal; Dr. Ruiz; Dr. Ochoa* DISCHARGE SUMMARY: DATE OF ADMISSION: 06/14/19 DATE OF DISCHARGE: 06/19/19 PRIMARY CARE PROVIDER: Dr. Carvajal. DISPOSITION AT DISCHARGE: To [facility]. CONDITION AT DISCHARGE: Stable. DISCHARGE DIAGNOSIS: Status post fall with subsequent left distal periprosthetic femur fracture. SECONDARY DIAGNOSES: 1. History of hemarthrosis of the left prosthetic knee earlier on in 2019. 2. The patient had 1 sample of occult positive stool for blood during the hospital stay but was not interested in further workup and her hemoglobin remained stable. 3. History of depression. 4. Anxiety. 5. Paroxysmal atrial fibrillation, currently not on anticoagulation due to hemarthrosis of the left knee post fall previously. 6. Chronic pain. 7. Restless legs syndrome. 8. Hypertension. 9. Gastroesophageal reflux disease. 10. Please note that the patient had prescription narcotic dependency. She is off narcotics at this point and prefers not to use any. 11. Status post bilateral knee replacements. 12. Gastric bypass surgery. MEDICATIONS AT DISCHARGE: Includes: 1. Albuterol inhaler on a p.r.n. basis. 2. Calcium with vitamin D 1 tablet b.i.d. 3. Clonazepam 0.5 t.i.d. p.r.n. 4. Voltaren gel 1% apply to the affected area b.i.d. p.r.n. 5. Depakote ER 750 mg at bedtime. 6. Cymbalta 30 mg in a.m. and 60 mg q.p.m. 7. Gabapentin 600 mg 3 times a day. 8. Toprol XL 25 mg daily. 9. Nystatin topical powder 1 application b.i.d. to affected areas in the skin. 10. Omeprazole 40 mg daily. 11. Requip 0.5 mg at bedtime. 12. Acetaminophen 975 mg up to 3 times a day for pain. 13. BuSpar 15 mg 3 times a day. 14. Ferrous sulfate 325 mg twice a day. LABORATORY DATA AND STUDIES PERFORMED DURING HOSPITAL STAY: On 06/18/19, white blood cell count of 9.6, hemoglobin 8.6, hematocrit of 25, and platelets of 213. On 06/16/19, sodium of 135, potassium 4.5, chloride 105, carbon dioxide 30, BUN 17, creatinine 0.89. The patient's iron studies showed iron level below 20, TIBC of 129, percent iron saturation is 16, transferrin of 92, vitamin B12 of 453, folate of 9.6. Stool occult was positive for blood. CT of the lower extremities obtained on admission, impression: "Large lipohemarthrosis. Comminuted, slightly displaced, intraarticular periprosthetic fracture of the distal femur. Osteopenia." CONSULTATION DURING HOSPITAL STAY: Dr. Ochoa from Orthopedic Surgery. HOSPITALIZATION COURSE: Rosario Sanchez is a 58-year-old female with a history of obesity and osteoarthritis, who had both of her knees operated on this year. After Dr. Ruiz operated on her left knee in September 2018, there was a revision of left total knee at that point. In December 2018, Dr. Ruiz operated on the patient's right knee with right total knee replacement. The patient was seen at our hospital and stayed in April 2019 for opioid withdrawal. At that point, it was noted that the patient has a history of chronic prescription opioid dependence and she decided to take herself off those medications and developed hallucinations. Please note that sometime between December 2018 and April 2019, the patient was noted to have hemarthrosis of the left knee and her anticoagulation with NOAC was stopped; that was stopped by the orthopedic service. At this time on 06/14/19, the patient was letting her dog out and the dog went by her leg and tripped her. She fell on her left knee and she suffered periprosthetic left distal femur fracture. She came into the hospital and was evaluated by the orthopedic service, and it was determined that the patient is going to undergo non-operative management with immobilizer. The patient was advised to be nonweightbearing on the left lower extremity and touch weightbearing on the left lower extremity with immobilizer in place. She underwent physical therapy and occupational therapy evaluation and deemed to be a good candidate for rehabilitation. She is accepted at [facility] today where she is going to depart soon. During her hospital, she was noted to have chronic anemia that has been present ever since her knee surgery in December 2018. Her hemoglobin ranged anywhere from 8 to 9. She initially at admission had hemoglobin of 10.7. She got some IV fluids and her hemoglobin dropped to a level of 8.9 to 8.6 and stayed there throughout the hospital stay. Due to that, iron studies were obtained and she was noted to have both anemia of chronic disease and iron deficiency. She was started on iron supplements. Also she was found to have brown looking stool but it was positive for blood. I discussed this with the patient. The patient at this point feels overwhelmed with her ongoing problems with her joints and she prefers not to undergo any further evaluation gastroenterology van with endoscopies if this is not absolutely necessary. At this point, the patient's hemoglobin is stable and she has no melena and no bright red blood per rectum and we deferred gastroenterology evaluation for later. I did advise the patient that if she starts having melena or bright red blood per rectum, to be evaluated right away. It is also advised for the patient to have repeat CBC in approximately a week to evaluate for stability of the patient's hemoglobin level. PHYSICAL EXAMINATION: At the time of discharge, blood pressure 108/60, heart rate of 75 and regular, respiratory rate 16, oxygen saturation 98% on room air, temperature 98.7. General: The patient is a pleasant 58-year-old female who is is no acute distress. The patient is alert and oriented x3. Her BMI is 29. HEENT: Head: Atraumatic, normocephalic. Eyes: Pupils equal and reactive to light and accommodation. Oropharynx clear. Mucosa moist. Neck: Supple, no JVD, no bruits bilaterally. Cardiovascular: Regular rate and rhythm. No murmur. From time to time, patient would have irregular heart rate. She was noted to have sinus rhythm with PACs, and there was no documented atrial fibrillation during the patient's hospital stay. Respiratory: Clear to auscultation bilaterally. Abdomen: Soft, nontender. Bowel sounds are present in all 4 quadrants. Extremities: Positive for large, obese bilateral lower extremities with some lymphedema present. The left knee is with slight edema and also ecchymosis, placed in an immobilizer. There is bilateral trace ankle edema. Neurologic Evaluation: Cranial nerves II through XII grossly intact. Motor strength is 5/5 bilaterally. Please note that this is a short summary of the patient's hospitalization. Please refer to further medical records for details. TIME SPENT: Approximately 40 minutes were spent on the patient's discharge. [id number]/[facility] #: [id number] [facility]
[2019-06-19] MEDS: Cyclobenzaprine TAB* 10 MG PO PRN (11:49)
[2019-06-19] MEDS ORDERED: traMADol TAB* 50 MG PO PRN (12:48)
[2019-06-19 15:59] VITALS: BP 101/53
== END 2019-06-19 16:30 | disposition swing bed (61) | DRG 534 ==
LOC: ED 14:27 → SSU 17:22 → INTOOBSV 17:22
PROVIDERS: ADMIT Internal Medicine; ATTEND Internal Medicine
DX: S72.402A Unspecified fracture of lower end of left femur, initial encounter for closed fracture (principal); M97.12XA Periprosthetic fracture around internal prosthetic left knee joint, initial encounter; M25.061 Hemarthrosis, right knee; F11.20 Opioid dependence, uncomplicated; K21.9 Gastro-esophageal reflux disease without esophagitis; M19.042 Primary osteoarthritis, left hand; M19.041 Primary osteoarthritis, right hand; M19.072 Primary osteoarthritis, left ankle and foot; G25.81 Restless legs syndrome; F41.9 Anxiety disorder, unspecified; F32.9 Major depressive disorder, single episode, unspecified; D50.9 Iron deficiency anemia, unspecified; Z96.661 Presence of right artificial ankle joint; Z96.653 Presence of artificial knee joint, bilateral; D63.8 Anemia in other chronic diseases classified elsewhere; W01.0XXA Fall on same level from slipping, tripping and stumbling without subsequent striking against object, initial encounter; I48.0 Paroxysmal atrial fibrillation; G89.29 Other chronic pain; I10 Essential (primary) hypertension; Z88.2 Allergy status to sulfonamides; Y92.009 Unspecified place in unspecified non-institutional (private) residence as the place of occurrence of the external cause; Z98.84 Bariatric surgery status
CPT/HCPCS: 36415; 80048; 81003; 82272; 82607; 82746; 83540; 83550; 85025; 85027; 99284; A9270-GY; G8978-GP-CM; G8979-GP-CK; J1650; J1885; J2270

== ENCOUNTER 2019-08-21 07:41 | Inpatient (IN) | payer MEDICARE, MEDICAID ==
[~2019-08-21 07:41] MED LIST changes: +Buffered Lidocaine 1% SYRIN* 1 ML/SYRINGE INTRADERM ONE; -Tranexamic Acid 1,000 MG in NS 0.9% 50 ML* (outpatient use) IV SCH
--- OUTSIDE RECORDS SUMMARY | 2019-08-21 07:45 | XMS REPORT | Continuity of Care Document ---
:1960 External Reference #:[id number] Author Name Eliazar Ruiz M.D. (transmitted by agent of provider Lizzy Soto) Address [address] [place] [address] Care Team Providers Name Role Phone Austin Carvajal D.O. - Internal Care Team Information Claims Correspondence Clerk [phone] Medicine Problems Active Problems Provider Date Knee pain Eliazar Ruiz M.D. Onset: 07/05/2018 Knee joint effusion Eliazar Ruiz M.D. Onset: 07/05/2018 Arthroplasty of knee Eliazar Ruiz M.D. Onset: 07/05/2018 Localized, primary osteoarthritis Eliazar Ruiz M.D. Onset: 12/23/2018 Social History Type Date Description Comments Sex Unknown ETOH Use Denies alcohol use Tobacco Use Start: Unknown Patient has never smoked Smoking Status Reviewed: 07/13/19 Patient has never smoked Exercise Type/Frequency Exercises rarely Allergies, Adverse Reactions, Alerts Active Allergies Reaction Severity Comments Date Bactrim 03/03/2018 Percocet 03/03/2018 Sulfa Antibiotics 03/03/2018 Medications Active Medications SIG Qnty Indications Ordering Provider Date Ventolin HFA 2 puffs by mouth Unknown 108(90Base) four times a day mcg/Act Aerosol as needed Calcium + D3 1 tablet orally Unknown 250-200mg twice a day Tablets Divalproex Sodium ER take 1/2 tab Unknown orally qd 250mg Tablets ER 24HR Duloxetine HCL 1 orally bid Unknown 30mg Caps DR Part Buspirone HCL take one tablet Unknown 15mg orally tid Tablets Omeprazole 1 by mouth every Unknown 40mg Capsules day DR Gabapentin take one tablet Unknown 600mg Tablets by mouth three times a day Calcium Citrate + D 1 tab in the Unknown morning. [id number] Tablets Requip Unknown 0.25mg Tablets Metoprolol Succinate 1 by mouth every Unknown ER day 25mg Tablets ER 24HR Ferrous Sulfate 1 by mouth every Unknown 324(65Fe) day mg Tablets DR Tylenol Extra Strength 2 tabs by mouth Unknown every 6 hours as 500mg Tablets needed Zofran take 1 tab every Unknown 4mg Tablets 6 hours as needed History Medications Eliquis 1 tabs by mouth 38tabs Eliazar Ruiz, 01/30/2019 - 2.5mg twice a day for 19 M.D. 04/27/2019 Tablets days Coumadin Take medication as 60tabs John Velasco MD 01/27/2019 - 2mg directed daily 04/26/2019 Tablets Immunizations Description No Information Available Vital Signs Date Vital Result Comment 07/13/2019 10:12am Height 68 inches 5'8" Heart Rate 79 /min BP Systolic Sitting 112 mmHg BP Diastolic Sitting 68 mmHg Body Temperature 97.7 F 07/06/2019 8:39am Height 68 inches 5'8" Heart Rate 69 /min BP Systolic Sitting 110 mmHg BP Diastolic Sitting 72 mmHg Body Temperature 97.2 F Results Test Acquired Date Facility Test Result H/L Range Note Basic Metabolic 06/14/2019 [facility] Sodium 139 mmol/L Normal 135-[address] [place] [address] [phone] Potassium 4.0 mmol/L Normal 3.5-5.0 Chloride 104 mmol/L Normal 101-111 Co2 Carbon Dioxide 31 mmol/L Normal 22-32 Anion Gap 4 mmol/L Normal 2-11 Glucose 87 mg/dL Normal 70-100 Blood Urea Nitrogen 19 mg/dL Normal 6-24 Creatinine 0.69 mg/dL Normal 0.51-0.95 BUN/Creatinine Ratio 27.5 High 8-20 Calcium 8.2 mg/dL Low 8.6-10.3 Egfr Non- 87.7 >60 Egfr 106.1 >60 1 CBC Auto 06/14/2019 [facility] White Blood 9.9 10^3/uL Normal 3.5-10.[address] [place] [address] [phone] Red Blood Count 3.36 10^6/uL Low 3.70-4.87 Hemoglobin 10.7 g/dL Low 12.0-16.0 Hematocrit 32 % Low 35-47 Mean Corpuscular Volume 96 fL Normal 80-97 Mean Corpuscular Hemoglobin 32 pg High 27-31 Mean Corpuscular HGB Conc 33 g/dL Normal 31-36 Red Cell Distribution Width 17 % High 10-15 Platelet Count 282 10^3/uL Normal 150-450 Mean Platelet Volume 7.8 fL Normal 7.4-10.4 Abs Neutrophils 6.8 10^3/uL Normal 1.5-7.7 Abs Lymphocytes 2.5 10^3/uL Normal 1.0-4.8 Abs Monocytes 0.5 10^3/uL Normal 0-0.8 Abs Eosinophils 0.1 10^3/uL Normal 0-0.6 Abs Basophils 0.1 10^3/uL Normal 0-0.2 Abs Nucleated RBC 0.0 10^3/uL Granulocyte % 68.1 % Lymphocyte % 25.5 % Monocyte % 4.9 % Eosinophil % 0.6 % Basophil % 0.9 % Nucleated Red Blood Cells % 0.0 Urinalysis Profile 06/14/2019 [facility] Urine Color Yellow [address] [place] [address] [phone] Urine Appearance Turbid Urine Specific [place] 1.016 Normal 1.010-1.030 Urine pH 5.0 Normal 5-9 Urine Urobilinogen Negative Negative Urine Ketones Trace Abnormal Negative Urine Protein Negative Negative Urine Leukocytes Negative Negative Urine Blood Negative Negative Urine Nitrite Negative Negative Urine Bilirubin Negative Negative Urine Glucose Negative Negative 1 Because ethnic data is not always [...] 15-29 5 Kidney failure <15 (or dialysis) Procedures Date Code Description Status 06/08/2019 Inject/Drain Joint/Bursa Major W/O US Completed 06/08/2019 Inject/Drain Joint/Bursa Major W/O US Completed 05/01/2019 68115 EKG, Interpretation Only Completed 04/30/2019 49952 EKG, Interpretation Only Completed 04/27/2019 Inject/Drain Joint/Bursa Major W/O US Completed 01/16/2019 20701 TKR Total Knee Replacement Completed Medical Devices Description No Information Available Encounters Type Date Location Provider Dx Diagnosis Office Visit 06/29/2019 [facility] Eliazar Ruiz, S72.402A Unsp fracture of 9:15a at [place] M.[facility]. lower end of left femur, init for clos fx M97.12xA Periprosth fracture around internal prosth l knee jt, init Office Visit 06/19/2019 [facility] Ingrid Flores, M97.8xxD Periprosth 10:27a at [facility] fracture around other internal prosth joint, subs Office Visit 06/19/2019 [facility] Radha David, M97.02xA Periprosth 11:05a razia Gallardo M.D. fracture around Hospitalists internal prosth l hip jt, init F32.9 Major depressive disorder, single episode, unspecified F41.9 Anxiety disorder, unspecified I48.0 Paroxysmal atrial fibrillation G89.29 Other chronic pain G25.81 Restless legs syndrome I10 Essential (primary) hypertension K21.9 Gastro-esophageal reflux disease without esophagitis W18.39xA Other fall on same level, initial encounter Office Visit 06/18/2019 [facility] Radha David, S72.402A Unsp fracture 11:05a razia Gallardo M.D. of lower end Hospitalists of left femur, init for clos fx M97.02xA Periprosth fracture around internal prosth l hip jt, init F41.9 Anxiety disorder, unspecified F32.9 Major depressive disorder, single episode, unspecified I10 Essential (primary) hypertension D64.9 Anemia, unspecified [facility] S[facility].402[facility] Unsp fracture 11:04a razia Gallardo M.D. of lower end Hospitalists of left femur, init for clos fx M97.02xA Periprosth fracture around internal prosth l hip jt, init F41.9 Anxiety disorder, unspecified I10 Essential (primary) hypertension D64.9 Anemia, unspecified [facility] S72.402A Unsp fracture 11:04a razia Gallardo M.D. of lower end Hospitalists of left femur, init for clos fx M97.02xA Periprosth fracture around internal prosth l hip jt, init F41.9 Anxiety disorder, unspecified F32.9 Major depressive disorder, single episode, unspecified I10 Essential (primary) hypertension D64.9 Anemia, unspecified [facility] S72.402A Unsp fracture 11:04a razia Gallardo M.D. of lower end Hospitalists of left femur, init for clos fx M97.02xA Periprosth fracture around internal prosth l hip jt, init F41.9 Anxiety disorder, unspecified F32.9 Major depressive disorder, single episode, unspecified I10 Essential (primary) hypertension Office Visit 06/14/2019 [facility] Robyn Rodriguez, S72.402A Unsp fracture 11:03a razia Gallardo DIRECTOR [employer] of lower end Hospitalists of left femur, init for clos fx M97.02xA Periprosth fracture around internal prosth l hip jt, init I48.0 Paroxysmal atrial fibrillation I10 Essential (primary) hypertension F41.9 Anxiety disorder, unspecified G25.81 Restless legs syndrome K21.9 Gastro-esophageal reflux disease without esophagitis Office Visit 06/08/2019 [facility] M25.061 Hemarthrosis, 9:45a [facility] at [facility] [place] right knee [place] 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 dependence with Hospitalists withdrawal R33.9 Retention of urine, unspecified M25.061 Hemarthrosis, right knee D50.0 Iron deficiency anemia secondary to blood loss (chronic) M19.90 Unspecified osteoarthritis, unspecified site F32.9 Major depressive disorder, single episode, unspecified F41.9 Anxiety disorder, unspecified I48.0 Paroxysmal atrial fibrillation Office Visit 04/30/2019 9:59a [facility] Sarah D64.9 Anemia, Assoc,razia Wasserman, unspecified Hospitalists R32 Unspecified urinary incontinence E87.6 Hypokalemia E46 Unspecified protein-calorie malnutrition G89.29 Other chronic pain F41.9 Anxiety disorder, unspecified F32.9 Major depressive disorder, single episode, unspecified I10 Essential (primary) hypertension Office Visit 04/30/2019 [facility] Palacio M25.061 Hemarthrosis, 10:09a Orthopedics at [facility] Paredes right knee [place] Office Visit 04/29/2019 [facility] Perla R41.82 Altered mental 9:59a Assoc,razia Sears, ray, Hospitalists DIRECTOR [employer] unspecified I48.0 Paroxysmal atrial fibrillation F32.9 Major depressive disorder, single episode, unspecified F41.9 Anxiety disorder, unspecified G89.29 Other chronic pain E87.8 Oth disorders of electrolyte and fluid balance, NEC I10 Essential (primary) hypertension Office Visit 04/27/2019 [facility] M25.061 Hemarthrosis, 9:30a [facility]oped[facility] at [facility] [place] right knee [place] Z96.651 Presence of right artificial knee joint M25.561 Pain in right knee M25.461 Effusion, right knee Office Visit 01/19/2019 10:29a [facility] [place] R00.0 Tachycardia, Assoc,LILLIAN Ellis unspecified Hospitalists Z96.651 Presence of right artificial knee joint F41.9 Anxiety disorder, unspecified I10 Essential (primary) hypertension Office Visit 01/18/2019 10:29a [facility] [place] R00.0 Tachycardia, Assrazia jaffe PA unspecified Hospitalists Z96.651 Presence of right artificial knee joint I10 Essential (primary) hypertension Office Visit 01/17/2019 [facility] Radha David, I49.9 Cardiac 10:29a razia Gallardo M.D. arrhythmia, Hospitalists unspecified Assessments Date Code Description Provider 07/13/2019 M97.12xD Periprosthetic fracture around internal Eliazar Ruiz M.D. prosthetic left knee joint, subsequent encounter 07/13/2019 M22.11 Recurrent subluxation of patella, right Eliazar Ruiz M.D. knee 07/06/2019 M97.12xD Periprosthetic fracture around internal Eliazar Ruiz M.D. prosthetic left knee joint, subsequent encounter 06/29/2019 S72.402A Unspecified fracture of lower end of Eliazar Ruiz M.D. left femur, initial encounter for closed fracture 06/29/2019 M97.12xA Periprosthetic fracture around internal Eliazar Ruiz M.D. prosthetic left knee joint, initial encounter 06/19/2019 M97.02xA Periprosthetic fracture around internal Radha David M.D. prosthetic left hip joint, initial encounter 06/19/2019 M97.8xxD Periprosthetic fracture around other LILLIAN Alfaro internal prosthetic joint, subsequent encounter 06/19/2019 F32.9 Major depressive disorder, single Radha David M.D. episode, unspecified 06/19/2019 F41.9 Anxiety disorder, unspecified Radha David M.D. 06/19/2019 I48.0 Paroxysmal atrial fibrillation Radha David M.D. 06/19/2019 G89.29 Other chronic pain Radha David M.D. 06/19/2019 G25.81 Restless legs syndrome Radha David M.D. 06/19/2019 I10 Essential (primary) hypertension Radha David M.D. 06/19/2019 K21.9 Gastro-esophageal reflux disease Radha David M.D. without esophagitis 06/19/2019 W18.39xA Other fall on same level, initial Radha David M.D. encounter 06/18/2019 S72.402A Unspecified fracture of lower end of Radha Joann, M.D. left femur, initial encounter for closed fracture 06/18/2019 M97.02xA Periprosthetic fracture around internal Radha Joann, M.D. prosthetic left hip joint, initial encounter 06/18/2019 F41.9 Anxiety disorder, unspecified Radha Hohn, M.D. 06/18/2019 F32.9 Major depressive disorder, single Radhaingrid David M.D. episode, unspecified 06/18/2019 I10 Essential (primary) hypertension Radha David M.D. 06/18/2019 D64.9 Anemia, unspecified Radha Hohn, M.D. 06/17/2019 S72.402A Unspecified fracture of lower end of Radha Joann, M.D. left femur, initial encounter for closed fracture 06/17/2019 M97.02xA Periprosthetic fracture around internal Radha Joann, M.D. prosthetic left hip joint, initial encounter 06/17/2019 F41.9 Anxiety disorder, unspecified Radha David M.D. 06/17/2019 I10 Essential (primary) hypertension Radha David M.D. 06/17/2019 D64.9 Anemia, unspecified Radha Hohn, M.D. 06/16/2019 S72.402A Unspecified fracture of lower end of Radhaneville David M.D. left femur, initial encounter for closed fracture 06/16/2019 M97.02xA Periprosthetic fracture around internal Radha Joann, M.D. prosthetic left hip joint, initial encounter 06/16/2019 F41.9 Anxiety disorder, unspecified Radha David MKiranD. 06/16/2019 F32.9 Major depressive disorder, single Radhaingrid David M.D. episode, unspecified 06/16/2019 I10 Essential (primary) hypertension Radha David M.D. 06/16/2019 D64.9 Anemia, unspecified Radha Joann M.D. 06/15/2019 S72.402A Unspecified fracture of lower end of Radha David M.D. left femur, initial encounter for closed fracture 06/15/2019 M97.02xA Periprosthetic fracture around internal Radha David M.D. prosthetic left hip joint, initial encounter 06/15/2019 F41.9 Anxiety disorder, unspecified Radha David M.D. 06/15/2019 F32.9 Major depressive disorder, single Radha David M.D. episode, unspecified 06/15/2019 I10 Essential (primary) hypertension Radha David M.D. 06/14/2019 M97.12xA Periprosthetic fracture around internal LILLIAN Alfaro prosthetic left knee joint, initial encounter 06/14/2019 S72.402A Unspecified fracture of lower end of Robyn Rodriguez NP left femur, initial encounter for closed fracture 06/14/2019 W18.39xA Other fall on same level, initial LILLIAN Alfaro encounter 06/14/2019 M97.02xA Periprosthetic fracture around internal Robyn Rodriguez NP prosthetic left hip joint, initial encounter 06/14/2019 I48.0 Paroxysmal atrial fibrillation Robyn Rodriguez NP 06/14/2019 I10 Essential (primary) hypertension Robyn Rodriguez, CRISTINA 06/14/2019 F41.9 Anxiety disorder, unspecified Robyn Rodriguez NP 06/14/2019 G25.81 Restless legs syndrome Robyn Rodriguez NP 06/14/2019 K21.9 Gastro-esophageal reflux disease Robyn Rodriguez NP without esophagitis 06/08/2019 M25.061 Hemarthrosis, right knee Eliazar Ruiz M.D. 06/08/2019 M22.11 Recurrent subluxation of patella, right Eliazar Ruiz M.D. knee 06/08/2019 M19.011 Primary osteoarthritis, right shoulder Eliazar Ruiz M.D. 05/01/2019 R94.31 Abnormal electrocardiogram [ECG] [EKG] Sari Hall M.D. 05/01/2019 F11.23 Opioid dependence with withdrawal Abraham Richardson M.D. 05/01/2019 M25.561 Pain in right knee LILLIAN Alfaro 05/01/2019 R33.9 Retention of urine, unspecified Abraham Richardson M.D. 05/01/2019 M25.061 Hemarthrosis, right knee LILLIAN Alfaro 05/01/2019 M25.061 Hemarthrosis, right knee Abraham Richardson M.D. 05/01/2019 D50.0 Iron deficiency anemia secondary to Abraham Richardson M.D. blood loss (chronic) 05/01/2019 M19.90 Unspecified osteoarthritis, unspecified Abraham Richardson M.D. site 05/01/2019 F32.9 Major depressive disorder, single Abraham Richardson M.D. episode, unspecified 05/01/2019 F41.9 Anxiety disorder, unspecified Abraham Richardson M.D. 05/01/2019 I48.0 Paroxysmal atrial fibrillation Abraham Richardson M.D. 04/30/2019 R00.0 Tachycardia, unspecified aSri Hall M.D. 04/30/2019 D64.9 Anemia, unspecified Sarah Wasserman, DO 04/30/2019 M25.061 Hemarthrosis, right knee LILLIAN Waite 04/30/2019 R32 Unspecified urinary incontinence Sarah Wasserman, DO 04/30/2019 E87.6 Hypokalemia Sarah Wasserman, DO 04/30/2019 E46 Unspecified protein-calorie Sarah Senshahla, DO malnutrition 04/30/2019 G89.29 Other chronic pain Sarah Wasserman, DO 04/30/2019 F41.9 Anxiety disorder, unspecified Sarah Senner, DO 04/30/2019 F32.9 Major depressive disorder, single Sarah Lux, DO episode, unspecified 04/30/2019 I10 Essential (primary) hypertension Sarah Wasserman, DO 04/29/2019 R41.82 Altered mental status, unspecified Perla Sears, DIRECTOR [employer] SYSTEMS 04/29/2019 I48.0 Paroxysmal atrial fibrillation Perla Sears, DIRECTOR [employer]S 04/29/2019 F32.9 Major depressive disorder, single Perla Sears, DIRECTOR [employer] episode, unspecified 04/29/2019 F41.9 Anxiety disorder, unspecified Perla Sears, DIRECTOR [employer] 04/29/2019 G89.29 Other chronic pain Perla Lord Renu, DIRECTOR [employer]S 04/29/2019 E87.8 Other disorders of electrolyte and Perla Lord Renu, DIRECTOR [employer] SYSTEMS fluid balance, not elsewhere classified 04/29/2019 I10 Essential (primary) hypertension Perla Sears, DIRECTOR [employer] SYSTEMS 04/27/2019 M25.061 Hemarthrosis, right knee Eliazar Ruiz M.D. 04/27/2019 Z96.651 Presence of right artificial knee joint Eliazar Ruiz M.D. 04/27/2019 M25.561 Pain in right knee Eliazar Ruiz M.D. 04/27/2019 M25.461 Effusion, right knee Eliazar Ruiz M.D. 03/14/2019 M17.11 Unilateral primary osteoarthritis, Eliazar Ruiz [...] Z96.651 Presence of right artificial knee joint LILLIAN Goodwin 01/19/2019 F41.9 Anxiety disorder, unspecified LILLIAN Goodwin 01/19/2019 I10 Essential (primary) hypertension LILLIAN Goodwin 01/18/2019 R00.0 Tachycardia, unspecified [place] Morris PA 01/18/2019 Z96.651 Presence of right artificial knee joint LILLIAN Goodwin 01/18/2019 I10 Essential (primary) hypertension LILLIAN Goodwin 01/17/2019 I49.9 Cardiac arrhythmia, unspecified Radha David M.D. 01/16/2019 M17.11 Unilateral primary osteoarthritis, Eliazar Ruiz M.D. right knee Plan of Treatment 07/13/2019 - Eliazar Ruiz M.D.M97.12xD Periprosthetic fracture around internal prosthetic left knee joint, subsequent [id number] Recurrent subluxation of patella, right kneeNew Xrays:CT Extremity Lower Right Wo, Ordered : 07/13/19 Functional Status Description No Information Available Mental Status Description No Information Available Referrals Description No Information Available
--- OUTSIDE RECORDS SUMMARY | 2019-08-21 07:45 | XMS REPORT | Continuity of Care Document ---
:1960 External Reference #:[id number] Author Name Eliazar Ruiz M.D. (transmitted by agent of provider Lizzy Soto) Address [address] [facility] [place] [address] Care Team Providers Name Role Phone Austin Carvajal D.O. - Internal Care Team Information Manager Gift Medicine Problems Active Problems Provider Date Knee pain Eliazar Ruiz M.D. Onset: 07/05/2018 Knee joint effusion Eliazar Riuz M.D. Onset: 07/05/2018 Arthroplasty of knee Eliazar Ruiz M.D. Onset: 07/05/2018 Localized, primary osteoarthritis Eliazar Ruiz M.D. Onset: 12/23/2018 Social History Type Date Description Comments Sex Unknown ETOH Use Denies alcohol use Tobacco Use Start: Unknown Patient has never smoked Smoking Status Reviewed: 06/29/19 Patient has never smoked Exercise Type/Frequency Exercises [...] 1 orally bid Unknown 30mg Caps DR Valery Buspirone HCL take one tablet Unknown 15mg orally tid Tablets Omeprazole 1 by mouth every Unknown 40mg Capsules day DR Clonazepam 1 tablet orally Unknown 0.5mg Tablets tid prn Gabapentin take one tablet Unknown 600mg Tablets by mouth three times a day Calcium Citrate + D 1 tab in the Unknown morning. [id number]-Hlox Tablets Requip Unknown 0.25mg Tablets Metoprolol Succinate 1 by mouth every Unknown ER day 25mg Tablets ER 24HR Tylenol 3 by mouth every Unknown 325mg Tablets 6 hours as needed pain History Medications Eliquis 1 tabs by mouth [...] Available Vital Signs Date Vital Result Comment 06/29/2019 9:17am Height 68 inches 5'8" Heart Rate 80 /min BP Systolic Sitting 120 mmHg BP Diastolic Sitting 84 mmHg Body Temperature 97.4 F 06/08/2019 9:50am Height 68 inches 5'8" Weight 199.00 lb Heart Rate 92 /min BP Systolic Sitting 116 mmHg BP Diastolic Sitting 82 mmHg Body Temperature 97.6 F BMI (Body Mass Index) 30.3 kg/m2 Results Test Acquired Date Facility Test Result H/L Range Note Basic Metabolic 06/14/2019 [facility] Sodium 139 mmol/L Normal 135-145 [address] [place] [address] [phone] Potassium 4.0 mmol/L Normal 3.5-5.0 Chloride 104 mmol/L Normal 101-111 Co2 Carbon Dioxide 31 mmol/L Normal 22-32 Anion Gap 4 mmol/L Normal 2-11 Glucose 87 mg/dL Normal 70-100 Blood Urea Nitrogen 19 mg/dL Normal 6-24 Creatinine 0.69 mg/dL Normal 0.51-0.95 BUN/Creatinine Ratio 27.5 High 8-20 Calcium 8.2 mg/dL Low 8.6-10.3 Egfr Non- 87.7 >60 Egfr 106.1 >60 1 CBC Auto 06/14/2019 [facility] White Blood 9.9 10^3/uL Normal 3.5-10.[address] [place] [address] [phone] Red Blood Count 3.36 10^6/uL Low 3.70-4.87 [...] Blood Cells % 0.0 Urinalysis Profile 06/14/2019 [facility] Urine Color Yellow [address] [place] [address] [phone] Urine Appearance Turbid Urine Specific [place] 1.016 Normal 1.010-1.030 Urine pH 5.0 Normal 5-9 Urine Urobilinogen Negative Negative Urine Ketones Trace Abnormal Negative Urine Protein Negative Negative Urine Leukocytes Negative Negative Urine Blood Negative Negative Urine Nitrite Negative Negative Urine Bilirubin Negative Negative Urine Glucose Negative Negative Inr/Protime 01/02/2019 [facility] Inr 0.91 Normal 0.82-1.[address] [place] [address] [phone] Laboratory test 01/02/2019 [facility] Partial 33.6 Normal 26.0 -38.[address] [place] [address] Time PTT [phone] CBC Auto Diff 01/02/2019 [facility] White Blood 6.8 10^3/uL Normal 3.5-10.[address] [place] [address] [phone] Red Blood Count 3.99 10^6/uL Normal 3.70-4.87 [...] Blood Cells % 0.1 Comp Metabolic 01/02/2019 [facility] Sodium 143 mmol/L Normal 135-[address] [place] [address] [phone] Potassium 4.1 mmol/L Normal 3.5-5.0 Chloride 102 [...] Egfr Non- 69.9 >60 Egfr 84.6 >60 3 Type & Screen 01/02/2019 [facility] Patient Blood Type A Positive [address] [place] [address] [phone] Antibody Screen NEGATIVE Urinalysis Profile 01/02/2019 [facility] Urine Color Livia [address] [place] [address] [phone] Urine Appearance Turbid Urine Specific [place] 1.020 Normal 1.010-1.030 Urine pH 6.0 Normal [...] Present Abnormal Absent Urine Culture And 01/02/2019 [facility] Urine Culture SEE RESULT [address] [place] [address] [phone] 1 Because ethnic data is not always [...] 5 Kidney failure <15 (or dialysis) 2 Standard intensity warfarin therapeutic range: 2.0-3.0 High intensity warfarin therapeutic range: 2.5-3.5 3 Because ethnic data is not always readily [...] 15-29 5 Kidney failure <15 (or dialysis) 4 SEE RESULT BELOW Name: ROSARIO SANCHEZ : [address]: Eliazar Ruiz MD Acct: [id number] Unit: [id number] AGE: 58 Location: [facility] Re01/02/19 SEX: F Status: REG REF SPEC: [id number] LITO: 01/02/19-1215 [facility] DR: Eliazar Ruiz MD REQ: [id number] RECD: 01/02/19-1233 STATUS: [facility] DR: Austin Carvajal DO _ SOURCE: URINE SPDESC: ORDERED: Urine Culture Procedure Result Reported Site Urine Culture Final 01/04/19- 0809 ML Organism 1 ESCHERICHIA COLI [place] Count >100,000 (Many) CFU/ML 1. ESCHERICHIA COLI [...] . END OF REPORT DEPARTMENT OF PATHOLOGY, [address] [place] [address] Reynaldo Hogan M.D. Director [facility] # [id number] Procedures Date Code Description Status 06/08/2019 37293 Inject/Drain Joint/Bursa Major W/O US Completed 06/08/2019 Inject/Drain Joint/Bursa Major W/O US Completed 05/01/2019 51571 EKG, Interpretation Only Completed 04/30/2019 30195 EKG, Interpretation Only Completed 04/27/201912720 Inject/Drain Joint/Bursa Major W/O US Completed 01/16/2019 87709 TKR Total Knee Replacement Completed Medical Devices Description No Information Available Encounters Type Date Location Provider Dx Diagnosis Office Visit 06/18/2019 [facility] Radha David, S72.402A Unsp fracture of 11:05a razia Gallardo M.D. lower end of Hospitalists left femur, init for clos fx M97.02xA Periprosth fracture around internal prosth l hip jt, init F41.9 Anxiety disorder, unspecified F32.9 Major depressive disorder, single episode, unspecified I10 Essential (primary) hypertension D64.9 Anemia, unspecified Office Visit 06/17/2019 [facility] Radha David, S72.402A Unsp fracture 11:04a razia Gallardo M.D. of lower end Hospitalists of left femur, init for clos fx M97.02xA Periprosth fracture around internal prosth l hip jt, init F41.9 Anxiety disorder, unspecified I10 Essential (primary) hypertension D64.9 Anemia, unspecified Office Visit 06/16/2019 [facility] Radha David, S72.402A Unsp fracture 11:04a razia Gallardo M.D. of lower end Hospitalists of left femur, init for clos fx M97.02xA Periprosth fracture around internal prosth l hip jt, init F41.9 Anxiety disorder, unspecified F32.9 Major depressive disorder, single episode, unspecified I10 Essential (primary) hypertension D64.9 Anemia, unspecified Office Visit 06/15/2019 [facility] Radha David, S72.402A Unsp fracture 11:04a razia Gallardo M.D. of lower end Hospitalists of left femur, init for clos fx M97.02xA Periprosth fracture around internal prosth l hip jt, init F41.9 Anxiety disorder, unspecified F32.9 Major depressive disorder, single episode, unspecified I10 Essential (primary) hypertension Office Visit 06/14/2019 [facility] Robyn BensonCristina, S72.402A Unsp fracture 11:03a Assoc,pc CIRCUS HAND of lower end Hospitalists of left femur, init for clos fx M97.02xA Periprosth fracture around internal prosth l hip jt, init I48.0 Paroxysmal atrial fibrillation I10 Essential (primary) hypertension F41.9 Anxiety disorder, unspecified G25.81 Restless legs syndrome K21.9 Gastro-esophageal reflux disease without esophagitis Office Visit 06/08/2019 [facility] Eliazar M25.061 Hemarthrosis, 9:45a [facility] [place] Ruiz. 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 right knee M25.061 Hemarthrosis, right knee Office Visit 05/01/2019 10:00a [facility] Abraham F11.23 Opioid Assoc,razia Richardson M.D. dependence with Hospitalists withdrawal R33.9 Retention of urine, unspecified M25.061 Hemarthrosis, right knee D50.0 Iron deficiency anemia secondary to blood loss (chronic) M19.90 Unspecified osteoarthritis, unspecified site F32.9 Major depressive disorder, single episode, unspecified F41.9 Anxiety disorder, unspecified I48.0 Paroxysmal atrial fibrillation Office Visit 04/30/2019 [facility] Emily Palacio M25.061 Hemarthrosis, 10:09a [facility] [place] right knee [place] Office Visit 04/30/2019 [facility] Sarah D64.9 Anemia, 9:59a Assoc,razia Wasserman, unspecified Hospitalists R32 Unspecified urinary incontinence E87.6 Hypokalemia E46 Unspecified protein-calorie malnutrition G89.29 Other chronic pain F41.9 Anxiety disorder, unspecified F32.9 Major depressive disorder, single episode, unspecified I10 Essential (primary) hypertension Office Visit 04/29/2019 [facility] Perla R41.82 Altered mental 9:59a Assoc,razia Sears, ray, Hospitalists CIRCUS HAND unspecified I48.0 Paroxysmal atrial fibrillation F32.9 Major depressive disorder, single episode, unspecified F41.9 Anxiety disorder, unspecified G89.29 Other chronic pain E87.8 Oth disorders of electrolyte and fluid balance, NEC I10 Essential (primary) hypertension Office Visit 04/27/2019 [facility] Eliazar M25.061 Hemarthrosis, 9:30a [facility] [place]uz[place] right knee [place] Z96.651 Presence of right artificial knee joint M25.561 Pain in right knee M25.461 Effusion, right knee Office Visit 01/19/2019 10:29a [facility] [place] R00.0 Tachycardia, Assoc,LILLIAN Ellis unspecified Hospitalists Z96.651 Presence of right artificial knee joint F41.9 Anxiety disorder, unspecified I10 Essential (primary) hypertension Office Visit 01/18/2019 10:29a [facility] [place] R00.0 Tachycardia, Assoc,ILLLIAN Ellis unspecified Hospitalists Z96.651 Presence of right artificial knee joint I10 Essential (primary) hypertension Office Visit 01/17/2019 [facility] Radha David I49.9 Cardiac 10:29a Assrazia jaffe M.D. arrhythmia, Hospitalists unspecified Assessments Date Code Description Provider 06/29/2019 S72.402A Unspecified fracture of lower end of Eliazar Ruiz M.D. left femur, initial encounter for closed fracture 06/29/2019 M97.12xA Periprosthetic fracture around internal Eliazar Ruiz M.D. prosthetic left knee joint, initial encounter 06/18/2019 S72.402A Unspecified fracture of lower end of Radha David M.D. left femur, initial encounter for closed fracture 06/18/2019 M97.02xA Periprosthetic fracture around internal Radha Daivd M.D. prosthetic left hip joint, initial encounter 06/18/2019 F41.9 Anxiety disorder, unspecified Radha David M.D. 06/18/2019 F32.9 Major depressive disorder, single Radha David M.D. episode, unspecified 06/18/2019 I10 Essential (primary) hypertension Jony AguirreD. 06/18/2019 D64.9 Anemia, unspecified Radha Joann M.D. 06/17/2019 S72.402A Unspecified fracture of lower end of Radha Joann, M.D. left femur, initial encounter for closed fracture 06/17/2019 M97.02xA Periprosthetic fracture around internal Radha Joann, M.D. prosthetic left hip joint, initial encounter 06/17/2019 F41.9 Anxiety disorder, unspecified Radha Joann, M.D. 06/17/2019 I10 Essential (primary) hypertension Isaac Aguirre.D. 06/17/2019 D64.9 Anemia, unspecified Radha Joann M.D. 06/16/2019 S72.402A Unspecified fracture of lower end of Radha Joann, M.D. left femur, initial encounter for closed fracture 06/16/2019 M97.02xA Periprosthetic fracture around internal Radha Joann, M.D. prosthetic left hip joint, initial encounter 06/16/2019 F41.9 Anxiety disorder, unspecified Radha Joann M.D. 06/16/2019 F32.9 Major depressive disorder, single Radha Hohn, M.D. episode, unspecified 06/16/2019 I10 Essential (primary) hypertension Isaac Aguirre.D. 06/16/2019 D64.9 Anemia, unspecified Radha Joann M.D. 06/15/2019 S72.402A Unspecified fracture of lower end of Radha Hohn, M.D. left femur, initial encounter for closed fracture 06/15/2019 M97.02xA Periprosthetic fracture around internal Radha Hohn, M.D. prosthetic left hip joint, initial encounter 06/15/2019 F41.9 Anxiety disorder, unspecified Radha Joann M.D. 06/15/2019 F32.9 Major depressive disorder, single Radha Joann M.D. episode, unspecified 06/15/2019 I10 Essential (primary) hypertension Isaac Aguirre.D. 06/14/2019 S72.402A Unspecified fracture of lower end of Robyn Rodriguez NP left femur, initial encounter for closed fracture 06/14/2019 M97.02xA Periprosthetic fracture around internal Robyn Rodriguez NP prosthetic left hip joint, initial encounter 06/14/2019 I48.0 Paroxysmal atrial fibrillation Robyn Rodriguez, CRISTINA 06/14/2019 I10 Essential (primary) hypertension Robyn Rodriguez, CRISTINA 06/14/2019 F41.9 Anxiety disorder, unspecified Robyn Rodriguez, CRISTINA 06/14/2019 G25.81 Restless legs syndrome Robyn Rodriguez [...] Abraham Richardson M.D. 04/30/2019 R00.0 Tachycardia, unspecified Sari Hall M.D. 04/30/2019 D64.9 Anemia, unspecified Sarah Senner, DO 04/30/2019 M25.061 Hemarthrosis, right knee LILLIAN Waite 04/30/2019 R32 Unspecified urinary incontinence Sarah Senner, DO 04/30/2019 E87.6 Hypokalemia Sarah Senner, DO 04/30/2019 E46 Unspecified protein-calorie Sarah Senner, DO malnutrition 04/30/2019 G89.29 Other chronic pain Sarah Senner, DO 04/30/2019 F41.9 Anxiety disorder, unspecified Sarah Senner, DO 04/30/2019 F32.9 Major depressive disorder, single Sarah Senner, DO episode, unspecified 04/30/2019 I10 Essential (primary) hypertension Sarah Senner, DO 04/29/2019 R41.82 Altered mental status, unspecified Perla Risa Doto, CIRCUS HAND 04/29/2019 I48.0 Paroxysmal atrial fibrillation Perla Risa Doto, CIRCUS HAND 04/29/2019 F32.9 Major depressive disorder, single Perla Risa Doto, CIRCUS HAND episode, unspecified 04/29/2019 F41.9 Anxiety disorder, unspecified Perla Risa Doto, CIRCUS HAND 04/29/2019 G89.29 Other chronic pain Perla Risa Doto, CIRCUS HAND 04/29/2019 E87.8 Other disorders of electrolyte and [facility] Doto, CIRCUS HAND fluid balance, not elsewhere classified 04/29/2019 I10 Essential (primary) hypertension Perlakal Sears, CIRCUS HAND 04/27/2019 M25.061 Hemarthrosis, right knee Eliazar Ruiz [...] M.D. surgery 01/19/2019 R00.0 Tachycardia, unspecified [place], [place] 01/19/2019 Z96.651 Presence of right artificial knee joint [place] PA 01/19/2019 F41.9 Anxiety disorder, unspecified [place], [place] 01/19/2019 I10 Essential (primary) hypertension [place], [place] 01/18/2019 R00.0 Tachycardia, unspecified [place], PA 01/18/2019 Z96.651 Presence of right artificial knee joint [place] PA 01/18/2019 I10 Essential (primary) hypertension [place] PA 01/17/2019 I49.9 Cardiac arrhythmia, unspecified Radha David M.D. 01/16/2019 M17.11 Unilateral primary osteoarthritis, Eliazar Ruiz M.D. right knee Plan of Treatment Future Appointment(s):07/06/2019 8:30 am - Eliazar Ruiz M.D. at [facility] [place]06/29/2019 - Eliazar Ruiz M.D.S72.402A Unspecified fracture of lower end of left femur, initial encounter for closed qndwmhzmW13.12xA Periprosthetic fracture around internal prosthetic left knee joint, initial encounterFollow up:One week with x-rays Functional Status Description No Information Available Mental Status Description No Information Available Referrals Description No Information Available
--- OUTSIDE RECORDS SUMMARY | 2019-08-21 07:45 | XMS REPORT | Continuity of Care Document ---
:1960 External Reference #:[id number] Author Name Eliazar Ruiz M.D. (transmitted by agent of provider Radha Vasquez) Address [address] [facility] [place] [address] Care Team Providers Name Role Phone Austin Carvajal D.O. 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 Onset: 07/05/2018 Knee joint effusion Eliazar Ruiz M.D. Onset: 07/05/2018 Arthroplasty of knee Eliazar Ruiz M.D. Onset: 07/05/2018 Localized, primary osteoarthritis Eliazar Ruiz M.D. Onset: 12/23/2018 Social History Type Date Description Comments Sex Unknown ETOH Use Denies alcohol use Tobacco Use Start: Unknown Patient has never smoked Smoking Status Reviewed: 07/06/19 Patient has never smoked Exercise Type/Frequency Exercises [...] D 1 tab in the Unknown morning. [id number] Tablets Requip Unknown 0.25mg Tablets Metoprolol Succinate [...] Available Vital Signs Date Vital Result Comment 07/06/2019 8:39am Height 68 inches 5'8" Heart Rate 69 /min BP Systolic Sitting 110 mmHg BP Diastolic Sitting 72 mmHg Body Temperature 97.2 F 06/29/2019 9:17am Height 68 inches 5'8" Heart Rate 80 /min BP Systolic Sitting 120 mmHg BP Diastolic Sitting 84 mmHg Body Temperature 97.4 F Results Test Acquired Date Facility Test Result H/L Range Note Basic Metabolic 06/14/2019 [facility] Sodium 139 mmol/L Normal 135-145 Panel [address] [place] [address] [phone] Potassium 4.0 mmol/L Normal 3.5-5.0 Chloride 104 mmol/L Normal 101-111 Co2 Carbon Dioxide 31 mmol/L Normal 22-32 Anion Gap 4 mmol/L Normal 2-11 Glucose 87 mg/dL Normal 70-100 Blood Urea Nitrogen 19 mg/dL Normal 6-24 Creatinine 0.69 mg/dL Normal 0.51-0.95 BUN/Creatinine Ratio 27.5 High 8-20 Calcium 8.2 mg/dL Low 8.6-10.3 Egfr Non- 87.7 >60 Egfr 106.1 >60 1 CBC Auto 06/14/2019 [facility] White Blood 9.9 10^3/uL Normal 3.5-10.[address] [place] [address] [phone] Red Blood Count 3.36 10^6/uL Low 3.70-4.87 [...] Blood Cells % 0.0 Urinalysis Profile 06/14/2019 [facility] Urine Color Yellow [address] [place] [address] [phone] Urine Appearance Turbid Urine Specific [place] 1.016 Normal 1.010-1.030 Urine pH 5.0 Normal [...] (or dialysis) Procedures Date Code Description Status 06/08/201961022 Inject/Drain Joint/Bursa Major W/O US Completed 06/08/2019 Inject/Drain Joint/Bursa Major W/O US Completed 05/01/2019 00774 EKG, Interpretation Only Completed 04/30/2019 93027 EKG, Interpretation Only Completed 04/27/201926331 Inject/Drain Joint/Bursa Major W/O US Completed 01/16/2019 10787 TKR Total Knee Replacement Completed Medical Devices Description No Information Available Encounters Type Date Location Provider Dx Diagnosis Office Visit 06/19/2019 [facility] Ingrid Flores, M97.8xxD Periprosth 10:27a at [place] fracture around other internal prosth joint, subs Office Visit 06/18/2019 [facility] Radha David, S72.402A Unsp fracture of 11:05a razia Gallardo M.D. lower end of left Hospitalists femur, init for clos fx M97.02xA Periprosth fracture around internal prosth l hip jt, init F41.9 Anxiety disorder, unspecified F32.9 Major depressive disorder, single episode, unspecified I10 Essential (primary) hypertension D64.9 Anemia, unspecified Office Visit 06/17/2019 [facility] Radha David, S72.402A Unsp fracture 11:04a razia Gallardo M.D. of lower end Hospitalists of left femur, init for clos fx M97.02xA Periprosth fracture around internal prosth l hip jt, init F41.9 Anxiety disorder, unspecified I10 Essential (primary) hypertension D64.9 Anemia, unspecified Office Visit 06/16/2019 [facility] Radha David, S72.402A Unsp fracture 11:04a razia Gallardo M.D. of lower end Hospitalists of left femur, init for clos fx M97.02xA Periprosth fracture around internal prosth l hip jt, init F41.9 Anxiety disorder, unspecified F32.9 Major depressive disorder, single episode, unspecified I10 Essential (primary) hypertension D64.9 Anemia, unspecified Office Visit 06/15/2019 [facility] Radha David, S72.402A Unsp fracture 11:04a Assocrazia M.D. of lower end Hospitalists of left femur, init for clos fx M97.02xA Periprosth fracture around internal prosth l hip jt, init F41.9 Anxiety disorder, unspecified F32.9 Major depressive disorder, single episode, unspecified I10 Essential (primary) hypertension Office Visit 06/14/2019 [facility] Robyn BensonCristina, S72.402A Unsp fracture 11:03a Assoc,pc SKIDDER DRIVER of lower end Hospitalists of left femur, init for clos fx M97.02xA Periprosth fracture around internal prosth l hip jt, init I48.0 Paroxysmal atrial fibrillation I10 Essential (primary) hypertension F41.9 Anxiety disorder, unspecified G25.81 Restless legs syndrome K21.9 Gastro-esophageal reflux disease without esophagitis Office Visit 06/08/2019 [facility] Eliazar M25.061 Hemarthrosis, 9:45a Orthopedics at [place] [facility] right knee [place] M22.11 Recurrent subluxation of patella, right knee M19.011 Primary osteoarthritis, right shoulder Office Visit 05/01/2019 10:10a [facility] Ingrid Flores, M25.561 Pain in at [facility] right knee M25.061 Hemarthrosis, right knee Office Visit 05/01/2019 10:00a [facility] Abraham F11.23 Opioid Assoc,razia Richardson M.D. dependence with Hospitalists withdrawal R33.9 Retention of urine, unspecified M25.061 Hemarthrosis, right knee D50.0 Iron deficiency anemia secondary to blood loss (chronic) M19.90 Unspecified osteoarthritis, unspecified site F32.9 Major depressive disorder, single episode, unspecified F41.9 Anxiety disorder, unspecified I48.0 Paroxysmal atrial fibrillation Office Visit 04/30/2019 [facility] Emily Palacio M25.061 Hemarthrosis, 10:09a [facility] at [place] right knee [place] Office Visit 04/30/2019 [facility] Sarah D64.9 Anemia, 9:59a Assoc,razia Wasserman DO unspecified Hospitalists R32 Unspecified urinary incontinence E87.6 Hypokalemia E46 Unspecified protein-calorie malnutrition G89.29 Other chronic pain F41.9 Anxiety disorder, unspecified F32.9 Major depressive disorder, single episode, unspecified I10 Essential (primary) hypertension Office Visit 04/29/2019 [facility] Perla R41.82 Altered mental 9:59a Assoc,razia Sears, status, Hospitalists SKIDDER DRIVER unspecified I48.0 Paroxysmal atrial fibrillation F32.9 Major depressive disorder, single episode, unspecified F41.9 Anxiety disorder, unspecified G89.29 Other chronic pain E87.8 Oth disorders of electrolyte and fluid balance, NEC I10 Essential (primary) hypertension Office Visit 04/27/2019 [facility] Eliazar M25.061 Hemarthrosis, 9:30a [facility] at [facility] right knee [place] Z96.651 Presence of right artificial knee joint M25.561 Pain in right knee M25.461 Effusion, right knee Office Visit 01/19/2019 10:29a [facility] [place] R00.0 Tachycardia, Assoc,LILLIAN Ellis unspecified Hospitalists Z96.651 Presence of right artificial knee joint F41.9 Anxiety disorder, unspecified I10 Essential (primary) hypertension Office Visit 01/18/2019 10:29a [facility] [place] R00.0 Tachycardia, Assoc,LILLIAN Ellis unspecified Hospitalists Z96.651 Presence of right artificial knee joint I10 Essential (primary) hypertension Office Visit 01/17/2019 [facility] Radha David, I49.9 Cardiac 10:29a Assrazia jaffe M.D. arrhythmia, Hospitalists unspecified Assessments Date Code Description Provider 07/06/2019 M97.12xD Periprosthetic fracture around internal Eliazar [...] 06/18/2019 M97.02xA Periprosthetic fracture around internal Radha David M.D. prosthetic left hip joint, initial encounter 06/18/2019 F41.9 Anxiety disorder, unspecified Radha David M.D. 06/18/2019 F32.9 Major depressive disorder, single Radha David M.D. episode, unspecified 06/18/2019 I10 Essential (primary) hypertension Radha David M.D. 06/18/2019 D64.9 Anemia, unspecified Radha David M.D. 06/17/2019 S72.402A Unspecified fracture of lower end of Radah David M.D. left femur, initial encounter for closed fracture 06/17/2019 M97.02xA Periprosthetic fracture around internal Radha David M.D. prosthetic left hip joint, initial encounter 06/17/2019 F41.9 Anxiety disorder, unspecified Radha David M.D. 06/17/2019 I10 Essential (primary) hypertension Radha David M.D. 06/17/2019 D64.9 Anemia, unspecified Radha David M.D. 06/16/2019 S72.402A Unspecified fracture of lower end of Jony AguirreD. left femur, initial encounter for closed fracture 06/16/2019 M97.02xA Periprosthetic fracture around internal Radha David M.D. prosthetic left hip joint, initial encounter 06/16/2019 F41.9 Anxiety disorder, unspecified Radha David M.D. 06/16/2019 F32.9 Major depressive disorder, single Isaac Aguirre.DKiran episode, unspecified 06/16/2019 I10 Essential (primary) hypertension Radha David M.D. 06/16/2019 D64.9 Anemia, unspecified Radha David M.D. 06/15/2019 S72.402A Unspecified fracture of lower end of Radha David M.D. left femur, initial encounter for closed fracture 06/15/2019 M97.02xA Periprosthetic fracture around internal Isaac Aguirre.D. prosthetic left hip joint, initial encounter 06/15/2019 F41.9 Anxiety disorder, unspecified Radha David M.D. 06/15/2019 F32.9 Major depressive disorder, single Radha David M.DKiran episode, unspecified 06/15/2019 I10 Essential (primary) hypertension Radha David M.D. 06/14/2019 M97.12xA Periprosthetic fracture around internal LILLIAN Alfaro prosthetic left knee joint, initial encounter 06/14/2019 S72.402A Unspecified fracture of lower end of Robyn Rodriguez, SKIDDER DRIVER left femur, initial encounter for closed fracture 06/14/2019 W18.39xA Other fall on same level, initial LILLIAN Alfaro encounter 06/14/2019 M97.02xA Periprosthetic fracture around internal Robyn Rodriguez, CRSITINA prosthetic left hip joint, initial encounter 06/14/2019 I48.0 Paroxysmal atrial fibrillation Robyn Rodriguez, CRISTINA 06/14/2019 I10 Essential (primary) hypertension Robyn Rodriguez, CRISTINA 06/14/2019 F41.9 Anxiety disorder, unspecified Robyn Rodriguez, CRISTINA 06/14/2019 G25.81 Restless legs syndrome Robyn Rodriguez, CRISTINA 06/14/2019 K21.9 Gastro-esophageal reflux disease Robyn Rodriguez, SKIDDER DRIVER without esophagitis 06/08/2019 M25.061 Hemarthrosis, right knee [...] Hall M.D. 04/30/2019 D64.9 Anemia, unspecified Sarah Wasserman DO 04/30/2019 M25.061 Hemarthrosis, right knee LILLIAN Waite 04/30/2019 R32 Unspecified urinary incontinence Saarh Senshahla, DO 04/30/2019 E87.6 Hypokalemia Sarah Lux, DO 04/30/2019 E46 Unspecified protein-calorie Sarah Senshahla, DO malnutrition 04/30/2019 G89.29 Other chronic pain Sarah Lux, DO 04/30/2019 F41.9 Anxiety disorder, unspecified Sarah Senner, DO 04/30/2019 F32.9 Major depressive disorder, single Sarah Marquezshahla, DO episode, unspecified 04/30/2019 I10 Essential (primary) hypertension Sarah Lux, DO 04/29/2019 R41.82 Altered mental status, unspecified Perla Risa Doto, SKIDDER DRIVER 04/29/2019 I48.0 Paroxysmal atrial fibrillation Perla Risa Sears, SKIDDER DRIVER 04/29/2019 F32.9 Major depressive disorder, single Perla Risa Dotraj, SKIDDER DRIVER episode, unspecified 04/29/2019 F41.9 Anxiety disorder, unspecified Perla Risa Doto, SKIDDER DRIVER 04/29/2019 G89.29 Other chronic pain Perla Risa Sears, SKIDDER DRIVER 04/29/2019 E87.8 Other disorders of electrolyte and [facility] Dot, SKIDDER DRIVER fluid balance, not elsewhere classified 04/29/2019 I10 Essential (primary) hypertension Perla Sears, SKIDDER DRIVER 04/27/2019 M25.061 Hemarthrosis, right knee Eliazar Ruiz [...] Presence of right artificial knee joint [place], [place] 01/18/2019 I10 Essential (primary) hypertension [place], [place] 01/17/2019 I49.9 Cardiac arrhythmia, unspecified Radha David M.D. 01/16/2019 M17.11 Unilateral primary osteoarthritis, Eliazar Ruiz M.D. right knee Plan of Treatment Future Appointment(s):07/13/2019 10:15 am - Eliazar Ruiz M.D. at [facility] [place]78/09/2020 - Eliazar Ruiz M.D.M97.12xD Periprosthetic fracture around internal prosthetic left knee joint, subsequent encounterFollow up:One week with x-rays Functional Status Description No Information Available Mental Status Description No Information Available Referrals Description No Information Available
[2019-08-21] MEDS ORDERED: fentaNYL* 50 MCG/ML 2 ML VIAL (100 MCG VIAL) ONE (07:55)
[2019-08-21] MEDS ORDERED: Midazolam* 1 MG/ML 2 ML VIAL (2 MG) ONE (07:55)
[2019-08-21] MEDS ORDERED: ceFAZolin 2 GM in NS PREMIX(*) 2 GM/100 ML BAG IVPB ONE (08:07)
[2019-08-21] MEDS ORDERED: Bupivacaine 0.5% W/EPI SDV* 30 ML VIAL ONE (08:27)
[2019-08-21] MEDS ORDERED: Bupivacaine 0.25% SDV PF* 10 ML VIAL INJ ONE (08:27)
[2019-08-21] MEDS ORDERED: celeCOXIB CAP* 200 MG PO ONE (08:29)
[2019-08-21] MEDS ORDERED: Gabapentin CAP(*) 300 MG PO ONE (08:29)
[2019-08-21] MEDS ORDERED: Acetaminophen TAB* 325 MG PO ONE (08:29)
[2019-08-21] MEDS ORDERED: Gabapentin CAP(*) 300 MG ONE (08:33)
[2019-08-21] MEDS ORDERED: celeCOXIB CAP* 200 MG ONE (08:33)
[2019-08-21] MEDS ORDERED: Acetaminophen TAB* 325 MG ONE (08:33)
[2019-08-21] MEDS ORDERED: Tranexamic Acid 1,000 MG in NS 0.9% 50 ML IV ONE (09:00)
[2019-08-21] MEDS ORDERED: HYDROmorphone INJ1* 1 MG/ML SYRINGE IV PRN (09:04)
[2019-08-21] MEDS ORDERED: oxyCODONE TAB* 5 MG TAB PO PRN ×2 (09:04→11:29)
[2019-08-21] MEDS ORDERED: Naloxone* 0.4 MG/ML 1 ML VIAL IV PRN (09:04)
[2019-08-21] MEDS ORDERED: Propofol* 500 MG/50 ML BTL ONE (10:08)
[2019-08-21] MEDS ORDERED: Lidocaine 2% PF * 5 ML VIAL ONE (10:08)
[2019-08-21] MEDS ORDERED: Bupivacaine 0.5% SDV PF* 30ML VIAL ONE (10:08)
[2019-08-21] MEDS ORDERED: Dexamethasone IV* 4 MG/ML 1 ML (4 MG) ONE (10:08)
[2019-08-21] MEDS ORDERED: Ondansetron INJ* 2 MG/ML VIAL ONE (10:08)
[2019-08-21] MEDS ORDERED: Phenylephrine 40 MCG/ML SYRINGE ONE (10:26)
[2019-08-21] MEDS ORDERED: EPHEDrine (Pressors)* 50 MG/ML VIAL ONE (10:26)
[2019-08-21] MEDS ORDERED: Morphine INJ* 2 MG/ML 1 ML SYRINGE (TWO MG - NEW SYRINGE VERSION) IV PRN (11:29)
[2019-08-21] MEDS ORDERED: Magnesium Hydroxide LIQ* 30 ML UDC PO PRN ×2 (11:29→11:41)
[2019-08-21] MEDS ORDERED: Ondansetron ODT TAB* 4 MG PO PRN (11:29)
[2019-08-21] MEDS ORDERED: diPHENhydraMINE IV* 50 MG/ML 1 ml VIAL (BENADRYL) IV PRN (11:29)
[2019-08-21] MEDS ORDERED: Cyclobenzaprine TAB* 10 MG PO PRN (11:29)
[2019-08-21] MEDS ORDERED: Haloperidol INJ IV/IM* 5 MG/ML AMP ONE (11:32)
[2019-08-21] MEDS ORDERED: Ketorolac INJ* 30 MG/ML 1 ML VIAL ONE (11:40)
[2019-08-21] MEDS ORDERED: Ondansetron TAB* 4 MG PO PRN (11:41)
[2019-08-21] MEDS ORDERED: Albuterol HFA INHALER* 8 gm MDI INH PRN (11:41)
--- NOTE | 2019-08-21 12:05 | PN ---
Progress Note - Progress Note Date of Service: 08/21/19 Note: Pt seen at bedside POD0. She feels well without complaint. Denies CP, SOB, dizziness, nausea. RLE pain well controlled. RLE: Dressing CDI. IROM fitted and placed at bedside for use when up OOB. Ankle is fused, EHL intact. sensation intact to light touch distally, DP2+. Plan is for RLE WBAT with limitation of 0-90 degree knee flexion, IROM ordered and locked 0-90, to be worn whenever active OOB LLE TTWB ( 10%) without ROM restriction. If any feeling of instability may have knee immobilizer and continue ttwb. Patient requests no narcotic use due to hx hallucinations. She will utilize tylenol and ketorolac for primary pain control. It will be her decision if/when she needs a few doses of narcotics which have been ordered, limit narcotic use as much as possible.
[2019-08-21] MEDS: D5W 1/2 NS 1000 ML BAG* 1,000 ML IV SCH (13:24)
[2019-08-21] MEDS: busPIRone TAB* 15 MG PO SCH ×2 (14:43→20:55)
[2019-08-21] MEDS: Gabapentin CAP(*) 300 MG PO SCH ×2 (14:43→20:56)
[2019-08-21] MEDS: traMADol TAB* 50 MG PO PRN ×2 (14:51→20:56)
--- NOTE | 2019-08-21 15:22 | CONS ---
CC: Dr. Carvajal; Dr. Ruiz * CONSULTATION REPORT: DATE OF CONSULT: 08/21/19 PRIMARY CARE PROVIDER: Dr. Carvajal. ORTHOPEDIC SURGEON: Dr. Ruiz. REQUESTING PROVIDER: Dr. Ruiz. REASON FOR CONSULT: Medical co-management. HISTORY OF PRESENT ILLNESS: Ms. Sanchez is a 59-year-old female who has a history of hypertension, paroxysmal atrial fibrillation, depression and anxiety , as well as chronic pain, who was admitted post repair of the right retinaculum. The patient has had a complicated orthopedic history in that on , the patient underwent right total knee arthroplasty with lateral release. Prior to that in September of 2018, the patient underwent left total knee arthroplasty. In May 2019, the patient fell while letting out her son's dogs and sustained a left periprosthetic fracture. The patient has been toe- touch weightbearing and at [facility] for rehab since that time. The patient was noted to have significant dislocation of the right patella with generalized poor tracking of the patella and was felt to need repair of this. The patient underwent repair of the right retinaculum today with Dr. Ruiz. The patient currently states that she is feeling well. She does have some moderate pain in the right knee. She denies any chest pain, shortness of breath , nausea, or vomiting. She states prior to her operation, she did not have any issues with constipation. She does note that she does poorly with narcotics and that she hallucinates. She is requested to use non- narcotic pain medications as first line therapy and narcotics only if absolutely necessary. PAST MEDICAL HISTORY: 1. Paroxysmal atrial fibrillation. 2. Hypertension. 3. Depression and anxiety. 4. Osteoarthritis. 5. GERD. 6. Chronic pain. PAST SURGICAL HISTORY: 1. Bilateral knee replacements. 2. Gastric bypass. 3. Arthrodesis of the right ankle. 4. Hysterectomy. MEDICATIONS: 1. Diclofenac gel 2 g topically q.6 hours p.r.n. pain. 2. Calcium plus D 1 tab p.o. b.i.d. 3. Gabapentin 600 mg p.o. t.i.d. 4. Ferrous sulfate 325 mg p.o. b.i.d. 5. Diclofenac sodium 75 mg p.o. q.h.s. 6. Tylenol 1000 mg p.o. q.8 hours. 7. Requip 1 mg p.o. q.h.s. 8. Depakote ER 750 mg p.o. q.h.s. 9. BuSpar 15 mg p.o. t.i.d. 10. Zofran 4 mg p.o. 4 times daily p.r.n. nausea. 11. Omeprazole 40 mg p.o. daily. 12. Metoprolol XL 25 mg p.o. daily. 13. MOM 30 mL p.o. daily p.r.n. constipation. 14. Duloxetine DR 60 mg p.o. q.h.s. 15. Dulcolax suppository 1 suppository p.r. daily p.r.n. constipation. 16. Albuterol 2 puffs inhaled q.6 hours p.r.n. shortness of breath. ALLERGIES: SULFA. FAMILY HISTORY: Dad at the age of 85. He had coronary disease, hypertension, AFib, and esophageal cancer. Mom is still living. She has AFib, hypertension, and hyperlipidemia. SOCIAL HISTORY: The patient has been a lifelong nonsmoker. She does not drink alcohol. 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 She lives alone, but has a partner , Leigh Ann, who would be her primary healthcare proxy. Her sister, Luz Marina, would be her secondary healthcare proxy. She also has 3 children. REVIEW OF SYSTEMS: A complete 11-system review of systems is obtained. Pertinent positives and negatives are as per HPI and otherwise negative. PHYSICAL EXAM: Blood pressure 124/63, pulse 84, respirations 16, temp 97.0, O2 sat 100% on room air. General: The patient is a well-developed, middle-aged female, who appears slightly older than her stated age, sitting up in the bed, working on her menu, in no acute distress. HEENT: Pupils are equal. Extraocular muscles are intact. Oropharynx is clear. Oral mucosa is moist. Cardiac: Normal S1, S2. Regular rate and rhythm with an occasional skipped beat. There is no lower extremity edema. Pulmonary: Lungs are clear to auscultation anteriorly. Abdomen: Bowel sounds are present. Abdomen is soft, nontender, nondistended. Musculoskeletal: Right lower extremity is in postoperative dressing with Cryo unit in place. Left lower extremity has no obvious joint deformity. Skin: There are no rashes. Neuro: Cranial nerves II through XII are grossly intact. Sensation is intact to light touch throughout. Strength is 5/5 and symmetric in the upper extremities. Lower extremity strength is not tested at this time. Psych: The patient is alert. She is oriented x3. Affect appears appropriate. LABORATORY DATA: None. ASSESSMENT AND PLAN: Ms. Sanchez is a 59-year-old female with complicated orthopedic history since undergoing her initial knee replacement, who has now been admitted post repair of the right retinaculum for a dislocated patella. 1. Status post right retinaculum repair. Management per Orthopedics; however, the patient is to only be weightbearing as tolerated on the right with limitation of 0 to 90 degrees flexion. A knee brace has been ordered to be worn for ambulation. As above, the patient wishes to avoid narcotic pain medications and will utilize Tylenol and ketorolac as first line agents. She does state that her pain is quite severe at this time and is interested in potentially trying tramadol. 2. Left periprosthetic knee fracture. The patient will continue toe-touch weightbearing without range of motion restriction on the left. She ultimately will need to be discharged back from the hospital to [facility] to complete her therapy. 3. Paroxysmal atrial fibrillation. The patient is currently in sinus rhythm. She will be maintained on her metoprolol XL dose of 25 mg daily. She will be monitored on telemetry. She is not on full anticoagulation prior to this admission. DVT prophylaxis will be as per Orthopedics. 4. Hypertension. Blood pressures are under good control currently. She will continue on her usual dose of metoprolol as above. 5. Depression and anxiety. Continue BuSpar, Depakote, and duloxetine. 6. Chronic pain. Continue gabapentin and Tylenol. 7. Gastroesophageal reflux disease. Continue Protonix. 8. Full code. The hospitalist service will continue to follow along. [id number]/[facility] #: [id number] JAVIER
[2019-08-21] MEDS: Ketorolac INJ* 30 MG/ML 1 ML VIAL IV PRN ×2 (16:23→22:19)
[2019-08-21] MEDS: Acetaminophen TAB* 325 MG PO SCH (17:03)
[2019-08-21] MEDS: DULoxetine DR CAP* 60 MG CAP.DR PO SCH (17:27)
[2019-08-21] MEDS: ceFAZolin 1 GM ADVAN(*) 1 GM in NS 0.9% 50 ML* 50 ML IVPB SCH (17:27)
[2019-08-21] MEDS: tiZANidine TAB* 2 MG PO PRN (18:25)
[2019-08-21] MEDS: Calcium/Vitamin D TAB 250/125* TAB PO SCH (20:56)
[2019-08-21] MEDS: rOPINIRole TAB* 1 MG PO SCH (20:56)
[2019-08-21] MEDS: Divalproex ER TAB(*) 250 MG PO SCH (20:57)
[2019-08-21] MEDS: Ferrous Sulfate TAB* 325 MG PO SCH (20:57)
[2019-08-21] MEDS: Magnesium Hydroxide LIQ* 30 ML UDC PO SCH (21:18)
[2019-08-21] MEDS: Docusate CAP* 100 MG PO SCH (21:18)
--- NOTE | 2019-08-21 23:55 | OP ---
DATE OF OPERATION: 08/21/19 - ROOM #332 DATE OF : 62 SURGEON: Eliazar Ruiz MD HARD METALS ENGRAVER HAND: Ingrid Flores RPA ANESTHESIA: Regional/spinal/sedation. PRE-OP DIAGNOSIS: Instability, right patella. POST-OP DIAGNOSIS: Instability, right patella. OPERATIVE PROCEDURE: Right knee medial imbrication with lateral release. INDICATIONS: Ms. Sanchez is a 59-year-old female, who last December underwent a right total knee arthroplasty. She had done well postoperatively, not even going to physical therapy, and several weeks after surgery went to [place] to visit family and had no troubles with the knee at all. She had great motion and great function. She then discontinued her chronic narcotics for her back and she had started falling and with one of the falls, had developed a huge hemarthrosis to the right knee. As the hemarthrosis went down, however, her patella now started to laterally sublux and eventually frankly dislocate. I discussed with her that it is possible that a medial imbrication could work well to restore her function, but I also told her we might need to do a revision of her tibial component. The situation was complex as she had an ankle fusion and the anatomic Persona prosthesis fit perfectly on the top side of her tibial plateau and the drop luís had gone down to the base of the second metatarsal. Unfortunately, the tibial tubercle was further externally rotated. If I would have followed her tibial tubercle and anterior spine of the tibia, she would have had the foot internally rotated for her walking. I therefore had adjusted the knee components at that time and I had thought everything had gone well, concerning how well she did postoperatively. I discussed with her though that if the imbrication did not work that we would probably need to revise the components to change the orientation. Other risks of surgery such as infection, scar formation, stiffness, DVT, development of knee pain, and continued instability were some of the risks discussed. She had been declared medically optimized and wished to proceed. ESTIMATED BLOOD LOSS: Less than 20 cc. COMPLICATIONS: None. DESCRIPTION OF PROCEDURE: The patient had a block placed in the holding area and was brought back to the OR. Spinal anesthesia was introduced. Agosto catheter and tourniquet were placed. Tourniquet though was not used during the case. Right knee was prepped and then draped. An incision was made directly over the old scar and carried down through the skin and subcutaneous scar. Extensor mechanism was exposed and 2 nonpenetrating clamps were then used to clamp the medial side of the patella. A good inch of tissue was caught up into each of them and now with flexion and extension of the knee, patellar tracking was fine. She did not subluxate at all. Parapatellar arthrotomy was made and yellowish blood tinged fluid came out. Knee was then copiously pulse lavaged, removing the rest of the hematoma. She had a very specific band as well over the lateral capsule and pie crusting was done from the mid portion of the patella downwards. This gave a little more motion to the patella coming medially. Four FiberWire stitches were then sewn through the cuff of tissue I left medially, coming upwards into the soft tissues, coming back down and then around, so that the medial side of the arthrotomy would be sitting about 2 cm into the medial tissues. Once these 4 stitches were sewn down, she was again taken through range of motion and I was very pleased about the patellar tracking as she did not subluxate at all. Medial side then of the arthrotomy was then oversewn to the top side of the patella with the Fiber-Wire and then additional stitches of FiberWire were placed to reinforce the entire construct. She was tight with flexing past 120 degrees, but there was no subluxation of the patella at all. With coming to 90 degrees, she flexed easily. Wound was then copiously pulse lavaged and decision was made to stay with the medial imbrication and the lateral release. Subcutaneous tissues were reapproximated with 2-0 Vicryl. Skin was closed using gelacio. Sterile dressing and a Cryo/ Cuff were applied. The patient was then awake and stable on transfer to the recovery room. [id number]/[facility] #: [id number] JAVIER
[2019-08-22] MEDS: Acetaminophen TAB* 325 MG PO SCH ×3 (01:52→17:37)
[2019-08-22] MEDS: ceFAZolin 1 GM ADVAN(*) 1 GM in NS 0.9% 50 ML* 50 ML IVPB SCH ×2 (01:53→10:42)
[2019-08-22] MEDS: Ketorolac INJ* 30 MG/ML 1 ML VIAL IV PRN ×3 (04:38→16:41)
[2019-08-22 04:57] LABS: Hematocrit 29 % (35-47); Hemoglobin 9.8 g/dL (12.0-16.0); Mean Platelet Volume 7.6 fL (7.4-10.4); Platelet Count 216 10^3/uL (150-450)
[2019-08-22 05:15] LABS: BUN/Creatinine Ratio 16.9 (8-20); Calcium 8.3 mg/dL (8.6-10.3); EGFR African American 113.3 (>60); EGFR Non-African American 93.6 (>60); Potassium 4.3 mmol/L (3.5-5.0)
[2019-08-22] MEDS: traMADol TAB* 50 MG PO PRN ×3 (07:19→19:57)
--- NOTE | 2019-08-22 09:14 | PN ---
Progress Note - Progress Note Date of Service: 08/22/19 SOAP: Subjective: []Pt seen at bedside POD 1 sp R medial imbrication with lateral release. She feels well and desires DC back to . Denies CP, SOB, dizziness, nausea, headache, confusion. Knee pain is well controlled with tylenol, tizanidine, tramadol, toradol. Objective: []Gen: NAD, sitting comfortably in wheelchwith IROM after working with PT RLE: Dressing changed, incision is CDI. Ankle is fused, EHL intact. sensation intact to light touch distally, DP2+. Calves supple and nontender without erythema, edema or palpable cords Assessment: []POD 1 sp R medial imbrication with lateral release Plan: [] RLE WBAT with limitation of 0-90 degree knee flexion, IROM limiting ROM 0-90 , to be worn whenever active OOB LLE TTWB ( 10%) without ROM restriction. If any feeling of instability may have knee immobilizer and continue ttwb. Patient requests no narcotic use due to hx hallucinations. She will utilize tylenol and ketorolac for primary pain control. It will be her decision if/when she needs a few doses of narcotics which have been ordered, limit narcotic use as much as possible. Repeat Na today, asymptomatic Ready for DC back to [place] [facility] as soon as insurance approves. Vital Signs Temp 97.9 F 08/22/19 07:52 Pulse 86 08/22/19 07:52 Resp 16 08/22/19 09:17 BP 123/67 08/22/19 07:52 Pulse Ox 100 08/22/19 07:52 Intake & Output 08/21/19 08/22/19 08/22/19 18:59 06:59 18:59 Intake Total 920 1060 Output Total 690 1800 Balance 230 -740 Intake: IV Fluids 800 LR 800 Oral 120 1060 Output: Urine 690 1800 Other: Estimated Void Large # Voids 3 Laboratory Last Values Hgb 9.8 g/dL (12.0-16.0) L 08/22/19 04:27 Hct 29 % (35-47) L 08/22/19 04:27 Plt Count 216 10^3/uL (150-450) 08/22/19 04:27 MPV 7.6 fL (7.4-10.4) 08/22/19 04:27 Sodium 131 mmol/L (135-145) L 08/22/19 04:27 Potassium 4.3 mmol/L (3.5-5.0) 08/22/19 04:27 Chloride 96 mmol/L (101-111) L 08/22/19 04:27 Carbon Dioxide 31 mmol/L (22-32) 08/22/19 04:27 Anion Gap 4 mmol/L (2-11) 08/22/19 04:27 BUN 11 mg/dL (6-24) 08/22/19 04:27 Creatinine 0.65 mg/dL (0.51-0.95) 08/22/19 04:27 Est GFR ( Amer) 113.3 (>60) 08/22/19 04:27 Est GFR (Non-Af Amer) 93.6 (>60) 08/22/19 04:27 BUN/Creatinine Ratio 16.9 (8-20) 08/22/19 04:27 Glucose 108 mg/dL (70-100) H 08/22/19 04:27 Calcium 8.3 mg/dL (8.6-10.3) L 08/22/19 04:27
[2019-08-22] MEDS: busPIRone TAB* 15 MG PO SCH ×3 (09:15→21:21)
[2019-08-22] MEDS: Metoprolol Succinate XL TAB* 25 MG PO SCH (09:15)
[2019-08-22] MEDS: Pantoprazole TAB * 40 MG TAB PO SCH (09:16)
[2019-08-22] MEDS: Multivitamins/Minerals TAB PO SCH (09:16)
[2019-08-22] MEDS: Calcium/Vitamin D TAB 250/125* TAB PO SCH ×2 (09:16→21:22)
[2019-08-22] MEDS: Ferrous Sulfate TAB* 325 MG PO SCH ×2 (09:17→21:21)
[2019-08-22] MEDS: Gabapentin CAP(*) 300 MG PO SCH ×3 (09:17→21:21)
[2019-08-22] MEDS: Docusate CAP* 100 MG PO SCH ×2 (09:28→21:22)
[2019-08-22] MEDS: Magnesium Hydroxide LIQ* 30 ML UDC PO SCH ×2 (09:28→21:22)
[2019-08-22] MEDS ORDERED: Enoxaparin(*) 40 MG/0.4 ML SYR SUBCUT SCH (12:00)
--- NOTE | 2019-08-22 15:17 | PN ---
Subjective Date of Service: 08/22/19 Interval History: Pt is feeling ok but is discouraged about needing to go back to the OR tomorrow. She dislocated her patella earlier today. She denies any pain in her knee while at rest and with it extended. She denies any SOB or CP. No abdominal issues. Objective Active Medications: Acetaminophen (Tylenol Tab*) 975 mg PO Q8H [facility] Last Admin: 08/22/19 09:15 Dose: 975 mg Albuterol (Ventolin Hfa Inhaler*) 2 puff INH Q6H PRN PRN Reason: SOB/WHEEZING Bisacodyl (Dulcolax Supp*) 10 mg ND DAILY PRN PRN Reason: CONSTIPATION Buspirone HCl (Buspar Tab *) 15 mg PO TID [facility] Last Admin: 08/22/19 13:35 Dose: 15 mg Calcium/Vitamin D (Oscal D Tab 250/125*) 2 tab PO BID [facility] Last Admin: 08/22/19 09:16 Dose: 2 tab Diphenhydramine HCl (Benadryl Iv*) 25 mg IV Q6H PRN PRN Reason: PRURITIS Diphenhydramine HCl (Benadryl Po*) 25 mg PO Q6H PRN PRN Reason: PRURITIS Divalproex Sodium (Depakote Er Tab(*)) 750 mg PO BEDTIME [facility] Last Admin: 08/21/19 20:57 Dose: 750 mg Docusate Sodium (Colace Cap*) 100 mg PO BID [facility] Last Admin: 08/22/19 09:28 Dose: Not Given Duloxetine HCl (Cymbalta Cap*) 60 mg PO QPM [facility] Last Admin: 08/21/19 17:27 Dose: 60 mg Enoxaparin Sodium (Lovenox(*)) 40 mg SUBCUT Q24H [facility] Stop: 08/22/19 23:59 Last Admin: 08/22/19 12:31 Dose: 40 mg Ferrous Sulfate (Ferrous Sulfate Tab*) 325 mg PO BID [facility] Last Admin: 08/22/19 09:17 Dose: 325 mg Gabapentin (Neurontin Cap(*)) 600 mg PO TID [facility] Last Admin: 08/22/19 13:35 Dose: 600 mg Dextrose/Sodium Chloride (D5w 1/2 Ns 1000 Ml Bag*) 1,000 mls @ 100 mls/hr IV PER RATE [facility] Last Admin: 08/21/19 13:24 Dose: 100 mls/hr Ketorolac Tromethamine (Toradol Inj*) 30 mg IV Q6H PRN PRN Reason: PAIN - MILD Last Admin: 08/22/19 10:42 Dose: 30 mg Lactulose (Lactulose*) 30 ml PO BID PRN PRN Reason: CONSTIPATION Magnesium Hydroxide (Milk Of Magnesia Liq*) 30 ml PO BID [facility] Last Admin: 08/22/19 09:28 Dose: Not Given Magnesium Hydroxide (Milk Of Magnesia Liq*) 30 ml PO Q6H PRN PRN Reason: CONSTIPATION Metoprolol Succinate (Toprol Xl Tab*) 25 mg PO DAILY [facility] Last Admin: 08/22/19 09:15 Dose: 25 mg Morphine Sulfate (Morphine Inj (Syringe))*) 2 mg IV Q4H PRN PRN Reason: Pain - Unrelieved Multivitamins/Minerals (Theragran/Minerals Tab*) 1 tab PO DAILY [facility] Last Admin: 08/22/19 09:16 Dose: 1 tab Ondansetron HCl (Zofran Inj*) 4 mg IV Q6H PRN PRN Reason: NAUSEA Ondansetron HCl (Zofran Odt Tab*) 4 mg PO Q6H PRN PRN Reason: NAUSEA Oxycodone HCl (Roxycodone Tab*) 5 mg PO Q4H PRN PRN Reason: Pain - Breakthrough Pantoprazole Sodium (Protonix Tab*) 40 mg PO QAM [facility] Last Admin: 08/22/19 09:16 Dose: 40 mg Ropinirole HCl (Requip Tab*) 1 mg PO BEDTIME [facility] Last Admin: 08/21/19 20:56 Dose: 1 mg Tizanidine HCl (Zanaflex Tab*) 2 mg PO Q8H PRN PRN Reason: SPASMS Last Admin: 08/21/19 18:25 Dose: 2 mg Tramadol HCl (Ultram*) 50 mg PO Q6H PRN PRN Reason: PAIN - MODERATE Last Admin: 08/22/19 13:34 Dose: 50 mg Vital Signs - 8 hr 08/22/19 08/22/19 08/22/19 07:19 07:20 07:52 Temperature 97.9 F Pulse Rate 86 Respiratory 16 16 16 Rate Blood Pressure 123/67 (mmHg) O2 Sat by Pulse 100 Oximetry 08/22/19 08/22/19 08/22/19 09:17 11:12 12:30 Temperature 98.5 F Pulse Rate 84 Respiratory 16 17 17 Rate Blood Pressure 111/63 (mmHg) O2 Sat by Pulse 100 Oximetry 08/22/19 08/22/19 13:34 13:35 Temperature Pulse Rate Respiratory 17 17 Rate Blood Pressure (mmHg) O2 Sat by Pulse Oximetry Oxygen Devices in Use Now: None Appearance: Middle aged female sitting up in bed, NAD Eyes: No Scleral Icterus Ears/Nose/Mouth/Throat: Mucous Membranes Moist Respiratory: Symmetrical Chest Expansion and Respiratory Effort, Clear to Auscultation - anteriorly Cardiovascular: NL Sounds; No Murmurs; No JVD, RRR, No Edema Abdominal: NL Sounds; No Tenderness; No Distention Extremities: No Clubbing, Cyanosis, - - R knee in postop dressing with cryo unit in place Skin: No Rash or Ulcers Neurological: Alert and Oriented x 3 Result Diagrams: 08/22/19 04:27 08/22/19 08:42 Microbiology and Other Data: Microbiology 08/21/19 14:05 Nasal Screen MRSA (PCR) - Final Nasal Mrsa Not Detected Assess/Plan/Problems-Billing Ms Sanchez is a 59 yo F who has a h/o PAF, HTN, anxiety/depression and OA who was admitted after undergoing R knee retinaculum repair. - Patient Problems (1) Patellar dislocation Current Visit: Yes Status: Acute Comment: Pt underwent R knee retinaculum repair yesterday. Today she dislocated her patella with the knee flexed to 90 degrees. Plan is to go back to the OR tomorrow. (2) Paroxysmal atrial fibrillation Current Visit: Yes Status: Acute Code(s): I48.0 - PAROXYSMAL ATRIAL FIBRILLATION SNOMED Code(s): 929894125 Comment: Today pt in NSR with frequent PACs. Continue metoprolol XL. No full anticoagulation at baseline. Continue to monitor on tele. (3) Hypertension Current Visit: Yes Status: Acute Code(s): I10 - ESSENTIAL (PRIMARY) HYPERTENSION SNOMED Code(s): 40181601 Comment: BP is under excellent control. Continue current dose of metoprolol XL. (4) Chronic pain Current Visit: Yes Status: Acute Code(s): G89.29 - OTHER CHRONIC PAIN SNOMED Code(s): 29536443 Comment: Continue home regimen of gabapentin and duloxetine. For her acute pain, continue prn tylenol, tramadol and toradol. (5) Anxiety and depression Current Visit: Yes Status: Acute Code(s): F41.9 - ANXIETY DISORDER, UNSPECIFIED; F32.9 - MAJOR DEPRESSIVE DISORDER, SINGLE EPISODE, UNSPECIFIED SNOMED Code(s): 076528818 Comment: Continue buspar, depakote and duloxetine. (6) DVT prophylaxis Current Visit: Yes Status: Acute Code(s): Z29.9 - ENCOUNTER FOR PROPHYLACTIC MEASURES, UNSPECIFIED SNOMED Code(s): 455219285 Comment: lovenox (7) Full code status Current Visit: Yes Status: Acute Code(s): Z78.9 - OTHER SPECIFIED HEALTH STATUS SNOMED Code(s): 040982383 Comment:
--- NOTE | 2019-08-22 17:26 | PN ---
Progress Note - Progress Note Date of Service: 08/22/19 Note: 59 yo female, underwent a TKA in December and initially did well. After falling and sustaining a massive hemarthrosis, the patella no longer tracked properly and began dislocating with flexion. Taken back to the OR Wednesday and with a medial imbrication appeared to do well. Patella tracked well, could be flexed to 125 degrees and while tight at that point, no stitches strained or pulled through the tissue. So I believed that flexing to 90 degrees would be safe. Was doing well this AM until she pushed with the right leg and felt 2 pops on the medial side of the patella and then the patella slid to the lateral side. Repeat x-rays benign, but on exam patella now laterally mobile. I discussed with her that I had though the imbrication would hold nicely. Unfortunately she has proven her soft tissues are inadequate for correcting patella tracking. Her ankle is fused in some internal rotation, as a drop luís from the tibial component aims to the base of the second metatarsal as it is supposed to, but the drop luís does not align with her anterior tibia, so the tibial tubercle is externally rotated, predisposing the patella to sublux and dislocate. Discussed with her rotating the tibial component into external rotation from where it currently is should fix the patella tracking, but will cause the toes of the foot to point inwards. She reports as long as the knee works it will be a good trade off. She is booked tomorrow in the OR for a revision of her tibial component. If the patella tracking is still an issue, will externally rotate the femur as well.
[2019-08-22] MEDS: DULoxetine DR CAP* 60 MG CAP.DR PO SCH (17:37)
[2019-08-22] MEDS: diPHENhydraMINE PO* 25 MG PO PRN (21:21)
[2019-08-22] MEDS: rOPINIRole TAB* 1 MG PO SCH (21:21)
[2019-08-22] MEDS: Divalproex ER TAB(*) 250 MG PO SCH (21:22)
[2019-08-23] MEDS: Acetaminophen TAB* 325 MG PO SCH ×3 (01:03→16:30)
[2019-08-23 05:28] LABS: ABS Eosinophils 0.1 10^3/ul (0-0.6); ABS Lymphocytes 3.6 10^3/ul (1.0-4.8); ABS Monocytes 0.5 10^3/ul (0-0.8); Eosinophil % 1.2 %; Hematocrit 30 % (35-47); Hemoglobin 10.2 g/dL (12.0-16.0); Mean Corpuscular HGB Conc 34 g/dL (31-36); Mean Corpuscular Hemoglobin 33 pg (27-31); Mean Corpuscular Volume 96 fL (80-97); Mean Platelet Volume 7.3 fL (7.4-10.4); Platelet Count 228 10^3/uL (150-450); Red Cell Distribution Width 15 % (10-15); White Blood Count 9.3 10^3/uL (3.5-10.8)
[2019-08-23 05:34] LABS: INR 0.92 (0.82-1.09)
[2019-08-23] MEDS: Ketorolac INJ* 30 MG/ML 1 ML VIAL IV PRN ×2 (05:43→18:54)
[2019-08-23 05:55] LABS: BUN/Creatinine Ratio 15.3 (8-20); Calcium 8.7 mg/dL (8.6-10.3); EGFR African American 83.1 (>60); EGFR Non-African American 68.7 (>60)
[2019-08-23 05:57] LABS: Potassium 5.2 mmol/L (3.5-5.0)
[2019-08-23] MEDS: Docusate CAP* 100 MG PO SCH ×2 (07:42→21:47)
[2019-08-23] MEDS: Magnesium Hydroxide LIQ* 30 ML UDC PO SCH ×2 (07:42→21:48)
[2019-08-23] MEDS: Calcium/Vitamin D TAB 250/125* TAB PO SCH ×2 (08:30→21:47)
[2019-08-23] MEDS: Ferrous Sulfate TAB* 325 MG PO SCH ×2 (08:30→21:46)
[2019-08-23] MEDS: Gabapentin CAP(*) 300 MG PO SCH ×3 (09:39→21:47)
[2019-08-23] MEDS: busPIRone TAB* 15 MG PO SCH ×3 (09:39→21:47)
[2019-08-23] MEDS: Metoprolol Succinate XL TAB* 25 MG PO SCH (09:39)
[2019-08-23] MEDS: Pantoprazole TAB * 40 MG TAB PO SCH (09:39)
[2019-08-23] MEDS: Multivitamins/Minerals TAB PO SCH (09:43)
[2019-08-23] MEDS ORDERED: Bupivacaine 0.25% SDV PF* 10 ML VIAL INJ ONE (11:31)
[2019-08-23] MEDS ORDERED: Bupivacaine 0.5% W/EPI SDV* 30 ML VIAL ONE (11:31)
[2019-08-23] MEDS ORDERED: Midazolam* 1 MG/ML 5 ML VIAL (5 MG) ONE ×2 (12:32→13:56)
[2019-08-23] MEDS ORDERED: Tranexamic Acid 1,000 MG/10 ML SDV ONE (12:32)
[2019-08-23] MEDS ORDERED: ceFAZolin 2 GM in NS PREMIX(*) 2 GM/100 ML BAG IVPB ONE (12:33)
[2019-08-23] MEDS ORDERED: Bupivacaine 0.5% SDV PF* 30ML VIAL ONE ×2 (12:52→13:16)
[2019-08-23] MEDS ORDERED: Tranexamic Acid 1,000 MG in NS 0.9% 50 ML IV ONE (13:00)
[2019-08-23] MEDS ORDERED: fentaNYL* 50 MCG/ML 2 ML VIAL (100 MCG VIAL) ONE (13:15)
[2019-08-23] MEDS ORDERED: KETAMINE HCL* 50 MG/ML 10 ML VIAL ONE (13:40)
[2019-08-23] MEDS ORDERED: Vancomycin(*) 1,000 MG VIAL ONE (13:52)
[2019-08-23] MEDS ORDERED: Phenylephrine 40 MCG/ML SYRINGE ONE (14:43)
[2019-08-23] MEDS ORDERED: DiMENhydriNATE IV* 50 MG/ML VIAL IV PUSH PRN (16:24)
[2019-08-23] MEDS ORDERED: Ondansetron INJ* 2 MG/ML VIAL IV PRN (16:24)
[2019-08-23] MEDS ORDERED: Ketorolac INJ* 30 MG/ML 1 ML VIAL IV PRN (16:24)
[2019-08-23] MEDS ORDERED: Naloxone* 0.4 MG/ML 1 ML VIAL IV PRN (16:24)
[2019-08-23] MEDS ORDERED: HYDROmorphone INJ1* 1 MG/ML SYRINGE IV PRN (16:24)
[2019-08-23] MEDS ORDERED: fentaNYL* 50 MCG/ML 2 ML VIAL (100 MCG VIAL) IV PRN (16:24)
[2019-08-23] MEDS ORDERED: Acetaminophen TAB* 325 MG ONE (16:29)
[2019-08-23] MEDS: DULoxetine DR CAP* 60 MG CAP.DR PO SCH (18:15)
[2019-08-23] MEDS: Ondansetron INJ* 2 MG/ML VIAL IV PRN (19:37)
[2019-08-23] MEDS: D5W 1/2 NS 1000 ML BAG* 1,000 ML IV SCH (21:36)
[2019-08-23] MEDS: ceFAZolin 1 GM* X 3 DOSES POST-OP Q8H (AddVan) IVPB SCH ×2 (21:37)
[2019-08-23] MEDS: rOPINIRole TAB* 1 MG PO SCH (21:47)
[2019-08-23] MEDS: traMADol TAB* 50 MG PO PRN (21:48)
[2019-08-23] MEDS: Divalproex ER TAB(*) 250 MG PO SCH (21:49)
[2019-08-24] MEDS: Acetaminophen TAB* 325 MG PO SCH ×3 (01:21→17:25)
[2019-08-24] MEDS: Ketorolac INJ* 30 MG/ML 1 ML VIAL IV PRN ×3 (01:21→19:50)
--- NOTE | 2019-08-24 03:04 | OP ---
DATE OF OPERATION: 08/23/19 - ROOM #[id number] DATE OF : 62 SURGEON: Eliazar Ruiz MD. LOAD MANAGER: Ingrid Flores RPA. ANESTHESIA: Regional/spinal/sedation. PRE-OP DIAGNOSIS: Subluxating right patella. POST-OP DIAGNOSIS: Subluxating right patella. OPERATIVE PROCEDURE: 1. Revision of right tibial component, total knee. 2. Imbrication, right medial capsule. ESTIMATED BLOOD LOSS: 75 cc. COMPLICATIONS: None. INDICATIONS: Ms. Sanchez is a 59-year-old female who on Wednesday underwent a medial imbrication of her capsule. I could flex the knee past 120 degrees and the patella appeared to tract well and her tissues had held. I repeatedly flexed the knee back and forth to make sure that this was good and it appeared that it was. Unfortunately, yesterday morning, she felt 2 pops within the knee and then noted that the patella was starting to subluxate towards the lateral side. I was notified, and after my office hours, I came over and discussed with her that she has demonstrated that her soft tissues cannot hold the patella in place. Therefore, taking the tibial component out of internal rotation should help to improve the tracking of her patella. I discussed with her though, that with doing that we will turn her foot inwards as her foot was fused in internal rotation. By palpating on her knee, I showed her where the tibial tubercle was and how this was rotated internally compared to where the base of her second metatarsal was, and I discussed with her how those are the landmarks that we use for placement of the knee replacement. She reports she was fine with having the foot turn inwards as long as the knee works well. She was added on to the room that was ending early today and was willing to proceed with surgery. DESCRIPTION OF PROCEDURE: The patient had a block placed in the holding area and was brought back to the OR. Spinal anesthesia was introduced. Tourniquet was placed over the proximal right thigh but was not used during the case. Right knee was prepped and then draped. [place] were then removed and [place] draping was then completed. Incision was made directly over the old scar and small sutures were taken out as encountered. FiberWires were then sharply cut and removed and a nice access to the knee joint was obtained. Little more sharp dissection was carried out on the medial side of the tibia to allow for better exposure and similarly a little more scar tissue was removed from the underside of the patellar tendon. This gave nice exposure to the front of the tibial component. Polyethylene remover was then placed and the polyethylene was popped out of place. Knee was then copiously pulse lavaged. Thin flexible osteotomes were then used to break the interface between the component and the cement and her bone though was softer than the cement, so some of this went down and underneath the cement. With using the thin flexible osteotomes coming all the way around the proximal tibia, I was able to slowly release the cement zamudio. Simmons was then placed under the lip of the tibial component and with back- striking sharply a few times, I was able to remove the tibial component in its entirety. Almost no bone was lost, but where I had used the flexible osteotome , her bone was mushed downwards a little bit. Reamers were used to clean up the inner side of the tibial canal, and at an 18, I finally had a good side-to- side bite. Stem with the cutter was then placed and great care was taken to make sure I had rotation that was in line with the tibial tubercle. Cleanup cut was taken, taking less than 5 mm of the proximal tibia. Great care was taken not to have the saw touch the femoral component and the patellar components. [place] was also used to take down the corner of the bone that was still left on the lateral side and nice clean cut was obtained. #4 and then a 5 were trialed and I liked the coverage with the 5, as this sat nicely and with the 5 mm augments, this was pinned into place. With a 12 trial polyethylene with flexion and extension, she tended to sublux just a little bit on the patella. With examination of the lateral retinaculum, there was still a thick band still present and this was cut rather than pie crusted as I had done previously so that I could pull the patella medially. Once this was done, her patella tracking was good, but with the wide exposure I had, she still had a tendency to sometimes sublux a bit. I thought, however, that this was more on the loss of the medial soft tissues because of the larger exposure and that with an imbrication that this would be all right once again. Knee was again copiously pulse lavaged and searched for small pieces of cement. Trial tibia was then inserted with a stem extension and she had the same good motion and stability. Two packages of tobramycin cement was called for and the tibial component was then being assembled with stem extension and the augments. Once the cement had been prepared, this was smeared on the proximal tibia as well as the component and the tibial component was impacted into place. Excess cement was removed and cement was allowed to harden. Once the cement had hardened, she was trialed with the 12 and the knee came out nicely and patella usually tracked well. Once she was trialed, the knee was again copiously pulse lavaged. 12 polyethylene was then snapped into place. Medial imbrication was then repaired and once that was done, I could easily flex the knee to 90 degrees and there was absolutely no subluxation of the patella. This was repeated until I was convinced again that this would work nicely. Remainder of the parapatellar arthrotomy was repaired using #1 Vicryl sutures proximally. FiberWire had been used to bring the medial capsule over and then the part of the medial capsule was then oversewn on top side of the patella and extensor mechanism. 1 g of vancomycin had been sprinkled into the knee joint. Once the arthrotomy was closed, the knee was injected with 1 g of TXA into the joint. Subcutaneous tissues were copiously lavaged as well and then repaired using 2-0 Vicryl sutures. The skin was closed using gelacio. Sterile dressing and an IROM locked from 0 to 30 was placed in the OR. The patient was then awake and stable on transfer to the recovery room. [id number]/[facility] #: [id number] JAVIER
[2019-08-24] MEDS ORDERED: NS 0.9% 1000 ML** 1,000 ML IV ONE (04:10)
[2019-08-24] MEDS: ceFAZolin 1 GM* X 3 DOSES POST-OP Q8H (AddVan) IVPB SCH ×4 (05:27→12:24)
[2019-08-24 06:23] LABS: Hematocrit 25 % (35-47); Hemoglobin 8.4 g/dL (12.0-16.0); Mean Platelet Volume 7.7 fL (7.4-10.4); Platelet Count 173 10^3/uL (150-450)
[2019-08-24] MEDS: traMADol TAB* 50 MG PO PRN (06:32)
[2019-08-24 06:42] LABS: CO2 Carbon Dioxide 34 mmol/L (22-32); Calcium 7.9 mg/dL (8.6-10.3); Chloride 101 mmol/L (101-111); Sodium 134 mmol/L (135-145)
[2019-08-24 06:48] LABS: BUN/Creatinine Ratio 16.4 (8-20); Blood Urea Nitrogen 11 mg/dL (6-24); EGFR African American 109.4 (>60); EGFR Non-African American 90.4 (>60); Glucose 95 mg/dL (70-100)
[2019-08-24 06:52] LABS: Potassium 5.2 mmol/L (3.5-5.0)
--- NOTE | 2019-08-24 08:04 | PN ---
Subjective Date of Service: 08/24/19 Interval History: patient seen today, awake, still have pain right knee. no acute events overnight. denies any chest pain no fever or chills Past Medical History: Unchanged from Admission Objective Active Medications: Acetaminophen (Tylenol Tab*) 975 mg PO Q8H [facility] Last Admin: 08/24/19 01:21 Dose: 975 mg Albuterol (Ventolin Hfa Inhaler*) 2 puff INH Q6H PRN PRN Reason: SOB/WHEEZING Bisacodyl (Dulcolax Supp*) 10 mg IA DAILY PRN PRN Reason: CONSTIPATION Buspirone HCl (Buspar Tab *) 15 mg PO TID [facility] Last Admin: 08/23/19 21:47 Dose: 15 mg Calcium/Vitamin D (Oscal D Tab 250/125*) 2 tab PO BID [facility] Last Admin: 08/23/19 21:47 Dose: 2 tab Diphenhydramine HCl (Benadryl Iv*) 25 mg IV Q6H PRN PRN Reason: PRURITIS Diphenhydramine HCl (Benadryl Po*) 25 mg PO Q6H PRN PRN Reason: PRURITIS Last Admin: 08/22/19 21:21 Dose: 25 mg Divalproex Sodium (Depakote Er Tab(*)) 750 mg PO BEDTIME [facility] Last Admin: 08/23/19 21:49 Dose: 750 mg Docusate Sodium (Colace Cap*) 100 mg PO BID [facility] Last Admin: 08/23/19 21:47 Dose: 100 mg Duloxetine HCl (Cymbalta Cap*) 60 mg PO QPM [facility] Last Admin: 08/23/19 18:15 Dose: 60 mg Enoxaparin Sodium (Lovenox(*)) 40 mg SUBCUT DAILY [facility] Ferrous Sulfate (Ferrous Sulfate Tab*) 325 mg PO BID [facility] Last Admin: 08/23/19 21:46 Dose: 325 mg Gabapentin (Neurontin Cap(*)) 600 mg PO TID [facility] Last Admin: 08/23/19 21:47 Dose: 600 mg Dextrose/Sodium Chloride (D5w 1/2 Ns 1000 Ml Bag*) 1,000 mls @ 100 mls/hr IV PER RATE [facility] Last Admin: 08/23/19 21:36 Dose: 100 mls/hr Cefazolin Sodium 1 gm/ Sodium (Chloride) 50 mls @ 200 mls/hr IVPB Q8H [facility] Stop: 08/24/19 13:14 Last Admin: 08/24/19 05:27 Dose: 200 mls/hr Ketorolac Tromethamine (Toradol Inj*) 30 mg IV Q6H PRN PRN Reason: PAIN - MILD Last Admin: 08/24/19 01:21 Dose: 30 mg Lactulose (Lactulose*) 30 ml PO BID PRN PRN Reason: CONSTIPATION Magnesium Hydroxide (Milk Of Magnesia Liq*) 30 ml PO BID [facility] Last Admin: 08/23/19 21:48 Dose: 30 ml Magnesium Hydroxide (Milk Of Magnesia Liq*) 30 ml PO Q6H PRN PRN Reason: CONSTIPATION Metoprolol Succinate (Toprol Xl Tab*) 25 mg PO DAILY [facility] Last Admin: 08/23/19 09:39 Dose: 25 mg Morphine Sulfate (Morphine Inj (Syringe))*) 2 mg IV Q4H PRN PRN Reason: Pain - Unrelieved Last Admin: 08/23/19 19:37 Dose: 2 mg Multivitamins/Minerals (Theragran/Minerals Tab*) 1 tab PO DAILY [facility] Last Admin: 08/23/19 09:43 Dose: Not Given Ondansetron HCl (Zofran Inj*) 4 mg IV Q6H PRN PRN Reason: NAUSEA Last Admin: 08/23/19 19:37 Dose: 4 mg Ondansetron HCl (Zofran Odt Tab*) 4 mg PO Q6H PRN PRN Reason: NAUSEA Oxycodone HCl (Roxycodone Tab*) 5 mg PO Q4H PRN PRN Reason: Pain - Breakthrough Pantoprazole Sodium (Protonix Tab*) 40 mg PO QAM [facility] Last Admin: 08/23/19 09:39 Dose: 40 mg Ropinirole HCl (Requip Tab*) 1 mg PO BEDTIME [facility] Last Admin: 08/23/19 21:47 Dose: 1 mg Tizanidine HCl (Zanaflex Tab*) 2 mg PO Q8H PRN PRN Reason: SPASMS Last Admin: 08/21/19 18:25 Dose: 2 mg Tramadol HCl (Ultram*) 50 mg PO Q6H PRN PRN Reason: PAIN - MODERATE Last Admin: 08/24/19 06:32 Dose: 50 mg Vital Signs - 8 hr 08/24/19 08/24/19 08/24/19 04:02 05:30 06:32 Temperature 99.7 F Pulse Rate 85 Respiratory 20 20 Rate Blood Pressure 84/42 99/52 (mmHg) O2 Sat by Pulse 100 Oximetry 08/24/19 07:49 Temperature 98.6 F Pulse Rate 88 Respiratory 16 Rate Blood Pressure 110/56 (mmHg) O2 Sat by Pulse 98 Oximetry Oxygen Devices in Use Now: None Appearance: awake, alert. no distress Eyes: No Scleral Icterus, - - EOMI Ears/Nose/Mouth/Throat: Clear Oropharnyx, Mucous Membranes Moist Neck: NL Appearance and Movements; NL JVP, Trachea Midline Respiratory: Symmetrical Chest Expansion and Respiratory Effort, Clear to Auscultation Cardiovascular: NL Sounds; No Murmurs; No JVD, No Edema Abdominal: NL Sounds; No Tenderness; No Distention Extremities: - - Right lower extremity edema post operatively, immoblized Neurological: Alert and Oriented x 3 Result Diagrams: 08/24/19 05:59 08/24/19 05:59 Microbiology and Other Data: Microbiology 08/21/19 14:05 Nasal Screen MRSA (PCR) - Final Nasal Mrsa Not Detected Assess/Plan/Problems-Billing Ms Sanchez is a 59 yo F who has a h/o PAF, HTN, anxiety/depression and OA who was admitted after undergoing R knee retinaculum repair. - Patient Problems (1) Anemia Current Visit: No Status: Acute Code(s): D64.9 - ANEMIA, UNSPECIFIED SNOMED Code(s): 176624183 Comment: - Acute post op on chronic (iron studies suggestive of ACD and iron defficiency ) - Continue PO iron supplement - In 04/2019 pt was dx with hemarthosis and eliquis was stopped (previously on in for PAF). - continue PPI to daily. (2) Patellar dislocation Current Visit: Yes Status: Acute Comment: - Pt underwent R knee retinaculum repair unfortunately had her patella subluxating with the knee flexed to 90 degrees. - Underwent revision and fixation on 08/23/19 - continue recommendation as per Ortho for pain, diet and activity (3) Anxiety and depression Current Visit: Yes Status: Acute Code(s): F41.9 - ANXIETY DISORDER, UNSPECIFIED; F32.9 - MAJOR DEPRESSIVE DISORDER, SINGLE EPISODE, UNSPECIFIED SNOMED Code(s): 432093940 Comment: - Continue Buspar 15 mg tid, Depakote 750 mg HS, and Duloxetine 60 mg am. (4) Chronic pain Current Visit: Yes Status: Acute Code(s): G89.29 - OTHER CHRONIC PAIN SNOMED Code(s): 27441961 Comment: - Continue home regimen of gabapentin 600 mg tid and duloxetine 60mg QPM - For her acute pain, continue prn tylenol, tramadol 50 mg Q6hr and toradol 30 mg Q6hr. (5) Hypertension Current Visit: Yes Status: Acute Code(s): I10 - ESSENTIAL (PRIMARY) HYPERTENSION SNOMED Code(s): 33617672 Comment: - BP is over compensated. Low at times. - May need to cut back on pain meds to avoid holding her beta cheryle (6) Paroxysmal atrial fibrillation Current Visit: Yes Status: Acute Code(s): I48.0 - PAROXYSMAL ATRIAL FIBRILLATION SNOMED Code(s): 289836895 Comment: - Today pt in NSR with frequent PACs. Continue metoprolol XL. - No full anticoagulation at baseline. - Continue to monitor on tele. (7) DVT prophylaxis Current Visit: Yes Status: Acute Code(s): Z29.9 - ENCOUNTER FOR PROPHYLACTIC MEASURES, UNSPECIFIED SNOMED Code(s): 463589953 Comment: bari
[2019-08-24] MEDS: Magnesium Hydroxide LIQ* 30 ML UDC PO SCH ×2 (08:20→21:23)
[2019-08-24] MEDS: Docusate CAP* 100 MG PO SCH ×2 (08:20→21:23)
[2019-08-24] MEDS: Gabapentin CAP(*) 300 MG PO SCH ×3 (08:21→21:20)
[2019-08-24] MEDS: Ferrous Sulfate TAB* 325 MG PO SCH ×2 (08:21→21:21)
[2019-08-24] MEDS: Metoprolol Succinate XL TAB* 25 MG PO SCH (08:21)
[2019-08-24] MEDS: busPIRone TAB* 15 MG PO SCH ×3 (08:22→21:21)
[2019-08-24] MEDS: Pantoprazole TAB * 40 MG TAB PO SCH (08:22)
[2019-08-24] MEDS: Multivitamins/Minerals TAB PO SCH (08:22)
[2019-08-24] MEDS: Calcium/Vitamin D TAB 250/125* TAB PO SCH ×2 (08:22→21:21)
[2019-08-24] MEDS: D5W 1/2 NS 1000 ML BAG* 1,000 ML IV SCH ×2 (08:48→19:41)
[2019-08-24] MEDS: Enoxaparin(*) 40 MG/0.4 ML SYR SUBCUT SCH (12:24)
[2019-08-24] MEDS: tiZANidine TAB* 2 MG PO PRN ×2 (12:32→21:20)
--- NOTE | 2019-08-24 14:53 | PN ---
Progress Note - Progress Note Date of Service: 08/24/19 SOAP: Subjective: []Pt seen at bedside. She feels well without CP, SOB, dizziness, nausea. Objective: []GEN: NAD, appears well RLE: Dressing CDI, IROM locked 0-30. Thigh soft, DF/PF intact, DP2+, sensation intact to light touch distally Calves supple and nontender without erythema, edema or palpable cords Assessment: [] Subluxating right patella. POD 1 sp 1. Revision of right tibial component, total knee. 2. Imbrication, right medial capsule. Plan: []WBAT RLE locked 0-30 in IROM TTWB LLE 10% weight without ROM restriction lovenox 40 mg sq qd x 30 days post op Soft BP - fluids and hold narcotics. Keep betablocker if able due to tendency to go into rapid a fib. Agreeable to transfusion if needed, will check H&H tomorrow Change dressing 08/25, please keep leg extended during dressing change Vital Signs Temp 99.3 F 08/24/19 14:32 Pulse 79 08/24/19 14:32 Resp 16 08/24/19 14:32 BP 96/52 08/24/19 14:32 Pulse Ox 95 08/24/19 14:32 Intake & Output 08/23/19 08/24/19 08/24/19 18:59 06:59 18:59 Intake Total 1600 3078 603 Output Total 1500 300 800 Balance 100 2778 -197 Intake: IV Fluids 1600 1678 310 ABX - CEFAZOLIN 53 D5W 1/2 NS 635 310 NS (0.9%) 990 lr 1600 IVPB 53 ABX - CEFAZOLIN 53 Oral 1400 240 Output: Urine 550 300 800 Agosto 950 Other: Estimated Void Small # Bowel Movements 0 0 Laboratory Last Values WBC 9.3 10^3/uL (3.5-10.8) 08/23/19 05:19 RBC 3.10 10^6 /uL (3.70-4.87) L 08/23/19 05:19 Hgb 8.4 g/dL (12.0-16.0) L 08/24/19 05:59 Hct 25 % (35-47) L 08/24/19 05:59 MCV 96 fL (80-97) 08/23/19 05:19 MCH 33 pg (27-31) H 08/23/19 05:19 MCHC 34 g/dL (31-36) 08/23/19 05:19 RDW 15 % (10-15) 08/23/19 05:19 Plt Count 173 10^3/uL (150-450) 08/24/19 05:59 MPV 7.7 fL (7.4-10.4) 08/24/19 05:59 Neut % (Auto) 54.3 % 08/23/19 05:19 Lymph % (Auto) 39.0 % 08/23/19 05:19 [place] % (Auto) 5.3 % 08/23/19 05:19 Eos % (Auto) 1.2 % 08/23/19 05:19 Baso % (Auto) 0.2 % 08/23/19 05:19 Absolute Neuts (auto) 5.0 10^3/ul (1.5-7.7) 08/23/19 05:19 Absolute Lymphs (auto) 3.6 10^3/ul (1.0-4.8) 08/23/19 05:19 Absolute Monos (auto) 0.5 10^3/ul (0-0.8) 08/23/19 05:19 Absolute Eos (auto) 0.1 10^3/ul (0-0.6) 08/23/19 05:19 Absolute Basos (auto) 0.0 10^3/ul (0-0.2) 08/23/19 05:19 Absolute Nucleated RBC 0.0 10^3/ul 08/23/19 05:19 Nucleated RBC % 0.0 08/23/19 05:19 INR (Anticoag Therapy) 0.92 (0.82-1.09) 08/23/19 05:19 Sodium 134 mmol/L (135-145) L 08/24/19 05:59 Potassium 5.2 mmol/L (3.5-5.0) H 08/24/19 05:59 Chloride 101 mmol/L (101-111) 08/24/19 05:59 Carbon Dioxide 34 mmol/L (22-32) H 08/24/19 05:59 Anion Gap Not Reportable 08/24/19 05:59 BUN 11 mg/dL (6-24) 08/24/19 05:59 Creatinine 0.67 mg/dL (0.51-0.95) 08/24/19 05:59 Est GFR ( Amer) 109.4 (>60) 08/24/19 05:59 Est GFR (Non-Af Amer) 90.4 (>60) 08/24/19 05:59 BUN/Creatinine Ratio 16.4 (8-20) 08/24/19 05:59 Glucose 95 mg/dL (70-100) 08/24/19 05:59 Calcium 7.9 mg/dL (8.6-10.3) L 08/24/19 05:59 Blood Type A Positive 08/23/19 05:19 Antibody Screen Negative 08/23/19 05:19
[2019-08-24] MEDS: DULoxetine DR CAP* 60 MG CAP.DR PO SCH (17:25)
[2019-08-24] MEDS: rOPINIRole TAB* 1 MG PO SCH (21:20)
[2019-08-24] MEDS: Divalproex ER TAB(*) 250 MG PO SCH (21:22)
[2019-08-24] MEDS: diPHENhydraMINE PO* 25 MG PO PRN (21:30)
[2019-08-25] MEDS: Acetaminophen TAB* 325 MG PO SCH ×3 (01:30→16:50)
[2019-08-25] MEDS: tiZANidine TAB* 2 MG PO PRN ×3 (05:33→20:49)
[2019-08-25] MEDS: D5W 1/2 NS 1000 ML BAG* 1,000 ML IV SCH (05:34)
[2019-08-25 07:05] LABS: Hematocrit 19 % (35-47); Hemoglobin 6.7 g/dL (12.0-16.0); Mean Platelet Volume 7.9 fL (7.4-10.4); Platelet Count 166 10^3/uL (150-450)
[2019-08-25] MEDS: Docusate CAP* 100 MG PO SCH ×2 (07:23→20:50)
[2019-08-25] MEDS: Magnesium Hydroxide LIQ* 30 ML UDC PO SCH ×2 (07:43→20:50)
[2019-08-25] MEDS: Enoxaparin(*) 40 MG/0.4 ML SYR SUBCUT SCH (08:11)
[2019-08-25] MEDS: Ketorolac INJ* 30 MG/ML 1 ML VIAL IV PRN (08:12)
[2019-08-25] MEDS: busPIRone TAB* 15 MG PO SCH ×3 (08:15→20:50)
[2019-08-25] MEDS: Metoprolol Succinate XL TAB* 25 MG PO SCH (08:15)
[2019-08-25] MEDS: Multivitamins/Minerals TAB PO SCH (08:15)
[2019-08-25] MEDS: Pantoprazole TAB * 40 MG TAB PO SCH (08:15)
[2019-08-25] MEDS: Ferrous Sulfate TAB* 325 MG PO SCH ×2 (08:15→20:48)
[2019-08-25] MEDS: Calcium/Vitamin D TAB 250/125* TAB PO SCH ×2 (08:16→20:48)
[2019-08-25] MEDS: Gabapentin CAP(*) 300 MG PO SCH ×3 (08:16→20:49)
[2019-08-25] MEDS: traMADol TAB* 50 MG PO PRN ×2 (15:29→22:24)
--- NOTE | 2019-08-25 16:15 | PN ---
Subjective Date of Service: 08/25/19 Interval History: seen this morning, discussed with ortho. anemia will be getting 2 units pRBCs. hold lovenox and toradol for today and recheck labs in am. I spoke to patient and unfortunately upset but agreed for the transfusion. NO chest pain or shortness of breath Past Medical History: Unchanged from Admission Objective Active Medications: Acetaminophen (Tylenol Tab*) 975 mg PO Q8H [facility] Last Admin: 08/25/19 08:15 Dose: 975 mg Albuterol (Ventolin Hfa Inhaler*) 2 puff INH Q6H PRN PRN Reason: SOB/WHEEZING Bisacodyl (Dulcolax Supp*) 10 mg [place] DAILY PRN PRN Reason: CONSTIPATION Buspirone HCl (Buspar Tab *) 15 mg PO TID [facility] Last Admin: 08/25/19 13:05 Dose: 15 mg Calcium/Vitamin D (Oscal D Tab 250/125*) 2 tab PO BID [facility] Last Admin: 08/25/19 08:16 Dose: 2 tab Diphenhydramine HCl (Benadryl Iv*) 25 mg IV Q6H PRN PRN Reason: PRURITIS Diphenhydramine HCl (Benadryl Po*) 25 mg PO Q6H PRN PRN Reason: PRURITIS Last Admin: 08/24/19 21:30 Dose: 25 mg Divalproex Sodium (Depakote Er Tab(*)) 750 mg PO BEDTIME [facility] Last Admin: 08/24/19 21:22 Dose: 750 mg Docusate Sodium (Colace Cap*) 100 mg PO BID [facility] Last Admin: 08/25/19 07:23 Dose: Not Given Duloxetine HCl (Cymbalta Cap*) 60 mg PO QPM [facility] Last Admin: 08/24/19 17:25 Dose: 60 mg Ferrous Sulfate (Ferrous Sulfate Tab*) 325 mg PO BID [facility] Last Admin: 08/25/19 08:15 Dose: 325 mg Gabapentin (Neurontin Cap(*)) 600 mg PO TID [facility] Last Admin: 08/25/19 13:05 Dose: 600 mg Dextrose/Sodium Chloride (D5w 1/2 Ns 1000 Ml Bag*) 1,000 mls @ 100 mls/hr IV PER RATE [facility] Last Admin: 08/25/19 05:34 Dose: 100 mls/hr Lactulose (Lactulose*) 30 ml PO BID PRN PRN Reason: CONSTIPATION Magnesium Hydroxide (Milk Of Magnesia Liq*) 30 ml PO BID [facility] Last Admin: 08/25/19 07:43 Dose: Not Given Magnesium Hydroxide (Milk Of Magnesia Liq*) 30 ml PO Q6H PRN PRN Reason: CONSTIPATION Metoprolol Succinate (Toprol Xl Tab*) 25 mg PO DAILY [facility] Last Admin: 08/25/19 08:15 Dose: 25 mg Morphine Sulfate (Morphine Inj (Syringe))*) 2 mg IV Q4H PRN PRN Reason: Pain - Unrelieved Last Admin: 08/23/19 19:37 Dose: 2 mg Ondansetron HCl (Zofran Inj*) 4 mg IV Q6H PRN PRN Reason: NAUSEA Last Admin: 08/23/19 19:37 Dose: 4 mg Ondansetron HCl (Zofran Odt Tab*) 4 mg PO Q6H PRN PRN Reason: NAUSEA Oxycodone HCl (Roxycodone Tab*) 5 mg PO Q4H PRN PRN Reason: Pain - Breakthrough Pantoprazole Sodium (Protonix Tab*) 40 mg PO QAM [facility] Last Admin: 08/25/19 08:15 Dose: 40 mg Ropinirole HCl (Requip Tab*) 1 mg PO BEDTIME [facility] Last Admin: 08/24/19 21:20 Dose: 1 mg Tizanidine HCl (Zanaflex Tab*) 2 mg PO Q8H PRN PRN Reason: SPASMS Last Admin: 08/25/19 13:05 Dose: 2 mg Tramadol HCl (Ultram*) 50 mg PO Q6H PRN PRN Reason: PAIN - MODERATE Last Admin: 08/25/19 15:29 Dose: 50 mg Vital Signs - 8 hr 08/25/19 08/25/19 08/25/19 08:16 09:19 10:06 Temperature 98.1 F Pulse Rate 67 Respiratory 18 16 18 Rate Blood Pressure 90/55 (mmHg) O2 Sat by Pulse 100 Oximetry 08/25/19 08/25/19 08/25/19 10:50 11:05 13:05 Temperature 99 F 98.3 F Pulse Rate 80 76 Respiratory 18 18 18 Rate Blood Pressure 78/50 80/48 (mmHg) O2 Sat by Pulse Oximetry 0208/25/19 08/25/19 14:15 14:53 15:29 Temperature 98.2 F Pulse Rate 59 Respiratory 16 18 18 Rate Blood Pressure 100/60 (mmHg) O2 Sat by Pulse 97 Oximetry 08/25/19 15:30 Temperature 98.3 F Pulse Rate 74 Respiratory 18 Rate Blood Pressure 88/60 (mmHg) O2 Sat by Pulse Oximetry Oxygen Devices in Use Now: None Appearance: awake, alert no distress Eyes: No Scleral Icterus, - - EOMI Ears/Nose/Mouth/Throat: NL Teeth, Lips, Gums, Mucous Membranes Moist Neck: NL Appearance and Movements; NL JVP, Trachea Midline Respiratory: Symmetrical Chest Expansion and Respiratory Effort, Clear to Auscultation Cardiovascular: NL Sounds; No Murmurs; No JVD, RRR Abdominal: NL Sounds; No Tenderness; No Distention Extremities: - - Right lower extremity edema post operatively, immoblized Skin: No Rash or Ulcers Neurological: Alert and Oriented x 3, NL Muscle Strength and Tone - Nutrition: Malnutrition Diagnosis/Plan Malnutrition Assessment by Registered Dietitian: Malnutrition Assessment Clinical Characteristics Chronic,Severe Malnutrition Assessment: - wt loss 22.4% in past nine months (from 249# Criteria to 187# since December 2018) - severe orbital fat pad and temporal wasting Malnutrition Assessment: - unrestricted diet; texture modifications per Interventions pt preference - obtain preferred supplement (Premiere Protein ) from home (or [employer]) - regulation of bowel regimen given use of pain meds and iron supplementation Malnutrition Assessment: Goals 1. pt will tolerate po intake without adverse GI effects 2. pt will tolerate least-restrictive diet texture without difficulty chewing (or swallowing) 3. adequate po intake to maintain lean body mass and hydration without add'l wt gain 4. achieve and maintain serum electrolytes levels WNL 5. achieve and maintain regulated bowel pattern without c/o constipation (or diarrhea) Result Diagrams: 08/25/19 06:34 08/24/19 05:59 Microbiology and Other Data: Microbiology 08/21/19 14:05 Nasal Screen MRSA (PCR) - Final Nasal Mrsa Not Detected Assess/Plan/Problems-Billing Ms Sanchez is a 59 yo F who has a h/o PAF, HTN, anxiety/depression and OA who was admitted after undergoing R knee retinaculum repair. - Patient Problems (1) Anemia Current Visit: No Status: Acute Code(s): D64.9 - ANEMIA, UNSPECIFIED SNOMED Code(s): 776330609 Comment: - Acute post op on chronic (iron studies suggestive of ACD and iron defficiency ) - Continue PO iron supplement - In 04/2019 pt was dx with hemarthosis and eliquis was stopped (previously on in for PAF). - continue PPI to daily. - Will transfuse 2 untis today. hold lovenox and toradol. recheck in am (2) Patellar dislocation Current Visit: Yes Status: Acute Comment: - Pt underwent R knee retinaculum repair unfortunately had her patella subluxating with the knee flexed to 90 degrees. - Underwent revision and fixation on 08/23/19 - continue recommendation as per Ortho for pain, diet and activity (3) Anxiety and depression Current Visit: Yes Status: Acute Code(s): F41.9 - ANXIETY DISORDER, UNSPECIFIED; F32.9 - MAJOR DEPRESSIVE DISORDER, SINGLE EPISODE, UNSPECIFIED SNOMED Code(s): 455514435 Comment: - Continue Buspar 15 mg tid, Depakote 750 mg HS, and Duloxetine 60 mg am. (4) Chronic pain Current Visit: Yes Status: Acute Code(s): G89.29 - OTHER CHRONIC PAIN SNOMED Code(s): 16840982 Comment: - Continue home regimen of gabapentin 600 mg tid and duloxetine 60mg QPM - For her acute pain, continue prn tylenol, tramadol 50 mg Q6hr and Hodl toradol 30 mg Q6hr. due to anemia (5) Hypertension Current Visit: Yes Status: Acute Code(s): I10 - ESSENTIAL (PRIMARY) HYPERTENSION SNOMED Code(s): 59960249 Comment: - BP is over compensated. Low at times. - May need to cut back on pain meds to avoid holding her beta cheryle (6) Paroxysmal atrial fibrillation Current Visit: Yes Status: Acute Code(s): I48.0 - PAROXYSMAL ATRIAL FIBRILLATION SNOMED Code(s): 490695919 Comment: - Today pt in NSR with frequent PACs. Continue metoprolol XL. - No full anticoagulation at baseline. - Continue to monitor on tele. (7) DVT prophylaxis Current Visit: Yes Status: Acute Code(s): Z29.9 - ENCOUNTER FOR PROPHYLACTIC MEASURES, UNSPECIFIED SNOMED Code(s): 114937085 Comment: lovenox hold today and reassess in am
--- NOTE | 2019-08-25 16:46 | PN ---
Progress Note - Progress Note Date of Service: 08/25/19 SOAP: Subjective: Pt seen at bedside. She feels well without CP, SOB, dizziness, nausea. Objective: []GEN: NAD, appears well RLE: Dressing CDI, IROM locked 0-30. Thigh soft, DF/PF intact, DP2+, sensation intact to light touch distally Calves supple and nontender without erythema, edema or palpable cords Assessment: [] Subluxating right patella. POD 2 sp 1. Revision of right tibial component, total knee. 2. Imbrication, right medial capsule. Plan: []WBAT RLE locked 0-30 in IROM TTWB LLE 10% weight without ROM restriction lovenox 40 mg sq qd x 30 days post op Soft BP - fluids and hold narcotics. Keep betablocker if able due to tendency to go into rapid a fib. Agreeable to transfusion if needed, will check H&H tomorrow Change dressing 08/25, please keep leg extended during dressing change
[2019-08-25] MEDS: DULoxetine DR CAP* 60 MG CAP.DR PO SCH (16:51)
[2019-08-25] MEDS: Divalproex ER TAB(*) 250 MG PO SCH (20:48)
[2019-08-25] MEDS: rOPINIRole TAB* 1 MG PO SCH (20:49)
[2019-08-26] MEDS: Acetaminophen TAB* 325 MG PO SCH ×3 (00:41→16:37)
[2019-08-26 05:04] LABS: Hematocrit 29 % (35-47); Hemoglobin 10.1 g/dL (12.0-16.0); Platelet Count 193 10^3/uL (150-450)
[2019-08-26] MEDS: tiZANidine TAB* 2 MG PO PRN ×2 (06:01→16:38)
[2019-08-26] MEDS: traMADol TAB* 50 MG PO PRN ×3 (07:40→21:49)
[2019-08-26] MEDS: Magnesium Hydroxide LIQ* 30 ML UDC PO SCH ×2 (08:57→21:20)
[2019-08-26] MEDS: Calcium/Vitamin D TAB 250/125* TAB PO SCH ×2 (08:58→21:50)
[2019-08-26] MEDS: Docusate CAP* 100 MG PO SCH ×2 (08:58→21:28)
[2019-08-26] MEDS: Ferrous Sulfate TAB* 325 MG PO SCH ×2 (08:59→21:49)
[2019-08-26] MEDS: Metoprolol Succinate XL TAB* 25 MG PO SCH (08:59)
[2019-08-26] MEDS: Gabapentin CAP(*) 300 MG PO SCH ×3 (08:59→21:48)
[2019-08-26] MEDS: busPIRone TAB* 15 MG PO SCH ×3 (08:59→21:49)
[2019-08-26] MEDS: Pantoprazole TAB * 40 MG TAB PO SCH (08:59)
[2019-08-26 09:03] LABS: BUN/Creatinine Ratio 21.9 (8-20); EGFR African American 115.3 (>60); EGFR Non-African American 95.3 (>60); Magnesium 1.7 mg/dL (1.9-2.7)
--- NOTE | 2019-08-26 09:07 | PN ---
Subjective Date of Service: 08/26/19 Interval History: Patient seen today, no acute events. BP soft but her BP normally low. Ok to give her toprol with the holding parameter as indicated. She has not had a bowel movement for 3 days+ now. I asked to notify ortho. Otherwise, her H/H improved since her transfusion and chemistry from this morning is still pending Past Medical History: Unchanged from Admission Objective Active Medications: Acetaminophen (Tylenol Tab*) 975 mg PO Q8H [facility] Last Admin: 08/26/19 08:58 Dose: 975 mg Albuterol (Ventolin Hfa Inhaler*) 2 puff INH Q6H PRN PRN Reason: SOB/WHEEZING Bisacodyl (Dulcolax Supp*) 10 mg [place] DAILY PRN PRN Reason: CONSTIPATION Buspirone HCl (Buspar Tab *) 15 mg PO TID [facility] Last Admin: 08/26/19 08:59 Dose: 15 mg Calcium/Vitamin D (Oscal D Tab 250/125*) 2 tab PO BID [facility] Last Admin: 08/26/19 08:58 Dose: 2 tab Diphenhydramine HCl (Benadryl Iv*) 25 mg IV Q6H PRN PRN Reason: PRURITIS Diphenhydramine HCl (Benadryl Po*) 25 mg PO Q6H PRN PRN Reason: PRURITIS Last Admin: 08/24/19 21:30 Dose: 25 mg Divalproex Sodium (Depakote Er Tab(*)) 750 mg PO BEDTIME [facility] Last Admin: 08/25/19 20:48 Dose: 750 mg Docusate Sodium (Colace Cap*) 100 mg PO BID [facility] Last Admin: 08/26/19 08:58 Dose: Not Given Duloxetine HCl (Cymbalta Cap*) 60 mg PO QPM [facility] Last Admin: 08/25/19 16:51 Dose: 60 mg Ferrous Sulfate (Ferrous Sulfate Tab*) 325 mg PO BID [facility] Last Admin: 08/26/19 08:59 Dose: 325 mg Gabapentin (Neurontin Cap(*)) 600 mg PO TID [facility] Last Admin: 08/26/19 08:59 Dose: 600 mg Lactulose (Lactulose*) 30 ml PO BID PRN PRN Reason: CONSTIPATION Magnesium Hydroxide (Milk Of Magnesia Liq*) 30 ml PO BID [facility] Last Admin: 08/26/19 08:57 Dose: 30 ml Magnesium Hydroxide (Milk Of Magnesia Liq*) 30 ml PO Q6H PRN PRN Reason: CONSTIPATION Metoprolol Succinate (Toprol Xl Tab*) 25 mg PO DAILY [facility] Last Admin: 08/26/19 08:59 Dose: 25 mg Morphine Sulfate (Morphine Inj (Syringe))*) 2 mg IV Q4H PRN PRN Reason: Pain - Unrelieved Last Admin: 08/23/19 19:37 Dose: 2 mg Ondansetron HCl (Zofran Inj*) 4 mg IV Q6H PRN PRN Reason: NAUSEA Last Admin: 08/23/19 19:37 Dose: 4 mg Ondansetron HCl (Zofran Odt Tab*) 4 mg PO Q6H PRN PRN Reason: NAUSEA Oxycodone HCl (Roxycodone Tab*) 5 mg PO Q4H PRN PRN Reason: Pain - Breakthrough Pantoprazole Sodium (Protonix Tab*) 40 mg PO QAM [facility] Last Admin: 08/26/19 08:59 Dose: 40 mg Ropinirole HCl (Requip Tab*) 1 mg PO BEDTIME [facility] Last Admin: 08/25/19 20:49 Dose: 1 mg Tizanidine HCl (Zanaflex Tab*) 2 mg PO Q8H PRN PRN Reason: SPASMS Last Admin: 08/26/19 06:01 Dose: 2 mg Tramadol HCl (Ultram*) 50 mg PO Q6H PRN PRN Reason: PAIN - MODERATE Last Admin: 08/26/19 07:40 Dose: 50 mg Vital Signs - 8 hr 08/26/19 08/26/19 08/26/19 03:16 07:40 07:59 Temperature 97.9 F 98.6 F Pulse Rate 79 60 Respiratory 18 16 16 Rate Blood Pressure 101/57 90/58 (mmHg) O2 Sat by Pulse 98 97 97 Oximetry 08/26/19 08:59 Temperature Pulse Rate Respiratory 18 Rate Blood Pressure (mmHg) O2 Sat by Pulse Oximetry Oxygen Devices in Use Now: None Appearance: awake, alert. no distress Eyes: No Scleral Icterus, - - EOMI Ears/Nose/Mouth/Throat: NL Teeth, Lips, Gums, Mucous Membranes Moist Neck: NL Appearance and Movements; NL JVP, Trachea Midline Respiratory: Symmetrical Chest Expansion and Respiratory Effort, Clear to Auscultation Cardiovascular: NL Sounds; No Murmurs; No JVD, - - irregulary regular Abdominal: NL Sounds; No Tenderness; No Distention Extremities: No Edema Neurological: Alert and Oriented x 3 - Nutrition: Malnutrition Diagnosis/Plan Malnutrition Assessment by Registered Dietitian: Malnutrition Assessment Clinical Characteristics Chronic,Severe Malnutrition Assessment: - wt loss 22.4% in past nine months (from 249# Criteria to 187# since December 2018) - severe orbital fat pad and temporal wasting Malnutrition Assessment: - unrestricted diet; texture modifications per Interventions pt preference - obtain preferred supplement (Premiere Protein ) from home (or [employer]) - regulation of bowel regimen given use of pain meds and iron supplementation Malnutrition Assessment: Goals 1. pt will tolerate po intake without adverse GI effects 2. pt will tolerate least-restrictive diet texture without difficulty chewing (or swallowing) 3. adequate po intake to maintain lean body mass and hydration without add'l wt gain 4. achieve and maintain serum electrolytes levels WNL 5. achieve and maintain regulated bowel pattern without c/o constipation (or diarrhea) Result Diagrams: 08/26/19 04:29 08/24/19 05:59 Microbiology and Other Data: Microbiology 08/21/19 14:05 Nasal Screen MRSA (PCR) - Final Nasal Mrsa Not Detected Assess/Plan/Problems-Billing Ms Sanchez is a 59 yo F who has a h/o PAF, HTN, anxiety/depression and OA who was admitted after undergoing R knee retinaculum repair. - Patient Problems (1) Anemia Current Visit: No Status: Acute Code(s): D64.9 - ANEMIA, UNSPECIFIED SNOMED Code(s): 255031578 Comment: - Acute post op on chronic (iron studies suggestive of ACD and iron defficiency ) - Continue PO iron supplement - In 04/2019 pt was dx with hemarthosis and eliquis was stopped (previously on in for PAF). - continue PPI to daily. - s/p transfuse 2 untis 08/25/19. Will keep lovenox and toradol on hold. May start heparin 5000 bid tomorrow for DVT prophylaxsis as indicated and close CBC monitoring after discharge (2) Patellar dislocation Current Visit: Yes Status: Acute Comment: - Pt underwent R knee retinaculum repair unfortunately had her patella subluxating with the knee flexed to 90 degrees. - Underwent revision and fixation on 08/23/19 - continue recommendation as per Ortho for pain, diet and activity (3) Anxiety and depression Current Visit: Yes Status: Acute Code(s): F41.9 - ANXIETY DISORDER, UNSPECIFIED; F32.9 - MAJOR DEPRESSIVE DISORDER, SINGLE EPISODE, UNSPECIFIED SNOMED Code(s): 684295202 Comment: - Continue Buspar 15 mg tid, Depakote 750 mg HS, and Duloxetine 60 mg am. (4) Chronic pain Current Visit: Yes Status: Acute Code(s): G89.29 - OTHER CHRONIC PAIN SNOMED Code(s): 23533389 Comment: - Continue home regimen of gabapentin 600 mg tid and duloxetine 60mg QPM - For her acute pain, continue prn tylenol, tramadol 50 mg Q6hr and Hold toradol 30 mg Q6hr. due to anemia (5) Hypertension Current Visit: Yes Status: Acute Code(s): I10 - ESSENTIAL (PRIMARY) HYPERTENSION SNOMED Code(s): 85561981 Comment: - BP is over compensated. Low at times. - May need to cut back on pain meds to avoid holding her beta cheryle (6) Paroxysmal atrial fibrillation Current Visit: Yes Status: Acute Code(s): I48.0 - PAROXYSMAL ATRIAL FIBRILLATION SNOMED Code(s): 178006666 Comment: - Continue metoprolol XL. Hold only for SBP below 90 or HR below 55 - No full anticoagulation at baseline. (7) DVT prophylaxis Current Visit: Yes Status: Acute Code(s): Z29.9 - ENCOUNTER FOR PROPHYLACTIC MEASURES, UNSPECIFIED SNOMED Code(s): 178550368 Comment: - kerep lovenox hold and if need anticoagulation will recommend Heparin 5000 bid to resume in am and close monitorin CBC in 3 days even after discharge to ensure stability.
--- NOTE | 2019-08-26 09:18 | PN ---
Progress Note - Progress Note Date of Service: 08/26/19 SOAP: Subjective: Pt seen and evaluated at bedside. Complains of pain in the knee. States that she wants to go home today. Denies CP, SOB, F/C. Vital Signs: Temp Pulse Resp BP Pulse Ox 98.6 F 60 18 90/58 97 08/26/19 07:40 08/26/19 07:40 08/26/19 09:13 08/26/19 07:40 08/26/19 07:59 Laboratory Last Values WBC 9.3 10^3/uL (3.5-10.8) 08/23/19 05:19 RBC 3.10 10^6 /uL (3.70-4.87) L 08/23/19 05:19 Hgb 10.1 g/dL (12.0-16.0) L 08/26/19 04:29 Hct 29 % (35-47) L 08/26/19 04:29 MCV 96 fL (80-97) 08/23/19 05:19 MCH 33 pg (27-31) H 08/23/19 05:19 MCHC 34 g/dL (31-36) 08/23/19 05:19 RDW 15 % (10-15) 08/23/19 05:19 Plt Count 193 10^3/uL (150-450) 08/26/19 04:29 MPV 8.0 fL (7.4-10.4) 08/26/19 04:29 Neut % (Auto) 54.3 % 08/23/19 05:19 Lymph % (Auto) 39.0 % 08/23/19 05:19 [place]y % (Auto) 5.3 % 08/23/19 05:19 Eos % (Auto) 1.2 % 08/23/19 05:19 Baso % (Auto) 0.2 % 08/23/19 05:19 Absolute Neuts (auto) 5.0 10^3/ul (1.5-7.7) 08/23/19 05:19 Absolute Lymphs (auto) 3.6 10^3/ul (1.0-4.8) 08/23/19 05:19 Absolute Monos (auto) 0.5 10^3/ul (0-0.8) 08/23/19 05:19 Absolute Eos (auto) 0.1 10^3/ul (0-0.6) 08/23/19 05:19 Absolute Basos (auto) 0.0 10^3/ul (0-0.2) 08/23/19 05:19 Absolute Nucleated RBC 0.0 10^3/ul 08/23/19 05:19 Nucleated RBC % 0.0 08/23/19 05:19 INR (Anticoag Therapy) 0.92 (0.82-1.09) 08/23/19 05:19 Sodium 132 mmol/L (135-145) L 08/26/19 08:11 Potassium 5.0 mmol/L (3.5-5.0) 08/26/19 08:11 Chloride 98 mmol/L (101-111) L 08/26/19 08:11 Carbon Dioxide 31 mmol/L (22-32) 08/26/19 08:11 Anion Gap 3 mmol/L (2-11) 08/26/19 08:11 BUN 14 mg/dL (6-24) 08/26/19 08:11 Creatinine 0.64 mg/dL (0.51-0.95) 08/26/19 08:11 Est GFR ( Amer) 115.3 (>60) 08/26/19 08:11 Est GFR (Non-Af Amer) 95.3 (>60) 08/26/19 08:11 BUN/Creatinine Ratio 21.9 (8-20) H 08/26/19 08:11 Glucose 96 mg/dL (70-100) 08/26/19 08:11 Calcium 8.0 mg/dL (8.6-10.3) L 08/26/19 08:11 Magnesium 1.7 mg/dL (1.9-2.7) L 08/26/19 08:11 Blood Type A Positive 08/23/19 05:19 Antibody Screen Negative 08/23/19 05:19 Crossmatch See Detail 08/23/19 05:19 Objective: A&O x3, NAD Dressing changed, Incision C/D/I, Calves soft and nontender, Swelling noted in the thigh, NVI distally. Assessment: Subluxating right patella POD #3 s/p right revision tibial component total knee imbrication right medial capsule Plan: OOB, PT/OT Pain control WBAT RLE locked 0-30 in ROM brace TTWB LLE 10% weight without ROM restriction DVT prophylaxis - lovenox Anemia stable
[2019-08-26] MEDS: DULoxetine DR CAP* 60 MG CAP.DR PO SCH (18:13)
[2019-08-26] MEDS: rOPINIRole TAB* 1 MG PO SCH (21:49)
[2019-08-26] MEDS: Divalproex ER TAB(*) 250 MG PO SCH (21:51)
[2019-08-27] MEDS: Acetaminophen TAB* 325 MG PO SCH ×3 (01:26→17:00)
[2019-08-27] MEDS: tiZANidine TAB* 2 MG PO PRN ×2 (01:26→16:06)
[2019-08-27] MEDS: traMADol TAB* 50 MG PO PRN ×3 (04:55→22:10)
--- NOTE | 2019-08-27 08:52 | PN ---
Progress Note - Progress Note Date of Service: 08/27/19 SOAP: Subjective: Pt seen and examined at bedside. Complains of pain right anterior knee. Denies CP, SOB, F/C. Vital Signs: Temp Pulse Resp BP Pulse Ox 97.9 F 66 18 85/60 95 08/27/19 03:38 08/27/19 03:38 08/27/19 07:40 08/27/19 03:38 08/27/19 03:38 Laboratory Last Values WBC 9.3 10^3/uL (3.5-10.8) 08/23/19 05:19 RBC 3.10 10^6 /uL (3.70-4.87) L 08/23/19 05:19 Hgb 10.1 g/dL (12.0-16.0) L 08/26/19 04:29 Hct 29 % (35-47) L 08/26/19 04:29 MCV 96 fL (80-97) 08/23/19 05:19 MCH 33 pg (27-31) H 08/23/19 05:19 MCHC 34 g/dL (31-36) 08/23/19 05:19 RDW 15 % (10-15) 08/23/19 05:19 Plt Count 193 10^3/uL (150-450) 08/26/19 04:29 MPV 8.0 fL (7.4-10.4) 08/26/19 04:29 Neut % (Auto) 54.3 % 08/23/19 05:19 Lymph % (Auto) 39.0 % 08/23/19 05:19 Collin % (Auto) 5.3 % 08/23/19 05:19 Eos % (Auto) 1.2 % 08/23/19 05:19 Baso % (Auto) 0.2 % 08/23/19 05:19 Absolute Neuts (auto) 5.0 10^3/ul (1.5-7.7) 08/23/19 05:19 Absolute Lymphs (auto) 3.6 10^3/ul (1.0-4.8) 08/23/19 05:19 Absolute Monos (auto) 0.5 10^3/ul (0-0.8) 08/23/19 05:19 Absolute Eos (auto) 0.1 10^3/ul (0-0.6) 08/23/19 05:19 Absolute Basos (auto) 0.0 10^3/ul (0-0.2) 08/23/19 05:19 Absolute Nucleated RBC 0.0 10^3/ul 08/23/19 05:19 Nucleated RBC % 0.0 08/23/19 05:19 INR (Anticoag Therapy) 0.92 (0.82-1.09) 08/23/19 05:19 Sodium 132 mmol/L (135-145) L 08/26/19 08:11 Potassium 5.0 mmol/L (3.5-5.0) 08/26/19 08:11 Chloride 98 mmol/L (101-111) L 08/26/19 08:11 Carbon Dioxide 31 mmol/L (22-32) 08/26/19 08:11 Anion Gap 3 mmol/L (2-11) 08/26/19 08:11 BUN 14 mg/dL (6-24) 08/26/19 08:11 Creatinine 0.64 mg/dL (0.51-0.95) 08/26/19 08:11 Est GFR ( Amer) 115.3 (>60) 08/26/19 08:11 Est GFR (Non-Af Amer) 95.3 (>60) 08/26/19 08:11 BUN/Creatinine Ratio 21.9 (8-20) H 08/26/19 08:11 Glucose 96 mg/dL (70-100) 08/26/19 08:11 Calcium 8.0 mg/dL (8.6-10.3) L 08/26/19 08:11 Magnesium 1.7 mg/dL (1.9-2.7) L 08/26/19 08:11 Blood Type A Positive 08/23/19 05:19 Antibody Screen Negative 08/23/19 05:19 Crossmatch See Detail 08/23/19 05:19 Objective: A&O x3, NAD Dressing and brace C/D/I, Calves soft and nontender, Mild edema RLE, NVI distally Assessment: s/p right knee revision tibial component total knee and imbrication medial capsule POD #4 Plan: OOB, PT/ OT WBAT RLE Brace locked at 0-30 TTWB 10% weight without ROM restriction Pain control DVT prophylaxis - Lovenox Anemia stable Likely rehab 08/26
[2019-08-27] MEDS: Magnesium Hydroxide LIQ* 30 ML UDC PO SCH ×2 (09:13→22:14)
[2019-08-27] MEDS: Magnesium Oxide TAB* 400 MG PO SCH (09:13)
[2019-08-27] MEDS: Docusate CAP* 100 MG PO SCH ×2 (09:13→22:14)
[2019-08-27] MEDS: Ferrous Sulfate TAB* 325 MG PO SCH ×2 (09:14→22:10)
[2019-08-27] MEDS: Metoprolol Succinate XL TAB* 25 MG PO SCH (09:14)
[2019-08-27] MEDS: Calcium/Vitamin D TAB 250/125* TAB PO SCH ×2 (09:14→22:10)
[2019-08-27] MEDS: Gabapentin CAP(*) 300 MG PO SCH ×3 (09:14→22:12)
[2019-08-27] MEDS: Pantoprazole TAB * 40 MG TAB PO SCH (09:14)
[2019-08-27] MEDS: busPIRone TAB* 15 MG PO SCH ×3 (09:14→22:09)
[2019-08-27] MEDS: Enoxaparin(*) 40 MG/0.4 ML SYR SUBCUT SCH (10:21)
[2019-08-27] MEDS: DULoxetine DR CAP* 60 MG CAP.DR PO SCH (17:00)
[2019-08-27] MEDS: rOPINIRole TAB* 1 MG PO SCH (22:10)
[2019-08-27] MEDS: diPHENhydraMINE PO* 25 MG PO PRN (22:11)
[2019-08-27] MEDS: Divalproex ER TAB(*) 250 MG PO SCH (22:12)
[2019-08-28] MEDS: Acetaminophen TAB* 325 MG PO SCH ×3 (01:18→17:09)
[2019-08-28] MEDS: tiZANidine TAB* 2 MG PO PRN ×3 (01:21→22:31)
[2019-08-28] MEDS: traMADol TAB* 50 MG PO PRN ×3 (06:02→20:46)
[2019-08-28 09:10] LABS: ABS Eosinophils 0.3 10^3/ul (0-0.6); ABS Lymphocytes 2.2 10^3/ul (1.0-4.8); ABS Monocytes 0.4 10^3/ul (0-0.8); ABS Neutrophils 2.8 10^3/ul (1.5-7.7); Eosinophil % 4.6 %; Hematocrit 33 % (35-47); Hemoglobin 11.2 g/dL (12.0-16.0); Lymphocyte % 38.1 %; Mean Corpuscular HGB Conc 34 g/dL (31-36); Mean Corpuscular Hemoglobin 32 pg (27-31); Mean Corpuscular Volume 95 fL (80-97); Nucleated Red Blood Cells % 0.1; Platelet Count 257 10^3/uL (150-450); Red Blood Count 3.46 10^6 /uL (3.70-4.87); Red Cell Distribution Width 16 % (10-15); White Blood Count 5.7 10^3/uL (3.5-10.8)
[2019-08-28 09:36] LABS: BUN/Creatinine Ratio 13.8 (8-20); Calcium 8.8 mg/dL (8.6-10.3); EGFR African American 113.3 (>60); EGFR Non-African American 93.6 (>60); Potassium 4.6 mmol/L (3.5-5.0)
[2019-08-28] MEDS: Ferrous Sulfate TAB* 325 MG PO SCH ×2 (09:37→20:45)
[2019-08-28] MEDS: Pantoprazole TAB * 40 MG TAB PO SCH (09:37)
[2019-08-28] MEDS: busPIRone TAB* 15 MG PO SCH ×3 (09:37→20:46)
[2019-08-28] MEDS: Magnesium Oxide TAB* 400 MG PO SCH (09:37)
[2019-08-28] MEDS: Gabapentin CAP(*) 300 MG PO SCH ×3 (09:37→20:45)
[2019-08-28] MEDS: Metoprolol Succinate XL TAB* 25 MG PO SCH (09:37)
[2019-08-28] MEDS: Docusate CAP* 100 MG PO SCH ×2 (09:38→20:48)
[2019-08-28] MEDS: Magnesium Hydroxide LIQ* 30 ML UDC PO SCH ×2 (09:38→20:48)
[2019-08-28] MEDS: Enoxaparin(*) 40 MG/0.4 ML SYR SUBCUT SCH (09:38)
[2019-08-28] MEDS: Calcium/Vitamin D TAB 250/125* TAB PO SCH ×2 (09:41→20:46)
[2019-08-28] MEDS: Ondansetron INJ* 2 MG/ML VIAL IV PRN (10:31)
--- NOTE | 2019-08-28 10:53 | PN ---
Progress Note - Progress Note Date of Service: 08/28/19 SOAP: Subjective: []Pt seen at bedside. She feels well and desires DC back to [facility]. Denies CP, SOB, dizziness, nausea. Knee pain is well controlled. Objective: []A&O x3, NAD RLE: Dressing and brace C/D/I, IROM locked 0-30, Dressing changed and incision healing well, CDI. Thigh soft, df/pf intact, dp2+, sensation intact to light touch distally. Calves soft and nontender, mild edema RLE, NVI distally Assessment: s/p right knee revision tibial component total knee and imbrication medial capsule POD #5 Plan: OOB, PT/ OT RLE: WBAT with Brace locked at 0-30. No flexion beyond 30 degrees at any time LLE: TTWB 10% weight without ROM restriction DVT prophylaxis - Lovenox 40 mg sq qd x 4 weeks post op Anemia stable DC back to [facility] when insurance approves. Medially and orthopedically ready Vital Signs Temp 98.7 F 08/28/19 07:36 Pulse 70 08/28/19 07:36 Resp 18 08/28/19 09:37 BP 109/58 08/28/19 07:36 Pulse Ox 99 08/28/19 07:36 Intake & Output 08/27/19 08/28/19 08/28/19 18:59 06:59 18:59 Intake Total 2430 1000 Output Total 1954 1450 900 Balance 475 -450 -900 Intake: Oral 2430 1000 Output: Urine 1954 1450 900 Other: # Bowel Movements 0 Laboratory Last Values WBC 5.7 10^3/uL (3.5-10.8) 08/28/19 08:59 RBC 3.46 10^6 /uL (3.70-4.87) L 08/28/19 08:59 Hgb 11.2 g/dL (12.0-16.0) L 08/28/19 08:59 Hct 33 % (35-47) L 08/28/19 08:59 MCV 95 fL (80-97) 08/28/19 08:59 MCH 32 pg (27-31) H 08/28/19 08:59 MCHC 34 g/dL (31-36) 08/28/19 08:59 RDW 16 % (10-15) H 08/28/19 08:59 Plt Count 257 10^3/uL (150-450) 08/28/19 08:59 MPV 7.0 fL (7.4-10.4) L 08/28/19 08:59 Neut % (Auto) 48.8 % 08/28/19 08:59 Lymph % (Auto) 38.1 % 08/28/19 08:59 [place] % (Auto) 7.7 % 08/28/19 08:59 Eos % (Auto) 4.6 % 08/28/19 08:59 Baso % (Auto) 0.8 % 08/28/19 08:59 Absolute Neuts (auto) 2.8 10^3/ul (1.5-7.7) 08/28/19 08:59 Absolute Lymphs (auto) 2.2 10^3/ul (1.0-4.8) 08/28/19 08:59 Absolute Monos (auto) 0.4 10^3/ul (0-0.8) 08/28/19 08:59 Absolute Eos (auto) 0.3 10^3/ul (0-0.6) 08/28/19 08:59 Absolute Basos (auto) 0.0 10^3/ul (0-0.2) 08/28/19 08:59 Absolute Nucleated RBC 0.0 10^3/ul 08/28/19 08:59 Nucleated RBC % 0.1 08/28/19 08:59 INR (Anticoag Therapy) 0.92 (0.82-1.09) 08/23/19 05:19 Sodium 132 mmol/L (135-145) L 08/28/19 08:59 Potassium 4.6 mmol/L (3.5-5.0) 08/28/19 08:59 Chloride 94 mmol/L (101-111) L 08/28/19 08:59 Carbon Dioxide 36 mmol/L (22-32) H 08/28/19 08:59 Anion Gap 2 mmol/L (2-11) 08/28/19 08:59 BUN 9 mg/dL (6-24) 08/28/19 08:59 Creatinine 0.65 mg/dL (0.51-0.95) 08/28/19 08:59 Est GFR ( Amer) 113.3 (>60) 08/28/19 08:59 Est GFR (Non-Af Amer) 93.6 (>60) 08/28/19 08:59 BUN/Creatinine Ratio 13.8 (8-20) 08/28/19 08:59 Glucose 75 mg/dL (70-100) 08/28/19 08:59 Calcium 8.8 mg/dL (8.6-10.3) 08/28/19 08:59 Magnesium 1.7 mg/dL (1.9-2.7) L 08/26/19 08:11 Blood Type A Positive 08/23/19 05:19 Antibody Screen Negative 08/23/19 05:19 Crossmatch See Detail 08/23/19 05:19
--- NOTE | 2019-08-28 11:54 | PN ---
Subjective Date of Service: 08/28/19 Interval History: Patient seen today, no acute concerns. minimal leg/knee pain. otherwise no events overnight, Awaiting authorization for placement Past Medical History: Unchanged from Admission Objective Active Medications: Acetaminophen (Tylenol Tab*) 975 mg PO Q8H [facility] Last Admin: 08/28/19 09:38 Dose: 975 mg Albuterol (Ventolin Hfa Inhaler*) 2 puff INH Q6H PRN PRN Reason: SOB/WHEEZING Bisacodyl (Dulcolax Supp*) 10 mg MD DAILY PRN PRN Reason: CONSTIPATION Buspirone HCl (Buspar Tab *) 15 mg PO TID [facility] Last Admin: 08/28/19 09:37 Dose: 15 mg Calcium/Vitamin D (Oscal D Tab 250/125*) 2 tab PO BID [facility] Last Admin: 08/28/19 09:41 Dose: 2 tab Diphenhydramine HCl (Benadryl Iv*) 25 mg IV Q6H PRN PRN Reason: PRURITIS Diphenhydramine HCl (Benadryl Po*) 25 mg PO Q6H PRN PRN Reason: PRURITIS Last Admin: 08/27/19 22:11 Dose: 25 mg Divalproex Sodium (Depakote Er Tab(*)) 750 mg PO BEDTIME [facility] Last Admin: 08/27/19 22:12 Dose: 750 mg Docusate Sodium (Colace Cap*) 100 mg PO BID [facility] Last Admin: 08/28/19 09:38 Dose: Not Given Duloxetine HCl (Cymbalta Cap*) 60 mg PO QPM [facility] Last Admin: 08/27/19 17:00 Dose: 60 mg Enoxaparin Sodium (Lovenox(*)) 40 mg SUBCUT Q24H [facility] Last Admin: 08/28/19 09:38 Dose: 40 mg Ferrous Sulfate (Ferrous Sulfate Tab*) 325 mg PO BID [facility] Last Admin: 08/28/19 09:37 Dose: 325 mg Gabapentin (Neurontin Cap(*)) 600 mg PO TID [facility] Last Admin: 08/28/19 09:37 Dose: 600 mg Lactulose (Lactulose*) 30 ml PO BID PRN PRN Reason: CONSTIPATION Magnesium Hydroxide (Milk Of Magnesia Liq*) 30 ml PO BID [facility] Last Admin: 08/28/19 09:38 Dose: Not Given Magnesium Hydroxide (Milk Of Magnesia Liq*) 30 ml PO Q6H PRN PRN Reason: CONSTIPATION Magnesium Oxide (Magox 400 Tab*) 400 mg PO DAILY [facility] Last Admin: 08/28/19 09:37 Dose: 400 mg Metoprolol Succinate (Toprol Xl Tab*) 25 mg PO DAILY [facility] Last Admin: 08/28/19 09:37 Dose: 25 mg Ondansetron HCl (Zofran Inj*) 4 mg IV Q6H PRN PRN Reason: NAUSEA Last Admin: 08/28/19 10:31 Dose: 4 mg Ondansetron HCl (Zofran Odt Tab*) 4 mg PO Q6H PRN PRN Reason: NAUSEA Pantoprazole Sodium (Protonix Tab*) 40 mg PO QAM [facility] Last Admin: 08/28/19 09:37 Dose: 40 mg Ropinirole HCl (Requip Tab*) 1 mg PO BEDTIME [facility] Last Admin: 08/27/19 22:10 Dose: 1 mg Tizanidine HCl (Zanaflex Tab*) 2 mg PO Q8H PRN PRN Reason: SPASMS Last Admin: 08/28/19 09:37 Dose: 2 mg Vital Signs - 8 hr 08/28/19 08/28/19 08/28/19 06:02 07:36 08:00 Temperature 98.7 F Pulse Rate 70 Respiratory 18 18 18 Rate Blood Pressure 109/58 (mmHg) O2 Sat by Pulse 99 Oximetry 08/28/19 08/28/19 09:37 11:33 Temperature 98.8 F Pulse Rate 66 Respiratory 18 17 Rate Blood Pressure 106/58 (mmHg) O2 Sat by Pulse 99 Oximetry Oxygen Devices in Use Now: None Appearance: awake, alert no distress Eyes: No Scleral Icterus, - - EOMI Ears/Nose/Mouth/Throat: NL Teeth, Lips, Gums, Mucous Membranes Moist Neck: NL Appearance and Movements; NL JVP, Trachea Midline Respiratory: Symmetrical Chest Expansion and Respiratory Effort, Clear to Auscultation Cardiovascular: NL Sounds; No Murmurs; No JVD, No Edema Abdominal: NL Sounds; No Tenderness; No Distention Extremities: - - Right knee dressing in place. intact Skin: No Rash or Ulcers Neurological: Alert and Oriented x 3 - Nutrition: Malnutrition Diagnosis/Plan Malnutrition Assessment by Registered Dietitian: Malnutrition Assessment Clinical Characteristics Chronic,Severe Malnutrition Assessment: - wt loss 22.4% in past nine months (from 249# Criteria to 187# since December 2018) - severe orbital fat pad and temporal wasting Malnutrition Assessment: - unrestricted diet; texture modifications per Interventions pt preference - obtain preferred supplement (Premiere Protein ) from home (or [employer]) - regulation of bowel regimen given use of pain meds and iron supplementation Malnutrition Assessment: Goals 1. pt will tolerate po intake without adverse GI effects 2. pt will tolerate least-restrictive diet texture without difficulty chewing (or swallowing) 3. adequate po intake to maintain lean body mass and hydration without add'l wt gain 4. achieve and maintain serum electrolytes levels WNL 5. achieve and maintain regulated bowel pattern without c/o constipation (or diarrhea) Result Diagrams: 08/28/19 08:59 08/28/19 08:59 Microbiology and Other Data: Microbiology 08/21/19 14:05 Nasal Screen MRSA (PCR) - Final Nasal Mrsa Not Detected Assess/Plan/Problems-Billing Ms Sanchez is a 59 yo F who has a h/o PAF, HTN, anxiety/depression and OA who was admitted after undergoing R knee retinaculum repair. - Patient Problems (1) Anemia Current Visit: No Status: Acute Code(s): D64.9 - ANEMIA, UNSPECIFIED SNOMED Code(s): 833271690 Comment: - Acute post op on chronic (iron studies suggestive of ACD and iron defficiency ) - Continue PO iron supplement - In 04/2019 pt was dx with hemarthosis and eliquis was stopped (previously on in for PAF). - continue PPI to daily. - s/p transfuse 2 untis 08/25/19. Will keep lovenox and toradol on hold. May start heparin 5000 bid for DVT prophylaxsis as indicated and close CBC monitoring after discharge (2) Patellar dislocation Current Visit: Yes Status: Acute Comment: - Pt underwent R knee retinaculum repair unfortunately had her patella subluxating with the knee flexed to 90 degrees. - Underwent revision and fixation on 08/23/19 - continue recommendation as per Ortho for pain, diet and activity (3) Anxiety and depression Current Visit: Yes Status: Acute Code(s): F41.9 - ANXIETY DISORDER, UNSPECIFIED; F32.9 - MAJOR DEPRESSIVE DISORDER, SINGLE EPISODE, UNSPECIFIED SNOMED Code(s): 022349515 Comment: - Continue Buspar 15 mg tid, Depakote 750 mg HS, and Duloxetine 60 mg am. (4) Chronic pain Current Visit: Yes Status: Acute Code(s): G89.29 - OTHER CHRONIC PAIN SNOMED Code(s): 92306107 Comment: - Continue home regimen of gabapentin 600 mg tid and duloxetine 60mg QPM - For her acute pain, continue prn tylenol, tramadol 50 mg Q6hr and Hold toradol 30 mg Q6hr. due to anemia (5) Hypertension Current Visit: Yes Status: Acute Code(s): I10 - ESSENTIAL (PRIMARY) HYPERTENSION SNOMED Code(s): 95505135 Comment: - BP is over compensated. Low at times. - May need to cut back on pain meds to avoid holding her beta cheryle (6) Paroxysmal atrial fibrillation Current Visit: Yes Status: Acute Code(s): I48.0 - PAROXYSMAL ATRIAL FIBRILLATION SNOMED Code(s): 380597415 Comment: - Continue metoprolol XL. Hold only for SBP below 90 or HR below 55 - No full anticoagulation at baseline. (7) DVT prophylaxis Current Visit: Yes Status: Acute Code(s): Z29.9 - ENCOUNTER FOR PROPHYLACTIC MEASURES, UNSPECIFIED SNOMED Code(s): 629234158 Comment: - keep lovenox hold and if need anticoagulation will recommend Heparin 5000 bid to resume in am and close monitorin CBC in 3 days even after discharge to ensure stability
[2019-08-28 15:57] LABS: ABS Eosinophils 0.2 10^3/ul (0-0.6); ABS Lymphocytes 1.8 10^3/ul (1.0-4.8); ABS Monocytes 0.4 10^3/ul (0-0.8); ABS Neutrophils 3.4 10^3/ul (1.5-7.7); Eosinophil % 3.2 %; Hematocrit 29 % (35-47); Hemoglobin 9.8 g/dL (12.0-16.0); Lymphocyte % 30.6 %; Mean Corpuscular HGB Conc 34 g/dL (31-36); Mean Corpuscular Hemoglobin 32 pg (27-31); Mean Corpuscular Volume 95 fL (80-97); Mean Platelet Volume 7.2 fL (7.4-10.4); Platelet Count 240 10^3/uL (150-450); Red Blood Count 3.04 10^6 /uL (3.70-4.87); Red Cell Distribution Width 16 % (10-15); White Blood Count 5.9 10^3/uL (3.5-10.8)
[2019-08-28 16:15] LABS: Activated Partial Thrombo Time 43.2 seconds (26.0-38.0); INR 1.07 (0.82-1.09)
[2019-08-28 16:41] LABS: EGFR African American 90.4 (>60); EGFR Non-African American 74.7 (>60)
[2019-08-28] MEDS: DULoxetine DR CAP* 60 MG CAP.DR PO SCH (17:09)
--- NOTE | 2019-08-28 17:27 | DS ---
Orthopedic Discharge Summary - Discharge Summary Date of Admission:08/21/19 Date of Discharge: 08/29/19 Date of Surgery: 08/21, 08/23 Attending Orthopedic Provider: Dr Ruiz Pre-operative Diagnosis: Right knee patellar instability Operative Procedure: right knee medial imbrication and lateral release on . Right knee medial imbrication and lateral release, revision of tibial component on 08/23. Disposition of Patient: [facility] Condition of Patient: stable Pain medication RX at discharge: tylenol, tramadol. caution with narcotics, utilize minimally DVT prophylaxis RX at discharge: heparin 5000 units sq q 12 hr. Hx of bleeding with both eliquis and lovenox. if unable to use heparin okay to use lovenox 40 mg sq qd. History: CLAU RUTLEDGE is a 59 year old F with right knee patellar instability Hospital Course: CLAU was admitted to [facility] on 08/21/19. Patient underwent a [right knee medial imbrication and lateral release on . without complication followed by a brief recovery in PACU and transfer to the Short Stay Surgical Unit in stable condition. Our hospitalist service, physical therapy and occupational therapy also participated in this patients care. Post-op day 1: patient was alert and in no acute distress. Dressing was clean, dry and intact. Operative extremity dorsiflexion and plantarflexion intact, sensation intact to light touch distally, DP2+. She had lateral instability with subluxation of her patella. on 08/23 she returned to the OR for Right knee medial imbrication and lateral release, revision of tibial component without complication followed by a brief recovery in PACU and transfer to the Short Stay Surgical Unit in stable condition. POD 1 she appeared well, NAD, NVI distally. POD 2 she required 2 units prbc. dressing was changed, incision was clean, dry and intact. On 08/28 Patient was deemed to be medically and orthopedically stable for discharge. Home Medications Medication Instructions Recorded Confirmed Type Albuterol HFA INHALER* [Ventolin 2 puff INH Q6H PRN 06/14/19 08/21/19 History HFA Inhaler*] Calcium Carb/Vit D3/Minerals 1 tab PO BID 06/14/19 08/21/19 History [Calcium 600+D Plus Minerals Tb] Metoprolol Succinate XL TAB* 25 mg PO DAILY 06/14/19 08/21/19 History [Toprol XL TAB*] Omeprazole (Nf) [Prilosec (NF)] 40 mg PO QAM 06/14/19 08/21/[address] CAP* [Cymbalta CAP*] 60 mg PO QPM 06/15/19 08/21/19 History Diclofenac 1% GEL (NF) [Voltaren 2 gm TOPICAL Q6HR PRN 06/15/19 08/21/19 History 1% GEL (NF)] Divalproex ER TAB(*) [Depakote ER 750 mg PO BEDTIME 06/15/19 08/21/19 History TAB(*)] Gabapentin 600 mg PO TID 06/15/19 08/21/19 History Ropinirole TAB* [Requip TAB*] 1 mg PO BEDTIME 06/15/19 08/21/19 History Ferrous Sulfate TAB* 325 mg PO BID #60 tab 06/19/19 08/21/19 Rx busPIRone TAB* [Buspar TAB *] 15 mg PO TID tab 06/19/19 08/21/19 Rx Acetaminophen TAB* [Tylenol TAB*] 1,000 mg PO Q8HR 08/14/19 08/21/19 History Bisacodyl 10 mg SUPP [Dulcolax 1 dose [place] DAILY PRN 08/14/19 08/21/19 History Supp*] Diclofenac Sodium 75 mg PO BEDTIME 08/14/19 08/21/19 History Magnesium Hydroxide [Milk of 400 mg PO DAILY PRN 08/14/19 08/21/19 History Magnesia] Ondansetron HCl [Zofran 4 MG TAB] 4 mg PO QID PRN 08/14/19 08/21/19 History Acetaminophen TAB* [Tylenol TAB*] 975 mg PO Q8H tab 08/22/19 Rx Docusate CAP* [Colace Cap*] 100 mg PO BID #0 cap 08/22/19 Rx tiZANidine TAB* [Zanaflex TAB*] 2 mg PO Q8H PRN tab 08/22/19 Rx traMADol TAB* [Ultram*] 50 mg PO Q6H PRN tab 08/22/19 Rx traMADol TAB* [Ultram*] 50 mg PO Q6H PRN tab 08/28/19 Rx Discharge Instructions following Orthopedic Surgery: Activity: * RLE WBAT with limitation of 0-30 degree knee flexion, IROM limiting ROM 0-30 at all times aside from hygiene. Keep leg straight while changing dressing. * LLE TTWB ( 10%) without ROM restriction. This will likely be progressed in another [address] Ruiz. If any feeling of instability alert orthopedics and order knee immobilizer and continue ttwb. * Continue physical therapy and occupational therapy exercises as shown Wound care: * OK to shower. no bathing, swimming, or submerging wound. * Use gentle soap, pat dry. Cover with gauze, URIAH wrap or tape. * nurse will perform wound checks and remove gelacio 2 weeks post op Call Orthopedic office for: * Increased drainage * Redness * Increased pain * Fever Go to ER with shortness of breath or chest pain. Diet: * Regular diet * Increase fluids and fiber to prevent constipation. * Continue to use stool softeners, call office if no bowel motion within 48 hours. Medications See Home Medication List in your packet for medications that you should take after discharge. DVT Prophylaxis: heparin 5000 units subq q 12 hours for 30 days post op. Changed from lovenox 40 mg sq qd due to bleeding on lovenox. if unable to give heparin BID okay to use lovenox instead. Pain Control: Patient requests very limited to no narcotic use due to hx hallucinations. She can utilize tylenol and ketorolac for primary pain control. It will be her decision if/when she needs a few doses of narcotics which have been ordered, limit narcotic use as much as possible. She has used tramadol sparingly in the hospital. Tramadol 50 mg tabs: take 1 tab for moderate pain and 2 tabs for every pain every 6 hours as needed. Max 8 per day. Hold for sedation, wean off as soon as pain allows. Antibiotics are required prior to any dental work. FOLLOW UP: Follow up with Dr. Garcia] Within [14] days post po, call for appointment Nursing can remove gelacio 2 weeks post op Please call our office with any questions or concerns ([phone]) No RX as DC back to [facility]
[2019-08-28] MEDS: rOPINIRole TAB* 1 MG PO SCH (20:46)
[2019-08-28] MEDS: Divalproex ER TAB(*) 250 MG PO SCH (20:47)
[2019-08-29] MEDS: Acetaminophen TAB* 325 MG PO SCH ×2 (01:06→08:28)
[2019-08-29] MEDS: traMADol TAB* 50 MG PO PRN (03:52)
[2019-08-29] MEDS: tiZANidine TAB* 2 MG PO PRN (07:20)
[2019-08-29 07:22] VITALS: BP 106/64
[2019-08-29] MEDS: Gabapentin CAP(*) 300 MG PO SCH (08:27)
[2019-08-29] MEDS: busPIRone TAB* 15 MG PO SCH (08:27)
[2019-08-29] MEDS: Calcium/Vitamin D TAB 250/125* TAB PO SCH (08:27)
[2019-08-29] MEDS: Magnesium Oxide TAB* 400 MG PO SCH (08:28)
[2019-08-29] MEDS: Pantoprazole TAB * 40 MG TAB PO SCH (08:28)
[2019-08-29] MEDS: Metoprolol Succinate XL TAB* 25 MG PO SCH (08:28)
[2019-08-29] MEDS: Ferrous Sulfate TAB* 325 MG PO SCH (08:28)
[2019-08-29] MEDS: Docusate CAP* 100 MG PO SCH (08:29)
[2019-08-29] MEDS: Magnesium Hydroxide LIQ* 30 ML UDC PO SCH (08:29)
[2019-08-29] MEDS ORDERED: Heparin VIAL(*) 5000 UNITS/ML VIAL (FIVE THOUSAND) SUBCUT SCH (09:00)
--- NOTE | 2019-08-29 09:02 | PN ---
Progress Note - Progress Note Date of Service: 08/29/19 SOAP: Subjective: []Pt seen OOB in chair. She is ready for DC to [facility]. Knee pain well controlled with tramadol, zanaflex, tylenol. Denies CP, SOB, dizziness, nausea. Objective: []A&O x3, NAD RLE: Dressing and brace C/D/I, IROM locked 0-30, Dressing changed and incision healing well, CDI. Thigh soft, df/pf intact, dp2+, sensation intact to light touch distally. Calves soft and nontender, mild edema RLE, NVI distally Assessment: s/p right knee revision tibial component total knee and imbrication medial capsule POD #6 Plan: OOB, PT/ OT RLE: WBAT with Brace locked at 0-30. No flexion beyond 30 degrees at any time LLE: TTWB 10% weight without ROM restriction DVT prophylaxis - heparin 5000 units q 12 hr for 30 days post op - changed from lovenox by rec of hospitalist due to hx bleeding on lovenox and eliquis DC back to [facility] today Vital Signs Temp 97.9 F 08/29/19 07:21 Pulse 77 08/29/19 07:21 Resp 18 08/29/19 08:27 BP 106/64 08/29/19 07:21 Pulse Ox 98 08/29/19 07:21 Intake & Output 08/28/19 08/29/19 08/29/19 18:59 06:59 18:59 Intake Total 1080 1400 Output Total 2150 1200 Balance -1070 200 Intake: Oral 1080 1400 Output: Urine 2150 800 [place] 400 Other: Date of Last Bowel 08/28/19 Movement # Bowel Movements 2 Estimated Stool Amount Medium Laboratory Last Values WBC 5.9 10^3/uL (3.5-10.8) 08/28/19 15:51 RBC 3.04 10^6 /uL (3.70-4.87) L 08/28/19 15:51 Hgb 9.8 g/dL (12.0-16.0) L 08/28/19 15:51 Hct 29 % (35-47) L 08/28/19 15:51 MCV 95 fL (80-97) 08/28/19 15:51 MCH 32 pg (27-31) H 08/28/19 15:51 MCHC 34 g/dL (31-36) 08/28/19 15:51 RDW 16 % (10-15) H 08/28/19 15:51 Plt Count 240 10^3/uL (150-450) 08/28/19 15:51 MPV 7.2 fL (7.4-10.4) L 08/28/19 15:51 Neut % (Auto) 58.0 % 08/28/19 15:51 Lymph % (Auto) 30.6 % 08/28/19 15:51 [place] % (Auto) 7.5 % 08/28/19 15:51 Eos % (Auto) 3.2 % 08/28/19 15:51 Baso % (Auto) 0.7 % 08/28/19 15:51 Absolute Neuts (auto) 3.4 10^3/ul (1.5-7.7) 08/28/19 15:51 Absolute Lymphs (auto) 1.8 10^3/ul (1.0-4.8) 08/28/19 15:51 Absolute Monos (auto) 0.4 10^3/ul (0-0.8) 08/28/19 15:51 Absolute Eos (auto) 0.2 10^3/ul (0-0.6) 08/28/19 15:51 Absolute Basos (auto) 0.0 10^3/ul (0-0.2) 08/28/19 15:51 Absolute Nucleated RBC 0.0 10^3/ul 08/28/19 15:51 Nucleated RBC % 0.0 08/28/19 15:51 INR (Anticoag Therapy) 1.07 (0.82-1.09) 08/28/19 15:51 APTT 43.2 seconds (26.0-38.0) H 08/28/19 15:51 Sodium 132 mmol/L (135-145) L 08/28/19 08:59 Potassium 4.6 mmol/L (3.5-5.0) 08/28/19 08:59 Chloride 94 mmol/L (101-111) L 08/28/19 08:59 Carbon Dioxide 36 mmol/L (22-32) H 08/28/19 08:59 Anion Gap 2 mmol/L (2-11) 08/28/19 08:59 BUN 9 mg/dL (6-24) 08/28/19 15:51 Creatinine 0.79 mg/dL (0.51-0.95) 08/28/19 15:51 Est GFR ( Amer) 90.4 (>60) 08/28/19 15:51 Est GFR (Non-Af Amer) 74.7 (>60) 08/28/19 15:51 BUN/Creatinine Ratio 13.8 (8-20) 08/28/19 08:59 Glucose 75 mg/dL (70-100) 08/28/19 08:59 Calcium 8.8 mg/dL (8.6-10.3) 08/28/19 08:59 Magnesium 1.7 mg/dL (1.9-2.7) L 08/26/19 08:11 Blood Type A Positive 08/23/19 05:19 Antibody Screen Negative 08/23/19 05:19 Crossmatch See Detail 08/23/19 05:19
== END 2019-08-29 09:40 | DRG 468 ==
LOC: AA 07:41 → SSU 11:30
PROVIDERS: ADMIT Orthopaedic Surgery; ATTEND Orthopaedic Surgery
PROC: 0MNN0ZZ Release Right Knee Bursa and Ligament, Open Approach (ICD-10-PCS; 2019-08-21)
PROC: 30233N1 Transfusion of Nonautologous Red Blood Cells into Peripheral Vein, Percutaneous Approach (ICD-10-PCS; 2019-08-21)
PROC: 0SPC0LZ Removal of Medial Unicondylar Synthetic Substitute from Right Knee Joint, Open Approach (ICD-10-PCS; 2019-08-23)
PROC: 0SRC0L9 Replacement of Right Knee Joint with Medial Unicondylar Synthetic Substitute, Cemented, Open Approach (ICD-10-PCS; principal; 2019-08-23 12:00)
DX: T84.022A Instability of internal right knee prosthesis, initial encounter (principal); M25.361 Other instability, right knee; I10 Essential (primary) hypertension; I48.0 Paroxysmal atrial fibrillation; F32.9 Major depressive disorder, single episode, unspecified; S83.004A Unspecified dislocation of right patella, initial encounter; D64.9 Anemia, unspecified; J45.909 Unspecified asthma, uncomplicated; F41.9 Anxiety disorder, unspecified; G89.29 Other chronic pain; Z96.653 Presence of artificial knee joint, bilateral; M19.90 Unspecified osteoarthritis, unspecified site; K21.9 Gastro-esophageal reflux disease without esophagitis; Z98.84 Bariatric surgery status; Z98.1 Arthrodesis status; Z88.2 Allergy status to sulfonamides; Z79.899 Other long term (current) drug therapy
CPT/HCPCS: 36415; 80048; 82565; 83735; 84300; 84520; 85014; 85018; 85025; 85049; 85610; 85730; 86850; 86900; 86901; 86922; 87641; 88300; A9270-GY; C1776; J0690; J1100; J1630; J1644; J1650; J1885; J2250; J2270; J2405; J2704; J3010; J3370; J3490; P9040